=== PATIENT | male | born 1955 | race Caucasian/White ===

== ENCOUNTER 2018-09-10 10:25 | Observation (INO) | payer OTHER ==
[2018-09-10] MEDS ORDERED: Furosemide 40 MG/4 ML VIAL ONE (11:18)
[2018-09-10 11:24] LABS: #Basophils 0.1 thou/uL (0.0-0.2); #Eosinphils 0.1 thou/uL (0.0-0.7); #Lymphocytes 2.1 thou/uL (1.20-3.40); #Monocytes 0.9 thou/uL (0.11-0.59); #Neutrophils 6.8 thou/uL (1.40-6.50); %Basophils 0.8 % (0.0-1.0); %Eosinophils 1.2 % (0.0-10.0); %Lymphocytes 20.9 % (21.0-51.0); %Monocytes 8.7 % (0.0-10.0); %Neutrophils 68.3 % (42.0-75.0); Hemoglobin 14.5 g/dL (14.0-18.0); Mean Corpuscular HGB CONC 32.1 g/dL (32.0-36.0); Mean Corpuscular Hemoglobin 26.8 pg (27.0-31.0); Mean Corpuscular Volume 83.5 fL (78.0-98.0); Mean Platelet Volume 8.9 fL (7.4-10.4); Platelet Count 233 thou/uL (130-400); RBC Distribution Width 14.1 % (11.5-14.5); Red Blood Cell (RBC) Count 5.42 mill/uL (4.70-6.10); White Blood Cell (WBC) Count 9.9 thou/uL (4.8-10.8)
[2018-09-10 11:39] LABS: INR-International Normal Ratio 1.3; Prothrombin Time 16.7 SEC (12.0-14.7)
[2018-09-10 12:31] LABS: Albumin 4.2 g/dL (3.5-5.0)
[2018-09-10 12:32] LABS: Chloride 99 mmol/L (98-107); Potassium 5.7 mmol/L (3.5-5.1); Sodium 134 mmol/L (136-145)
[2018-09-10 12:33] LABS: Calcium 9.9 mg/dL (7.8-10.44); Glucose 337 mg/dL (70-105)
[2018-09-10 12:34] LABS: Globulin 2.7 g/dL (2.4-3.5); Protein, Total 6.9 g/dL (6.0-8.3)
--- NOTE | 2018-09-10 12:34 | RAD ---
PA AND LATERAL CHEST: History: Shortness of breath. FINDINGS: Heart size is slightly enlarged. Post op sternotomy change. There is blunting to the left costophreni c angle and posterior sulcus. This could be chronic in nature or related to small effusion. IMPRESSION: 1. Cardiomegaly. 2. Pleural thickening versus small left pleural effusion. POS: TPC
[2018-09-10 12:35] LABS: Anion Gap 17 mmol/L (10-20); Bilirubin, Total 0.7 mg/dL (0.2-1.2); Carbon Dioxide 24 mmol/L (22-29)
[2018-09-10 12:36] LABS: Alkaline Phosphatase 162 U/L (40-150)
[2018-09-10 12:37] LABS: Calc. Creatinine Clearance 0 mL/min (70-130); Estimated GFR-MDRD 49
[2018-09-10 12:38] LABS: BUN (Urea Nitrogen) 28 mg/dL (8.4-25.7)
[2018-09-10 12:39] LABS: ALT (SGPT) 86 U/L (8-55); AST (SGOT) 80 U/L (5-34)
[2018-09-10 13:54] LABS: CKMB 4.4 ng/mL (0-6.6)
[2018-09-10] MEDS ORDERED: Aspirin Chewable 81 MG TAB ONE (14:31)
--- NOTE | 2018-09-10 15:35 | HP ---
PRIMARY CARE PHYSICIAN: Nas Diez MD REASON FOR ADMISSION: Mild CHF exacerbation. HISTORY OF PRESENT ILLNESS: A 62-year-old male, who has a known history of cardiomyopathy as well as coronary artery disease with a history of CABG, who presented to emergency room for evaluation of dyspnea. The patient was trying to make appointment with primary care physician, but he was not able to see him and that is why he directed his care to Urgent Care. He basically went there because he was feeling sinus congestion, and he also reported them that he was having increasing shortness of breath. At Urgent Care, they did routine testing and the patient was found with pleural effusion, and that is why he was advised to go to emergency room for evaluation. In the emergency room, routine blood test showed elevated BNP, hyperkalemia, and creatinine 1.46 with indeterminate troponin. The patient also reported that for last 3 days he was not taking Lasix because he was feeling nauseated and he was having a very poor appetite, so he did not want to get dehydrated and that is why he stopped taking Lasix for last three days. He noticed shortness of breath last night, as well as this morning, he noticed mild lower extremity edema. He does have chronic mild orthopnea. He denies any chest pain. Though he reported in the emergency room chest pain, but he denies any chest pain to me. He feels nasal congestion, but he denies any recent upper respiratory infection with runny nose, sore throat, flu-like illness. 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 He reports that several years ago when he was diagnosed with congestive heart failure, at that time, EF was 35% and cardiac catheterization was done, which showed 3-vessel coronary artery disease, required CABG, and after CABG, he had continuous improvement and last EF based on echocardiography in October 2017 per the patient was 55%. The patient is religiously taking all his medication other than Lasix for last 3 days. He is not tolerating cholesterol medication because that gives him muscle pain. REVIEW OF SYSTEMS: CONSTITUTIONAL: Negative for weight loss or gain, ability to conduct usual activities. SKIN: Negative for rash, itching. EYES: Negative for double vision, pain. ENT/MOUTH: Negative for nose bleeding, neck stiffness, pain, tenderness. CARDIOVASCULAR: Negative for palpitations, dyspnea on exertion, orthopnea. RESPIRATORY: Negative for shortness of breath, wheezing, cough, hemoptysis, fever or night sweats. GASTROINTESTINAL: Negative for poor appetite, abdominal pain, heartburn, nausea , vomiting, constipation, or diarrhea. GENITOURINARY: Negative for urgency, frequency, dysuria, nocturia. MUSCULOSKELETAL: Negative for pain, swelling. NEUROLOGIC/PSYCHIATRIC: Negative for anxiety, depression. ALLERGY/IMMUNOLOGIC: Negative for skin rash, bleeding tendency. All review of systems reviewed with the patient and negative, except as mentioned in the HPI. PAST MEDICAL HISTORY: Diabetes type 2, hypertension, dyslipidemia, coronary artery disease, chronic kidney disease stage 3, chronic systolic congestive heart failure. PAST SURGICAL HISTORY: CABG, cataract surgery, hernia repair, tonsillectomy. PAST PSYCHIATRIC HISTORY: Reviewed and negative. SOCIAL HISTORY: The patient is denying any tobacco, alcohol, or illicit drug abuse. He is working in [employer]. CURRENT HOME MEDICATIONS: 1. NovoLog insulin 20 units subcu 3 times daily. 2. Metformin 1000 mg twice daily. 3. Coreg 3.125 mg b.i.d. 4. Lisinopril 10 mg daily. 5. Lasix 20 mg p.o. daily. 6. Aspirin 325 mg p.o. daily. 7. He is supposed to take Zocor 40 mg p.o. at bedtime, but he is not taking that medication. ALLERGIES: NO KNOWN DRUG ALLERGY. EMERGENCY ROOM COURSE: The patient has received Lasix 40 mg IV one time dose. FAMILY HISTORY: No Family history of CAD, CVA or cancer. PHYSICAL EXAMINATION: VITAL SIGNS: On arrival, blood pressure 147/97, pulse 99, respiratory rate 14, temperature 98.2, saturation 98% on room air, weight 95.2 kg. GENERAL: The patient is currently alert, oriented x3, no obvious acute distress. HEENT: Head; normocephalic, atraumatic. Eyes; pupils round, reactive to light. Extraocular muscles intact. ENT; oropharynx within normal limit. Moist mucous membrane. No oral lesion. No pharyngeal erythema. No exudate. NECK: Supple. LUNGS: Bibasilar coarse rales noted. No wheezing. No accessory muscles of respiration in use. CARDIAC: S1 and S2 regular without any gallop. No murmur elicited. ABDOMEN: Soft. Bowel sounds present. Nontender. Nondistended. No organomegaly. No mass. No peritoneal sign. EXTREMITIES: Trace pedal edema noted. NEUROLOGIC: Nonfocal examination. SIGNIFICANT LABORATORY DATA: EKG showing sinus tachycardia, mild incomplete RBBB pattern. CBC; WBC 9.9, hemoglobin 14.5, platelet 233. INR 1.3. Sodium 134, potassium 5.7, chloride 99, carbon dioxide 24, BUN 28, creatinine 1.46, glucose 337, calcium 9.9. LFT; AST 88, ALT 86, alkaline phosphatase 162, albumin 4.2, CK-MB 4.4, troponin 0.050. BNP 1505. Chest x-ray, left-sided trace pleural effusion, cardiomegaly. ASSESSMENT AND PLAN: 1. Acute on chronic systolic congestive heart failure ACC stage C based on clinical presentation with dyspnea, edema, elevated BNP, cardiomegaly, pleural effusion. He has congestive heart failure with known history of previous systolic heart failure. We will obtain echocardiography to assess ejection fraction and other structural abnormality. Meanwhile, we will treat him with Lasix 40 mg IV b.i.d. We will also give him Zaroxolyn today and tomorrow. Upon discharge, we will resume his own Lasix. We will continue with Coreg 3.125 mg p.o. b.i.d. We will hold on lisinopril therapy because of his hyperkalemia. We will repeat BMP tomorrow. We will check magnesium, thyroid, TSH, and uric acid. Replace electrolytes as needed basis. We will do serial cardiac enzyme and rule out any acute coronary syndrome. 2. Electrolyte abnormality. Sodium is low, likely related with congestive heart failure. Hyperkalemia probably related with lisinopril. 3. Chronic kidney disease stage 3, which is baseline. We will monitor renal function. 4. Abnormal liver function test, suspecting from congestion versus fatty liver. We will repeat LFT tomorrow. 5. Diabetes type 2, uncontrolled. We will hold metformin while in hospital. Continue with insulin as per sliding scale, and his home insulin will be continued. We will check hemoglobin A1c tomorrow to see overall control. 6. Elevated troponin. We will do serial cardiac enzyme x3. Most likely related with demand ischemia. 7. Coronary artery disease with history of coronary artery bypass graft. Continue aspirin. Check lipid profile tomorrow. The patient is not tolerating statin therapy because of myalgia. If troponin is significantly increasing, then in that case, we will consider Cardiology evaluation. Nitroglycerin p.r.n. basis only. 8. Deep vein thrombosis prophylaxis, Lovenox 40 mg subcu daily. Gastrointestinal prophylaxis, Pepcid 20 mg p.o. b.i.d. CODE STATUS: The patient is full code. The patient does make decision by himself. He does not have any obvious surrogate decision maker. DISPOSITION: Disposition plan within 24 hours. Plan of care discussed with the patient in detail. Job ID: [id number] [facility] CENTERNadira
[2018-09-10] MEDS ORDERED: Acetaminophen 325 MG TAB PO PRN (16:31)
[2018-09-10] MEDS ORDERED: Senokot S 8.6-50 MG TAB PO PRN (16:31)
[2018-09-10] MEDS ORDERED: Metolazone 5 MG TAB PO SCH (16:31)
[2018-09-10] MEDS ORDERED: Dextrose 50% Abboject 50 ML SYRINGE SLOW IVP PRN (16:31)
[2018-09-10] MEDS ORDERED: Zolpidem Tartrate 5 MG TAB PO PRN (16:31)
[2018-09-10] MEDS ORDERED: Dextrose 5% in Water 1,000 ML IV PRN (16:31)
[2018-09-10] MEDS ORDERED: Eucerin (Mineral Oil/Petrolatum,White) 30 gm Jar TOP PRN (16:31)
[2018-09-10] MEDS ORDERED: Sodium Chloride 0.65% Nasal 44 ML BOT EA NARE PRN (16:31)
[2018-09-10] MEDS ORDERED: hydrALAZINE 20 MG/ML VIAL SLOW IVP PRN (16:31)
[2018-09-10] MEDS ORDERED: Bisacodyl 10 MG SUPP PR PRN (16:31)
[2018-09-10] MEDS ORDERED: Ondansetron ODT 4 MG TAB PO PRN (16:31)
[2018-09-10] MEDS ORDERED: Loratadine 10 MG TAB PO PRN (16:31)
[2018-09-10] MEDS ORDERED: Bisacodyl 5 MG TAB PO PRN (16:31)
[2018-09-10] MEDS ORDERED: Artificial Tears 18 DROP/0.9 ML EA EYE PRN (16:31)
[2018-09-10] MEDS ORDERED: Diabetic Tussin 200 MG/10 ML UDCUP PO PRN (16:31)
[2018-09-10] MEDS ORDERED: HumaLOG 300 UNITS/3 ML VIAL SC PRN ×2 (16:31)
[2018-09-10] MEDS ORDERED: Ondansetron PF 4 MG/2 ML Vial IVP PRN (16:31)
[2018-09-10] MEDS ORDERED: Loperamide HCl 2 MG CAP PO PRN (16:31)
[2018-09-10] MEDS ORDERED: Calcium Carbonate 500 MG ChewTAB PO PRN (16:31)
[2018-09-10] MEDS ORDERED: Cepastat Lozenges 1 LOZ PO PRN (16:31)
[2018-09-10] MEDS ORDERED: HYDROcodone/Acetaminophen 5/325 mg Tablet PO PRN (16:31)
[2018-09-10] MEDS ORDERED: Nitroglycerin 0.4 MG TAB (25 Tab Bottle) SL PRN (16:31)
[2018-09-10 20:33] LABS: Troponin I 0.063 ng/mL (< 0.028)
[2018-09-10 21:07] LABS: Bilirubin Negative (Negative); Blood, Urine Negative (Negative); Clarity CLEAR (Clear); Glucose, Urine (Dipstick) >=1000 mg/dL (Negative); Leukocyte Negative (Negative); Nitrite Negative (Negative); Protein, Urine (Dipstick) Negative (Neg-Trace); Specific Gravity, Urine 1.022 (1.002-1.036); pH, Urine 5.5 (5.0-9.0)
[2018-09-10] MEDS: Famotidine 20 MG TAB PO SCH (21:18)
[2018-09-10] MEDS: Carvedilol 3.125 MG TAB PO SCH (21:18)
[2018-09-11 01:20] VITALS: BMI 31.3
[2018-09-11 05:22] LABS: #Basophils 0.1 thou/uL (0.0-0.2); #Eosinphils 0.2 thou/uL (0.0-0.7); #Lymphocytes 1.6 thou/uL (1.20-3.40); #Monocytes 0.8 thou/uL (0.11-0.59); #Neutrophils 4.4 thou/uL (1.40-6.50); %Basophils 1.2 % (0.0-1.0); %Eosinophils 2.9 % (0.0-10.0); %Lymphocytes 23.2 % (21.0-51.0); %Monocytes 10.9 % (0.0-10.0); %Neutrophils 61.7 % (42.0-75.0); Hemoglobin 13.7 g/dL (14.0-18.0); Mean Corpuscular HGB CONC 32.8 g/dL (32.0-36.0); Mean Corpuscular Hemoglobin 27.2 pg (27.0-31.0); Mean Corpuscular Volume 82.9 fL (78.0-98.0); Mean Platelet Volume 8.7 fL (7.4-10.4); Platelet Count 203 thou/uL (130-400); RBC Distribution Width 14.4 % (11.5-14.5); Red Blood Cell (RBC) Count 5.05 mill/uL (4.70-6.10)
[2018-09-11] MEDS: Furosemide 40 MG/4 ML VIAL SLOW IVP SCH ×2 (05:29→13:05)
[2018-09-11 05:31] LABS: Hemoglobin A1c 11.8 % (4.0-6.0)
[2018-09-11 05:43] LABS: ALT (SGPT) 81 U/L (8-55); AST (SGOT) 60 U/L (5-34); Albumin 3.7 g/dL (3.5-5.0); Alkaline Phosphatase 140 U/L (40-150); Anion Gap 16 mmol/L (10-20); BUN (Urea Nitrogen) 29 mg/dL (8.4-25.7); Bilirubin, Total 0.4 mg/dL (0.2-1.2); Calc. Creatinine Clearance 76 mL/min (70-130); Calcium 9.3 mg/dL (7.8-10.44); Carbon Dioxide 27 mmol/L (22-29); Chloride 95 mmol/L (98-107); Cholesterol 153 mg/dl (< 200 Desired); Estimated GFR-MDRD 54; Globulin 2.4 g/dL (2.4-3.5); Glucose 290 mg/dL (70-105); HDL Cholesterol 22 mg/dL (>60 Neg Risk); LDL Cholesterol, Calculated 110 mg/dL; Magnesium 1.5 mg/dL (1.6-2.6); Potassium 4.6 mmol/L (3.5-5.1); Protein, Total 6.1 g/dL (6.0-8.3); Sodium 133 mmol/L (136-145); Triglycerides 107 mg/dL (Less than 150); Uric Acid 8.4 mg/dL (3.5-7.2)
[2018-09-11] MEDS ORDERED: Metolazone 5 MG TAB PO SCH (08:30)
[2018-09-11] MEDS: Famotidine 20 MG TAB PO SCH (08:31)
[2018-09-11] MEDS: Carvedilol 3.125 MG TAB PO SCH (08:32)
[2018-09-11] MEDS ORDERED: Aspirin 325 MG TAB PO SCH (09:00)
[2018-09-11] MEDS ORDERED: Enoxaparin Sodium 40 MG/0.4 ML SYRINGE SC SCH (09:00)
[2018-09-11] MEDS ORDERED: Fluticasone Propionate Nasal Spray 16 gm Bottle NASAL SCH (09:00)
[2018-09-11] MEDS ORDERED: NPH, Human Insulin Isophane 300 UNIT/3 ML VIAL SC SCH ×3 (09:00→17:00)
[2018-09-11] MEDS ORDERED: Magnesium Sulfate 3 GM in Sodium Chloride 0.9% 100 ML IVPB SCH (09:00)
[2018-09-11 11:34] VITALS: TEMP 97.5
--- NOTE | 2018-09-11 11:35 | DIS ---
DATE OF ADMISSION: 09/10/2018 DATE OF DISCHARGE: 09/11/2018 PRIMARY CARE PHYSICIAN: Nas Diez MD DISCHARGE DISPOSITION: Home. PRIMARY DISCHARGE DIAGNOSES: 1. Acute on chronic systolic congestive heart failure exacerbation. 2. Demand ischemia of myocardium. 3. Hypomagnesemia, replaced. SECONDARY DISCHARGE DIAGNOSES: Obesity, hypertension, dyslipidemia, diabetes type 2, chronic kidney disease stage 3, coronary artery disease, chronic systolic heart failure. PRIMARY PROCEDURE/OPERATION: None. RADIOLOGICAL INVESTIGATION: Chest x-ray showed left pleural effusion. SIGNIFICANT LABORATORY DATA: WBC 7.0, hemoglobin 13.7, platelet 203. INR 1.3. Sodium 133, potassium 4.6, BUN 29, creatinine 1.35, calcium 8.4, magnesium 1.5. Hemoglobin A1c 11.8. AST 60, ALT 81, alkaline phosphatase 140, albumin 3.7. LDL 110. TSH 0.79. Urinalysis unremarkable. DISCHARGE MEDICATIONS: 1. Aspirin 325 mg p.o. daily. 2. Coreg 3.125 mg p.o. b.i.d. 3. Lasix 40 mg p.o. daily. 4. Novolin N 20 units subcu t.i.d. 5. Lisinopril 10 mg daily. 6. Metformin 1000 mg p.o. b.i.d. 7. Tramadol 50 mg q.6 hourly p.r.n. CONTRAINDICATION: None. CODE STATUS: Full code. 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 Rojo was consulted while in hospital. TEST RESULT PENDING ON DISCHARGE: Echocardiography. DISCHARGE PLAN: Posthospital, the patient will follow up with primary care physician as well as Cardiology, Dr. Rojo, after discharge. HOSPITAL COURSE: A 62-year-old male with above-mentioned medical problem, who was admitted by me. Please see my HPI for further details. This patient has underlying history of congestive heart failure. He was having increasing shortness of breath, and that is why we kept him in the hospital. We treated him with Lasix and Zaroxolyn with significant improvement. This patient's diabetes is not well controlled, but he wanted to see his primary care physician for further adjustment of therapy. To establish the care, we consulted Cardiology. Echocardiography is ordered, but result is pending. Later on today, after Cardiology consultation and echocardiography done, we will consider discharging him home as the patient wants to go home today. He will continue above-mentioned medication. The patient is medically stable. I saw him bedside and examined him. His examination is normal. He is given heart failure education and dietary education. Fluid restriction discussed with him. The patient is also advised to make appointment with Cardiology and Heart Failure [facility] after discharge. Job ID: [id number]
[2018-09-11 11:47] VITALS: BP 136/88
--- NOTE | 2018-09-11 15:38 | CON ---
DATE OF CONSULTATION: REASON FOR CONSULTATION: Congestive heart failure. HISTORY OF PRESENT ILLNESS: Mr. Ba is a 62-year-old gentleman, who previously was seen at [facility]. He no longer has insurance covered at [facility] ([place]) and is no longer being seen. He recently presented to an outpatient urgent care with sinus infection. He mentioned he had shortness of breath and lower extremity edema. He was recommended to proceed to the emergency room. He denies PND or orthopnea. He currently feels well and back to baseline. PAST MEDICAL HISTORY: CAD status post bypass surgery 2 years ago, diabetes mellitus, hyperlipidemia, and chronic kidney disease. PAST SURGICAL HISTORY: As above. Cataract surgery, hernia repair, and tonsillectomy. HOME MEDICATIONS: Include; 1. NovoLog. 2. Metformin. 3. Coreg. 4. Lisinopril. 5. Lasix. 6. Aspirin. ALLERGIES: NONE. REVIEW OF SYSTEMS: A 10-point review of systems is reviewed and as above, otherwise negative. PHYSICAL EXAMINATION: VITAL SIGNS: Blood pressure 139/89, pulse 79, and temperature 97.5. GENERAL: Patient is a pleasant male who is in no acute distress. The patient appears their stated age. NEUROLOGIC: The patient is alert and oriented x3 with no focal neurologic deficits. HEENT: Sclerae without icterus. Mouth has moist mucous membranes with normal pallor. NECK: No JVD. Carotid upstroke brisk. No bruits bilaterally. LUNGS: Clear to auscultation with unlabored respirations. BACK: No scoliosis or kyphosis. CARDIAC: Regular rate and rhythm with normal S1 and S2. No S3 or S4 noted. No significant rubs, murmurs, thrills, or gallops noted throughout the precordium. PMI is not displaced. There is no parasternal heave. ABDOMEN: Soft, nontender, nondistended. No peritoneal signs present. No hepatosplenomegaly. No abnormal striae. EXTREMITIES: 2+ femoral and 2+ dorsalis pedis pulses. No cyanosis, clubbing, or edema. SKIN: No gross abnormalities. PERTINENT LABORATORY DATA: Hemoglobin 13.7, hematocrit 41.9, and platelet count of 203. IMPRESSION: 1. Acute on chronic systolic heart failure. 2. Coronary artery disease. 3. Status post bypass surgery. RECOMMENDATIONS: Mr. Ba is back to baseline. His LVEF did suggest LVEF 25% to 30%. I discussed the importance of LifeVest given his low LVEF. He states he is ready to go home and would prefer to do this as an outpatient. He understands risks of sudden cardiac , although risks are low over the next several weeks. Continue beta-maegan therapy, angiotensin-converting enzyme inhibitor therapy, and aspirin. We would also add statin therapy. Plan is follow up Mr. Ba in the office in 1 week. Job ID: [id number]
[2018-09-12] MEDS ORDERED: metFORMIN 500 MG TAB PO SCH (09:00)
== END 2018-09-11 15:26 | disposition home or self-care (01) ==
LOC: ERS 10:25 → ERHOLD 14:22 → 2NO 19:26
PROVIDERS: ADMIT Internal Medicine; ATTEND Internal Medicine
DX: I13.0 Hypertensive heart and chronic kidney disease with heart failure and stage 1 through stage 4 chronic kidney disease, or unspecified chronic kidney disease (principal); E11.22 Type 2 diabetes mellitus with diabetic chronic kidney disease; N18.3 Chronic kidney disease, stage 3 (moderate); I50.23 Acute on chronic systolic (congestive) heart failure; I24.8 Other forms of acute ischemic heart disease; E83.42 Hypomagnesemia; I25.10 Atherosclerotic heart disease of native coronary artery without angina pectoris; E87.5 Hyperkalemia; E78.5 Hyperlipidemia, unspecified; R94.5 Abnormal results of liver function studies; E66.9 Obesity, unspecified; Z68.31 Body mass index [BMI] 31.0-31.9, adult; Z79.4 Long term (current) use of insulin; Z79.82 Long term (current) use of aspirin; Z79.899 Other long term (current) drug therapy; Z95.1 Presence of aortocoronary bypass graft
CPT/HCPCS: 36415; 36416; 71046; 80053; 80061; 81003; 82553; 83036; 83735; 83880; 84443; 84484; 84550; 85025; 85610; 85730; 93005; 93306; 93798; 94760; 96372; 96374; 96375; 96376; G0378; J1650; J1815; J1940; J3475; J7050

== ENCOUNTER 2019-01-01 04:52 | Observation (INO) | payer OTHER ==
[2019-01-01] MEDS ORDERED: Promethazine HCl 25 MG/ML VIAL ONE (05:16)
[2019-01-01 05:21] LABS: #Basophils 0.1 thou/uL (0.0-0.2); #Eosinphils 0.2 thou/uL (0.0-0.7); #Monocytes 1.2 thou/uL (0.11-0.59); #Neutrophils 7.2 thou/uL (1.40-6.50); %Basophils 0.7 % (0.0-1.0); %Eosinophils 1.8 % (0.0-10.0); %Lymphocytes 18.5 % (21.0-51.0); %Monocytes 11.5 % (0.0-10.0); %Neutrophils 67.5 % (42.0-75.0); Hemoglobin 14.7 g/dL (14.0-18.0); Mean Corpuscular HGB CONC 32.1 g/dL (32.0-36.0); Mean Corpuscular Hemoglobin 26.2 pg (27.0-31.0); Mean Corpuscular Volume 81.7 fL (78.0-98.0); Mean Platelet Volume 8.7 fL (7.4-10.4); Platelet Count 224 thou/uL (130-400); RBC Distribution Width 13.9 % (11.5-14.5); Red Blood Cell (RBC) Count 5.62 mill/uL (4.70-6.10); White Blood Cell (WBC) Count 10.6 thou/uL (4.8-10.8)
[2019-01-01 05:42] LABS: ALT (SGPT) 154 U/L (8-55); AST (SGOT) 131 U/L (5-34); Albumin 4.4 g/dL (3.4-4.8); Alkaline Phosphatase 142 U/L (40-150); Anion Gap 15 mmol/L (10-20); BUN (Urea Nitrogen) 32 mg/dL (8.4-25.7); Bilirubin, Total 0.8 mg/dL (0.2-1.2); CK (CPK) 168 U/L (30-200); Calc. Creatinine Clearance 0 mL/min (70-130); Carbon Dioxide 26 mmol/L (23-31); Chloride 97 mmol/L (98-107); Estimated GFR-MDRD 49; Globulin 2.8 g/dL (2.4-3.5); Glucose 255 mg/dL (80-115); Potassium 4.9 mmol/L (3.5-5.1); Protein, Total 7.2 g/dL (5.8-8.1); Sodium 133 mmol/L (136-145)
[2019-01-01 06:05] LABS: CKMB 4.2 ng/mL (0-6.6)
[2019-01-01] MEDS ORDERED: Furosemide 40 MG/4 ML VIAL ONE (06:58)
--- NOTE | 2019-01-01 08:11 | RAD ---
PORTABLE CHEST: Date: 01/01/19 HISTORY: Chest pain. COMPARISON: 09/10/18. FINDINGS: Left CP angle is obscured and left hemidiaphragm is not well delineated. Findings suggest left effusi on and left basilar infiltrate or atelectasis, similar in appearance to the prior exam. Lung cerda otherwise clear and unchanged. There is mild cardiomegaly with postop sternotomy changes. IMPRESSION: Question left basilar infiltrate or atelectasis as described above. POS: OFF
[2019-01-01 08:43] VITALS: BMI 31.0
[2019-01-01] MEDS ORDERED: Dextrose 5% in Water 1,000 ML IV PRN (08:48)
[2019-01-01] MEDS ORDERED: Dextrose 50% Abboject 50 ML SYRINGE SLOW IVP PRN (08:48)
[2019-01-01] MEDS ORDERED: HumaLOG 300 UNITS/3 ML VIAL SC PRN ×2 (08:48)
[2019-01-01] MEDS ORDERED: Non-Formulary Item 1 EACH (Metformin Hcl [Metformin Hcl] 1,000 MG) PO SCH (09:00)
[2019-01-01] MEDS ORDERED: Aspirin 325 MG TAB PO SCH (09:00)
[2019-01-01] MEDS ORDERED: Insulin Glargine 40 UNITS in Pre-Filled Syringe 1 EACH SC SCH ×2 (09:00→21:00)
[2019-01-01] MEDS ORDERED: Carvedilol 3.125 MG TAB PO SCH (09:00)
[2019-01-01] MEDS: Lisinopril 10 MG TAB PO SCH (09:45)
[2019-01-01] MEDS: metFORMIN 500 MG TAB PO SCH ×2 (09:46→21:07)
[2019-01-01 12:05] LABS: Troponin I 0.058 ng/mL (< 0.028)
[2019-01-01] MEDS ORDERED: Acetaminophen 325 MG TAB PO PRN (13:36)
[2019-01-01] MEDS ORDERED: Guaifenesin DM 100-10/5 ML UDCUP PO PRN (13:36)
[2019-01-01] MEDS ORDERED: Acetaminophen 650 MG Suppository PR PRN (13:36)
[2019-01-01] MEDS ORDERED: Ondansetron ODT 4 MG TAB PO PRN (13:36)
[2019-01-01] MEDS ORDERED: Ondansetron PF 4 MG/2 ML Vial IVP PRN (13:36)
[2019-01-01] MEDS ORDERED: traMADol HCl 50 MG TAB PO PRN (13:43)
[2019-01-01] MEDS: Furosemide 40 MG/4 ML VIAL SLOW IVP SCH (13:58)
--- NOTE | 2019-01-01 17:28 | HP ---
PRIMARY CARE PHYSICIAN: Nas Diez MD CHIEF COMPLAINT: Dyspnea on exertion. HISTORY OF PRESENT ILLNESS: This is a 63-year-old white male with a known history of coronary artery disease, CABG done 2 years ago, who developed acute onset of congestive heart failure earlier this year in August. He was in the hospital for a day. He had diuresis done and resolution of his symptoms. He had been having dyspnea on exertion and also twinging chest pains. The patient followed with Dr. Rojo and had seen him regularly. He had a stress test done and it was normal in the outpatient. He then started feeling a little nauseated after eating a meal with his on Monday. His got nauseated and vomited and had gastroenteritis. He started feeling nauseated and vomited once as well. The next day, he felt nauseated also and started having dyspnea on exertion. He did not notice any significant swelling of his legs, but did start having some twinging chest pains occasionally, sharp pinch in his chest or in his mid back, but it would immediately resolve. He had vomiting again yesterday and so eventually came into the hospital. The patient was seen in the emergency room. He was noted to have an indeterminate troponin that was consistent with his previous troponins from August. He also had a brain natriuretic peptide that was slightly worse from his last hospitalization, and so he was given furosemide in the emergency room and put in observation in the hospital. PAST MEDICAL HISTORY: 1. Diabetes mellitus type 2, insulin dependent. 2. Hypertension. 3. Dyslipidemia. 4. Coronary artery disease. 5. Chronic kidney disease, stage 3. 6. Chronic systolic congestive heart failure with an ejection fraction of 25% to 30% in August of 2018. PAST SURGICAL HISTORY: 1. Coronary artery bypass grafting. 2. Cataract surgery. 3. Hernia repair. 4. Tonsillectomy. SOCIAL HISTORY: The patient quit smoking 30 years ago. No alcohol or illicit drug use. He is and lives with his . FAMILY HISTORY: Mother and maternal grandfather both had coronary artery disease. Mother of lung cancer. Father and paternal grandmother both had congestive heart failure, and he had an aunt and uncle who of acute myocardial infarctions. ALLERGIES: NO KNOWN DRUG ALLERGIES. CURRENT MEDICATIONS: 1. Aspirin 81 mg daily. 2. Carvedilol 6.25 mg 1-1/2 tablets twice a day. 3. Furosemide 40 mg daily. 4. Tresiba 40 units at night. 5. Lisinopril 10 mg daily. 6. Metformin 1000 mg twice a day. REVIEW OF SYSTEMS: CONSTITUTIONAL: No fevers. No chills. EYES: No double vision or blurred vision. ENT: He has a little runny nose. No congestion or sore throat. CARDIOVASCULAR: See HPI. No palpitations. No current chest pain. PULMONARY: See HPI. No coughing or sputum production. No shortness of breath at rest. GASTROINTESTINAL: See HPI. The patient does have some crampy mid epigastric pain that is much better now after nausea medicine given in the emergency room. No diarrhea or constipation. GENITOURINARY: No dysuria or hematuria. MUSCULOSKELETAL: He has some generalized muscle aches for the last couple of days. SKIN: No rashes or lesions noted. NEUROLOGIC: No numbness, tingling, or focal weakness. PHYSICAL EXAMINATION: VITAL SIGNS: Blood pressure 123/78, pulse 80, respirations 20, O2 saturation 96% on room air, temperature 98.6. GENERAL: This is a well-developed, well-nourished white male, in no acute distress. HEENT: Pupils are equal, round, and reactive to light. Oropharynx is clear without lesions, erythema, or exudate. NECK: Supple. No lymphadenopathy. No thyroid nodules or enlargement. HEART: Regular rate and rhythm. No murmurs, rubs, or gallops. LUNGS: Clear to auscultation bilaterally. No wheezes, crackles, or rhonchi. ABDOMEN: Soft. Mild tenderness to palpation in the mid epigastric region. Normoactive bowel sounds. No hepatosplenomegaly or other masses. EXTREMITIES: No clubbing, cyanosis, or edema. SKIN: No rashes or lesions noted. NEUROLOGIC: Intact strength and sensation in all extremities. No facial droop. LABORATORY DATA: CBC within normal limits. Complete metabolic panel notable for a sodium of 133, chloride of 97, BUN of 32, creatinine of 1.45, glucose of 255, AST of 131, ALT of 154. Negative lipase. Troponin indeterminate at 0.072, recheck 0.060. These are consistent with previous admission. Beta natriuretic peptide 1696, which is higher than the 1500 he came in with his CHF exacerbation last time. DIAGNOSTIC DATA: I reviewed the chest x-ray done in the emergency room along with the radiologist's report. There is some questionable atelectasis in the left base, otherwise clear of any evidence of pulmonary edema or infection. ASSESSMENT AND PLAN: 1. Acute exacerbation of systolic congestive heart failure. We will give Lasix 40 mg IV twice a day and recheck symptoms in the morning. The patient is having some mild pinching chest pains. These are very mild. He has no corresponding elevation of his troponins. He did have a coronary artery bypass grafting within the last couple of years and a recent negative stress test, so I am doubtful that he is having any symptomatic angina. We will reassess his symptoms after diuresis in the morning. If the patient is continuing to be very symptomatic, then we may need to get Dr. Rojo to come by and see him. 2. Nausea and vomiting, likely acute gastroenteritis similar to his 's symptoms. This may have been what set off his recent exacerbation of congestive heart failure. We will give p.r.n. Zofran as needed. Currently, he is feeling better. 3. Diabetes mellitus type 2, insulin dependent. We will resume the patient's insulin, and we will check his fingerstick blood sugars before meals and at bedtime with moderate insulin sliding scale. 4. Hypertension. We will resume the patient's home medications. 5. Chronic kidney disease. We will monitor creatinine closely as we diurese him. 6. Gastrointestinal prophylaxis. We will put the patient on Pepcid twice a day. 7. Deep venous thrombosis prophylaxis. We will put the patient on SCDs while in bed. CODE STATUS: I did discuss with the patient he is a full code. Should he be incapacitated, he states that his would be his medical decision maker, her name is Ban Ba. Job ID: [id number]
[2019-01-01] MEDS ORDERED: Non-Formulary Item 1 EACH (Insulin Degludec [Tresiba Flextouch U-100] 40 UNIT) SC SCH (21:00)
[2019-01-01] MEDS ORDERED: Carvedilol 6.25 MG TAB PO SCH (21:00)
[2019-01-01] MEDS: Carvedilol 6.25 MG TAB PO SCH (21:06)
[2019-01-01] MEDS: Famotidine 20 MG TAB PO SCH (21:07)
[2019-01-02 05:31] LABS: #Basophils 0.1 thou/uL (0.0-0.2); #Eosinphils 0.3 thou/uL (0.0-0.7); #Lymphocytes 1.7 thou/uL (1.20-3.40); #Monocytes 0.8 thou/uL (0.11-0.59); %Eosinophils 4.5 % (0.0-10.0); %Monocytes 11.9 % (0.0-10.0); %Neutrophils 58.7 % (42.0-75.0); Hemoglobin 13.1 g/dL (14.0-18.0); Mean Corpuscular HGB CONC 32.4 g/dL (32.0-36.0); Mean Corpuscular Hemoglobin 26.6 pg (27.0-31.0); Mean Corpuscular Volume 81.9 fL (78.0-98.0); Mean Platelet Volume 8.6 fL (7.4-10.4); Platelet Count 184 thou/uL (130-400); RBC Distribution Width 13.9 % (11.5-14.5); Red Blood Cell (RBC) Count 4.94 mill/uL (4.70-6.10); White Blood Cell (WBC) Count 6.9 thou/uL (4.8-10.8)
[2019-01-02 05:58] LABS: Anion Gap 16 mmol/L (10-20); BUN (Urea Nitrogen) 35 mg/dL (8.4-25.7); Calc. Creatinine Clearance 82 mL/min (70-130); Calcium 9.1 mg/dL (7.8-10.44); Carbon Dioxide 25 mmol/L (23-31); Chloride 96 mmol/L (98-107); Estimated GFR-MDRD 59; Glucose 198 mg/dL (80-115); Potassium 3.6 mmol/L (3.5-5.1); Sodium 133 mmol/L (136-145)
[2019-01-02] MEDS: Furosemide 40 MG/4 ML VIAL SLOW IVP SCH (06:05)
--- NOTE | 2019-01-02 07:18 | PDOC.PN ---
- Subjective Encounter Start Date: 01/02/19 Encounter Start Time: 09:10 Subjective: Patient feeling much better. Eating well now. No SOB. Ambulating -: well. Ready to go home. - Objective Resuscitation Status - Order Detail: 01/01/19 13:33 Resuscitation Status Routine Resuscitation Status: FULL: Full Resuscitation Discussed with: patient MAR Reviewed: Yes Vital Signs & Weight: Vital Signs (12 hours) Temp Pulse Resp BP BP Pulse Ox 01/02/19 03:43 97.5 F L 76 20 114/65 97 01/01/19 23:37 98.2 F 78 16 122/67 96 01/01/19 21:06 109/73 Weight Weight 204 lb I&O: 01/01/19 01/02/19 01/03/19 06:59 06:59 06:59 Intake Total 1445 Output Total 2225 Balance -780 Result Diagrams: 01/02/19 04:48 01/02/19 04:48 Additional Labs: Accuchecks 01/01/19 01/01/19 01/01/19 23:38 20:38 16:38 POC Glucose 283 H Greater than 550 H* 291 H 01/01/19 10:48 POC Glucose 271 H Phys Exam - Physical Examination Constitutional: NAD HEENT: moist MMs Respiratory: no wheezing, no rales, no rhonchi, clear to auscultation bilateral Cardiovascular: RRR, no significant murmur Gastrointestinal: soft, positive bowel sounds Musculoskeletal: no edema Neurological: non-focal Psychiatric: normal affect, A&O x 3 Dx/Plan (1) Acute on chronic systolic ACC/AHA stage C congestive heart failure Code(s): I50.23 - ACUTE ON CHRONIC SYSTOLIC (CONGESTIVE) HEART FAILURE Status : Acute Comment: diuresed well overnight (2) Acute gastroenteritis Code(s): K52.9 - NONINFECTIVE GASTROENTERITIS AND COLITIS, UNSPECIFIED Status : Resolved Comment: nausea and vomiting resolved, with same symptoms, likely viral (3) Diabetes mellitus type 2, insulin dependent Code(s): E11.9 - TYPE 2 DIABETES MELLITUS WITHOUT COMPLICATIONS; Z79.4 - ALF (CURRENT) USE OF INSULIN Status: Acute Comment: uncontrolled, may need increased insulin dose (4) Acute worsening of stage 3 chronic kidney disease Code(s): N18.3 - CHRONIC KIDNEY DISEASE, STAGE 3 (MODERATE) Status: Acute Comment: resolved this AM after diuresis (5) CAD (coronary artery disease) Code(s): I25.10 - ATHSCL HEART DISEASE OF [place] CORONARY ARTERY W/O ANG PCTRS Status: Chronic Comment: S/P CABG 2 years ago, recent negative stress test (6) Dyslipidemia Code(s): E78.5 - HYPERLIPIDEMIA, UNSPECIFIED Status: Chronic (7) Hypertension Code(s): I10 - ESSENTIAL (PRIMARY) HYPERTENSION Status: Chronic (8) Obesity (BMI 30.0-34.9) Code(s): E66.9 - OBESITY, UNSPECIFIED Status: Chronic - Plan cont current plan of care D/C home, f/u about DM with PCP and with Dr. Rojo next 1-2 weeks * . - Discharge Day Encounter end time: 09:35
[2019-01-02 07:55] VITALS: TEMP 97.6
[2019-01-02] MEDS: Famotidine 20 MG TAB PO SCH (08:31)
[2019-01-02] MEDS: metFORMIN 500 MG TAB PO SCH (08:31)
[2019-01-02] MEDS: Carvedilol 6.25 MG TAB PO SCH (08:31)
[2019-01-02] MEDS: Lisinopril 10 MG TAB PO SCH (08:31)
[2019-01-02 08:33] VITALS: BP 109/73
[2019-01-02] MEDS ORDERED: Aspirin Chewable 81 MG TAB PO SCH (09:00)
--- NOTE | 2019-01-03 01:57 | DIS ---
DATE OF ADMISSION: 01/01/2019 DATE OF DISCHARGE: 01/02/2019 PRIMARY CARE PHYSICIAN: Dr. Nas Diez. PAVING CONTRACTOR: Dr. Rojo. REASON FOR ADMISSION: Acute exacerbation of systolic congestive heart failure. DIAGNOSES AT DISCHARGE: 1. Acute on chronic systolic congestive heart failure, stage C, improved. 2. Acute gastroenteritis, resolved. 3. Diabetes mellitus type 2, insulin dependent with hyperglycemia. 4. Acute worsening of stage 3 chronic kidney disease, resolved. 5. Coronary artery disease. 6. Dyslipidemia. 7. Hypertension. 8. Obesity. PROCEDURES: None. CONSULTATIONS: None. SUMMARY OF HOSPITAL COURSE: This is a 63-year-old white male with known history of coronary artery disease, CABG and, systolic congestive heart failure. He follows with Dr. Rojo, has had a recent stress test that was normal. The patient had a meal with his on Monday and they both got nauseated. She developed nausea, vomiting, diarrhea. He did start to feel nauseated, eventually vomited. The nausea and vomiting went on and off for the next few days and he started having dyspnea on exertion and some sharp pinches in his chest, which he often gets when his CHF is acting up. The patient was seen in the emergency room, given furosemide with good diuresis, observed overnight. He had indeterminate troponins that were consistent with his last hospitalization, no elevations beyond baseline. He did have an elevated creatinine that improved with diuresis in the hospital back down to baseline. The next day, the patient was back to his normal status. He was able to ambulate without shortness of breath. He had no more chest pinching pains. He had no changes on EKG and he was eating well without any further nausea or vomiting. He is being discharged home. DISCHARGE MANAGEMENT: Discharged home. FOLLOWUP: Follow up with Dr. Rojo in 1 to [address] Diez in 1 to 2 weeks about his diabetes with elevated blood sugars. ACTIVITY: As tolerated. DIET: Fluid restricted, healthy heart, low-sodium diet. MEDICATIONS: The patient is to resume all home medications. 1. Aspirin 81 mg daily. 2. Carvedilol 6.25 mg 1-1/2 tablets twice a day. 3. Lisinopril 10 mg daily. 4. Metformin 1000 mg twice a day. 5. Tramadol as needed. 6. Furosemide 40 mg daily. 7. Tresiba 40 units each night. Job ID: [id number]
== END 2019-01-02 10:13 | disposition home or self-care (01) ==
LOC: ERS 04:52 → 2SW 08:36
PROVIDERS: ADMIT Family Medicine; ATTEND Family Medicine
DX: I13.0 Hypertensive heart and chronic kidney disease with heart failure and stage 1 through stage 4 chronic kidney disease, or unspecified chronic kidney disease (principal); E11.22 Type 2 diabetes mellitus with diabetic chronic kidney disease; N18.3 Chronic kidney disease, stage 3 (moderate); I50.23 Acute on chronic systolic (congestive) heart failure; I25.10 Atherosclerotic heart disease of native coronary artery without angina pectoris; E78.5 Hyperlipidemia, unspecified; K52.9 Noninfective gastroenteritis and colitis, unspecified; E66.9 Obesity, unspecified; Z68.31 Body mass index [BMI] 31.0-31.9, adult; Z87.891 Personal history of nicotine dependence; Z79.4 Long term (current) use of insulin; Z79.82 Long term (current) use of aspirin; Z79.899 Other long term (current) drug therapy; Z95.1 Presence of aortocoronary bypass graft
CPT/HCPCS: 36415; 36416; 71045; 80048; 80053; 82550; 82553; 83690; 83880; 84484; 85025; 93005; 96365; 96375; 96376; G0378; J1825; J1940; J2550

== ENCOUNTER 2019-06-14 06:31 | Inpatient (IN) | payer OTHER ==
[2019-06-14 07:45] LABS: #Eosinphils 0.2 thou/uL (0.0-0.7); #Monocytes 0.9 thou/uL (0.11-0.59); #Neutrophils 12.6 thou/uL (1.40-6.50); %Basophils 0.3 % (0.0-1.0); %Eosinophils 1.5 % (0.0-10.0); %Lymphocytes 6.6 % (21.0-51.0); %Monocytes 6.2 % (0.0-10.0); %Neutrophils 85.3 % (42.0-75.0); Hemoglobin 12.8 g/dL (14.0-18.0); Mean Corpuscular HGB CONC 31.9 g/dL (32.0-36.0); Mean Corpuscular Volume 84.8 fL (78.0-98.0); Mean Platelet Volume 8.1 fL (7.4-10.4); Platelet Count 146 thou/uL (130-400); RBC Distribution Width 15.9 % (11.5-14.5); Red Blood Cell (RBC) Count 4.73 mill/uL (4.70-6.10); White Blood Cell (WBC) Count 14.8 thou/uL (4.8-10.8)
[2019-06-14] MEDS ORDERED: Furosemide 40 MG/4 ML VIAL ONE (07:49)
[2019-06-14 08:05] LABS: ALT (SGPT) 22 U/L (8-55); AST (SGOT) 28 U/L (5-34); Albumin 3.9 g/dL (3.4-4.8); Alkaline Phosphatase 168 U/L (40-110); Anion Gap 15 mmol/L (10-20); BUN (Urea Nitrogen) 50 mg/dL (8.4-25.7); Bilirubin, Total 2.2 mg/dL (0.2-1.2); CK (CPK) 198 U/L (30-200); Calc. Creatinine Clearance 0 mL/min (70-130); Calcium 9.7 mg/dL (7.8-10.44); Carbon Dioxide 29 mmol/L (23-31); Chloride 92 mmol/L (98-107); Estimated GFR-MDRD 41; Globulin 3.2 g/dL (2.4-3.5); Glucose 87 mg/dL (80-115); Lipase 18 U/L (8-78); Protein, Total 7.1 g/dL (5.8-8.1); Sodium 131 mmol/L (136-145)
--- NOTE | 2019-06-14 08:08 | RAD ---
Exam: Chest one view HISTORY:Dyspnea Comparison: 01/01/2019 FINDINGS: Cardiac silhouette:Cardiomegaly. Right-sided transvenous single lead defibrillator terminates in the right ventricle. Aorta: Atherosclerosis Pulmonary vessels: Normal Costophrenic angles: Small left-sided pleural effusion LUNGS: Linear opacity left lung base may represent scar or atelectasis. Pneumothorax: None Osseous abnormalities: None IMPRESSION: 1. Cardiomegaly 2. Atherosclerosis 3. Pleural and parenchymal changes left lung base. Continued surveillance is recommended. 4. Congestive heart failure
[2019-06-14 08:30] LABS: Bilirubin Negative (Negative); Blood, Urine Negative (Negative); Clarity Clear (Clear); Glucose, Urine (Dipstick) Normal (Negative); Leukocyte Negative Leu/uL (Negative); Nitrite Negative (Negative); Protein, Urine (Dipstick) Negative (Neg-Trace); Urobilinogen Normal mg/dL (Less than 2)
[2019-06-14 08:31] LABS: CKMB 5.8 ng/mL (0-6.6)
[2019-06-14] MEDS ORDERED: Aspirin Chewable 81 MG TAB ONE (09:09)
[2019-06-14] MEDS ORDERED: Fentanyl 100 MCG/2 ML VIAL ONE ×2 (09:36→12:44)
[2019-06-14 10:52] LABS: Troponin I 0.034 ng/mL (< 0.028)
[2019-06-14] MEDS ORDERED: ISOVUE-370 76%-LOCM 1 ML ONE (12:00)
[2019-06-14] MEDS ORDERED: Ondansetron ODT 4 MG TAB PO PRN (14:08)
[2019-06-14] MEDS ORDERED: Senokot S 8.6-50 MG TAB PO PRN (14:08)
[2019-06-14] MEDS ORDERED: Bisacodyl 5 MG TAB PO PRN (14:08)
[2019-06-14 14:21] LABS: Troponin I 0.082 ng/mL (< 0.028)
[2019-06-14] MEDS ORDERED: Heparin 1,000 UNITS/ML VIAL ONE (16:28)
[2019-06-14] MEDS: Heparin 5,000 UNITS/ML VIAL SC SCH ×2 (17:01→22:01)
[2019-06-14] MEDS ORDERED: Fentanyl 100 MCG/2 ML VIAL SLOW IVP SCH (17:45)
--- NOTE | 2019-06-14 17:48 | PDOC.HHP ---
Hospitalist HPI - History of Present Illness LLE pain/swellin g History of Present Illness: This is a 63 year old male who presented with increasing LLE edema. The patient states one month ago he had a sore that was infected with purulent discharge and was started on bactrim. He took it for ten days. One week later he developed massive rash like poison mario that was weeping with raised lesions on both legs. He was given a shot of a steroid in PCP office and took a prednisone taper for 9 days which finished on Monday. Puustular lesions started to resolve and dry up, however on Monday, he noticed his legs were starting to swell and it got progressively worst during the week. He went to see his PCP on Monday who noticed a bruise on his abdomen and new rash pop up on right thigh. Per patient, PCP wasn't sure what it was and was told that he was going to try to get him an appointment with a intermission coordinator but he never heard back. He was prescribed narcotics with no relief and came to the ER. The patient's pain is better with standing. He denies fevers, chills, sore throat or runny nose. Of note, patient also states he has been unable to urinate for the past 1-2 days. He saw his heart doctor recently who stated everything looked good. ED Course: Umair had BNP that was 1600, given lasix in the ER and had 900 output. He had chest X ray which showed cardiomegaly, atherosclerosis and CHF. Troponin was 0.082. Hospitalist ROS - Review of Systems Constitutional: denies: fever, chills Eyes: denies: pain, vision change ENT: denies: ear discharge, nose pain Respiratory: denies: shortness of breath, hemoptysis Cardiovascular: denies: chest pain, palpitations, orthopnea, paroxysmal noc. dyspnea Gastrointestinal: denies: nausea, vomiting, abdominal pain, diarrhea, constipation Genitourinary: denies: dysuria Musculoskeletal: denies: neck pain, shoulder pain Skin: reports: rash Neurological: denies: weakness, numbness - Medication Medications: Active Medications Generic Name Dose Route Start Last Admin Trade Name Freq PRN Reason Stop Dose Admin Heparin Sodium (Porcine) 5,000 units 06/14/19 15:00 06/14/19 17:01 Heparin SC Not Given [facility] Hospitalist History - Past Medical History Cardiac: reports: HTN Endocrine: reports: Diabetes - Past Surgical History Past Surgical History: reports: CABG, Hernia Repair, Tonsillectomy Other Surgical History: Tonsillectomy - Family History Other Family History: heart problems in family - Social History Smoking Status: Former smoker Living Situation: With Family Other Social History: Smoked for ten years. Quit 30 years ago. Quit alcohol 10 years ago. No illicit drug use. - Exam General Appearance: NAD, awake alert Eye: PERRL, anicteric sclera ENT: normocephalic atraumatic, no oropharyngeal lesions Neck: supple, symmetric, no JVD, no thyromegaly Heart: RRR, no murmur, no gallops, no rubs Respiratory: CTAB, no wheezes, no rales, no ronchi Gastrointestinal: soft, non-tender, non-distended, normal bowel sounds Extremities: no cyanosis, no clubbing Extremities - other findings: 3+ edema right leg, 2+ left leg. Leg very hard to palpation and firm Skin: normal turgor, no lesions, no rashes Musculoskeletal - other findings: Multiple pustular ulcers both legs, tender rash right thigh. Bruise abdomen Psychiatric: normal affect, normal behavior, A&O x 3 Hospitalist Results - Labs Result Diagrams: 06/14/19 07:31 06/14/19 07:31 Lab results: WBC 14.8 thou/uL (4.8-10.8) H 06/14/19 07:31 Hgb 12.8 g/dL (14.0-18.0) L 06/14/19 07:31 Hct 40.1 % (42.0-52.0) L 06/14/19 07:31 MCV 84.8 fL (78.0-98.0) 06/14/19 07:31 Plt Count 146 thou/uL (130-400) 06/14/19 07:31 Neutrophils % 85.3 % (42.0-75.0) H 06/14/19 07:31 Sodium 131 mmol/L (136-145) L 06/14/19 07:31 Potassium 5.0 mmol/L (3.5-5.1) 06/14/19 07:31 Chloride 92 mmol/L (98-107) L 06/14/19 07:31 Carbon Dioxide 29 mmol/L (23-31) 06/14/19 07:31 BUN 50 mg/dL (8.4-25.7) H 06/14/19 07:31 Creatinine 1.69 mg/dL (0.7-1.3) H 06/14/19 07:31 Glucose 87 mg/dL (80-115) 06/14/19 07:31 Calcium 9.7 mg/dL (7.8-10.44) 06/14/19 07:31 Total Bilirubin 2.2 mg/dL (0.2-1.2) H 06/14/19 07:31 AST 28 U/L (5-34) 06/14/19 07:31 ALT 22 U/L (8-55) 06/14/19 07:31 Alkaline Phosphatase 168 U/L (40-110) H 06/14/19 07:31 Creatine Kinase 198 U/L (30-200) 06/14/19 07:31 CK-MB (CK-2) 5.8 ng/mL (0-6.6) 06/14/19 07:31 Troponin I 0.082 ng/mL (< 0.028) H 06/14/19 13:45 B-Natriuretic Peptide 1677.7 pg/mL (0-100) H 06/14/19 07:31 Serum Total Protein 7.1 g/dL (5.8-8.1) 06/14/19 07:31 Albumin 3.9 g/dL (3.4-4.8) 06/14/19 07:31 Lipase 18 U/L (8-78) 06/14/19 07:31 Urine Ketones Negative mg/dL (Negative) 06/14/19 08:08 Urine Blood Negative (Negative) 06/14/19 08:08 Urine Nitrite Negative (Negative) 06/14/19 08:08 Ur Leukocyte Esterase Negative Aidan/uL (Negative) 06/14/19 08:08 - EKG Interpretation EKG: NSR, old anterior infarct Hospitalist H&P A/P - Plan Plan: Chest X ray 01/01: cardiomegaly, CHF, atherosclerosis This is a 63 year old male with history of diabetes, hypertension, CHF who presented to the hospital with bilateral leg swelling, left> right and worsening pustular rashes after receiving prednisone Bilateral Cellulitis - appears to be MRSA infection possibly? Start vancomycin and ceftriaxone - will obtain stat CT of LLE given extensive edema and hardening, rule out nec fasc or abscess - did not respond to fentanyl 50, will try IV tylenol given kidney function. Also ordered for morphine but explained to patient this could worsen kidney function and he wanted to take risk Acute Urine retention/Hematuria - will check CT abdomen - no proteinuria on UA to suggest nephrotic syndrome - diaz placed, per urology leave it for three days Leukocytosis - WBC 14.8, blood cultures negative, chest Xray no pneumonia, UA negative - antibiotics as above Elevated troponin - 0.082, no chest pain currently. Check ECHO - EKG shows normal sinus rhythm Type II diabetes - hold metformin, continue sliding scale CKD - creatinine 1.69, slightly up from baseline. Hold lisinopril and metformin and lasix - will monitor DVT prophylaxis: hold for now Code status: full code, but if brain then DNR
[2019-06-14] MEDS: cefTRIAXone\\ROCEPHIN 1 GM in Sodium Chloride 0.9% 100 ML IVPB SCH (17:58)
[2019-06-14] MEDS: Vancomycin HCl 1 GM in Premix Bag 1 BAG IVPB SCH (17:59)
[2019-06-14] MEDS: Carvedilol 6.25 MG TAB PO SCH (18:05)
[2019-06-14] MEDS ORDERED: Acetaminophen 1,000 MG in Premix Bag 1 BAG IVPB PRN (20:26)
[2019-06-14] MEDS ORDERED: Morphine 4 MG/ML VIAL SLOW IVP SCH (22:00)
[2019-06-14] MEDS: Morphine 2 MG/ML SYRINGE SLOW IVP PRN (22:03)
--- NOTE | 2019-06-14 22:30 | CON ---
DATE OF CONSULTATION: HISTORY OF PRESENT ILLNESS: The patient is 63-year-old gentleman with a history of ischemic cardiomyopathy who presents with painful, erythematous lower extremities. The patient has a history of ischemic cardiomyopathy. In 2006, he underwent coronary artery bypass surgery x2. At that time, he was found to have a low ejection fraction. He states this had improved after surgery. About a year ago , the patient started to be followed by Dr. Rojo. He found the patient to have a low ejection fraction. He had subsequently had placement of an automatic implantable cardiac defibrillator. The patient was in his usual state of health when he developed erythematous lower extremities. He was thought to have a cellulitis and was treated with Bactrim. He developed severe pruritic rash. He was then treated with hydrocodone. The patient was to be referred to a manager editorial. He presents to the emergency room with extreme painful lower extremities and increasing edema. The patient denies having any chest discomfort. PAST MEDICAL HISTORY: 1. Coronary artery disease. 2. Ischemic cardiomyopathy. 3. Hypertension. 4. Diabetes mellitus. 5. Dyslipidemia. PAST SURGICAL HISTORY: Tonsillectomy, cataract surgery, and hernia surgery. SOCIAL HISTORY: Nonsmoker. MEDICATIONS: 1. Metformin 1000 b.i.d. 2. Coreg 6.25 b.i.d. 3. Lisinopril 10 daily. 4. Lasix 40 daily. 5. Aspirin 81 daily. SOCIAL HISTORY: Nonsmoker. FAMILY HISTORY: Positive family history of heart disease. REVIEW OF SYSTEMS: Otherwise unremarkable. PHYSICAL EXAMINATION: GENERAL: This is an ill-appearing gentleman who is in pain. VITAL SIGNS: Blood pressure of 109/57. NECK: Showed no jugular venous distention. LUNGS: Have a few crackles in both bases. HEART: Regular rate and rhythm. Normal S1, S2. No murmurs. ABDOMEN: Nondistended. EXTREMITIES: Showed severe erythematous lower extremities with weeping lesions throughout both legs. LABORATORY RESULTS: His sodium is 131, potassium 5.0, chloride 92, bicarbonate 29, BUN 15, creatinine 1.69, glucose was 87. His white blood cell count is 14.8, hemoglobin 12.8, hematocrit 40.1, platelets are 146. His EKG reveals him to have normal sinus rhythm with Q-waves suggestive of previous inferior infarct. IMPRESSION: 1. Erythematous rash. 2. Congestive heart failure, acute on chronic. 3. History of cardiomyopathy. 4. History of coronary artery bypass surgery. 5. History of AICD placement. 6. Diabetes mellitus. 7. Renal insufficiency. This gentleman presents with a lower extremity rash and weeping lesions. This is suggestive of a possible allergic reaction possibly to a medication. We would recommend infectious disease evaluation. We will follow this patient with you throughout hospitalization. Job ID: [id number] MTDD
--- NOTE | 2019-06-14 23:18 | CON ---
DATE OF CONSULTATION: 06/14/2019 REASON FOR CONSULTATION: Skin lesions. HISTORY OF PRESENT ILLNESS: A 63-year-old with a history of coronary artery disease and ischemic cardiomyopathy with ejection fraction estimated around 30%, prior bypass graft surgery, and type 2 diabetes mellitus, who is managed by Dr. Suresh and also by Dr. Diez. He has a defibrillator in place as expected and for the past 2-1/2 weeks has had skin lesions in the lower extremities associated with ulceration. He also has noticed worsening edema in lower extremities. He was given Bactrim by his primary care physician, which he took for about a week and a half. He noticed some improvement in the lesions. He did have some pruritus, but not much itching. He did not have much skin abnormalities in the trunk, abdomen, or upper extremities. The reason he came to the hospital this time is because of development of what he describes as bruising in the lower extremities. Actually, those are two areas of interest that are quite painful and more likely to be secondary to cellulitis rather than bruising. He also developed difficulty with voiding. The patient had been given corticosteroids recently because of itching following the use of Bactrim. Denies any headaches. No visual symptoms, sore throat, odynophagia , or dysphagia. No dental pain. No back pain. Usual dyspnea on effort. No chest pain. He does have urinary retention, but now the Stock catheter has been inserted. Worsening edema in lower extremities and those areas of pain as described below in the skin of lower extremities. No diarrhea. No bleeding. PAST MEDICAL HISTORY: Ischemic cardiomyopathy, AICD in place, prior coronary bypass graft surgery, type 2 diabetes, hypertension. PAST SURGICAL HISTORY: As above plus hernia repair, tonsillectomy. SOCIAL HISTORY: Former smoker. Quit about more than 10 years ago. Lived in a one-story house and in the area with . No alcoholic beverage use. ALLERGIES: THE PATIENT HAS NO KNOWN DRUG ALLERGY HISTORY. FAMILY HISTORY: Noncontributory. CURRENT MEDICATIONS: 1. Tylenol. 2. Ecotrin. 3. Dulcolax. 4. Coreg. 5. Heparin. 6. Zofran. 7. Senokot. At home, he had been on: 1. Aspirin. 2. Furosemide. 3. Tresiba. 4. Lisinopril. 5. Metformin. PHYSICAL EXAMINATION: VITAL SIGNS: Initial temperature 98.7, pulse 86, respirations 20, O2 saturation 93% to 96%, blood pressure 113/71. SKIN: Shows multiple punched-out ulcerations in the legs and he has small little shallow ulcerations, mostly papular lesions that are with small little vesicles which have scabbed over, a little bit of excoriation but not much. Those areas are symmetrically distributed in right and left lower extremities. In the legs, there is quite a bit of edema with exudation of serous fluid from the punched-out ulcerations. He also has 2 areas of cellulitis, one in the right anterior femoral area and the other one in the left popliteal fossa, lateral aspect, quite tender to palpation. The pulses are diminished in dorsalis pedis, but difficulty in palpating. The pulses are probably due to edema. He is able to stand up and moves about normally. Strength in upper and lower extremities appears to be preserved. His cognitive function is intact. There is no lymphadenopathy. HEENT: Ocular movements conjugate. Oral cavity normal. Teeth with normal appearance. NECK: Supple. No jugular venous distention. LUNGS: Symmetric breath sounds with faint basilar crackles. S1 and S2, regular rate. AICD pocket site appears normal. ABDOMEN: Vrml-hn-krjefcwqac distended. No evidence of ascites. No bladder distention. Stock catheter has been inserted. The patient has a peripheral IV access in place. LABORATORY DATA: Showed a white cell count 14.8, hemoglobin 12.8, platelets 146 with 85% neutrophils. Sodium 131, creatinine 1.69. His baseline creatinine is 1.46, the lowest has been 1.24 recently. Urinalysis with normal findings. ASSESSMENT: 1. Ischemic cardiomyopathy with AICD. 2. Areas of folliculitis, which have developed into ulcerations in the legs because of venous insufficiency and edema in lower extremities, impeding healing process. He also has associated cellulitis in both focal areas of the right anterior thigh and the left popliteal fossa skin region with possible early abscess formation. DISCUSSION: The lesions described are unlikely to be due to hypersensitivity reaction. They are more likely to represent areas of folliculitis, which are not healing due to the marked edema and 2 areas of concern for cellulitis may be early abscess formation in the lower extremities. The possibility of perifolliculitis due to cofactor deficiency is in the diff. diagnosis.Superimposed cutaneous infection by Staphylococcus aureus, including MRSA, beta hemolytic streptococcal pathogens as well as gram-negative rods is a concern. We will start Vancomycin and Rocephin. The Vanco dose is adjusted for renal function. Needs management of the edema, which will be essential in the improvement of the punched-out ulcerations in the lower extremities. He may have some element of prurigo nodularis but less likely. Job ID: [id number] MTDD
--- NOTE | 2019-06-14 23:20 | CT ---
CT Abdomen Pelvis WO Con HISTORY: Urinary retention. Lower abdominal pain. COMPARISON: None. FINDINGS: The lung bases are clear of infiltrates or is a small left pleural effusion present. The liver, spleen and pancreas regions appear unremarkable. Small gallstones are present. Right and left adrenal glands are normal. Punctate bilateral nonobstructing renal calculi are seen. N o ureteral calculi. No significant periaortic or mesenteric adenopathy. CT of pelvis performed without contrast: Minimal diverticulosis of the sigmoid colon. A Stock cathete r is present within the bladder. The appendix region appears unremarkable. No significant pelvic lymphadenopathy or mass. IMPRESSION: 1. Small left pleural effusion. 2. Gallstones. 3. Punctate nonobstructing renal calculi.
--- NOTE | 2019-06-14 23:29 | CT ---
CT angiography of abdomen and pelvis and lower extremities performed with intravenous contrast enhanc ement with 3-D reconstructions: HISTORY: Right leg swelling. Ulcers of legs. Claudication. COMPARISON: None. FINDINGS: A small left pleural effusion is again identified. The liver, spleen and pancreas regions a ppear unremarkable. Small gallstones are present. Right and left adrenal glands are normal in appearance. Punctate nonobstructing renal calculi are see n. There is some cortical scarring involving the right kidney. No significant periaortic or mesenteric adenopathy. Minimal sigmoid diverticulosis. A Stock catheter is present. The abdominal aorta is normal in caliber. No significant stenosis of either the celiac or superior me senteric arteries. The JODY is patent. No significant stenosis identified of the renal arteries. The right lower extremity runoff shows atherosclerotic change within the origin of the right internal iliac artery. No significant stenosis of the common or external iliac arteries. Mild plaque formation and mild narrowing of the right common femoral artery is present. Superficial femoral arter y and profunda femoral arteries are patent. There is atherosclerotic plaque along the course of the right superficial femoral artery with moderate stenosis at the level of the adductor canal. There is moderate calcified plaque formation at this level. There is also moderate narrowing of the right popliteal artery. There is a patent trifurcation and three-vessel runoff present. On the left side the left common internal and external iliac arteries show no significant stenosis. A therosclerotic plaque of the common femoral artery without significant narrowing. The superficial and profunda femoral arteries are also patent. There is atherosclerotic plaque along the course of th e distal superficial femoral artery with mild narrowing. The popliteal artery is patent with mild stenosis. There is a patent trifurcation and three-vessel runoff. IMPRESSION: 1. There is a moderate narrowing of the distal superficial femoral artery at the adductor canal and o f the popliteal artery on the right. 2. Mild narrowing of the distal superficial femoral artery and left popliteal artery. 3. Subcutaneous edema involving both lower extremities.
--- NOTE | 2019-06-15 02:05 | CON ---
DATE OF CONSULTATION: 06/14/2019 REASON FOR CONSULTATION: Urinary retention. REQUESTING PHYSICIAN: Priti Smith MD HISTORY OF PRESENT ILLNESS: Mr. Ba is a 63-year-old male, who presented with increasing lower extremity edema. The patient has had worsening edema over the past several days associated with pain. The patient was recently treated with Bactrim for lower extremity wound. He then developed a rash and was given steroid by his primary care physician and then took prednisone taper for 9 days. The patient's lower extremity edema worsened overnight last night. The patient was not able to void at all. He had severe pressure and urge to urinate but could not urinate, therefore presented to the emergency department. A Stock catheter was placed and he had a significant amount approximately 1 L of residual urine. Urology has been consulted for further evaluation. The patient also reports constipation over the past week. This has happened intermittently but has acutely worsened. REVIEW OF SYSTEMS: Full 12-point review of systems was performed and is negative other than that mentioned in HPI. PAST MEDICAL HISTORY: Hypertension, diabetes. PAST SURGICAL HISTORY: CABG, hernia repair, tonsillectomy. FAMILY HISTORY: Noncontributory. SOCIAL HISTORY: Former smoker. No alcohol over the past 10 years. No drugs. MEDICATIONS: See MAR. These were reviewed. There are no changes. ALLERGIES: NO KNOWN DRUG ALLERGIES. PHYSICAL EXAMINATION: VITAL SIGNS: Temperature 98.7, pulse 86, respirations 18, oxygen saturation 93% on room air, and blood pressure 113/71. GENERAL: He is alert and oriented x3. No apparent distress. HEENT: Normocephalic, atraumatic. NECK: Supple. No masses or lymphadenopathy. CARDIOVASCULAR: Regular rate and rhythm. PULMONARY: Breathing unlabored. ABDOMEN: Soft, nontender/nondistended. No masses or organomegaly. No suprapubic tenderness to palpation. No CVA tenderness. GENITOURINARY: Stock catheter is in place, draining clear yellow urine. EXTREMITIES: 2+ bilateral lower extremity edema. NEUROLOGIC: No focal deficits. LABORATORY DATA: White blood cell count 14.8, hemoglobin 12.8, hematocrit 40.1, platelets 146. Sodium 131, potassium 5.0, chloride 92, bicarb 29, BUN 50, creatinine 1.69. Urinalysis negative. ASSESSMENT: A 63-year-old male with acute urinary retention and constipation. PLAN: I reviewed acute urinary retention with the patient in detail. The patient has required narcotic for his lower extremity pain and has been taking hydrocodone at home. This is likely contributed to this. Constipation has likely contributed to the urinary retention as well. Stock catheter is currently in place and draining well. Start tamsulosin 0.4 mg daily. The patient's Stock catheter should remain in place for 3-5 days at which point, he can have a voiding trial. He is still in the hospital. This can be done as an inpatient. If not, he can be discharged home with his Stock catheter. Follow up with Urology as an outpatient for voiding trial within the next 3-5 days. Thank you for allowing me to participate in the care of this patient. Job ID: [id number]
[2019-06-15] MEDS: Fentanyl 100 MCG/2 ML VIAL SLOW IVP PRN ×2 (03:21→15:19)
[2019-06-15 05:43] LABS: #Basophils 0.1 thou/uL (0.0-0.2); #Eosinphils 0.2 thou/uL (0.0-0.7); #Monocytes 1.1 thou/uL (0.11-0.59); #Neutrophils 10.7 thou/uL (1.40-6.50); %Basophils 0.4 % (0.0-1.0); %Eosinophils 1.3 % (0.0-10.0); %Lymphocytes 7.8 % (21.0-51.0); %Monocytes 8.2 % (0.0-10.0); %Neutrophils 82.3 % (42.0-75.0); Hemoglobin 11.9 g/dL (14.0-18.0); Mean Corpuscular HGB CONC 32.2 g/dL (32.0-36.0); Mean Corpuscular Hemoglobin 26.6 pg (27.0-31.0); Mean Corpuscular Volume 82.7 fL (78.0-98.0); Mean Platelet Volume 8.7 fL (7.4-10.4); Platelet Count 159 thou/uL (130-400); RBC Distribution Width 16.1 % (11.5-14.5); Red Blood Cell (RBC) Count 4.48 mill/uL (4.70-6.10)
[2019-06-15 06:04] LABS: Anion Gap 16 mmol/L (10-20); BUN (Urea Nitrogen) 46 mg/dL (8.4-25.7); Calc. Creatinine Clearance 75 mL/min (70-130); Calcium 9.3 mg/dL (7.8-10.44); Carbon Dioxide 28 mmol/L (23-31); Chloride 91 mmol/L (98-107); Estimated GFR-MDRD 48; Glucose 135 mg/dL (80-115); Potassium 3.8 mmol/L (3.5-5.1); Sodium 131 mmol/L (136-145)
[2019-06-15] MEDS: Morphine 2 MG/ML SYRINGE SLOW IVP PRN ×4 (06:47→22:16)
[2019-06-15] MEDS ORDERED: Furosemide 40 MG/4 ML VIAL SLOW IVP SCH ×2 (08:31→08:45)
[2019-06-15] MEDS: Aspirin 81 mg Enteric Coated Tablet PO SCH (09:29)
[2019-06-15] MEDS: Carvedilol 6.25 MG TAB PO SCH ×2 (09:29→18:15)
[2019-06-15] MEDS: Heparin 5,000 UNITS/ML VIAL SC SCH ×3 (09:35→20:18)
--- NOTE | 2019-06-15 09:47 | RAD ---
XR Knee Lt 3 View History: Knee pain Comparison: None. Findings: Moderate pleural effusion. Moderate vascular calcifications. Mild medial compartment joint space narrowing. No acute fracture or malalignment. Impression: 1. Moderate degenerative changes and likely reactive pleural effusion. 2. Mild circumferential soft tissue swelling. 3. No acute fracture or malalignment.
--- NOTE | 2019-06-15 09:48 | RAD ---
XR Knee Rt 3 View: 06/15/2019 8:50 AM CLINICAL INDICATION: Pain, effusion COMPARISON: None. FINDINGS: Fracture:No fracture. Arthropathy:Slight medial joint compartment narrowing. Minute patellofemoral osteophytosis. Incidental findings:Surgical clips are present, medially. No significant joint capsular distention. IMPRESSION: 1. No acute osseous abnormality. 2. No joint capsular distention.
--- NOTE | 2019-06-15 11:35 | CON ---
DATE OF CONSULTATION: This is Ronni Herrera PA-C dictating a report for Elieser Lennon MD. HISTORY OF PRESENT ILLNESS: We were asked by hospitalist to see the patient. The patient came in yesterday with increased bilateral lower extremity issues, left greater than right. He states that he had some issues with some sores on his legs. He went to his PCP. This was about 10 to 14 days ago, took some antibiotics, and then he developed a significant rash to the lower extremities. He returned to his PCP, where he got some steroids and a prednisone taper, and he got a little bit better, but he ended up continuing to have a rash on his lower extremities, swelling, erythema, and spreading rash that is now in his trunk also, more like bruising. Currently, he states since getting antibiotics he is fairly better. His knee is able to move, where it was not yesterday, and the swelling is down quite a bit per the patient. He does not have any numbness or tingling in the feet, and he is moving these well. As I walked into the room, he was standing up to get his phone to order breakfast. He was able to return to his bed without any difficulty. PAST MEDICAL HISTORY: Positive for hypertension and diabetes. PAST SURGICAL HISTORY: CABG, hernia repair, and tonsils. FAMILY HISTORY: Family history for this particular problem is noncontributory. SOCIAL HISTORY: Past smoker. No alcohol or illicit drug use. Resides with family. ALLERGIES: NO KNOWN DRUG ALLERGIES. HOME MEDICATIONS: 1. Insulin. 2. Aspirin. 3. Carvedilol. 4. Furosemide. 5. Lisinopril. 6. Metformin. 7. Tramadol. REVIEW OF SYSTEMS: No chest pain or shortness of breath currently. He does have some bladder issues, currently has a Stock in place. No current complaints of bowel issues. Main complaint is bruising to the lower abdomen/rash and lower extremity complaints as stated above. Rest of review of systems is negative. PHYSICAL EXAMINATION: GENERAL: Well-nourished, well-developed appearing male. Awake, alert. No current acute distress. Speech, clear. Answers questions appropriately. He is alert and oriented x3. HEENT: Normal exam. Face, symmetric. Tongue, midline. UPPER EXTREMITIES: Equal size, shape, symmetry. Normal bulk and tone. NECK: Supple. Trachea, midline. RESPIRATORY: Respiratory rate 16. No distress. LOWER EXTREMITIES: Both lower extremities have a significant amount of sores in various degrees of healing. He also has a rash to both lower extremities with increased redness. It was noticed on the torso too. He does have some rash bruising above his underwear line, mostly in the left lower quadrant. He is able to bend both legs moderately well, right greater than left. He is able to flex his knee about 20 to 25 degrees on the left, which he was not able to do yesterday. He has good sensations. Pulses down the lower extremities also noted to both knees. He has moderate effusions to bilateral knees, left greater than right with minutely increased warmth. Left knee is definitely much more tender to palpation than his right knee. Again, he was up at bedside, so his gait in room was stable. ASSESSMENT: 1. Cellulitis, bilateral lower extremities. 2. Knee effusion with betterment after antibiotics. IMAGING STUDIES: X-rays of knees show good joint space height, some arthritic changes, but otherwise, plain x-rays look good. LABORATORY DATA: WBC 13.0, hemoglobin 11.9, hematocrit 37.1, and platelets 159. It should be noted that white blood cell down 1.8 points since yesterday. PLAN: Since the patient is doing better and moving knees better with antibiotics, I think we will check on the patient tomorrow. He may need a knee washout. Hopefully, antibiotics will continue to improve this. As for the rest of the sores on his leg, I could not appreciate any particular area of fluctuance around these sores that might need to be drained. I informed the patient of the plan. We will order a C-reactive protein and a sedimentation rate as these are not ordered as of yet to see what their levels are, but again, I will defer. The patient states that he is quite a bit better with just a day of antibiotics, so we will check on him tomorrow and see how he is progressing. Job ID: [id number]
[2019-06-15] MEDS: Furosemide 40 MG/4 ML VIAL SLOW IVP SCH (15:11)
--- NOTE | 2019-06-15 16:59 | PDOC.HOSPP ---
- Subjective Subjective: Doing better. Feels like the inflammation is improved. Has had this kind of edema in the past, but not the inflammation. - Objective Vital Signs & Weight: Vital Signs (12 hours) Temp Pulse Resp BP BP Pulse Ox 06/15/19 16:45 98.1 F 84 16 94/58 L 98 06/15/19 12:05 98.2 F 84 16 93/55 L 97 06/15/19 09:29 95/57 L 06/15/19 09:00 97.1 F L 88 16 95/57 L 97 06/15/19 08:00 97 06/15/19 05:05 97.9 F 88 18 103/61 97 Weight Weight 223 lb 14.4 oz I&O: 06/14/19 06/15/19 06/16/19 06:59 06:59 05:59 Intake Total 480 Output Total 2150 Balance -1670 Result Diagrams: 06/15/19 04:31 06/15/19 04:31 Additional Labs: Accuchecks 06/14/19 20:17 POC Glucose 220 H Hospitalist ROS - Medication Medications: Active Medications Generic Name Dose Route Start Last Admin Trade Name Freq PRN Reason Stop Dose Admin Aspirin 81 mg 06/15/19 09:00 06/15/19 09:29 Ecotrin PO 81 mg DAILY ESPERANZA Administration Carvedilol 6.25 mg 06/14/19 17:00 06/15/19 09:29 Coreg PO 6.25 mg BID-WM ESPERANZA Administration Fentanyl 50 mcg 06/14/19 19:52 06/15/19 15:19 Sublimaze SLOW IVP 50 mcg Q4H PRN Administration Severe Pain (7-10) Furosemide 40 mg 06/15/19 14:00 06/15/19 15:11 Lasix SLOW IVP 40 mg 0600,1400 ESPERANZA Administration Heparin Sodium (Porcine) 5,000 units 06/14/19 15:00 06/15/19 15:11 Heparin SC 5,000 units TID ESPERANZA Administration Ceftriaxone Sodium 1 gm/ 100 mls @ 200 mls/hr 06/14/19 17:30 06/14/19 17:58 Sodium Chloride IVPB 100 mls Q24HR ESPERANZA Administration Vancomycin HCl 1 gm/ Device 200 mls @ 200 mls/hr 06/14/19 18:00 06/14/19 17: 59 IVPB 200 mls Q24HR ESPERANZA Administration Morphine Sulfate 2 mg 06/14/19 19:43 06/15/19 12:42 Morphine SLOW IVP 2 mg Q4H PRN Administration Moderate Pain (4-6) Sodium Chloride 10 ml 06/15/19 09:00 06/15/19 10:19 Flush - Normal Saline IVF 10 ml Q12HR ESPERANZA Administration - Exam General Appearance: NAD, awake alert Heart: RRR, no gallops, no rubs, normal peripheral pulses, II/IV Respiratory: CTAB, no wheezes, no rales, no ronchi, normal chest expansion, no tachypnea, normal percussion Gastrointestinal: soft, non-tender, non-distended, normal bowel sounds, no palpable masses, no hepatomegaly, no splenomegaly, no bruit Extremities: 2+ LE edema Skin - other findings: Numerous areas of erythema, small, ulcer type skin lesions and ecchymoses. Musculoskeletal: normal tone, normal strength, no muscle wasting Psychiatric: normal affect, normal behavior, A&O x 3 Hosp A/P (1) Cellulitis of leg, left Code(s): L03.116 - CELLULITIS OF LEFT LOWER LIMB Status: Acute (2) Cellulitis of leg, right Code(s): L03.115 - CELLULITIS OF RIGHT LOWER LIMB Status: Acute (3) Chronic systolic CHF (congestive heart failure), NYHA class 3 Code(s): I50.22 - CHRONIC SYSTOLIC (CONGESTIVE) HEART FAILURE Status: Acute (4) CAD (coronary artery disease) Code(s): I25.10 - ATHSCL HEART DISEASE OF [place] CORONARY ARTERY W/O ANG PCTRS Status: Chronic (5) CKD (chronic kidney disease) stage 3, GFR 30-59 ml/min Code(s): N18.3 - CHRONIC KIDNEY DISEASE, STAGE 3 (MODERATE) Status: Chronic (6) Diabetes type 2, controlled Code(s): E11.9 - TYPE 2 DIABETES MELLITUS WITHOUT COMPLICATIONS Status: Chronic (7) Dyslipidemia Code(s): E78.5 - HYPERLIPIDEMIA, UNSPECIFIED Status: Chronic (8) Hypertension Code(s): I10 - ESSENTIAL (PRIMARY) HYPERTENSION Status: Chronic - Plan Sounds like he had a delayed hypersensitivity reaction to the Bactrim he was on for cellulitis of the LE's. Then got steroids and had worsening edema as the urticaria resolved. Then he had the current lesions and inflammation. Appreciate ID input. Continue with IV abx.
[2019-06-15] MEDS: cefTRIAXone\\ROCEPHIN 1 GM in Sodium Chloride 0.9% 100 ML IVPB SCH (18:16)
[2019-06-15] MEDS: Vancomycin HCl 1 GM in Premix Bag 1 BAG IVPB SCH (20:17)
[2019-06-15] MEDS: Tamsulosin HCl 0.4 MG CAP PO SCH (20:18)
[2019-06-16] MEDS: Fentanyl 100 MCG/2 ML VIAL SLOW IVP PRN ×4 (01:31→22:36)
[2019-06-16] MEDS: Morphine 2 MG/ML SYRINGE SLOW IVP PRN ×3 (05:15→20:05)
[2019-06-16] MEDS: Furosemide 40 MG/4 ML VIAL SLOW IVP SCH (05:17)
[2019-06-16] MEDS ORDERED: Furosemide 40 MG/4 ML VIAL SLOW IVP SCH ×2 (08:32→08:45)
[2019-06-16] MEDS: Aspirin 81 mg Enteric Coated Tablet PO SCH (08:40)
[2019-06-16] MEDS: Carvedilol 6.25 MG TAB PO SCH ×2 (08:40→17:11)
[2019-06-16] MEDS: Heparin 5,000 UNITS/ML VIAL SC SCH ×3 (08:40→20:05)
--- NOTE | 2019-06-16 10:56 | PDOC.HOSPP ---
- Subjective Encounter Date: 06/16/19 Encounter Time: 10:54 Subjective: Doing OK. Had three bm's last night. Has persistent pain in the lateral left knee. Otherwise feeling ok. - Objective Vital Signs & Weight: Vital Signs (12 hours) Temp Pulse Resp BP BP BP Pulse Ox 06/16/19 08:15 98.1 F 89 18 105/64 99 06/16/19 06:10 93/60 06/16/19 04:00 97.3 F L 81 20 95/54 L 96 06/16/19 01:35 CDT 88 105/66 Weight Weight 221 lb 12.8 oz I&O: 06/15/19 06/16/19 06/17/19 07:59 06:59 06:59 Intake Total 1600 Output Total 1475 Balance 125 Result Diagrams: 06/15/19 04:31 06/15/19 04:31 Additional Labs: Accuchecks 06/16/19 06/15/19 10:38 20:21 POC Glucose 119 H 162 H Hospitalist ROS - Medication Medications: Active Medications Generic Name Dose Route Start Last Admin Trade Name Freq PRN Reason Stop Dose Admin Aspirin 81 mg 06/15/19 09:00 06/16/19 08:40 Ecotrin PO 81 mg DAILY ESPERANZA Administration Carvedilol 6.25 mg 06/14/19 17:00 06/16/19 08:40 Coreg PO 6.25 mg BID-WM ESPERANZA Administration Fentanyl 50 mcg 06/14/19 19:52 06/16/19 08:38 Sublimaze SLOW IVP 50 mcg Q4H PRN Administration Severe Pain (7-10) Heparin Sodium (Porcine) 5,000 units 06/14/19 15:00 06/16/19 08:40 Heparin SC 5,000 units TID ESPERANZA Administration Ceftriaxone Sodium 1 gm/ 100 mls @ 200 mls/hr 06/14/19 17:30 06/15/19 18:16 Sodium Chloride IVPB 100 mls Q24HR ESPERANZA Administration Vancomycin HCl 1 gm/ Device 200 mls @ 200 mls/hr 06/14/19 18:00 06/15/19 20: 17 IVPB Not Given Q24HR ESPERANZA Morphine Sulfate 2 mg 06/14/19 19:43 06/16/19 05:15 Morphine SLOW IVP 2 mg Q4H PRN Administration Moderate Pain (4-6) Sodium Chloride 10 ml 06/15/19 09:00 06/16/19 10:33 Flush - Normal Saline IVF 10 ml Q12HR ESPERANZA Administration Sodium Chloride 10 ml 06/15/19 08:33 06/16/19 05:14 Flush - Normal Saline IVF 10 ml PRN PRN Administration Saline Flush Tamsulosin HCl 0.4 mg 06/15/19 21:00 06/15/19 20:18 Flomax PO 0.4 mg HS ESPERANZA Administration - Exam General Appearance: NAD, awake alert Neck: supple, symmetric, no JVD, no thyromegaly, no lymphadenopathy, no carotid bruit Heart: RRR, no murmur, no gallops, no rubs, normal peripheral pulses Heart - other findings: left chest AICD. Respiratory: CTAB, no wheezes, no rales, no ronchi, normal chest expansion, no tachypnea, normal percussion Gastrointestinal: soft, non-tender, non-distended, normal bowel sounds, no palpable masses, no hepatomegaly, no splenomegaly, no bruit Extremities: 2+ LE edema Skin - other findings: Gen less erythema. Mixed erythema, superfic ecchymoses BLE's. LLE warm lat Neurological: cranial nerve grossly intact, no focal deficits Musculoskeletal: normal tone, normal strength, no muscle wasting Psychiatric: normal affect, normal behavior, A&O x 3 Hosp A/P (1) Cellulitis of leg, left Code(s): L03.116 - CELLULITIS OF LEFT LOWER LIMB Status: Acute (2) Cellulitis of leg, right Code(s): L03.115 - CELLULITIS OF RIGHT LOWER LIMB Status: Acute (3) Chronic systolic CHF (congestive heart failure), NYHA class 3 Code(s): I50.22 - CHRONIC SYSTOLIC (CONGESTIVE) HEART FAILURE Status: Acute (4) CAD (coronary artery disease) Code(s): I25.10 - ATHSCL HEART DISEASE OF [place] CORONARY ARTERY W/O ANG PCTRS Status: Chronic (5) CKD (chronic kidney disease) stage 3, GFR 30-59 ml/min Code(s): N18.3 - CHRONIC KIDNEY DISEASE, STAGE 3 (MODERATE) Status: Chronic (6) Diabetes type 2, controlled Code(s): E11.9 - TYPE 2 DIABETES MELLITUS WITHOUT COMPLICATIONS Status: Chronic (7) Dyslipidemia Code(s): E78.5 - HYPERLIPIDEMIA, UNSPECIFIED Status: Chronic (8) Hypertension Code(s): I10 - ESSENTIAL (PRIMARY) HYPERTENSION Status: Chronic (9) Urinary retention Code(s): R33.9 - RETENTION OF URINE, UNSPECIFIED Status: Acute (10) Obesity (BMI 30.0-34.9) Code(s): E66.9 - OBESITY, UNSPECIFIED Status: Chronic - Plan Sounds like he had a delayed hypersensitivity reaction to the Bactrim he was on for cellulitis of the LE's. Then got steroids and had worsening edema as the urticaria resolved. Then he had the current lesions and inflammation. Appreciate ID input. Continue with IV abx. Continue Stock at least 5 days for urinary retention and bladder distention. Accuchecks. Resume Metformin which was held for the contrast study. Lasix increased by Cardiology. EF 25%. Edema is multifactoria, but CHF likely contributory. LE dopplers. Continue the Stool Softeners PRN. H2 for GI prophylaxis. Continue Heparin for DVT prophylaxis.
[2019-06-16] MEDS ORDERED: metFORMIN 500 MG TAB PO SCH (11:00)
--- NOTE | 2019-06-16 11:57 | ULT ---
US Venous Doppler Bilat History: Edema. Erythema Comparison: None. Findings: Real-time grayscale, color, and spectral analysis of the bilateral lower extremity venous s ystem was performed. The common femoral, femoral, proximal portions greater saphenous and deep femoral veins as well as the popliteal and posterior tibial veins were interrogated. Normal flow, augmentation, and compression. Impression: No deep venous thrombosis.
[2019-06-16] MEDS: Furosemide 100 MG/10 ML VIAL SLOW IVP SCH (14:53)
--- NOTE | 2019-06-16 16:49 | PRG ---
DATE OF SERVICE: 06/16/2019 SUBJECTIVE: Everything is better except for his left knee, which is markedly painful with limitation of range of motion, has not improved, in fact has worsened probably. He denies any headaches. Mild respiratory symptoms. No diarrhea. He has a Stock catheter in place still. He has been afebrile since admission. Other vital signs are on remarkable. His I's and O's have been negative for the most part. OBJECTIVE: GENERAL: He is awake, alert, and oriented. LUNGS: With faint basilar crackles. HEART: S1 and S2. Regular rate. ABDOMEN: Mildly distended. SKIN: All the skin lesions are improving, actually even the lateral aspect of the left knee has improved, with not as bright reddish color anymore, but then left knee is markedly tender. There seems to be a prepatellar collection, they are maybe in the bursa, but there seems to be also intra-articular fluid as well. There is marked range of motion with limitation. NEUROLOGIC: Nonfocal. LABORATORY DATA: White cell count 13,000, hemoglobin 11, and platelets 159. Creatinine 1.48. ASSESSMENT AND DISCUSSION: 1. Ischemic cardiomyopathy with automatic implantable cardioverter-defibrillator in place. 2. Areas of folliculitis, which have developed into ulcerations in the lower extremities below the knee area because of venous insufficiency, volume overload with edema in the lower extremities, impeding healing process. 3. Areas of focal cellulitis, which are improving, particularly the 1 in the right anterior thigh. 4. Possible either prepatellar bursitis or intra-articular infection/inflammatory process in the left knee. The overall status has improved, but the left knee remains a concern and we will have Orthopedic Surgery to evaluate. He may need arthrocentesis or a bursa I and D with cultures. Job ID: [id number]
[2019-06-16] MEDS: cefTRIAXone\\ROCEPHIN 1 GM in Sodium Chloride 0.9% 100 ML IVPB SCH (17:09)
[2019-06-16] MEDS: metFORMIN 500 MG TAB PO SCH (17:11)
[2019-06-16] MEDS: Vancomycin HCl 1 GM in Premix Bag 1 BAG IVPB SCH (18:01)
[2019-06-16] MEDS: Tamsulosin HCl 0.4 MG CAP PO SCH (20:04)
[2019-06-16] MEDS: Famotidine 20 MG TAB PO SCH (20:04)
[2019-06-17] MEDS: Morphine 2 MG/ML SYRINGE SLOW IVP PRN ×5 (01:37→21:55)
[2019-06-17] MEDS: Fentanyl 100 MCG/2 ML VIAL SLOW IVP PRN ×5 (04:23→23:41)
[2019-06-17 05:09] LABS: Anion Gap 16 mmol/L (10-20); BUN (Urea Nitrogen) 42 mg/dL (8.4-25.7); Calc. Creatinine Clearance 71 mL/min (70-130); Calcium 9.3 mg/dL (7.8-10.44); Carbon Dioxide 30 mmol/L (23-31); Chloride 81 mmol/L (98-107); Estimated GFR-MDRD 46; Glucose 142 mg/dL (80-115); Potassium 3.4 mmol/L (3.5-5.1); Sodium 124 mmol/L (136-145)
[2019-06-17] MEDS: Furosemide 100 MG/10 ML VIAL SLOW IVP SCH ×2 (05:59→13:12)
--- NOTE | 2019-06-17 09:20 | PRG ---
DATE OF SERVICE: 06/17/2019 SUBJECTIVE: Mr. Ba is doing well. No current complaints. He initially came in with shortness of breath and cellulitis. Cellulitis persists and is on antibiotic therapy. He states his shortness of breath has markedly improved. He has no current symptoms. His only limitation from walking is his knee and knee discomfort. OBJECTIVE: GENERAL: Patient is a pleasant male who is in no acute distress. The patient appears his stated age. VITAL SIGNS: Blood pressure 103/65, pulse 86, and respirations 20. NEUROLOGIC: The patient is alert and oriented x3 with no focal neurologic deficits. HEENT: Sclerae without icterus. Mouth has moist mucous membranes with normal pallor. NECK: No JVD. Carotid upstroke brisk. No bruits bilaterally. LUNGS: Clear to auscultation with unlabored respirations. BACK: No scoliosis or kyphosis. CARDIAC: Regular rate and rhythm with normal S1 and S2. No S3 or S4 noted. No significant rubs, murmurs, thrills, or gallops noted throughout the precordium. PMI is not displaced. There is no parasternal heave. ABDOMEN: Soft, nontender, nondistended. No peritoneal signs present. No hepatosplenomegaly. No abnormal striae. EXTREMITIES: Significant erythema noted to the right and left lower extremities, left greater than right. Significant enlargement of the left knee versus right. SKIN: No gross abnormalities. PERTINENT LABORATORY DATA: Hemoglobin 11.9, white blood cell count 13,000. Creatinine 1.55, which is slightly elevated from 1.48. BNP of 1677. IMPRESSION: 1. Ischemic cardiomyopathy. 2. Status post implantable cardioverter-defibrillator placement. 3. Cellulitis. RECOMMENDATIONS: From a CV standpoint, Mr. Ba appears to be stable. He has no current complaints of shortness of breath. He is currently on aspirin and carvedilol. There was mention over the weekend on changing to Entresto, which certainly would be a good option. At this point, I did discuss there may be a financial consequence. He would like to hold off on proceeding with Entresto until he has followed up with his pharmacist on cost. The patient was on lisinopril 10 mg q.a.m. in the past. We will restart 5 mg q.a.m. From my standpoint, Mr. Ba continues to appear euvolemic, would be okay to transfer to a medical floor for further IV antibiotics. Job ID: [id number]
[2019-06-17] MEDS: Heparin 5,000 UNITS/ML VIAL SC SCH ×3 (09:42→20:08)
[2019-06-17] MEDS: Aspirin 81 mg Enteric Coated Tablet PO SCH (09:43)
[2019-06-17] MEDS: Carvedilol 6.25 MG TAB PO SCH ×2 (09:43→16:56)
[2019-06-17] MEDS: Famotidine 20 MG TAB PO SCH ×2 (09:43→20:49)
[2019-06-17] MEDS: metFORMIN 500 MG TAB PO SCH ×2 (09:43→16:56)
[2019-06-17] MEDS: Lisinopril 5 MG TAB PO SCH (09:57)
[2019-06-17] MEDS: traMADol HCl 50 MG TAB PO PRN ×3 (11:17→22:39)
--- NOTE | 2019-06-17 11:57 | PQF ---
JESSE SHARPE VERONICAUSHA LOAIZABELLA [id number] CLINICAL DOCUMENTATION IMPROVEMENT CLARIFICATION FORM: ICD-10 Updated PLEASE DO AN ADDENDUM TO THE PROGRESS NOTE WITH ANY DOCUMENTATION UPDATES OR ADDITIONS AND CARRY THROUGH TO DC SUMMARY. THANK YOU. DATE: 06/19/19 ATTN: Dr. Loaiza Please exercise your independent, professional judgment in responding to the clarification form. Clinical indicators are provided on the bottom of this form for your review Please check appropriate box(es): [ ] Sepsis due to: Bilateral extremity [ ] Localized infection without sepsis [ ] Other diagnosis [ x ] Unable to determine In addition, please specify: Present on Admission (POA): [ ] Yes [ ] No [ ] Unable to determine For continuity of documentation, please document condition throughout progress notes and discharge summary. Thank You. CLINICAL INDICATORS - SIGNS / SYMPTOMS / LABS / RESULTS AND LOCATION IN MR Increase BUN/Skein Winding Operator, decrease GFR--> 06/14 bun 50, creat 1.69, GFR 41 to 06/14 bun 46 , creat 1.48, GFR 48 per lab WBC count 14.8 with 85% neutrophils per 06/14 labs HR 92 06/14 VS RISK FACTORS / RESULTS AND LOCATION IN MR Infection/Bacteremia--> 06/14 H&P(Sarah): "Bilateral cellulitis" TREATMENTS / RESULTS AND LOCATION IN MR Telemetry orders 06/14 Daily CBC 06/14 to date per orders Blood/wound cultures 06/14 orders ID Consult 06/14 orders IV antibiotics - broad spectrum--> 06/14 Vanc 1gm daily and Rocephin 1g IV daily per orders Held lisinopril 06/14-06/16 per orders (This form is maintained as a part of the permanent medical record) 2014 [email or web address] All Rights Reserved Mary Jiang, RN, BSN, CCDS [email or web address] [facility]ITAL[facility]adira
--- NOTE | 2019-06-17 14:09 | PDOC.HOSPP ---
- Subjective Subjective: Seen and examined. Still with knee pain, redness, and swelling. Patient tells me it is not significantly improved. Discussed possibility of arthrocentesis. All questions answered in detail. - Objective Vital Signs & Weight: Vital Signs (12 hours) Temp Pulse Resp BP BP Pulse Ox 06/17/19 12:00 96.9 F L 79 18 104/69 96 06/17/19 09:57 103/65 06/17/19 09:43 103/65 06/17/19 07:43 86 18 103/65 97 06/17/19 04:00 98.1 F 89 14 122/71 98 Weight Weight 210 lb I&O: 06/16/19 06/17/19 06/18/19 06:59 06:59 06:59 Intake Total 3680 Output Total 6198 1480 Balance -2495 -1480 Result Diagrams: 06/15/19 04:31 06/17/19 04:26 Additional Labs: Accuchecks 06/17/19 06/17/19 06/16/19 10:11 06:01 20:29 POC Glucose 138 H 163 H 201 H Radiology Reviewed by me: Yes Hospitalist ROS - Review of Systems All other systems reviewed; all pertinent +/- noted in HPI/Subj - Medication Medications: Active Medications Generic Name Dose Route Start Last Admin Trade Name Wilianq PRN Reason Stop Dose Admin Aspirin 81 mg 06/15/19 09:00 06/17/19 09:43 Ecotrin PO 81 mg DAILY ESPERANZA Administration Carvedilol 6.25 mg 06/14/19 17:00 06/17/19 09:43 Coreg PO 6.25 mg BID-WM ESPERANZA Administration Famotidine 20 mg 06/16/19 21:00 06/17/19 09:43 Pepcid PO 20 mg BID ESPERANZA Administration Fentanyl 50 mcg 06/14/19 19:52 06/17/19 09:44 Sublimaze SLOW IVP 50 mcg Q4H PRN Administration Severe Pain (7-10) Furosemide 80 mg 06/16/19 14:00 06/17/19 13:12 Lasix SLOW IVP 80 mg 0600,1400 ESPERANZA Administration Heparin Sodium (Porcine) 5,000 units 06/14/19 15:00 06/17/19 09:42 Heparin SC 5,000 units TID ESPERANZA Administration Ceftriaxone Sodium 1 gm/ 100 mls @ 200 mls/hr 06/14/19 17:30 06/16/19 17:09 Sodium Chloride IVPB 100 mls Q24HR ESPERANZA Administration Vancomycin HCl 1 gm/ Device 200 mls @ 200 mls/hr 06/14/19 18:00 06/16/19 18: 01 IVPB 200 mls Q24HR ESPERANZA Administration Lisinopril 5 mg 06/17/19 09:00 06/17/19 09:57 Zestril PO 5 mg DAILY ESPERANZA Administration Metformin HCl 1,000 mg 06/16/19 17:00 06/17/19 09:43 Glucophage PO 1,000 mg BID-WM ESPERANZA Administration Morphine Sulfate 2 mg 06/14/19 19:43 06/17/19 13:11 Morphine SLOW IVP 2 mg Q4H PRN Administration Moderate Pain (4-6) Sodium Chloride 10 ml 06/15/19 09:00 06/17/19 09:44 Flush - Normal Saline IVF 10 ml Q12HR ESPERANZA Administration Sodium Chloride 10 ml 06/15/19 08:33 06/16/19 05:14 Flush - Normal Saline IVF 10 ml PRN PRN Administration Saline Flush Tamsulosin HCl 0.4 mg 06/15/19 21:00 06/16/19 20:04 Flomax PO 0.4 mg HS ESPERANZA Administration Tramadol HCl 50 mg 06/17/19 11:05 06/17/19 11:17 Ultram PO 50 mg Q4H PRN Administration Moderate to Severe Pain (6-10) - Exam General Appearance: NAD, awake alert Eye: anicteric sclera ENT: normocephalic atraumatic, moist mucosa Neck: supple, symmetric, no lymphadenopathy Heart: no murmur, no gallops, no rubs Respiratory: CTAB, no wheezes, no rales, no ronchi Gastrointestinal: soft, non-tender, non-distended, normal bowel sounds, no guarding, no rigidity Extremities: 2+ LE edema Extremities - other findings: Left knee with errythema and effusion. Skin - other findings: Bilateral LE scabbed over lesions Neurological: cranial nerve grossly intact, normal sensation to touch, no focal deficits Musculoskeletal: generalized weakness Psychiatric: normal affect, A&O x 3 Hosp A/P (1) DM (diabetes mellitus) Code(s): E11.9 - TYPE 2 DIABETES MELLITUS WITHOUT COMPLICATIONS Status: Acute (2) Cellulitis of leg, left Code(s): L03.116 - CELLULITIS OF LEFT LOWER LIMB Status: Acute (3) Cellulitis of leg, right Code(s): L03.115 - CELLULITIS OF RIGHT LOWER LIMB Status: Acute (4) Chronic systolic CHF (congestive heart failure), NYHA class 3 Code(s): I50.22 - CHRONIC SYSTOLIC (CONGESTIVE) HEART FAILURE Status: Acute (5) Urinary retention Code(s): R33.9 - RETENTION OF URINE, UNSPECIFIED Status: Acute (6) Acute on chronic systolic ACC/AHA stage C congestive heart failure Code(s): I50.23 - ACUTE ON CHRONIC SYSTOLIC (CONGESTIVE) HEART FAILURE Status : Acute (7) Acute worsening of stage 3 chronic kidney disease Code(s): N18.3 - CHRONIC KIDNEY DISEASE, STAGE 3 (MODERATE) Status: Acute (8) Demand ischemia Code(s): I24.8 - OTHER FORMS OF ACUTE ISCHEMIC HEART DISEASE Status: Acute (9) Diabetes mellitus type 2, insulin dependent Code(s): E11.9 - TYPE 2 DIABETES MELLITUS WITHOUT COMPLICATIONS; Z79.4 - HALFWAY (CURRENT) USE OF INSULIN Status: Acute (10) CAD (coronary artery disease) Code(s): I25.10 - ATHSCL HEART DISEASE OF [place] CORONARY ARTERY W/O ANG PCTRS Status: Chronic (11) Dyslipidemia Code(s): E78.5 - HYPERLIPIDEMIA, UNSPECIFIED Status: Chronic (12) Hypertension Code(s): I10 - ESSENTIAL (PRIMARY) HYPERTENSION Status: Chronic (13) Obesity (BMI 30.0-34.9) Code(s): E66.9 - OBESITY, UNSPECIFIED Status: Chronic - Plan Plan: medical unit with telemetry infectious disease consultation, recommendations appreciated cardiology consultation, recommendations appreciated orthopedic surgery consultation, recommendations appreciated nephrology consultation, recommendations appreciated antibiotics per infectious disease specialist, responding to current medications May require arthrocentesis for definitive diagnosis, this will make antibiotic selection more accurate also acute kidney injury on chronic kidney disease, in addition to hyponatremia further management per nephrology cardiomyopathy regimen as able Stock catheter for urinary retention long and short acting insulin for glucose control continue other home medications as able blood pressure control
[2019-06-17] MEDS: cefTRIAXone\\ROCEPHIN 1 GM in Sodium Chloride 0.9% 100 ML IVPB SCH (16:56)
[2019-06-17] MEDS: Vancomycin HCl 1 GM in Premix Bag 1 BAG IVPB SCH (18:16)
[2019-06-17] MEDS: TRESIBA FLEX TOUCH SC SCH (18:16)
[2019-06-17] MEDS: Insulin Glargine 40 UNITS in Pre-Filled Syringe 1 EACH SC SCH (18:17)
[2019-06-17] MEDS: Tamsulosin HCl 0.4 MG CAP PO SCH (20:07)
[2019-06-17] MEDS: Acetaminophen 325 MG TAB PO PRN (23:56)
--- NOTE | 2019-06-18 01:24 | CON ---
DATE OF CONSULTATION: CONSULTING PHYSICIAN: Daphney Will MD. REQUESTING PHYSICIAN: Dr. Morrison. REASON FOR CONSULTATION: Hyponatremia and acute kidney injury. IMPRESSION: 1. Hyponatremia, query cause. 2. Acute kidney injury, possibly related to diuresis plus cytokine mediated injury. 3. Mild hypokalemia. PLAN: 1. Urine chemistry to be able to categorize what type of hyponatremia. 2. Renal supportive measures. 3. Increase the protein intake in this patient's diet. 4. Avoid potentially nephrotoxic agents. HISTORY OF PRESENT ILLNESS: History is that of a 63-year-old gentleman who presented here with left lower extremity edema with cellulitis, some degree of shortness of breath. The patient does have significant cardiac history including diabetes, followed actively by Cardiology and especially during this hospitalization. The patient presented with mild hyponatremia with sodium 131, however, over the course of hospitalization has dropped to 124, felt cause the need for renal consultation. PAST MEDICAL HISTORY: Significant for ischemic cardiomyopathy, coronary artery bypass surgery, type 2 diabetes, hypertension. MEDICATIONS: Reviewed and as documented on [employer]. ALLERGIES: NO KNOWN DRUG ALLERGIES. FAMILY HISTORY: Not significantly related to present illness. SOCIAL HISTORY: No alcohol, no tobacco, no illicit drug use. REVIEW OF SYSTEMS: As documented in the body of history. All the other systems were reviewed and found not to be significantly related to presenting illness. PHYSICAL EXAMINATION: VITAL SIGNS: The patient noted with the following vital signs; afebrile, temperature 96.9, pulse 79, respiratory rate of 18, O2 saturations 96% with blood pressure 104/69. HEENT: Unremarkable. Moist oral mucosa. NECK: Supple. No conjunctival injection or icterus. CARDIOVASCULAR: First and second heart sounds were heard. RESPIRATORY: Clear to auscultation. DIGESTIVE: Revealed a benign abdomen. EXTREMITIES: No peripheral edema. SKIN: Shows some rashes over the lower extremity. LYMPHATICS: No peripheral lymphadenopathy. SUMMARY: A 63-year-old gentleman who presented here with a sodium 131, which has dropped to 124 for unknown reason. Thank you for this consultation. We will follow with you. Job ID: [id number]
[2019-06-18] MEDS: Morphine 2 MG/ML SYRINGE SLOW IVP PRN ×5 (02:10→21:00)
[2019-06-18] MEDS: traMADol HCl 50 MG TAB PO PRN ×3 (03:18→13:45)
[2019-06-18 05:29] LABS: Anion Gap 19 mmol/L (10-20); BUN (Urea Nitrogen) 40 mg/dL (8.4-25.7); Calc. Creatinine Clearance 74 mL/min (70-130); Calcium 9.4 mg/dL (7.8-10.44); Carbon Dioxide 32 mmol/L (23-31); Chloride 79 mmol/L (98-107); Estimated GFR-MDRD 51; Glucose 118 mg/dL (80-115); Potassium 3.5 mmol/L (3.5-5.1); Sodium 126 mmol/L (136-145)
[2019-06-18] MEDS: Furosemide 100 MG/10 ML VIAL SLOW IVP SCH (05:55)
[2019-06-18] MEDS: metFORMIN 500 MG TAB PO SCH ×2 (08:14→17:43)
[2019-06-18] MEDS: Aspirin 81 mg Enteric Coated Tablet PO SCH (08:14)
[2019-06-18] MEDS: Lisinopril 5 MG TAB PO SCH (08:15)
[2019-06-18] MEDS: Carvedilol 6.25 MG TAB PO SCH (08:15)
[2019-06-18] MEDS: Famotidine 20 MG TAB PO SCH ×2 (08:15→20:55)
[2019-06-18] MEDS: Heparin 5,000 UNITS/ML VIAL SC SCH ×2 (08:16→21:00)
--- NOTE | 2019-06-18 11:20 | PDOC.CPN ---
- Subjective Date: 06/18/19 Time: 11:17 Interval history: Patient with c/o pain to bilateral legs. Otherwise dizzy when he stands. - Review of Systems Respiratory: denies: cough, congestion, shortness of breath, exercise intolerance Cardiovascular: denies: chest pain, palpitation, edema, paroxysmal nocturnal dyspnea, orthopnea Gastrointestinal: denies: nausea, vomiting, diarrhea, constipation, abd pain, GI bleeding Musculoskeletal: reports: pain, tenderness, swelling Neurological: denies: numbness, syncope, seizure, weakness - Objective Allergies/Adverse Reactions: Allergies Allergy/AdvReac Type Severity Reaction Status Date / Time No Known Drug Allergies Allergy Verified 01/01/19 09:14 Visit Medications: Current Medications Acetaminophen (Tylenol) 650 mg PO Q4H PRN PRN Reason: Headache/Fever/Mild Pain (1-3) Last Admin: 06/17/19 23:56 Dose: 650 mg Aspirin (Ecotrin) 81 mg PO DAILY [facility] Last Admin: 06/18/19 08:14 Dose: 81 mg Bisacodyl (Dulcolax) 10 mg PO DAILYPRN PRN PRN Reason: Constipation Carvedilol (Coreg) 3.125 mg PO BID-[facility] Famotidine (Pepcid) 20 mg PO BID [facility] Last Admin: 06/18/19 08:15 Dose: 20 mg Fentanyl (Sublimaze) 50 mcg SLOW IVP Q4H PRN PRN Reason: Severe Pain (7-10) Last Admin: 06/17/19 23:41 Dose: 50 mcg Furosemide (Lasix) 40 mg SLOW IVP 0600,1400 [facility] Heparin Sodium (Porcine) (Heparin) 5,000 units SC BID [facility] Last Admin: 06/18/19 08:16 Dose: 5,000 units Ceftriaxone Sodium 1 gm/ (Sodium Chloride) 100 mls @ 200 mls/hr IVPB Q24HR [facility] Last Admin: 06/17/19 16:56 Dose: 100 mls Vancomycin HCl 1 gm/ Device 200 mls @ 200 mls/hr IVPB Q24HR [facility] Last Admin: 06/17/19 18:16 Dose: 200 mls Insulin Glargine 40 units/ (Miscellaneous Medication) 0.4 mls @ 0 mls/hr SC 1800 [facility] Last Admin: 06/17/19 18:17 Dose: Not Given Lisinopril (Zestril) 2.5 mg PO DAILY [facility] Metformin HCl (Glucophage) 1,000 mg PO BID-WM [facility] Last Admin: 06/18/19 08:14 Dose: 1,000 mg Morphine Sulfate (Morphine) 2 mg SLOW IVP Q4H PRN PRN Reason: Moderate Pain (4-6) Last Admin: 06/18/19 06:02 Dose: 2 mg Ondansetron HCl (Zofran Odt) 4 mg PO Q6H PRN PRN Reason: Nausea/Vomiting Tresiba Flex Touch 0 each SC 1800 [facility] Last Admin: 06/17/19 18:16 Dose: 1 each Senna/Docusate Sodium (Senokot S) 2 tab PO BID PRN PRN Reason: Constipation Sodium Chloride (Flush - Normal Saline) 10 ml IVF Q12HR [facility] Last Admin: 06/18/19 08:17 Dose: 10 ml Sodium Chloride (Flush - Normal Saline) 10 ml IVF PRN PRN PRN Reason: Saline Flush Last Admin: 06/18/19 06:02 Dose: 10 ml Tamsulosin HCl (Flomax) 0.4 mg PO HS [facility] Last Admin: 06/17/19 20:07 Dose: 0.4 mg Tramadol HCl (Ultram) 50 mg PO Q4H PRN PRN Reason: Moderate to Severe Pain (6-10) Last Admin: 06/18/19 08:16 Dose: 50 mg Vital Signs & Weight: Vital Signs Temp Pulse Resp BP BP BP Pulse Ox 06/18/19 08:06 97.7 F 78 16 101/57 L 98 06/18/19 08:00 98 06/18/19 04:00 97.9 F 81 16 102/58 L 93 L 06/17/19 23:58 99.3 F 87 18 108/61 95 06/17/19 23:42 99.2 F 92 18 103/62 103/61 88/49 L 96 Weight 199 lb 11.2 oz - Physical Exam General: alert & oriented x3, appears well HEENT: mucus membranes moist Neck: supple neck Cardiac: regular rate and rhythm Lungs: clear to auscultation Abdomen: soft Extremities: 1+ LE edema, other: (healing ulcerations) Musculoskeletal: normal range of motion - Labs Result Diagrams: 06/15/19 04:31 06/18/19 04:14 Troponin/CKMB CK-MB (CK-2) 5.8 ng/mL (0-6.6) 06/14/19 07:31 Troponin I 0.082 ng/mL (< 0.028) H 06/14/19 13:45 - Telemetry Sinus rhythms and dysrhythmias: sinus rhythm - Assessment/Plan Assessment/Plan: 1. Cellulitis vs [place] Har[place]et syndrome due to Bactrim 2. Hyponatremia 3. Chronic systolic CHF 4. Dizziness Might be a little dry currently. Stable cardiac status. Ok to increase fluids a little today. Nephrology working on sodium count. remains on antibiotics.
[2019-06-18] MEDS ORDERED: Furosemide 40 MG/4 ML VIAL SLOW IVP SCH (14:00)
[2019-06-18] MEDS: Carvedilol 3.125 MG TAB PO SCH (17:43)
[2019-06-18] MEDS: cefTRIAXone\\ROCEPHIN 1 GM in Sodium Chloride 0.9% 100 ML IVPB SCH (17:43)
[2019-06-18] MEDS ORDERED: Vancomycin HCl 750 MG in Sodium Chloride 0.9% 250 ML 250 ML IVPB SCH (18:00)
--- NOTE | 2019-06-18 18:13 | PRG ---
DATE OF SERVICE: 06/18/2019 SUBJECTIVE: Osvaldo Ba is getting better slowly, but still quite a bit of tenderness and range of motion limitation of left knee. No respiratory symptoms. No diarrhea. OBJECTIVE: VITAL SIGNS: He has been afebrile. MUSCULOSKELETAL: The lesions in the leg are healing. The left knee erythema is still there, but less prominent. Still quite a bit of tenderness on palpation of the lateral aspect of the left knee. The prepatellar area is not so tender. He is able to fold all the way to about 90 degrees, but the pain becomes unbearable. LUNGS: Clear. HEART: S1 and S2, regular rate. ABDOMEN: Soft, not distended, maybe moderate distention. LABORATORY DATA: White cell count 13,000 about 3 days ago, hemoglobin 11.9. Chemistry with a creatinine 1.42, which is stable. Final cultures from the leg drainage were negative, actually with rare mixed skin alison. ASSESSMENT AND DISCUSSION: Ischemic cardiomyopathy with automatic implantable cardioverter-defibrillator, areas of folliculitis, which developed into ulcerations in the lower extremities below the knee because of venous insufficiency and volume overload and edema in lower extremities and areas of focal cellulitis, which are improving, but then there is the concern with now what appears to be more of intra-articular process. The concern with prepatellar bursitis is less, infrapatellar bursitis is not ruled out. We cannot do an MRI because of his automatic implantable cardioverter-defibrillator, we cannot do a CT because of inability to administer contrast due to his renal function. We will discuss with Radiology, maybe an ultrasound will be an option. Job ID: [id number]
[2019-06-18] MEDS: TRESIBA FLEX TOUCH SC SCH (18:42)
[2019-06-18] MEDS: Insulin Glargine 40 UNITS in Pre-Filled Syringe 1 EACH SC SCH (18:43)
--- NOTE | 2019-06-18 19:19 | PRG ---
DATE OF SERVICE: 06/18/2019 SUBJECTIVE: The patient was seen and examined, noted with the following vital signs. OBJECTIVE: VITAL SIGNS: Blood pressure that showed the patient is of orthostatic. Afebrile. Temperature 97.9, pulse 81. HEENT: Show dry oral mucosa. NECK: Supple. No conjunctival injection or icterus. CARDIOVASCULAR SYSTEM: First and second heart sounds were heard. RESPIRATORY SYSTEM: Clear to auscultation. DIGESTIVE SYSTEM: Revealed a benign abdomen. EXTREMITIES: Showed improved peripheral edema. SKIN: Showed dry skin with different rashes. LABORATORY INVESTIGATION: Showed a sodium 126. IMPRESSION: 1. Hyponatremia, this is likely in the context of intravascular depletion. 2. Acute on chronic kidney disease. 3. Cellulitis reaction. PLAN: 1. Deescalate antihypertensive to liberalize this patient's hemodynamics. 2. Hold diuretics. 3. Increase the protein intake in this patient's diet. 4. Further management to be dependent on the clinical course. Job ID: [id number]
[2019-06-18 20:24] LABS: Vancomycin, Trough 7.3 ug/mL
[2019-06-18] MEDS: Tamsulosin HCl 0.4 MG CAP PO SCH (20:55)
[2019-06-18] MEDS: Vancomycin HCl 750 MG in Sodium Chloride 0.9% 250 ML 250 ML IVPB SCH (20:59)
--- NOTE | 2019-06-18 22:36 | PDOC.HOSPP ---
- Subjective Subjective: Doing ok. Still has some pain, but overall better. Still has pain in the left knee area. - Objective Vital Signs & Weight: Vital Signs (12 hours) Temp Pulse Resp BP BP Pulse Ox 06/18/19 20:54 84 18 96/51 L 06/18/19 19:30 98 F 104 H 18 111/95 H 95 06/18/19 15:40 97.9 F 82 16 96/56 L 95 06/18/19 11:37 97.8 F 76 20 113/64 94 L Weight Weight 199 lb 11.2 oz I&O: 06/17/19 06/18/19 06/19/19 06:59 06:59 06:59 Intake Total 3686 153 720 Output Total 0015 5409 9964 [facility] [place] [phone] Result Diagrams: 06/19/19 06:29 06/18/19 04:14 Additional Labs: Accuchecks 06/18/19 06/18/19 06/18/19 20:06 16:53 10:51 POC Glucose 180 H 145 H 138 H 06/18/19 05:58 POC Glucose 97 Hospitalist ROS - Medication Medications: Active Medications Generic Name Dose Route Start Last Admin Trade Name Freq PRN Reason Stop Dose Admin Acetaminophen 650 mg 06/14/19 14:08 06/17/19 23:56 Tylenol PO 650 mg Q4H PRN Administration Headache/Fever/Mild Pain (1-3) Aspirin 81 mg 06/15/19 09:00 06/18/19 08:14 Ecotrin PO 81 mg DAILY [facility]ERANZA Administration Carvedilol 3.125 mg 06/18/19 17:00 06/18/19 17:43 Coreg PO 3.125 mg BID-WM ESPERANZA Administration Famotidine 20 mg 06/16/19 21:00 06/18/19 20:55 Pepcid PO 20 mg BID [facility] Administration Heparin Sodium (Porcine) 5,000 units 06/17/19 21:00 06/18/19 21:00 Heparin SC 5,000 units BID [facility]ERAN[facility] Administration Ceftriaxone Sodium 1 gm/ 100 mls @ 200 mls/hr 06/14/19 17:30 06/18/19 17:43 Sodium Chloride IVPB 100 mls Q24HR [facility]ERANZA Administration Insulin Glargine 40 units/ 0.4 mls @ 0 mls/hr 06/17/19 18:00 06/18/19 18:43 Miscellaneous Medication SC Not Given 1800 [facility]ERANZA Vancomycin HCl 750 mg/ Sodium 250 mls @ 250 mls/hr 06/18/19 21:00 06/18/19 20 :59 Chloride IVPB 250 mls Q12HR [facility]ERANZA Administration Metformin HCl 1,000 mg 06/16/19 17:00 06/18/19 17:43 Glucophage PO 1,000 mg BID-WM ESPERANZA Administration Morphine Sulfate 2 mg 06/14/19 19:43 06/18/19 21:00 Morphine SLOW IVP 2 mg Q4H PRN Administration Moderate Pain (4-6) Tresiba Flex Touch 0 each 06/17/19 18:00 06/18/19 18:42 SC 1 each 1800 [facility]AN[facility] Administration Sodium Chloride 10 ml 06/15/19 09:00 06/18/19 20:56 Flush - Normal Saline IVF 10 ml Q12HR [facility]ERAN[facility] Administration Sodium Chloride 10 ml 06/15/19 08:33 06/18/19 06:02 Flush - Normal Saline IVF 10 ml PRN PRN Administration Saline Flush Tamsulosin HCl 0.4 mg 06/15/19 21:00 06/18/19 20:55 Flomax PO 0.4 mg HS ESPERANZA Administration Tramadol HCl 50 mg 06/17/19 11:05 06/18/19 13:45 Ultram PO 50 mg Q4H PRN Administration Moderate to Severe Pain (6-10) - Exam General Appearance: NAD, awake alert Heart: RRR, no murmur, no gallops, no rubs, normal peripheral pulses Respiratory: CTAB, no wheezes, no rales, no ronchi, normal chest expansion, no tachypnea, normal percussion Gastrointestinal: soft, non-tender, non-distended, normal bowel sounds, no palpable masses, no hepatomegaly, no splenomegaly, no bruit Extremities: 2+ LE edema Extremities - other findings: Overall edema improved, eryth lateral to left knee. OTW less erythem. Skin - other findings: Small ulcerated lesions scattered BLE's. Stable, improving. Musculoskeletal: normal tone Psychiatric: normal affect, normal behavior, A&O x 3 Hosp A/P (1) Cellulitis of leg, left Code(s): L03.116 - CELLULITIS OF LEFT LOWER LIMB Status: Acute (2) Cellulitis of leg, right Code(s): L03.115 - CELLULITIS OF RIGHT LOWER LIMB Status: Acute (3) Chronic systolic CHF (congestive heart failure), NYHA class 3 Code(s): I50.22 - CHRONIC SYSTOLIC (CONGESTIVE) HEART FAILURE Status: Acute (4) CAD (coronary artery disease) Code(s): I25.10 - ATHSCL HEART DISEASE OF [place] CORONARY ARTERY W/O ANG PCTRS Status: Chronic (5) CKD (chronic kidney disease) stage 3, GFR 30-59 ml/min Code(s): N18.3 - CHRONIC KIDNEY DISEASE, STAGE 3 (MODERATE) Status: Chronic (6) Diabetes type 2, controlled Code(s): E11.9 - TYPE 2 DIABETES MELLITUS WITHOUT COMPLICATIONS Status: Chronic (7) Dyslipidemia Code(s): E78.5 - HYPERLIPIDEMIA, UNSPECIFIED Status: Chronic (8) Hypertension Code(s): I10 - ESSENTIAL (PRIMARY) HYPERTENSION Status: Chronic (9) Urinary retention Code(s): R33.9 - RETENTION OF URINE, UNSPECIFIED Status: Acute (10) Obesity (BMI 30.0-34.9) Code(s): E66.9 - OBESITY, UNSPECIFIED Status: Chronic - Plan Sounds like he had a delayed hypersensitivity reaction to the Bactrim he was on for cellulitis of the LE's. Then got steroids and had worsening edema as the urticaria resolved. Then he had the current lesions and inflammation. Appreciate ID input. Continue with IV abx. Continue Stock at least 5 days for urinary retention and bladder distention. Accuchecks. Resume Metformin which was held for the contrast study. Lasix increased by Cardiology. EF 25%. Edema is multifactorial, but CHF likely contributory. LE dopplers. Continue the Stool Softeners PRN. H2 for GI prophylaxis. Continue Heparin for DVT prophylaxis. Transition to oral pain meds.
[2019-06-19] MEDS: HYDROcodone/Acetaminophen 10/325 mg Tablet PO PRN ×5 (00:38→21:19)
[2019-06-19 06:54] LABS: Hemoglobin 11.5 g/dL (14.0-18.0); Mean Corpuscular HGB CONC 33.1 g/dL (32.0-36.0); Mean Corpuscular Hemoglobin 26.6 pg (27.0-31.0); Mean Corpuscular Volume 80.5 fL (78.0-98.0); Mean Platelet Volume 7.1 fL (7.4-10.4); Platelet Count 240 thou/uL (130-400); RBC Distribution Width 15.5 % (11.5-14.5); Red Blood Cell (RBC) Count 4.31 mill/uL (4.70-6.10); White Blood Cell (WBC) Count 8.7 thou/uL (4.8-10.8)
[2019-06-19] MEDS: Morphine 2 MG/ML SYRINGE SLOW IVP PRN ×2 (07:10→13:38)
[2019-06-19 07:15] LABS: Band 19 % (5-11); Eosinophils 3 % (0-10); Hypochromia SLIGHT = 6-15 cells (100X) (0-5/hpf); Lymphocytes 9 % (21-51); MDiff Complete? YES; Monocytes 18 % (0-10); Neutrophil 48 % (42-75); Platelet Morphology Comment Appears Adequate; Polychromasia SLIGHT = 2-3 cells (100X) (0-2/hpf); Reactive Lymphocytes 3 % (0-10); Target Cells SLIGHT = 2-5 cells (100X) (0-1/hpf)
[2019-06-19] MEDS: Famotidine 20 MG TAB PO SCH ×2 (08:20→21:22)
[2019-06-19] MEDS: Aspirin 81 mg Enteric Coated Tablet PO SCH (08:20)
[2019-06-19] MEDS: Carvedilol 3.125 MG TAB PO SCH ×2 (08:20→17:27)
[2019-06-19] MEDS: Lisinopril 2.5 MG TAB PO SCH (08:20)
[2019-06-19] MEDS: metFORMIN 500 MG TAB PO SCH ×2 (08:20→17:27)
[2019-06-19] MEDS: Heparin 5,000 UNITS/ML VIAL SC SCH ×2 (08:21→21:23)
[2019-06-19 09:11] LABS: Anion Gap 13 mmol/L (10-20); BUN (Urea Nitrogen) 34 mg/dL (8.4-25.7); Calc. Creatinine Clearance 83 mL/min (70-130); Calcium 9.1 mg/dL (7.8-10.44); Carbon Dioxide 35 mmol/L (23-31); Chloride 81 mmol/L (98-107); Estimated GFR-MDRD 61; Glucose 199 mg/dL (80-115); Sodium 126 mmol/L (136-145)
[2019-06-19] MEDS: Vancomycin HCl 750 MG in Sodium Chloride 0.9% 250 ML 250 ML IVPB SCH ×2 (09:37→21:21)
[2019-06-19] MEDS ORDERED: Potassium Chloride 20 MEQ TAB PO SCH ×2 (09:45→15:00)
[2019-06-19] MEDS: traMADol HCl 50 MG TAB PO PRN ×3 (12:16→23:33)
--- NOTE | 2019-06-19 14:52 | PDOC.HOSPP ---
- Subjective Subjective: Doing a little better. Starting the po pain meds today and so far ok. Not hurting as bad as he had been a couple of days ago. - Objective Vital Signs & Weight: Vital Signs (12 hours) Temp Pulse Resp BP BP BP Pulse Ox 06/19/19 11:18 98.3 F 87 18 113/66 94 L 06/19/19 08:20 87 114/64 06/19/19 07:01 98.1 F 88 18 109/62 97 06/19/19 04:00 98.1 F 73 16 93/61 93 L Weight Weight 201 lb 11.2 oz I&O: 06/18/19 06/19/19 06/20/19 06:59 06:59 06:59 Intake Total 672 1200 Output Total 5013 4270 Balance -2091 -9649 Result Diagrams: 06/19/19 06:29 06/19/19 08:35 Additional Labs: Accuchecks 06/19/19 06/19/19 06/19/19 10:41 05:46 05:11 POC Glucose 154 H 110 64 L 06/18/19 06/18/19 20:06 16:53 POC Glucose 180 H 145 H Hospitalist ROS - Medication Medications: Active Medications Generic Name Dose Route Start Last Admin Trade Name Freq PRN Reason Stop Dose Admin Acetaminophen 650 mg 06/14/19 14:08 06/17/19 23:56 Tylenol PO 650 mg Q4H PRN Administration Headache/Fever/Mild Pain (1-3) Hydrocodone Bitart/Acetaminophen 2 tab 06/18/19 17:43 06/19/19 09:37 [place] 10/325 PO 2 tab Q4H PRN Administration Moderate Pain (4-6) Aspirin 81 mg 06/15/19 09:00 06/19/19 08:20 Ecotrin PO 81 mg DAILY ESPERANZA Administration Carvedilol 3.125 mg 06/18/19 17:00 06/19/19 08:20 Coreg PO 3.125 mg BID-WM ESPERANZA Administration Famotidine 20 mg 06/16/19 21:00 06/19/19 08:20 Pepcid PO 20 mg BID ESPERANZA Administration Heparin Sodium (Porcine) 5,000 units 06/17/19 21:00 06/19/19 08:21 Heparin SC 5,000 units BID ESPERANZA Administration Ceftriaxone Sodium 1 gm/ 100 mls @ 200 mls/hr 06/14/19 17:30 06/18/19 17:43 Sodium Chloride IVPB 100 mls Q24HR ESPERANZA Administration Insulin Glargine 40 units/ 0.4 mls @ 0 mls/hr 06/17/19 18:00 06/18/19 18:43 Miscellaneous Medication SC Not Given 1800 ESPERANZA Vancomycin HCl 750 mg/ Sodium 250 mls @ 250 mls/hr 06/18/19 21:00 06/19/19 09 :37 Chloride IVPB 250 mls Q12HR ESPERANZA Administration Lisinopril 2.5 mg 06/19/19 09:00 06/19/19 08:20 Zestril PO 2.5 mg DAILY ESPERANZA Administration Metformin HCl 1,000 mg 06/16/19 17:00 06/19/19 08:20 Glucophage PO 1,000 mg BID-WM ESPERANZA Administration Morphine Sulfate 2 mg 06/14/19 19:43 06/19/19 13:38 Morphine SLOW IVP 2 mg Q4H PRN Administration Moderate Pain (4-6) Tresiba Flex Touch 0 each 06/17/19 18:00 06/18/19 18:42 SC 1 each 1800 ESPERANZA Administration Sodium Chloride 10 ml 06/15/19 09:00 06/19/19 08:21 Flush - Normal Saline IVF 10 ml Q12HR ESPERANZA Administration Sodium Chloride 10 ml 06/15/19 08:33 06/18/19 06:02 Flush - Normal Saline IVF 10 ml PRN PRN Administration Saline Flush Tamsulosin HCl 0.4 mg 06/15/19 21:00 06/18/19 20:55 Flomax PO 0.4 mg HS ESPERANZA Administration Tramadol HCl 50 mg 06/17/19 11:05 06/19/19 12:16 Ultram PO 50 mg Q4H PRN Administration Moderate to Severe Pain (6-10) - Exam General Appearance: NAD, awake alert Heart: RRR, no murmur, no gallops, no rubs, normal peripheral pulses Respiratory: CTAB, no wheezes, no rales, no ronchi, normal chest expansion, no tachypnea, normal percussion Gastrointestinal: soft, non-tender, non-distended, normal bowel sounds, no palpable masses, no hepatomegaly, no splenomegaly, no bruit Extremities - other findings: RLE looking much improved. LLE has edema, erythema to left lat knee. Musculoskeletal: normal tone, normal strength, no muscle wasting Psychiatric: normal affect, normal behavior, A&O x 3 Hosp A/P (1) Cellulitis of leg, left Code(s): L03.116 - CELLULITIS OF LEFT LOWER LIMB Status: Acute (2) Cellulitis of leg, right Code(s): L03.115 - CELLULITIS OF RIGHT LOWER LIMB Status: Acute (3) Chronic systolic CHF (congestive heart failure), NYHA class 3 Code(s): I50.22 - CHRONIC SYSTOLIC (CONGESTIVE) HEART FAILURE Status: Acute (4) CAD (coronary artery disease) Code(s): I25.10 - ATHSCL HEART DISEASE OF [place] CORONARY ARTERY W/O ANG PCTRS Status: Chronic (5) CKD (chronic kidney disease) stage 3, GFR 30-59 ml/min Code(s): N18.3 - CHRONIC KIDNEY DISEASE, STAGE 3 (MODERATE) Status: Chronic (6) Diabetes type 2, controlled Code(s): E11.9 - TYPE 2 DIABETES MELLITUS WITHOUT COMPLICATIONS Status: Chronic (7) Dyslipidemia Code(s): E78.5 - HYPERLIPIDEMIA, UNSPECIFIED Status: Chronic (8) Hypertension Code(s): I10 - ESSENTIAL (PRIMARY) HYPERTENSION Status: Chronic (9) Urinary retention Code(s): R33.9 - RETENTION OF URINE, UNSPECIFIED Status: Acute (10) Obesity (BMI 30.0-34.9) Code(s): E66.9 - OBESITY, UNSPECIFIED Status: Chronic - Plan Sounds like he had a delayed hypersensitivity reaction to the Bactrim he was on for cellulitis of the LE's. Then got steroids and had worsening edema as the urticaria resolved. Then he had the current lesions and inflammation. Appreciate ID input. Continue with IV abx. Continue Stock at least 5 days for urinary retention and bladder distention. Can likely DC tomorrow. Accuchecks. Resume Metformin which was held for the contrast study. Lasix decreased by Nephrology. EF 25%. Edema is multifactorial, but CHF likely contributory. Much improved overall. LE dopplers negative. Nephrology following for hyponatremia. Continue the Stool Softeners PRN. H2 for GI prophylaxis. Continue Heparin for DVT prophylaxis. Transition to oral pain meds.
[2019-06-19] MEDS ORDERED: Gabapentin 300 MG CAP PO SCH (15:15)
[2019-06-19] MEDS ORDERED: Morphine 4 MG/ML VIAL SLOW IVP SCH (15:15)
[2019-06-19] MEDS: cefTRIAXone\\ROCEPHIN 1 GM in Sodium Chloride 0.9% 100 ML IVPB SCH (17:27)
--- NOTE | 2019-06-19 17:29 | PRG ---
DATE OF SERVICE: 06/19/2019 SUBJECTIVE: The patient is seen and examined, seems to be very miserable with pain. Noted with the following vital signs. OBJECTIVE: VITAL SIGNS: Afebrile, temperature 98.3, pulse 91, respirations 16, O2 saturation are 96%, and blood pressure 103/63. HEENT: Unremarkable. CARDIOVASCULAR SYSTEM: First and second heart sounds were heard. RESPIRATORY SYSTEM: Clear to auscultation. DIGESTIVE SYSTEM: Revealed a benign abdomen. EXTREMITIES: Show what seems to look like worsening redness of the left lower extremity as well as prominent viscosities of the left lower extremity veins. IMPRESSION: 1. Hyponatremia, which seems to be plateaued around 126. 2. Improving labile hemodynamics. 3. Left lower extremity cellulitis with prominent varicose veins, raising the possibility of venous obstruction in the way of possible pelvic deep venous thrombosis. PLAN: 1. We will continue to monitor the hemodynamics and stabilize. 2. Recent ultrasound DVT showed no evidence of DVT. However, this cannot completely rule out to possible pelvic DVT as the very prominent varicose veins involving the left lower extremity, though this patient has issues with varicose veins and venostasis. Because of the pain and discomfort, the patient may not be able to tolerate pressure stockings. Otherwise, this might be indicated at this point. 3. Further management to be dependent on the clinical course. Job ID: [id number]
[2019-06-19] MEDS: TRESIBA FLEX TOUCH SC SCH (18:27)
[2019-06-19] MEDS: Tamsulosin HCl 0.4 MG CAP PO SCH (21:19)
[2019-06-19] MEDS: Gabapentin 300 MG CAP PO SCH (21:19)
[2019-06-20] MEDS: HYDROcodone/Acetaminophen 10/325 mg Tablet PO PRN ×5 (01:26→19:53)
[2019-06-20] MEDS: traMADol HCl 50 MG TAB PO PRN ×2 (03:38→21:40)
[2019-06-20] MEDS ORDERED: Dextrose 50% Abboject 50 ML SYRINGE ONE (04:02)
[2019-06-20] MEDS ORDERED: Dextrose 5% in Water 1,000 ML IV PRN (04:53)
[2019-06-20 05:23] LABS: Anion Gap 14 mmol/L (10-20); BUN (Urea Nitrogen) 31 mg/dL (8.4-25.7); Calc. Creatinine Clearance 89 mL/min (70-130); Calcium 8.8 mg/dL (7.8-10.44); Carbon Dioxide 31 mmol/L (23-31); Chloride 84 mmol/L (98-107); Estimated GFR-MDRD 66; Glucose 155 mg/dL (80-115); Potassium 3.1 mmol/L (3.5-5.1); Sodium 126 mmol/L (136-145)
[2019-06-20 08:30] LABS: Vancomycin, Trough 10.3 ug/mL
[2019-06-20] MEDS: metFORMIN 500 MG TAB PO SCH ×2 (08:44→16:33)
[2019-06-20] MEDS: Lisinopril 2.5 MG TAB PO SCH (08:45)
[2019-06-20] MEDS: Carvedilol 3.125 MG TAB PO SCH ×2 (08:45→16:33)
[2019-06-20] MEDS: Gabapentin 300 MG CAP PO SCH ×2 (08:51→21:47)
[2019-06-20] MEDS: Heparin 5,000 UNITS/ML VIAL SC SCH ×2 (08:51→21:46)
[2019-06-20] MEDS: Aspirin 81 mg Enteric Coated Tablet PO SCH (08:51)
[2019-06-20] MEDS: Famotidine 20 MG TAB PO SCH ×2 (08:51→19:54)
[2019-06-20] MEDS: Vancomycin HCl 750 MG in Sodium Chloride 0.9% 250 ML 250 ML IVPB SCH (08:52)
[2019-06-20] MEDS ORDERED: Tolvaptan 15 MG TAB PO SCH (12:30)
[2019-06-20] MEDS ORDERED: Iopamidol-370 76% 500 ML 1 ML ONE (16:01)
[2019-06-20] MEDS: cefTRIAXone\\ROCEPHIN 1 GM in Sodium Chloride 0.9% 100 ML IVPB SCH (16:33)
--- NOTE | 2019-06-20 16:33 | PRG ---
DATE OF SERVICE: 06/20/2019 SUBJECTIVE: The patient is seen and examined, seems to be feeling better today. Noted with the following vital signs. OBJECTIVE: VITAL SIGNS: Afebrile, temperature 98.2, pulse 95, respiratory rate of 16, O2 saturation of 99%, and blood pressure 108/67. HEENT: Unremarkable. CARDIOVASCULAR: First and second heart sounds were heard. RESPIRATORY: Clear to auscultation. DIGESTIVE: Revealed a benign abdomen with positive bowel sounds. EXTREMITIES: No peripheral edema. SKIN: No new gross rash. LYMPHATICS: No peripheral lymphadenopathy. LABORATORY INVESTIGATION: Showed a urine osmolality of 429. IMPRESSION: Hyponatremia, likely multifactorial including intravascular depletion and syndrome of inappropriate antidiuretic hormone secretion. Sodium seems to have plateaued around 126 having taken care of the intravascular depletion, but now dealing with syndrome of inappropriate antidiuretic hormone secretion. PLAN: The patient to be started on tolvaptan today, and monitor the sodium accordingly. Job ID: [id number]
--- NOTE | 2019-06-20 17:13 | PRG ---
DATE OF SERVICE: 06/20/2019 SUBJECTIVE: Standing up when I got into the room. He appears to be able to ambulate better than before. The pain can be intense at times in the left knee skin region. No dyspnea or abdominal pain. Still with indwelling Stock catheter. Oriented. Temperature has been normal throughout. PHYSICAL EXAMINATION: VITAL SIGNS: BP 100/62, pulse 91, respirations 16, O2 saturation 95. GENERAL: Appears in no distress. EXTREMITIES: The legs are improving markedly. Still with area of focal tenderness in the lateral aspect of the left knee skin site, but no obvious abscess or drainage. The anterior prepatellar area is bulging, but it is probably from the edema. The knee does have the pain that he used to have before and he is able to flex it better than before. LABORATORY DATA: The white cell count is finally down to 8.7, hemoglobin is 11.5, platelets 240. Sodium 126, creatinine 1.13 and leg drainage culture with rare mixed skin alison. ASSESSMENT AND DISCUSSION: 1. Ischemic cardiomyopathy, automatic implantable cardioverter-defibrillator. 2. Folliculitis in lower extremities, which developed into ulcerations in the legs because of the edema with marked improvement. 3. Area of focal inflammatory change with tenderness in the lateral aspect of left knee, there is some bulging and some edema of the prepatellar bursa, but I think this does not represent infective bursitis since there is no tenderness. He may have also some knee effusion, but I am not sure about that. He certainly has better range of motion at this time. I would then switch him to oral antimicrobial therapy and continue monitoring progress. I will be glad to follow him up in the clinic. Ideally, one would like to re-image the knee, but due to the automatic implantable cardioverter-defibrillator and renal function that is prohibitive. Job ID: [id number]
[2019-06-20] MEDS: TRESIBA FLEX TOUCH SC SCH (17:20)
--- NOTE | 2019-06-20 18:01 | CT ---
EXAM: LEFT LOWER EXTREMITY CT SCAN WITH IV CONTRAST: 06/20/19 HISTORY: Soft tissue swelling with concern for abscess. FINDINGS: There is very extensive subcutaneous fat stranding evidence for edema or cellulitis. There is some fl uid superficial and deep to the generalized superficial fascia diffusely, anteriorly, laterally, medi ally, and posteriorly. Evidence for superficial fasciitis. There is moderate suprapatellar joint flui d as well as joint fluid within popliteal fossa of the knee. No evidence for deep intramuscular absc ess or myonecrosis. No evidence for abnormal air or gas within the soft tissues to suggest necrotizin g fasciitis. IMPRESSION: Extensive cellulitis as well as diffuse superficial fasciitis. No evidence for deep intramuscular myonecrosis or abscess. Evidence for joint effusion. No evidence for necrotizing fasciitis. POS: RRE
[2019-06-20 18:58] LABS: Anion Gap 14 mmol/L (10-20); BUN (Urea Nitrogen) 31 mg/dL (8.4-25.7); Calc. Creatinine Clearance 74 mL/min (70-130); Carbon Dioxide 33 mmol/L (23-31); Chloride 81 mmol/L (98-107); Estimated GFR-MDRD 53; Glucose 61 mg/dL (80-115); Potassium 4.2 mmol/L (3.5-5.1); Sodium 124 mmol/L (136-145)
[2019-06-20] MEDS: Tamsulosin HCl 0.4 MG CAP PO SCH (19:54)
[2019-06-20] MEDS: Doxycycline 100 MG CAP PO SCH (19:54)
[2019-06-20] MEDS ORDERED: Vancomycin HCl 1 GM in Premix Bag 1 BAG IVPB SCH (21:00)
[2019-06-20] MEDS: Dextrose 50% Abboject 50 ML SYRINGE IVP PRN ×2 (21:33→23:50)
[2019-06-20] MEDS: Rifampin 300 MG CAP PO SCH (21:42)
[2019-06-20] MEDS ORDERED: Dextrose 5 % And 0.9 % NaCl 1,000 ML IV SCH (22:00)
[2019-06-21 00:31] LABS: Anion Gap 15 mmol/L (10-20); BUN (Urea Nitrogen) 30 mg/dL (8.4-25.7); Calc. Creatinine Clearance 80 mL/min (70-130); Calcium 8.6 mg/dL (7.8-10.44); Carbon Dioxide 28 mmol/L (23-31); Chloride 79 mmol/L (98-107); Estimated GFR-MDRD 58; Glucose 95 mg/dL (80-115); Potassium 3.5 mmol/L (3.5-5.1)
[2019-06-21 00:39] LABS: Sodium 118 mmol/L (136-145)
[2019-06-21 06:02] LABS: Anion Gap 15 mmol/L (10-20); BUN (Urea Nitrogen) 28 mg/dL (8.4-25.7); Calc. Creatinine Clearance 86 mL/min (70-130); Calcium 8.7 mg/dL (7.8-10.44); Carbon Dioxide 31 mmol/L (23-31); Chloride 79 mmol/L (98-107); Estimated GFR-MDRD 62; Glucose 121 mg/dL (80-115); Sodium 121 mmol/L (136-145)
[2019-06-21] MEDS: HYDROcodone/Acetaminophen 10/325 mg Tablet PO PRN ×4 (08:22→21:26)
[2019-06-21] MEDS: Famotidine 20 MG TAB PO SCH ×2 (08:23→20:34)
[2019-06-21] MEDS: Carvedilol 3.125 MG TAB PO SCH ×2 (08:23→17:34)
[2019-06-21] MEDS: Aspirin 81 mg Enteric Coated Tablet PO SCH (08:23)
[2019-06-21] MEDS: Gabapentin 300 MG CAP PO SCH ×2 (08:23→20:35)
[2019-06-21] MEDS: Doxycycline 100 MG CAP PO SCH ×2 (08:23→20:34)
[2019-06-21] MEDS: metFORMIN 500 MG TAB PO SCH ×2 (08:23→17:33)
[2019-06-21] MEDS: Heparin 5,000 UNITS/ML VIAL SC SCH ×2 (08:24→20:35)
[2019-06-21] MEDS: Lisinopril 2.5 MG TAB PO SCH (08:24)
[2019-06-21] MEDS ORDERED: Tolvaptan 15 MG TAB PO SCH (09:00)
[2019-06-21] MEDS: Rifampin 300 MG CAP PO SCH ×2 (11:09→21:26)
--- NOTE | 2019-06-21 14:39 | PRG ---
DATE OF SERVICE: 06/21/2019 SUBJECTIVE: Osvaldo is a 63-year-old male, who is still an inpatient for bilateral lower extremity ulcerations, cellulitis, and folliculitis. Subjectively, he tells me he has been feeling better over the last 24 to 48 hours and he has been able to stand and walk. His stiffness gets better after he has been up for a little while and moving the knee, which tends to fit with his picture of lifelong rheumatoid arthritis. His knee pain has not gotten worse, but he still has discomfort in the lateral knee compartment on the left. OBJECTIVE: On exam, he does have a trace effusion to +1 effusion as confirmed on CT examination, but no definitive abscess is noted in the lateral aspect of the knee in the leg. His cellulitis appears to be improving, slightly blanches with pressure on the lateral knee compartment. Tenderness is elicited just lateral to the prepatellar bursa, and he does have an effusion palpable. The range of motion is from -10 to about 35 degrees of flexion. The patellar tracks in the midline. Thigh exam, he can straight leg raise. He is neurovascularly intact in the involved extremity. IMPRESSION AND PLAN: Left knee effusion. This does fit with the patient's history of rheumatoid arthritis and clinically, he is continuing to improve, so it does not give a suggestion of an infectious etiology. There is an effusion on CT exam, but at this point, the patient has not become grossly septic and atypical could be a possibility. Given this and his history of autoimmune issues, this acts and sounds more like a sympathetic effusion and not the etiology of the cellulitis. We will continue to follow, but at this point, defer for arthrocentesis. Job ID: [id number]
[2019-06-21 15:40] LABS: Sodium 122 mmol/L (136-145)
[2019-06-21] MEDS: TRESIBA FLEX TOUCH SC SCH (17:34)
--- NOTE | 2019-06-21 17:36 | PDOC.HOSPP ---
- Subjective Subjective: Doing a little better today. Able to bend the knee a little better. No other complaints. - Objective Vital Signs & Weight: Vital Signs (12 hours) Temp Pulse Resp BP Pulse Ox 06/21/19 15:55 98.1 F 91 18 98/63 97 06/21/19 11:00 99.5 F 91 14 115/67 98 06/21/19 08:24 95 06/21/19 08:00 99.1 F 97 17 108/63 96 Weight Weight 204 lb 11.2 oz I&O: 06/20/19 06/21/19 06/22/19 06:59 06:59 06:59 Intake Total 1690 3380 Output Total 1750 1900 Balance -60 1480 Result Diagrams: 06/19/19 06:29 06/21/19 15:17 Additional Labs: Accuchecks 06/21/19 06/21/19 06/21/19 16:51 10:38 05:24 POC Glucose 150 H 146 H 123 H 06/21/19 06/21/19 06/21/19 04:34 02:52 02:34 POC Glucose 156 H 75 69 L 06/21/19 06/21/19 06/21/19 00:41 00:19 00:11 POC Glucose 103 136 H 120 H 06/20/19 06/20/19 06/20/19 23:51 22:37 22:12 POC Glucose 53 L* 83 88 06/20/19 06/20/19 06/20/19 21:38 21:32 20:24 POC Glucose 51 L* 48 L* 59 L* Hospitalist ROS - Medication Medications: Active Medications Generic Name Dose Route Start Last Admin Trade Name Freq PRN Reason Stop Dose Admin Acetaminophen 650 mg 06/14/19 14:08 06/17/19 23:56 Tylenol PO 650 mg Q4H PRN Administration Headache/Fever/Mild Pain (1-3) Hydrocodone Bitart/Acetaminophen 2 tab 06/18/19 17:43 06/21/19 12:42 [place] 10/325 PO 2 tab Q4H PRN Administration Moderate Pain (4-6) Aspirin 81 mg 06/15/19 09:00 06/21/19 08:23 Ecotrin PO 81 mg DAILY ESPERANZA Administration Carvedilol 3.125 mg 06/18/19 17:00 06/21/19 08:23 Coreg PO 3.125 mg BID-WM ESPERANZA Administration Dextrose/Water 25 gm 06/20/19 04:53 06/20/19 23:50 Dextrose 50% IVP 25 gm PRN PRN Administration HYPOGLYCEMIA PROTOCOL Doxycycline Hyclate 100 mg 06/20/19 21:00 06/21/19 08:23 Vibramycin PO 100 mg BID ESPERANZA Administration Famotidine 20 mg 06/16/19 21:00 06/21/19 08:23 Pepcid PO 20 mg BID ESPERANZA Administration Gabapentin 300 mg 06/19/19 21:00 06/21/19 08:23 Neurontin PO 300 mg BID ESPERANZA Administration Heparin Sodium (Porcine) 5,000 units 06/17/19 21:00 06/21/19 08:24 Heparin SC 5,000 units BID ESPERANZA Administration Lisinopril 2.5 mg 06/19/19 09:00 06/21/19 08:24 Zestril PO Not Given DAILY [facility] Metformin HCl 1,000 mg 06/16/19 17:00 06/21/19 08:23 Glucophage PO Not Given BID-WM [facility] Morphine Sulfate 2 mg 06/14/19 19:43 06/19/19 13:38 Morphine SLOW IVP 2 mg Q4H PRN Administration Moderate Pain (4-6) Tresiba Flex Touch 0 each 06/17/19 18:00 06/20/19 17:20 SC 1 each 1800 ESPERANZA Administration Rifampin 300 mg 06/20/19 22:00 06/21/19 11:09 Rifadin PO 300 mg 1000,2200 ESPERANZA Administration Sodium Chloride 10 ml 06/15/19 09:00 06/21/19 08:24 Flush - Normal Saline IVF Not Given Q12HR [facility] Sodium Chloride 10 ml 06/15/19 08:33 06/18/19 06:02 Flush - Normal Saline IVF 10 ml PRN PRN Administration Saline Flush Tamsulosin HCl 0.4 mg 06/15/19 21:00 06/20/19 19:54 Flomax PO 0.4 mg HS ESPERANZA Administration Tramadol HCl 50 mg 06/17/19 11:05 06/20/19 21:40 Ultram PO 50 mg Q4H PRN Administration Moderate to Severe Pain (6-10) - Exam General Appearance: NAD, awake alert Neck: supple, symmetric, no JVD, no thyromegaly, no lymphadenopathy, no carotid bruit Heart: RRR, no murmur, no gallops, no rubs, normal peripheral pulses Respiratory: CTAB, no wheezes, no rales, no ronchi, normal chest expansion, no tachypnea, normal percussion Gastrointestinal: soft, non-tender, non-distended, normal bowel sounds, no palpable masses, no hepatomegaly, no splenomegaly, no bruit Extremities - other findings: Less edema and erythema, but L knee still the epicenter Skin - other findings: Open lesions appear to be improving. Musculoskeletal: generalized weakness Psychiatric: normal affect, normal behavior, A&O x 3 Hosp A/P (1) Cellulitis of leg, left Code(s): L03.116 - CELLULITIS OF LEFT LOWER LIMB Status: Acute (2) Cellulitis of leg, right Code(s): L03.115 - CELLULITIS OF RIGHT LOWER LIMB Status: Acute (3) Chronic systolic CHF (congestive heart failure), NYHA class 3 Code(s): I50.22 - CHRONIC SYSTOLIC (CONGESTIVE) HEART FAILURE Status: Acute (4) CAD (coronary artery disease) Code(s): I25.10 - ATHSCL HEART DISEASE OF [place] CORONARY ARTERY W/O ANG PCTRS Status: Chronic (5) CKD (chronic kidney disease) stage 3, GFR 30-59 ml/min Code(s): N18.3 - CHRONIC KIDNEY DISEASE, STAGE 3 (MODERATE) Status: Chronic (6) Diabetes type 2, controlled Code(s): E11.9 - TYPE 2 DIABETES MELLITUS WITHOUT COMPLICATIONS Status: Chronic (7) Dyslipidemia Code(s): E78.5 - HYPERLIPIDEMIA, UNSPECIFIED Status: Chronic (8) Hypertension Code(s): I10 - ESSENTIAL (PRIMARY) HYPERTENSION Status: Chronic (9) Urinary retention Code(s): R33.9 - RETENTION OF URINE, UNSPECIFIED Status: Acute (10) Obesity (BMI 30.0-34.9) Code(s): E66.9 - OBESITY, UNSPECIFIED Status: Chronic - Plan Sounds like he had a delayed hypersensitivity reaction to the Bactrim he was on for cellulitis of the LE's. Then got steroids and had worsening edema as the urticaria resolved. Then he had the current lesions and inflammation. Discussed with Dr. Morton. He will see him again today and make a determination if he can change to po abx. Continue Diaz at least 5 days for urinary retention and bladder distention. DC today and see if he can void. He is very hesitant to do that because insertion was uncomfortable. Accuchecks. Good control. Lasix decreased by Nephrology. EF 15%. Edema is multifactorial, but CHF likely contributory. Much improved overall. LE dopplers negative. Nephrology following for hyponatremia. Consider tolvaptan today. Continue the Stool Softeners PRN. H2 for GI prophylaxis. Continue Heparin for DVT prophylaxis. Transition to oral pain meds, oral abx and attempt to dc the diaz.
--- NOTE | 2019-06-21 17:40 | PDOC.HOSPP ---
- Subjective Subjective: Did not manage to void without the Diaz. Was not painful replacing it. - Objective Vital Signs & Weight: Vital Signs (12 hours) Temp Pulse Resp BP Pulse Ox 06/21/19 15:55 98.1 F 91 18 98/63 97 06/21/19 11:00 99.5 F 91 14 115/67 98 06/21/19 08:24 95 06/21/19 08:00 99.1 F 97 17 108/63 96 Weight Weight 204 lb 11.2 oz I&O: 06/20/19 06/21/19 06/22/19 06:59 06:59 06:59 Intake Total 1690 3380 750 Output Total 1750 1900 1150 Balance -60 1480 -400 Result Diagrams: 06/19/19 06:29 06/21/19 15:17 Additional Labs: Accuchecks 06/21/19 06/21/19 06/21/19 16:51 10:38 05:24 POC Glucose 150 H 146 H 123 H 06/21/19 06/21/19 06/21/19 04:34 02:52 02:34 POC Glucose 156 H 75 69 L 06/21/19 06/21/19 06/21/19 00:41 00:19 00:11 POC Glucose 103 136 H 120 H 06/20/19 06/20/19 06/20/19 23:51 22:37 22:12 POC Glucose 53 L* 83 88 06/20/19 06/20/19 06/20/19 21:38 21:32 20:24 POC Glucose 51 L* 48 L* 59 L* Hospitalist ROS - Medication Medications: Active Medications Generic Name Dose Route Start Last Admin Trade Name Freq PRN Reason Stop Dose Admin Acetaminophen 650 mg 06/14/19 14:08 06/17/19 23:56 Tylenol PO 650 mg Q4H PRN Administration Headache/Fever/Mild Pain (1-3) Hydrocodone Bitart/Acetaminophen 2 tab 06/18/19 17:43 06/21/19 17:33 [place] 10/325 PO 2 tab Q4H PRN Administration Moderate Pain (4-6) Aspirin 81 mg 06/15/19 09:00 06/21/19 08:23 Ecotrin PO 81 mg DAILY ESPERANZA Administration Carvedilol 3.125 mg 06/18/19 17:00 06/21/19 17:34 Coreg PO 3.125 mg BID-WM ESPERANZA Administration Dextrose/Water 25 gm 06/20/19 04:53 06/20/19 23:50 Dextrose 50% IVP 25 gm PRN PRN Administration HYPOGLYCEMIA PROTOCOL Doxycycline Hyclate 100 mg 06/20/19 21:00 06/21/19 08:23 Vibramycin PO 100 mg BID ESPERANZA Administration Famotidine 20 mg 06/16/19 21:00 06/21/19 08:23 Pepcid PO 20 mg BID ESPERANZA Administration Gabapentin 300 mg 06/19/19 21:00 06/21/19 08:23 Neurontin PO 300 mg BID ESPERANZA Administration Heparin Sodium (Porcine) 5,000 units 06/17/19 21:00 06/21/19 08:24 Heparin SC 5,000 units BID ESPERANZA Administration Lisinopril 2.5 mg 06/19/19 09:00 06/21/19 08:24 Zestril PO Not Given DAILY [facility] Metformin HCl 1,000 mg 06/16/19 17:00 06/21/19 17:33 Glucophage PO 1,000 mg BID- ESPERANZA Administration Morphine Sulfate 2 mg 06/14/19 19:43 06/19/19 13:38 Morphine SLOW IVP 2 mg Q4H PRN Administration Moderate Pain (4-6) Tresiba Flex Touch 0 each 06/17/19 18:00 06/21/19 17:34 SC Not Given 1800 ESPERANZA Rifampin 300 mg 06/20/19 22:00 06/21/19 11:09 Rifadin PO 300 mg 1000,2200 ESPERANZA Administration Sodium Chloride 10 ml 06/15/19 09:00 06/21/19 08:24 Flush - Normal Saline IVF Not Given Q12HR [facility] Sodium Chloride 10 ml 06/15/19 08:33 06/18/19 06:02 Flush - Normal Saline IVF 10 ml PRN PRN Administration Saline Flush Tamsulosin HCl 0.4 mg 06/15/19 21:00 06/20/19 19:54 Flomax PO 0.4 mg HS ESPERANZA Administration Tramadol HCl 50 mg 06/17/19 11:05 06/20/19 21:40 Ultram PO 50 mg Q4H PRN Administration Moderate to Severe Pain (6-10) - Exam General Appearance: NAD, awake alert General - other findings: A little groggy with the pain meds. Neck: supple, symmetric, no JVD, no thyromegaly, no lymphadenopathy, no carotid bruit Heart: RRR, no murmur, no gallops, no rubs, normal peripheral pulses Respiratory: CTAB, no wheezes, no rales, no ronchi, normal chest expansion, no tachypnea, normal percussion Gastrointestinal: soft, non-tender, non-distended, normal bowel sounds, no palpable masses, no hepatomegaly, no splenomegaly, no bruit Extremities: no cyanosis, no clubbing, no edema Skin: normal turgor, no lesions, no rashes Musculoskeletal: normal tone, normal strength, no muscle wasting Psychiatric: normal affect Hosp A/P (1) Cellulitis of leg, left Code(s): L03.116 - CELLULITIS OF LEFT LOWER LIMB Status: Acute (2) Cellulitis of leg, right Code(s): L03.115 - CELLULITIS OF RIGHT LOWER LIMB Status: Acute (3) Chronic systolic CHF (congestive heart failure), NYHA class 3 Code(s): I50.22 - CHRONIC SYSTOLIC (CONGESTIVE) HEART FAILURE Status: Acute (4) CAD (coronary artery disease) Code(s): I25.10 - ATHSCL HEART DISEASE OF [place] CORONARY ARTERY W/O ANG PCTRS Status: Chronic (5) CKD (chronic kidney disease) stage 3, GFR 30-59 ml/min Code(s): N18.3 - CHRONIC KIDNEY DISEASE, STAGE 3 (MODERATE) Status: Chronic (6) Diabetes type 2, controlled Code(s): E11.9 - TYPE 2 DIABETES MELLITUS WITHOUT COMPLICATIONS Status: Chronic (7) Dyslipidemia Code(s): E78.5 - HYPERLIPIDEMIA, UNSPECIFIED Status: Chronic (8) Hypertension Code(s): I10 - ESSENTIAL (PRIMARY) HYPERTENSION Status: Chronic (9) Urinary retention Code(s): R33.9 - RETENTION OF URINE, UNSPECIFIED Status: Acute (10) Obesity (BMI 30.0-34.9) Code(s): E66.9 - OBESITY, UNSPECIFIED Status: Chronic - Plan Sounds like he had a delayed hypersensitivity reaction to the Bactrim he was on for cellulitis of the LE's. Then got steroids and had worsening edema as the urticaria resolved. Then he had the current lesions and inflammation. Dr. Praveen changed to po abx yesterday. CT LLE without and significant joint pathology found. Did not void well after diaz removed. Will need to keep it and follow up with Urology as OP. Accuchecks. Good control. Lasix decreased by Nephrology. EF 15%. Edema is multifactorial, but CHF likely contributory. Much improved overall. LE dopplers negative. Nephrology following for hyponatremia. Consider tolvaptan today. Continue the Stool Softeners PRN. H2 for GI prophylaxis. Continue Heparin for DVT prophylaxis. Transition to oral pain meds, oral abx and attempt to dc the diaz. Can DC home when he has adequate improvement with sodium. Will need OP FU with Urology .
[2019-06-21] MEDS ORDERED: SODIUM CHLORIDE IV SCH (19:15)
[2019-06-21] MEDS ORDERED: STERILE WATER IV SCH (19:15)
--- NOTE | 2019-06-21 19:30 | PRG ---
DATE OF SERVICE: 06/21/2019 SUBJECTIVE: The patient was seen and examined with no new complaint noted with the following vitals. OBJECTIVE: VITAL SIGNS: Afebrile, temperature 98.1, pulse 91, respiratory rate of 18, O2 saturation of 97%, blood pressure 98/63. HEENT: Unremarkable. CARDIOVASCULAR SYSTEM: First and second heart sounds were heard. RESPIRATORY SYSTEM: Clear to auscultation. DIGESTIVE SYSTEM: Revealed a benign abdomen. EXTREMITIES: No significant new peripheral edema. SKIN: No new gross rash except the one that the patient already has in the lower extremity. LABORATORY INVESTIGATION: Showed labile sodium that seems to be drifting down to 121. IMPRESSION: 1. Hyponatremia, possibly related to poor cardiac output with decreased renal perfusion. 2. I cannot completely rule out syndrome of inappropriate antidiuretic hormone with urine chemistry that was done 3 days ago. PLAN: 1. Given the fact that this patient's sodium is drifting down, this may be in the context of use of iso-osmolar IV fluid with the patient with the urine osmolality greater than 400. We will therefore discontinue this IV fluid and also hold tolvaptan for now. A repeat of the urine chemistry to be used to evaluate for potential intravascular depletion. If this comes out to show any evidence of intravascular depletion, we will use a 1.5% saline and monitor the sodium closely. The cardiac failure in this patient with EF of about 15% to 20% needs to be monitored closely as the patient is to be rehydrated with moderately hypertonic solution. 2. Further management will be dependent on the clinical course. Meanwhile, the patient to be on high-protein diet meat. 3. Further management to be dependent on the clinical course. Job ID: [id number]
[2019-06-21] MEDS: Sodium Chloride 256.5 MEQ in Sterile Water Injection 936 ML IV SCH (20:34)
[2019-06-21] MEDS: Tamsulosin HCl 0.4 MG CAP PO SCH (20:35)
[2019-06-21 22:54] LABS: Sodium 121 mmol/L (136-145)
[2019-06-22] MEDS: HYDROcodone/Acetaminophen 10/325 mg Tablet PO PRN ×5 (02:46→21:56)
[2019-06-22 04:41] LABS: Anion Gap 17 mmol/L (10-20); BUN (Urea Nitrogen) 26 mg/dL (8.4-25.7); Calc. Creatinine Clearance 111 mL/min (70-130); Calcium 8.6 mg/dL (7.8-10.44); Carbon Dioxide 27 mmol/L (23-31); Chloride 83 mmol/L (98-107); Estimated GFR-MDRD 84; Glucose 94 mg/dL (80-115); Potassium 3.8 mmol/L (3.5-5.1); Sodium 123 mmol/L (136-145)
[2019-06-22] MEDS: Carvedilol 3.125 MG TAB PO SCH ×2 (07:54→17:47)
[2019-06-22] MEDS: Aspirin 81 mg Enteric Coated Tablet PO SCH (07:54)
[2019-06-22] MEDS: metFORMIN 500 MG TAB PO SCH ×3 (07:54→17:47)
[2019-06-22] MEDS: Doxycycline 100 MG CAP PO SCH ×2 (07:54→20:23)
[2019-06-22] MEDS: Famotidine 20 MG TAB PO SCH ×2 (07:54→19:55)
[2019-06-22] MEDS: Heparin 5,000 UNITS/ML VIAL SC SCH ×2 (07:55→20:24)
[2019-06-22] MEDS: Lisinopril 2.5 MG TAB PO SCH (07:55)
[2019-06-22] MEDS: Gabapentin 300 MG CAP PO SCH ×2 (07:55→19:57)
[2019-06-22] MEDS ORDERED: Preparation H HC 1% Cream 26 GM TUBE TOP PRN (09:22)
[2019-06-22] MEDS: Rifampin 300 MG CAP PO SCH ×2 (09:40→20:25)
[2019-06-22 10:55] LABS: Sodium 124 mmol/L (136-145)
[2019-06-22] MEDS ORDERED: Hydrocortisone 1% Cream 30 GM TUBE TOP PRN (11:56)
--- NOTE | 2019-06-22 13:57 | PDOC.HOSPP ---
- Subjective Subjective: Seen and examined. Left knee/leg swelling persistent, though it is put improved since I saw him on 06/17/2019. There is less cellulitis. Right leg scabbed over lesions are improving and healing. Orthopedic surgery not recommending joint aspiration. Patient and states that there is a scabbed over lesion on his decubitus area which causes pain and discomfort with laying on this bottom. Wound care consulted. - Objective Vital Signs & Weight: Vital Signs (12 hours) Temp Pulse Resp BP BP Pulse Ox 06/22/19 11: 97.4 F L 90 16 110/70 95 06/22/19 08:00 97.2 F L 95 18 124/82 97 06/22/19 07:55 87 06/22/19 03:52 97.5 F L 87 16 129/74 98 Weight Weight 206 lb 1.6 oz I&O: 06/21/19 06/22/19 06/23/19 06:59 06:59 06:59 Intake Total 3380 950 Output Total 1900 1150 Balance 1480 -200 Result Diagrams: 06/19/19 06:29 06/22/19 10:32 Additional Labs: Accuchecks 06/22/19 06/22/19 06/21/19 10:37 05:26 20:21 POC Glucose 132 H 89 140 H 06/21/19 16:51 POC Glucose 150 H Radiology Reviewed by me: Yes Hospitalist ROS - Review of Systems All other systems reviewed; all pertinent +/- noted in HPI/Subj - Medication Medications: Active Medications Generic Name Dose Route Start Last Admin Trade Name Freq PRN Reason Stop Dose Admin Acetaminophen 650 mg 06/14/19 14:08 06/17/19 23:56 Tylenol PO 650 mg Q4H PRN Administration Headache/Fever/Mild Pain (1-3) Hydrocodone Bitart/Acetaminophen 2 tab 06/18/19 17:43 06/22/19 12:01 [place] 10/325 PO 2 tab Q4H PRN Administration Moderate Pain (4-6) Aspirin 81 mg 06/15/19 09:00 06/22/19 07:54 Ecotrin PO 81 mg DAILY ESPERANZA Administration Carvedilol 3.125 mg 06/18/19 17:00 06/22/19 07:54 Coreg PO 3.125 mg BID-WM ESPERANZA Administration Dextrose/Water 25 gm 06/20/19 04:53 06/20/19 23:50 Dextrose 50% IVP 25 gm PRN PRN Administration HYPOGLYCEMIA PROTOCOL Doxycycline Hyclate 100 mg 06/20/19 21:00 06/22/19 07:54 Vibramycin PO 100 mg BID ESPERANZA Administration Famotidine 20 mg 06/16/19 21:00 06/22/19 07:54 Pepcid PO 20 mg BID ESPERANZA Administration Gabapentin 300 mg 06/19/19 21:00 06/22/19 07:55 Neurontin PO 300 mg BID ESPERANZA Administration Heparin Sodium (Porcine) 5,000 units 06/17/19 21:00 06/22/19 07:55 Heparin SC 5,000 units BID ESPERANZA Administration Sodium Chloride 256.5 meq/ 1,000.125 mls @ 50 mls/hr 06/21/19 19:30 06/21/19 20:34 Sterile Water IV 1,000.125 mls .Q20H1M ESPERANZA Administration Lisinopril 2.5 mg 06/19/19 09:00 06/22/19 07:55 Zestril PO Not Given DAILY ESPERANZA Metformin HCl 1,000 mg 06/16/19 17:00 06/22/19 10:25 Glucophage PO Not Given BID-WM ESPERANZA Morphine Sulfate 2 mg 06/14/19 19:43 06/19/19 13:38 Morphine SLOW IVP 2 mg Q4H PRN Administration Moderate Pain (4-6) Tresiba Flex Touch 0 each 06/17/19 18:00 06/21/19 17:34 SC Not Given 1800 ESPERANZA Rifampin 300 mg 06/20/19 22:00 06/22/19 09:40 Rifadin PO 300 mg 1000,2200 ESPERANZA Administration Sodium Chloride 10 ml 06/15/19 09:00 06/22/19 07:56 Flush - Normal Saline IVF Not Given Q12HR ESPERANZA Sodium Chloride 10 ml 06/15/19 08:33 06/18/19 06:02 Flush - Normal Saline IVF 10 ml PRN PRN Administration Saline Flush Tamsulosin HCl 0.4 mg 06/15/19 21:00 06/21/19 20:35 Flomax PO 0.4 mg HS ESPERANZA Administration Tramadol HCl 50 mg 06/17/19 11:05 06/20/19 21:40 Ultram PO 50 mg Q4H PRN Administration Moderate to Severe Pain (6-10) - Exam General Appearance: NAD, awake alert Eye: anicteric sclera ENT: normocephalic atraumatic, moist mucosa Neck: supple, symmetric, no lymphadenopathy Heart: no murmur, no gallops, no rubs Respiratory: CTAB, no wheezes, no rales, no ronchi Gastrointestinal: soft, non-tender, non-distended, no guarding, no rigidity Extremities - other findings: Left leg 3+ edema, improving cellulitis Neurological: cranial nerve grossly intact, no focal deficits Musculoskeletal: generalized weakness Psychiatric: normal affect, normal behavior, A&O x 3 Hosp A/P (1) DM (diabetes mellitus) Code(s): E11.9 - TYPE 2 DIABETES MELLITUS WITHOUT COMPLICATIONS Status: Acute (2) Cellulitis of leg, left Code(s): L03.116 - CELLULITIS OF LEFT LOWER LIMB Status: Acute (3) Cellulitis of leg, right Code(s): L03.115 - CELLULITIS OF RIGHT LOWER LIMB Status: Acute (4) Chronic systolic CHF (congestive heart failure), NYHA class 3 Code(s): I50.22 - CHRONIC SYSTOLIC (CONGESTIVE) HEART FAILURE Status: Acute (5) Urinary retention Code(s): R33.9 - RETENTION OF URINE, UNSPECIFIED Status: Acute (6) Acute on chronic systolic ACC/AHA stage C congestive heart failure Code(s): I50.23 - ACUTE ON CHRONIC SYSTOLIC (CONGESTIVE) HEART FAILURE Status : Acute (7) Acute worsening of stage 3 chronic kidney disease Code(s): N18.3 - CHRONIC KIDNEY DISEASE, STAGE 3 (MODERATE) Status: Acute (8) Demand ischemia Code(s): I24.8 - OTHER FORMS OF ACUTE ISCHEMIC HEART DISEASE Status: Acute (9) Diabetes mellitus type 2, insulin dependent Code(s): E11.9 - TYPE 2 DIABETES MELLITUS WITHOUT COMPLICATIONS; Z79.4 - SOD CUTTER (CURRENT) USE OF INSULIN Status: Acute (10) CAD (coronary artery disease) Code(s): I25.10 - ATHSCL HEART DISEASE OF [place] CORONARY ARTERY W/O ANG PCTRS Status: Chronic (11) Dyslipidemia Code(s): E78.5 - HYPERLIPIDEMIA, UNSPECIFIED Status: Chronic (12) Hypertension Code(s): I10 - ESSENTIAL (PRIMARY) HYPERTENSION Status: Chronic (13) Obesity (BMI 30.0-34.9) Code(s): E66.9 - OBESITY, UNSPECIFIED Status: Chronic - Plan Plan: medical unit with telemetry infectious disease consultation, recommendations appreciated cardiology consultation, recommendations appreciated orthopedic surgery consultation, recommendations appreciated nephrology consultation, recommendations appreciated antibiotics per infectious disease specialist, responding to current medications - now on oral ABX Ortho recommending against arthrocentesis acute kidney injury on chronic kidney disease, in addition to hyponatremia further management per nephrology cardiomyopathy regimen as able Stock catheter for urinary retention long and short acting insulin for glucose control continue other home medications as able blood pressure control
[2019-06-22 17:14] LABS: Sodium 126 mmol/L (136-145)
[2019-06-22] MEDS: Sodium Chloride 256.5 MEQ in Sterile Water Injection 936 ML IV SCH (17:47)
[2019-06-22] MEDS: TRESIBA FLEX TOUCH SC SCH (17:48)
[2019-06-22] MEDS: Morphine 2 MG/ML SYRINGE SLOW IVP PRN ×2 (20:09→21:57)
[2019-06-22] MEDS: Tamsulosin HCl 0.4 MG CAP PO SCH (20:25)
[2019-06-22 22:20] LABS: Sodium 129 mmol/L (136-145)
[2019-06-23] MEDS: Morphine 2 MG/ML SYRINGE SLOW IVP PRN ×2 (02:19→06:02)
[2019-06-23] MEDS: HYDROcodone/Acetaminophen 10/325 mg Tablet PO PRN ×6 (02:20→22:42)
[2019-06-23 08:32] LABS: Anion Gap 14 mmol/L (10-20); BUN (Urea Nitrogen) 23 mg/dL (8.4-25.7); Calc. Creatinine Clearance 106 mL/min (70-130); Calcium 8.8 mg/dL (7.8-10.44); Carbon Dioxide 31 mmol/L (23-31); Chloride 89 mmol/L (98-107); Estimated GFR-MDRD 77; Glucose 146 mg/dL (80-115); Potassium 3.7 mmol/L (3.5-5.1); Sodium 130 mmol/L (136-145)
[2019-06-23] MEDS: Famotidine 20 MG TAB PO SCH ×2 (08:34→20:47)
[2019-06-23] MEDS: Gabapentin 300 MG CAP PO SCH ×2 (08:34→21:00)
[2019-06-23] MEDS: Aspirin 81 mg Enteric Coated Tablet PO SCH (08:34)
[2019-06-23] MEDS: Doxycycline 100 MG CAP PO SCH (08:34)
[2019-06-23] MEDS: metFORMIN 500 MG TAB PO SCH ×2 (08:34→18:32)
[2019-06-23] MEDS: Carvedilol 3.125 MG TAB PO SCH ×2 (08:34→18:32)
[2019-06-23] MEDS: Heparin 5,000 UNITS/ML VIAL SC SCH ×2 (08:35→22:39)
[2019-06-23] MEDS: Lisinopril 2.5 MG TAB PO SCH (08:36)
[2019-06-23] MEDS: Rifampin 300 MG CAP PO SCH (10:28)
[2019-06-23] MEDS: Morphine 4 MG/ML VIAL SLOW IVP PRN ×4 (10:29→22:41)
--- NOTE | 2019-06-23 12:23 | PDOC.HOSPP ---
- Subjective Subjective: Seen and examined. Still with knee pain and swelling. Patient requesting higher doses of opiate medications, I recommended that he wean these medications and we start moving towards non-narcotic medications and plan for discharge. Patient states that he is unable to tolerate going home and his clinical condition currently, we should evaluate for placement in rehabilitation versus [facility]. - Objective Vital Signs & Weight: Vital Signs (12 hours) Temp Pulse Resp BP Pulse Ox 06/23/19 11:55 97.9 F 90 18 105/63 95 06/23/19 08:36 88 06/23/19 07:29 97 06/23/19 07:25 97.6 F 88 18 119/74 97 06/23/19 04:00 97.9 F 80 16 173/79 H 06/23/19 03:01 98.4 F 95 16 110/73 98 Weight Admit Weight 223 lb Weight 210 lb 4.8 oz I&O: 06/22/19 06/23/19 06/24/19 06:59 06:59 06:59 Intake Total 950 2270 Output Total 1150 2225 Balance -200 45 Result Diagrams: 06/19/19 06:29 06/23/19 07:48 Additional Labs: Accuchecks 06/23/19 06/22/19 05:25 16:45 POC Glucose 257 H 199 H Radiology Reviewed by me: Yes Hospitalist ROS - Review of Systems All other systems reviewed; all pertinent +/- noted in HPI/Subj - Medication Medications: Active Medications Generic Name Dose Route Start Last Admin Trade Name Freq PRN Reason Stop Dose Admin Acetaminophen 650 mg 06/14/19 14:08 06/17/19 23:56 Tylenol PO 650 mg Q4H PRN Administration Headache/Fever/Mild Pain (1-3) Hydrocodone Bitart/Acetaminophen 2 tab 06/18/19 17:43 06/23/19 10:28 [place] 10/325 PO 2 tab Q4H PRN Administration Moderate Pain (4-6) Aspirin 81 mg 06/15/19 09:00 06/23/19 08:34 Ecotrin PO 81 mg DAILY ESPERANZA Administration Carvedilol 3.125 mg 06/18/19 17:00 06/23/19 08:34 Coreg PO 3.125 mg BID-WM ESPERANZA Administration Dextrose/Water 25 gm 06/20/19 04:53 06/20/19 23:50 Dextrose 50% IVP 25 gm PRN PRN Administration HYPOGLYCEMIA PROTOCOL Doxycycline Hyclate 100 mg 06/20/19 21:00 06/23/19 08:34 Vibramycin PO 100 mg BID ESPERANZA Administration Famotidine 20 mg 06/16/19 21:00 06/23/19 08:34 Pepcid PO 20 mg BID ESPERANZA Administration Gabapentin 300 mg 06/19/19 21:00 06/23/19 08:34 Neurontin PO 300 mg BID ESPERANZA Administration Heparin Sodium (Porcine) 5,000 units 06/17/19 21:00 06/23/19 08:35 Heparin SC 5,000 units BID ESPERANZA Administration Lisinopril 2.5 mg 06/19/19 09:00 06/23/19 08:36 Zestril PO 2.5 mg DAILY ESPERANZA Administration Metformin HCl 1,000 mg 06/16/19 17:00 06/23/19 08:34 Glucophage PO 1,000 mg BID-WM ESPERANZA Administration Morphine Sulfate 3 mg 06/23/19 08:41 06/23/19 10:29 Morphine SLOW IVP 3 mg Q4H PRN Administration Moderate to Severe Pain (6-10) Tresiba Flex Touch 0 each 06/17/19 18:00 06/22/19 17:48 SC Not Given 1800 ESPERANZA Rifampin 300 mg 06/20/19 22:00 06/23/19 10:28 Rifadin PO 300 mg 1000,2200 ESPERANZA Administration Sodium Chloride 10 ml 06/15/19 09:00 06/23/19 08:36 Flush - Normal Saline IVF Not Given Q12HR ESPERANZA Sodium Chloride 10 ml 06/15/19 08:33 06/18/19 06:02 Flush - Normal Saline IVF 10 ml PRN PRN Administration Saline Flush Tamsulosin HCl 0.4 mg 06/15/19 21:00 06/22/19 20:25 Flomax PO 0.4 mg HS ESPERANZA Administration Tramadol HCl 50 mg 06/17/19 11:05 06/20/19 21:40 Ultram PO 50 mg Q4H PRN Administration Moderate to Severe Pain (6-10) - Exam General Appearance: NAD Eye: anicteric sclera ENT: normocephalic atraumatic, moist mucosa Neck: supple, symmetric, no lymphadenopathy Heart: no murmur, no gallops, no rubs Respiratory: CTAB, no wheezes, no rales, no ronchi Gastrointestinal: soft, non-tender, no guarding, no rigidity Extremities - other findings: +4 left LE edema, improving cellulitis Skin - other findings: Numerous healing scabbed over lesions of the LE Neurological: cranial nerve grossly intact, no focal deficits Musculoskeletal: generalized weakness Psychiatric: A&O x 3 Hosp A/P (1) DM (diabetes mellitus) Code(s): E11.9 - TYPE 2 DIABETES MELLITUS WITHOUT COMPLICATIONS Status: Acute (2) Cellulitis of leg, left Code(s): L03.116 - CELLULITIS OF LEFT LOWER LIMB Status: Acute (3) Cellulitis of leg, right Code(s): L03.115 - CELLULITIS OF RIGHT LOWER LIMB Status: Acute (4) Chronic systolic CHF (congestive heart failure), NYHA class 3 Code(s): I50.22 - CHRONIC SYSTOLIC (CONGESTIVE) HEART FAILURE Status: Acute (5) Urinary retention Code(s): R33.9 - RETENTION OF URINE, UNSPECIFIED Status: Acute (6) Acute on chronic systolic ACC/AHA stage C congestive heart failure Code(s): I50.23 - ACUTE ON CHRONIC SYSTOLIC (CONGESTIVE) HEART FAILURE Status : Acute (7) Acute worsening of stage 3 chronic kidney disease Code(s): N18.3 - CHRONIC KIDNEY DISEASE, STAGE 3 (MODERATE) Status: Acute (8) Demand ischemia Code(s): I24.8 - OTHER FORMS OF ACUTE ISCHEMIC HEART DISEASE Status: Acute (9) Diabetes mellitus type 2, insulin dependent Code(s): E11.9 - TYPE 2 DIABETES MELLITUS WITHOUT COMPLICATIONS; Z79.4 - DRY CHAIN PULLER (CURRENT) USE OF INSULIN Status: Acute (10) CAD (coronary artery disease) Code(s): I25.10 - ATHSCL HEART DISEASE OF [place] CORONARY ARTERY W/O ANG PCTRS Status: Chronic (11) Dyslipidemia Code(s): E78.5 - HYPERLIPIDEMIA, UNSPECIFIED Status: Chronic (12) Hypertension Code(s): I10 - ESSENTIAL (PRIMARY) HYPERTENSION Status: Chronic (13) Obesity (BMI 30.0-34.9) Code(s): E66.9 - OBESITY, UNSPECIFIED Status: Chronic - Plan Plan: medical unit with telemetry, eval for placement in rehab vs SNF until swelling improved and more independent with ambulation infectious disease consultation, recommendations appreciated cardiology consultation, recommendations appreciated orthopedic surgery consultation, recommendations appreciated nephrology consultation, recommendations appreciated antibiotics per infectious disease specialist, responding to current medications - now on oral ABX Ortho recommending against arthrocentesis acute kidney injury on chronic kidney disease, in addition to hyponatremia further management per nephrology cardiomyopathy regimen as able Stock catheter for urinary retention long and short acting insulin for glucose control continue other home medications as able blood pressure control
[2019-06-23 13:28] LABS: #Basophils 0.1 thou/uL (0.0-0.2); #Eosinphils 0.3 thou/uL (0.0-0.7); #Lymphocytes 1.1 thou/uL (1.20-3.40); #Monocytes 0.9 thou/uL (0.11-0.59); #Neutrophils 10.1 thou/uL (1.40-6.50); %Basophils 0.6 % (0.0-1.0); %Eosinophils 2.2 % (0.0-10.0); %Lymphocytes 8.6 % (21.0-51.0); %Monocytes 7.2 % (0.0-10.0); %Neutrophils 81.5 % (42.0-75.0); Mean Corpuscular HGB CONC 31.8 g/dL (32.0-36.0); Mean Corpuscular Hemoglobin 26.4 pg (27.0-31.0); Mean Corpuscular Volume 83.1 fL (78.0-98.0); Mean Platelet Volume 6.9 fL (7.4-10.4); Platelet Count 420 thou/uL (130-400); RBC Distribution Width 16.2 % (11.5-14.5); Red Blood Cell (RBC) Count 4.55 mill/uL (4.70-6.10); White Blood Cell (WBC) Count 12.4 thou/uL (4.8-10.8)
--- NOTE | 2019-06-23 14:28 | PRG ---
DATE OF SERVICE: 06/23/2019 SUBJECTIVE: Pain in the left knee has exacerbated, and he gauges at 10/10 right now. The remainder aspect of his right and left lower extremity is actually better, but the knee is functional, status is probably the worst it has been since he came in. He denies any headaches. No shortness of breath. No abdominal pain. No vomiting. OBJECTIVE: VITAL SIGNS: He has been afebrile. EXTREMITIES: The exam shows marked limitation of range of motion of left knee with more swelling, more erythema, particularly in the lateral aspect. There is more fluid within the joint and is marked tenderness. LUNGS: Clear. HEART: S1 and S2, regular rate. ABDOMEN: Soft. Not distended. NEUROLOGIC: Nonfocal. LABORATORY DATA: White cell count is 8.7 a few days ago, it has not been repeated since. Hemoglobin 11.5, creatinine 0.99, which is markedly improved. ASSESSMENT AND DISCUSSION: Ischemic cardiomyopathy, automatic implantable cardioverter-defibrillator, folliculitis in lower extremities with now obvious evidence of worsening septic arthritis, left knee. Switch him back to IV therapy with previous broad-spectrum coverage and reconsult Orthopedic Surgery. Job ID: [id number]
[2019-06-23] MEDS: Vancomycin HCl 1 GM in Premix Bag 1 BAG IVPB SCH (14:31)
[2019-06-23] MEDS: cefTRIAXone\\ROCEPHIN 2 GM in Sodium Chloride 0.9% 100 ML IVPB SCH (14:31)
[2019-06-23] MEDS: TRESIBA FLEX TOUCH SC SCH (18:34)
[2019-06-23] MEDS ORDERED: Lidocaine 1% w/Epinephrine 1:100K 20 ML VIAL FS SCH (20:15)
[2019-06-23] MEDS: Tamsulosin HCl 0.4 MG CAP PO SCH (20:47)
[2019-06-23] MEDS ORDERED: Vancomycin HCl 1 GM in Sodium Chloride 0.9% 250 ML 300 ML IVPB SCH (21:00)
--- NOTE | 2019-06-23 21:46 | CON ---
DATE OF CONSULTATION: 06/23/2019 HISTORY OF PRESENT ILLNESS: Mr. Ba is a 63-year-old male who developed a sore on his lower extremities and was given 10 days worth of Bactrim. 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 The patient was admitted because of failure of improvement of the pain, swelling, and erythema in both lower extremities, which failed with other antibiotics. The patient was admitted on 06/14/2019. The swelling that he had in the right knee has resolved and is feeling much better, but the patient continues to have pain in the left knee with erythema along the lateral aspect of the thigh, knee, and into the leg. He also has pain on the anterior aspect of the knee just below the patella. He has pain with any type of range of motion of the left knee. The patient has been afebrile. His latest white count was 12.8, hemoglobin was 12. Sodium this morning is 130, chloride 89. C-reactive protein is 12.04. PHYSICAL EXAMINATION: Examination of the right knee shows no effusion in the right knee. The patient is able to move the right knee with no pain. He does have some erythema and some open ulcers on the right leg. He has some erythema in the right thigh. The left lower extremity shows erythema and tenderness along the lateral aspect of the thigh and also the knee joint and into the leg. He is nontender and there is no erythema on the medial or anterior medial aspect of the knee. There is a discrete swelling over the patellar tendon consistent with a bursitis. The patient has a considerable amount of pain with any attempts of movement of the knee. This current range of motion on my exam was 20-60 degrees. IMPRESSION: Cellulitis of the lateral aspect of the left thigh, knee, and leg, possible septic bursitis in the infrapatellar region. It is certainly possible he has septic arthritis of the left knee. PLAN: After prepping the medial aspect of the knee using a small amount of lidocaine, 18-gauge needle was inserted in knee joint and yellow mildly cloudy fluid was removed from the knee joint. Approximately 20 mL were removed. This will be sent to the lab for Gram stain, culture and sensitivity, and cell count. The area over the infrapatellar bursa was slightly open with an 18-gauge needle, but no drainage was expressed from it. We will see how the fluid comes out that I will take out of the knee joint to determine whether he will need a washout of the knee. Job ID: [id number]
--- NOTE | 2019-06-23 21:55 | PRG ---
DATE OF SERVICE: 06/23/2019 SUBJECTIVE: The patient is seen and examined, seems to be doing much better, noted with the following vital signs. OBJECTIVE: VITAL SIGNS: Afebrile, temperature 97.9, pulse 90, respiratory rate of 18, O2 saturation of 95%, and blood pressure 105/63. HEENT: Unremarkable. CARDIOVASCULAR SYSTEM: First and second heart sounds were heard. RESPIRATORY SYSTEM: Clear to auscultation. DIGESTIVE SYSTEM: Revealed a benign abdomen. Positive bowel sounds. EXTREMITIES: No peripheral edema. SKIN: No new gross rash. LYMPHATICS: No peripheral lymphadenopathy. LABORATORY INVESTIGATION: Showed a sodium of 130. IMPRESSION: Hyponatremia of multifactorial etiology, responded to 1.5% saline. PLAN: 1. We will continue current renal supportive measures. 2. Likely to discontinue this hypertonic saline very soon and allow the body to finish up the adjustment. 3. Further management to be dependent on the clinical course. Job ID: [id number]
[2019-06-23 22:06] LABS: RBC Count-Automated (BF) 7999 /cumm; WBC/Nucleated-Auto (BF) 3406 uL
[2019-06-23 22:07] LABS: BF Color Yellow; Clarity Cloudy/Turbid (Clear); Tube # EDTA
[2019-06-23 22:08] LABS: Body Fluid Source Synovial Fluid
[2019-06-23 23:57] LABS: BF Segmented Neutrophils 90 %; Cell Count Non Hematic 9 %; Lymphocytes 1 %
[2019-06-24] MEDS: Morphine 4 MG/ML VIAL SLOW IVP PRN ×5 (02:27→19:25)
[2019-06-24] MEDS: HYDROcodone/Acetaminophen 10/325 mg Tablet PO PRN ×5 (02:28→19:26)
[2019-06-24] MEDS: Vancomycin HCl 1 GM in Premix Bag 1 BAG IVPB SCH ×2 (02:38→15:09)
[2019-06-24 05:25] LABS: Anion Gap 16 mmol/L (10-20); BUN (Urea Nitrogen) 18 mg/dL (8.4-25.7); Calc. Creatinine Clearance 132 mL/min (70-130); Calcium 8.2 mg/dL (7.8-10.44); Carbon Dioxide 27 mmol/L (23-31); Chloride 92 mmol/L (98-107); Estimated GFR-MDRD Greater than 90; Glucose 102 mg/dL (80-115); Potassium 3.6 mmol/L (3.5-5.1); Sodium 131 mmol/L (136-145)
[2019-06-24] MEDS: Lisinopril 2.5 MG TAB PO SCH (08:30)
[2019-06-24] MEDS: Carvedilol 3.125 MG TAB PO SCH ×2 (08:30→17:23)
[2019-06-24] MEDS: Famotidine 20 MG TAB PO SCH ×2 (08:30→20:31)
[2019-06-24] MEDS: Heparin 5,000 UNITS/ML VIAL SC SCH ×2 (08:30→20:32)
[2019-06-24] MEDS: Gabapentin 300 MG CAP PO SCH ×2 (08:30→20:31)
[2019-06-24] MEDS: Aspirin 81 mg Enteric Coated Tablet PO SCH (08:30)
[2019-06-24] MEDS: metFORMIN 500 MG TAB PO SCH ×2 (08:30→17:23)
--- NOTE | 2019-06-24 09:07 | PRG ---
DATE OF SERVICE: 06/22/2019 SUBJECTIVE: The patient was seen and examined with no new complaint, except that of left lower extremity pain noted with the following vital signs. OBJECTIVE: VITAL SIGNS: Afebrile, temperature 97.6, pulse 92, respiratory rate of 16, O2 saturation 94% to 98% on room air, blood pressure 105/67. HEENT: Unremarkable. CARDIOVASCULAR SYSTEM: First and second heart sounds were heard. RESPIRATORY SYSTEM: Clear to auscultation. DIGESTIVE SYSTEM: Revealed a benign abdomen with positive bowel sounds. EXTREMITIES: Shows some redness involving the left lower extremity. LYMPHATICS: No peripheral lymphadenopathy. LABORATORY INVESTIGATIONS: Showed sodium of 124. IMPRESSION: 1. Hyponatremia in the context of continue to monitor the sodium level . 2. Further management will be dependent on the clinical course. Job ID: [id number]
--- NOTE | 2019-06-24 13:37 | PDOC.HOSPP ---
- Subjective Subjective: Seen and examined. Tolerated are thoracentesis. Patient's leg is less swollen after he used bandage for compression, he states that pain was too severe and he could not tolerated however and does not want it done again. Discuss case with infectious disease specialist. Patient may require subacute placement for him to regain his strength, wean pain medications in a controlled environment, addition to allow swelling to resolve. - Objective Vital Signs & Weight: Vital Signs (12 hours) Temp Pulse Resp BP BP Pulse Ox 06/24/19 08:30 97 06/24/19 08:00 97 06/24/19 07:40 97.0 F L 97 17 124/75 97 06/24/19 04:00 98.3 F 82 16 101/56 L 06/24/19 03:07 98.3 F 82 16 101/56 L 94 L Weight Admit Weight 223 lb Weight 215 lb I&O: 06/23/19 06/24/19 06/25/19 06:59 06:59 06:59 Intake Total 2270 1580 Output Total 2225 2400 Balance 45 -820 Result Diagrams: 06/23/19 13:19 06/24/19 04:13 Additional Labs: Accuchecks 06/24/19 06/24/19 06/23/19 10:31 05:07 20:13 POC Glucose 201 H 110 165 H 06/23/19 16:25 POC Glucose 174 H Radiology Reviewed by me: Yes Hospitalist ROS - Review of Systems All other systems reviewed; all pertinent +/- noted in HPI/Subj - Medication Medications: Active Medications Generic Name Dose Route Start Last Admin Trade Name Freq PRN Reason Stop Dose Admin Acetaminophen 650 mg 06/14/19 14:08 06/17/19 23:56 Tylenol PO 650 mg Q4H PRN Administration Headache/Fever/Mild Pain (1-3) Hydrocodone Bitart/Acetaminophen 2 tab 06/18/19 17:43 06/24/19 10:31 [place] 10/325 PO 2 tab Q4H PRN Administration Moderate Pain (4-6) Aspirin 81 mg 06/15/19 09:00 06/24/19 08:30 Ecotrin PO 81 mg DAILY ESPERANZA Administration Carvedilol 3.125 mg 06/18/19 17:00 06/24/19 08:30 Coreg PO 3.125 mg BID-WM ESPERANZA Administration Dextrose/Water 25 gm 06/20/19 04:53 06/20/19 23:50 Dextrose 50% IVP 25 gm PRN PRN Administration HYPOGLYCEMIA PROTOCOL Famotidine 20 mg 06/16/19 21:00 06/24/19 08:30 Pepcid PO 20 mg BID ESPERANZA Administration Gabapentin 300 mg 06/19/19 21:00 06/24/19 08:30 Neurontin PO 300 mg BID ESPERANZA Administration Heparin Sodium (Porcine) 5,000 units 06/17/19 21:00 06/24/19 08:30 Heparin SC 5,000 units BID ESPERANZA Administration Ceftriaxone Sodium 2 gm/ 100 mls @ 200 mls/hr 06/23/19 14:00 06/23/19 14:31 Sodium Chloride IVPB 100 mls Q24HR ESPERANZA Administration Vancomycin HCl 1 gm/ Device 200 mls @ 200 mls/hr 06/23/19 15:00 06/24/19 02: 38 IVPB 200 mls 0300,1500 ESPERANZA Administration Lisinopril 2.5 mg 06/19/19 09:00 06/24/19 08:30 Zestril PO 2.5 mg DAILY ESPERANZA Administration Metformin HCl 1,000 mg 06/16/19 17:00 06/24/19 08:30 Glucophage PO 1,000 mg BID-WM ESPERANZA Administration Morphine Sulfate 3 mg 06/23/19 08:41 06/24/19 10:32 Morphine SLOW IVP 3 mg Q4H PRN Administration Moderate to Severe Pain (6-10) Tresiba Flex Touch 0 each 06/17/19 18:00 06/23/19 18:34 SC Not Given 1800 ESPERANZA Sodium Chloride 10 ml 06/15/19 09:00 06/24/19 08:32 Flush - Normal Saline IVF 10 ml Q12HR ESPERANZA Administration Sodium Chloride 10 ml 06/15/19 08:33 06/18/19 06:02 Flush - Normal Saline IVF 10 ml PRN PRN Administration Saline Flush Tamsulosin HCl 0.4 mg 06/15/19 21:00 06/23/19 20:47 Flomax PO 0.4 mg HS ESPERANZA Administration Tramadol HCl 50 mg 06/17/19 11:05 06/20/19 21:40 Ultram PO 50 mg Q4H PRN Administration Moderate to Severe Pain (6-10) - Exam General Appearance: NAD Eye: PERRL, anicteric sclera ENT: normocephalic atraumatic, moist mucosa Neck: supple, symmetric, no lymphadenopathy Heart: no murmur, no gallops, no rubs Respiratory: CTAB, no wheezes, no rales, no ronchi Gastrointestinal: soft, non-tender, non-distended, no guarding, no rigidity Extremities - other findings: 3+ left leg swelling improving Skin - other findings: numerous scabbed over lesions right leg. Left leg cellulitis improving Neurological: cranial nerve grossly intact, normal sensation to touch Musculoskeletal: generalized weakness Psychiatric: normal affect, A&O x 3 Hosp A/P (1) DM (diabetes mellitus) Code(s): E11.9 - TYPE 2 DIABETES MELLITUS WITHOUT COMPLICATIONS Status: Acute (2) Cellulitis of leg, left Code(s): L03.116 - CELLULITIS OF LEFT LOWER LIMB Status: Acute (3) Cellulitis of leg, right Code(s): L03.115 - CELLULITIS OF RIGHT LOWER LIMB Status: Acute (4) Chronic systolic CHF (congestive heart failure), NYHA class 3 Code(s): I50.22 - CHRONIC SYSTOLIC (CONGESTIVE) HEART FAILURE Status: Acute (5) Urinary retention Code(s): R33.9 - RETENTION OF URINE, UNSPECIFIED Status: Acute (6) Acute on chronic systolic ACC/AHA stage C congestive heart failure Code(s): I50.23 - ACUTE ON CHRONIC SYSTOLIC (CONGESTIVE) HEART FAILURE Status : Acute (7) Acute worsening of stage 3 chronic kidney disease Code(s): N18.3 - CHRONIC KIDNEY DISEASE, STAGE 3 (MODERATE) Status: Acute (8) Demand ischemia Code(s): I24.8 - OTHER FORMS OF ACUTE ISCHEMIC HEART DISEASE Status: Acute (9) Diabetes mellitus type 2, insulin dependent Code(s): E11.9 - TYPE 2 DIABETES MELLITUS WITHOUT COMPLICATIONS; Z79.4 - GRAPE CUTTER (CURRENT) USE OF INSULIN Status: Acute (10) CAD (coronary artery disease) Code(s): I25.10 - ATHSCL HEART DISEASE OF [place] CORONARY ARTERY W/O ANG PCTRS Status: Chronic (11) Dyslipidemia Code(s): E78.5 - HYPERLIPIDEMIA, UNSPECIFIED Status: Chronic (12) Hypertension Code(s): I10 - ESSENTIAL (PRIMARY) HYPERTENSION Status: Chronic (13) Obesity (BMI 30.0-34.9) Code(s): E66.9 - OBESITY, UNSPECIFIED Status: Chronic - Plan Plan: medical unit with telemetry, stable for Med/ surg floor eval for placement in rehab vs SNF until swelling improved and more independent with ambulation infectious disease consultation, recommendations appreciated cardiology consultation, recommendations appreciated orthopedic surgery consultation, recommendations appreciated nephrology consultation, recommendations appreciated antibiotics per infectious disease specialist, responding to current medications - now on oral ABX S/p arthrocentesis - gram stain did not demonstrate any organisms. Culture with no growth to date acute kidney injury on chronic kidney disease, in addition to hyponatremia further management per nephrology cardiomyopathy regimen as able Stock catheter for urinary retention long and short acting insulin for glucose control continue other home medications as able blood pressure control
--- NOTE | 2019-06-24 14:15 | PRG ---
DATE OF SERVICE: 06/24/2019 SUBJECTIVE: The patient is seen and examined. Noted with the following vital signs. OBJECTIVE: VITAL SIGNS: Afebrile, temperature 97, pulse 97, respiratory rate of 17, and blood pressure 132/77. HEENT: Unremarkable. CARDIOVASCULAR SYSTEM: First and second heart sounds were heard. RESPIRATORY SYSTEM: Clear to auscultation. DIGESTIVE SYSTEM: Revealed a benign abdomen. EXTREMITIES: Showed very mild edema. LABORATORY INVESTIGATION: Significant for sodium of 131. IMPRESSION: Hyponatremia, which seems to have responded to current hypertonic saline. PLAN: 1. We will discontinue the hypertonic saline at this point and monitor the sodium accordingly. 2. Further management to be dependent on the clinical course. Job ID: [id number]
[2019-06-24] MEDS: cefTRIAXone\\ROCEPHIN 2 GM in Sodium Chloride 0.9% 100 ML IVPB SCH (15:03)
[2019-06-24] MEDS: TRESIBA FLEX TOUCH SC SCH (17:24)
[2019-06-24] MEDS: Tamsulosin HCl 0.4 MG CAP PO SCH (20:31)
--- NOTE | 2019-06-24 22:18 | PRG ---
DATE OF SERVICE: 06/24/2019 Mr. Ba states he still has significant pain in the left thigh, knee and leg. He was able to get out of bed and ambulate with a walker. The patient is afebrile and has been afebrile in the last 24 hours. Pulse was 97, blood pressure 132/77. Results of the knee aspirate showed Gram stain, WBC seen, no organisms seen. No growth at 12 hours. The microscopic examination showed that the fluid was cloudy yellow in appearance. There was 3400 WBCs and 8000 RBCs with 90% neutrophil. Examination of the left lower extremity shows that the patient has a little bit better range of motion than yesterday. There is still erythema on the lateral aspect of the left thigh, knee, and leg. Discussed the above findings with Dr. Morton. It appears at this point, he has very low chance of having septic arthritis in the left knee. My recommendation was to continue with IV antibiotics and I do not feel that irrigation debridement of the left knee is needed at this time. Job ID: [id number]
[2019-06-25] MEDS: HYDROcodone/Acetaminophen 10/325 mg Tablet PO PRN ×6 (02:03→23:12)
[2019-06-25] MEDS: Morphine 4 MG/ML VIAL SLOW IVP PRN ×6 (02:04→23:11)
[2019-06-25 02:20] LABS: Vancomycin, Trough 11.2 ug/mL
[2019-06-25] MEDS: Vancomycin 1.5 GRAM/300 ML BAG 1.5 GM in Premix Bag 1 BAG IVPB SCH ×2 (03:22→14:14)
[2019-06-25 07:10] LABS: Anion Gap 13 mmol/L (10-20); BUN (Urea Nitrogen) 18 mg/dL (8.4-25.7); Calc. Creatinine Clearance 117 mL/min (70-130); Carbon Dioxide 30 mmol/L (23-31); Chloride 91 mmol/L (98-107); Estimated GFR-MDRD 85; Sodium 130 mmol/L (136-145)
[2019-06-25 07:11] LABS: Calcium 8.5 mg/dL (7.8-10.44); Glucose 112 mg/dL (80-115)
[2019-06-25] MEDS: Lisinopril 2.5 MG TAB PO SCH (08:23)
[2019-06-25] MEDS: Aspirin 81 mg Enteric Coated Tablet PO SCH (08:24)
[2019-06-25] MEDS: Carvedilol 3.125 MG TAB PO SCH ×2 (08:24→17:42)
[2019-06-25] MEDS: Heparin 5,000 UNITS/ML VIAL SC SCH ×2 (08:24→21:14)
[2019-06-25] MEDS: metFORMIN 500 MG TAB PO SCH ×2 (08:24→17:42)
[2019-06-25] MEDS: Famotidine 20 MG TAB PO SCH ×2 (08:24→21:13)
[2019-06-25] MEDS: Gabapentin 300 MG CAP PO SCH ×2 (08:24→21:13)
[2019-06-25] MEDS: cefTRIAXone\\ROCEPHIN 2 GM in Sodium Chloride 0.9% 100 ML IVPB SCH ×2 (14:14→14:16)
--- NOTE | 2019-06-25 16:57 | PRG ---
DATE OF SERVICE: 06/25/2019 SUBJECTIVE: Standing up when I got in the room, he seems to be feeling better. Dr. Morrell did an aspirate 3 mL of somewhat cloudy fluid, but obtained from the knee, the cell count was not to the extent that would be compatible with an infective arthropathy. OBJECTIVE: VITAL SIGNS: Stable. He seems to be afebrile. LUNGS: Clear. HEART: S1 and S2, regular rate. ABDOMEN: Soft. EXTREMITIES: Left leg is less erythematous, less tender, better range of motion. LABORATORY DATA: White cell count repeat from 2 days ago was 12.4, hemoglobin 12, platelets 420. Cultures from the fluid are still negative thus far. ASSESSMENT AND DISCUSSION: Ischemic cardiomyopathy, automatic implantable cardioverter-defibrillator, folliculitis with cellulitis, focal areas of cellulitis quite refractory to treatment, but now improving finally. He failed the attempted conversion to oral antimicrobial therapy, now is back on Rocephin and vancomycin , and I am not going to try again to switch him to oral, so we will go ahead and continue this combination probably for another 2 weeks. I will have to arrange for outpatient therapy and we will go ahead and order for PICC line placement. Job ID: [id number] MTDD
[2019-06-25] MEDS: traMADol HCl 50 MG TAB PO PRN (17:42)
[2019-06-25] MEDS: TRESIBA FLEX TOUCH SC SCH (18:46)
--- NOTE | 2019-06-25 19:05 | PRG ---
DATE OF SERVICE: 06/25/2019 SUBJECTIVE: The patient was seen and noted with the following vital signs. OBJECTIVE: VITAL SIGNS: Afebrile, temperature 98, pulse 93, respiratory rate of 16, O2 saturations are 96%, temperature maximum of 100.2, blood pressure of 116/75. HEENT: Unremarkable. CARDIOVASCULAR: First and second heart sounds were heard. RESPIRATORY: Clear to auscultation. DIGESTIVE: Revealed a benign abdomen with positive bowel sounds. EXTREMITIES: No peripheral edema. SKIN: No new gross rash. LYMPHATICS: No peripheral lymphadenopathy. LABORATORY INVESTIGATION: Showed a sodium of 130. IMPRESSION: Hyponatremia, which has responded well and remaining sustained/stable at 130 status post hypertonic saline. PLAN: 1. We will continue with current supportive measures. 2. Continue with increased protein/meat intake. Job ID: [id number]
[2019-06-25] MEDS: Tamsulosin HCl 0.4 MG CAP PO SCH (21:13)
[2019-06-26] MEDS: HYDROcodone/Acetaminophen 10/325 mg Tablet PO PRN ×5 (03:13→21:11)
[2019-06-26] MEDS: Morphine 4 MG/ML VIAL SLOW IVP PRN ×3 (03:14→12:58)
[2019-06-26] MEDS: Vancomycin 1.5 GRAM/300 ML BAG 1.5 GM in Premix Bag 1 BAG IVPB SCH ×2 (03:24→14:29)
[2019-06-26 07:45] LABS: Anion Gap 11 mmol/L (10-20); BUN (Urea Nitrogen) 13 mg/dL (8.4-25.7); Calc. Creatinine Clearance 129 mL/min (70-130); Calcium 8.8 mg/dL (7.8-10.44); Carbon Dioxide 31 mmol/L (23-31); Chloride 94 mmol/L (98-107); Estimated GFR-MDRD Greater than 90; Glucose 121 mg/dL (80-115); Potassium 4.3 mmol/L (3.5-5.1); Sodium 132 mmol/L (136-145)
[2019-06-26] MEDS: Aspirin 81 mg Enteric Coated Tablet PO SCH (08:07)
[2019-06-26] MEDS: Heparin 5,000 UNITS/ML VIAL SC SCH ×2 (08:08→21:13)
[2019-06-26] MEDS: metFORMIN 500 MG TAB PO SCH ×2 (08:54→16:57)
[2019-06-26] MEDS: Lisinopril 2.5 MG TAB PO SCH (08:54)
[2019-06-26] MEDS: Gabapentin 300 MG CAP PO SCH ×2 (08:54→21:12)
[2019-06-26] MEDS: Famotidine 20 MG TAB PO SCH ×2 (08:54→21:13)
[2019-06-26] MEDS: Carvedilol 3.125 MG TAB PO SCH ×2 (08:54→16:57)
--- NOTE | 2019-06-26 10:19 | PDOC.HOSPP ---
- Subjective Encounter Date: 06/25/19 Encounter Time: 10:30 Subjective: pt up in bed no complains - Objective Vital Signs & Weight: Vital Signs (12 hours) Temp Pulse Resp BP BP Pulse Ox 06/26/19 08:54 97 06/26/19 08:00 97 06/26/19 07:46 98.2 F 97 16 123/78 97 06/26/19 04:28 99.0 F 93 16 120/72 91 L 06/26/19 00:20 98.5 F 86 18 104/64 92 L Weight Admit Weight 223 lb Weight 218 lb I&O: 06/25/19 06/26/19 06/27/19 06:59 06:59 06:59 Intake Total 1220 2990 300 Output Total 500 2750 Balance 720 240 300 Result Diagrams: 06/23/19 13:19 06/26/19 07:10 Additional Labs: Accuchecks 06/26/19 06/25/19 06/25/19 04:35 19:41 16:46 POC Glucose 125 H 194 H 145 H 06/25/19 12:12 POC Glucose 114 H Hospitalist ROS - Review of Systems Respiratory: denies: cough, dry, shortness of breath, hemoptysis, SOB with excertion, pleuritic pain, sputum, wheezing, other Cardiovascular: denies: chest pain, palpitations, orthopnea, paroxysmal noc. dyspnea, edema, light headedness, other Gastrointestinal: denies: nausea, vomiting, abdominal pain, diarrhea, constipation, melena, hematochezia, other - Medication Medications: Active Medications Generic Name Dose Route Start Last Admin Trade Name [place] PRN Reason Stop Dose Admin Acetaminophen 650 mg 06/14/19 14:08 06/17/19 23:56 Tylenol PO 650 mg Q4H PRN Administration Headache/Fever/Mild Pain (1-3) Hydrocodone Bitart/Acetaminophen 2 tab 06/18/19 17:43 06/26/19 08:56 [place] 10/325 PO 2 tab Q4H PRN Administration Moderate Pain (4-6) Aspirin 81 mg 06/15/19 09:00 06/26/19 08:07 Ecotrin PO Not Given DAILY ESPERANZA Carvedilol 3.125 mg 06/18/19 17:00 06/26/19 08:54 Coreg PO 3.125 mg BID-WM ESPERANZA Administration Dextrose/Water 25 gm 06/20/19 04:53 06/20/19 23:50 Dextrose 50% IVP 25 gm PRN PRN Administration HYPOGLYCEMIA PROTOCOL Famotidine 20 mg 06/16/19 21:00 06/26/19 08:54 Pepcid PO 20 mg BID ESPERANZA Administration Gabapentin 300 mg 06/19/19 21:00 06/26/19 08:54 Neurontin PO 300 mg BID ESPERANZA Administration Heparin Sodium (Porcine) 5,000 units 06/17/19 21:00 06/26/19 08:08 Heparin SC Not Given BID ESPERANZA Ceftriaxone Sodium 2 gm/ 100 mls @ 200 mls/hr 06/23/19 14:00 06/25/19 14:16 Sodium Chloride IVPB 100 mls Q24HR ESPERANZA Administration Lisinopril 2.5 mg 06/19/19 09:00 06/26/19 08:54 Zestril PO 2.5 mg DAILY ESPERANZA Administration Metformin HCl 1,000 mg 06/16/19 17:00 06/26/19 08:54 Glucophage PO 1,000 mg BID-WM ESPERANZA Administration Morphine Sulfate 3 mg 06/23/19 08:41 06/26/19 08:57 Morphine SLOW IVP 3 mg Q4H PRN Administration Moderate to Severe Pain (6-10) Tresiba Flex Touch 0 each 06/17/19 18:00 06/25/19 18:46 SC Not Given 1800 ESPERANZA Sodium Chloride 10 ml 06/15/19 09:00 06/26/19 08:56 Flush - Normal Saline IVF 10 ml Q12HR ESPERANZA Administration Sodium Chloride 10 ml 06/15/19 08:33 06/25/19 06:37 Flush - Normal Saline IVF 10 ml PRN PRN Administration Saline Flush Tamsulosin HCl 0.4 mg 06/15/19 21:00 06/25/19 21:13 Flomax PO 0.4 mg HS ESPERANZA Administration Tramadol HCl 50 mg 06/17/19 11:05 06/25/19 17:42 Ultram PO 50 mg Q4H PRN Administration Moderate to Severe Pain (6-10) - Exam Neck: negative: supple, symmetric, no JVD, no thyromegaly, no lymphadenopathy, no carotid bruit, JVD Heart: negative: RRR, no murmur, no gallops, no rubs, normal peripheral pulses, irregular, diminshed peripheral pulses, murmur present, II/IV, III/IV Respiratory: negative: CTAB, no wheezes, no rales, no ronchi, normal chest expansion, no tachypnea, normal percussion, rales, rhonchi, tachypneic, wheezes Hosp A/P (1) Cellulitis of leg, left Code(s): L03.116 - CELLULITIS OF LEFT LOWER LIMB Status: Acute (2) Cellulitis of leg, right Code(s): L03.115 - CELLULITIS OF RIGHT LOWER LIMB Status: Acute (3) DM (diabetes mellitus) Code(s): E11.9 - TYPE 2 DIABETES MELLITUS WITHOUT COMPLICATIONS Status: Acute (4) Urinary retention Code(s): R33.9 - RETENTION OF URINE, UNSPECIFIED Status: Acute (5) Diabetes type 2, controlled Code(s): E11.9 - TYPE 2 DIABETES MELLITUS WITHOUT COMPLICATIONS Status: Chronic - Plan will continue current abx, he has agreed to go to snf if not will need outpatient abx set up.
[2019-06-26] MEDS: Ketorolac Tromethamine 30 MG/ML VIAL IVP SCH (14:28)
[2019-06-26 14:53] LABS: Vancomycin, Trough 14.1 ug/mL
--- NOTE | 2019-06-26 14:59 | PDOC.HOSPP ---
- Subjective Encounter Date: 06/26/19 Encounter Time: 13:00 Subjective: pt up in bed still has pain to his right knee - Objective Vital Signs & Weight: Vital Signs (12 hours) Temp Pulse Resp BP BP Pulse Ox 06/26/19 08:54 97 06/26/19 08:00 97 06/26/19 07:46 98.2 F 97 16 123/78 97 06/26/19 04:28 99.0 F 93 16 120/72 91 L Weight Admit Weight 223 lb Weight 218 lb I&O: 06/25/19 06/26/19 06/27/19 06:59 06:59 06:59 Intake Total 1220 2990 300 Output Total 500 2750 Balance 720 240 300 Result Diagrams: 06/23/19 13:19 06/26/19 07:10 Additional Labs: Accuchecks 06/26/19 06/25/19 06/25/19 04:35 19:41 16:46 POC Glucose 125 H 194 H 145 H Hospitalist ROS - Review of Systems Cardiovascular: denies: chest pain, palpitations, orthopnea, paroxysmal noc. dyspnea, edema, light headedness, other Gastrointestinal: denies: nausea, vomiting, abdominal pain, diarrhea, constipation, melena, hematochezia, other Musculoskeletal: reports: other (right knee pain) - Medication Medications: Active Medications Generic Name Dose Route Start Last Admin Trade Name Freq PRN Reason Stop Dose Admin Acetaminophen 650 mg 06/14/19 14:08 06/17/19 23:56 Tylenol PO 650 mg Q4H PRN Administration Headache/Fever/Mild Pain (1-3) Hydrocodone Bitart/Acetaminophen 2 tab 06/18/19 17:43 06/26/19 12:59 [place] 10/325 PO 2 tab Q4H PRN Administration Moderate Pain (4-6) Aspirin 81 mg 06/15/19 09:00 06/26/19 08:07 Ecotrin PO Not Given DAILY ESPERANZA Carvedilol 3.125 mg 06/18/19 17:00 06/26/19 08:54 Coreg PO 3.125 mg BID-WM ESPERANZA Administration Dextrose/Water 25 gm 06/20/19 04:53 06/20/19 23:50 Dextrose 50% IVP 25 gm PRN PRN Administration HYPOGLYCEMIA PROTOCOL Famotidine 20 mg 06/16/19 21:00 06/26/19 08:54 Pepcid PO 20 mg BID ESPERANZA Administration Gabapentin 300 mg 06/19/19 21:00 06/26/19 08:54 Neurontin PO 300 mg BID ESPERANZA Administration Heparin Sodium (Porcine) 5,000 units 06/17/19 21:00 06/26/19 08:08 Heparin SC Not Given BID ESPERANZA Ceftriaxone Sodium 2 gm/ 100 mls @ 200 mls/hr 06/23/19 14:00 06/25/19 14:16 Sodium Chloride IVPB 100 mls Q24HR ESPERANZA Administration Vancomycin 1.5 GRAM/300 ML BAG 300 mls @ 200 mls/hr 06/26/19 15:00 06/26/19 14:29 1.5 gm/ Device IVPB 300 mls 0300,1500 ESPERANZA Administration Ketorolac Tromethamine 15 mg 06/26/19 14:15 06/26/19 14:28 Toradol IVP 07/01/19 14:16 15 mg NOW ESPERANZA Administration Lisinopril 2.5 mg 06/19/19 09:00 06/26/19 08:54 Zestril PO 2.5 mg DAILY ESPERANZA Administration Metformin HCl 1,000 mg 06/16/19 17:00 06/26/19 08:54 Glucophage PO 1,000 mg BID-WM ESPERANZA Administration Morphine Sulfate 3 mg 06/23/19 08:41 06/26/19 12:58 Morphine SLOW IVP 3 mg Q4H PRN Administration Moderate to Severe Pain (6-10) Tresiba Flex Touch 0 each 06/17/19 18:00 06/25/19 18:46 SC Not Given 1800 ESPERANZA Sodium Chloride 10 ml 06/15/19 09:00 06/26/19 08:56 Flush - Normal Saline IVF 10 ml Q12HR ESPERANZA Administration Sodium Chloride 10 ml 06/15/19 08:33 06/25/19 06:37 Flush - Normal Saline IVF 10 ml PRN PRN Administration Saline Flush Tamsulosin HCl 0.4 mg 06/15/19 21:00 06/25/19 21:13 Flomax PO 0.4 mg HS ESPERANZA Administration Tramadol HCl 50 mg 06/17/19 11:05 06/25/19 17:42 Ultram PO 50 mg Q4H PRN Administration Moderate to Severe Pain (6-10) - Exam Neck: negative: supple, symmetric, no JVD, no thyromegaly, no lymphadenopathy, no carotid bruit, JVD Heart: negative: RRR, no murmur, no gallops, no rubs, normal peripheral pulses, irregular, diminshed peripheral pulses, murmur present, II/IV, III/IV Respiratory: negative: CTAB, no wheezes, no rales, no ronchi, normal chest expansion, no tachypnea, normal percussion, rales, rhonchi, tachypneic, wheezes Extremities - other findings: mild swelling to right knee Hosp A/P (1) Cellulitis of leg, left Code(s): L03.116 - CELLULITIS OF LEFT LOWER LIMB Status: Acute (2) Cellulitis of leg, right Code(s): L03.115 - CELLULITIS OF RIGHT LOWER LIMB Status: Acute (3) DM (diabetes mellitus) Code(s): E11.9 - TYPE 2 DIABETES MELLITUS WITHOUT COMPLICATIONS Status: Acute (4) Urinary retention Code(s): R33.9 - RETENTION OF URINE, UNSPECIFIED Status: Acute (5) Diabetes type 2, controlled Code(s): E11.9 - TYPE 2 DIABETES MELLITUS WITHOUT COMPLICATIONS Status: Chronic - Plan will continue current abx, he has agreed to go to snf if not will need outpatient abx set up. 06/26 Discussed with ID about pt's pain to his right knee. pt has never had any trauma. will start him on some toradol iv x1 and then NSAIDS to see if this helps with his pain. will remove diaz. Awaiting placement.
[2019-06-26] MEDS: Naproxen 500 MG TAB PO SCH ×2 (15:49→21:10)
--- NOTE | 2019-06-26 16:01 | SPC ---
Ultrasound and fluoroscopic-guided right upper extremity PICC line placement: 06/26/2019 12:00 AM INDICATION: Need for long-term central venous access for antibiotic therapy. History of cellulitis PROCEDURE: Peripherally placed 43 cm single lumen power PICC line. PICC Line Placement: The right arm was prepped and draped in sterile fashion. One percent lidocaine was used for local anesthetic. Under fluoroscopic and ultrasound guidance, the right basilic vein was patent and accessed with a cristal ropuncture needle. A guide wire was then advanced into the basilic vein. A vascular sheath was then advanced over a guide wire, and a single lumen PICC line was trimmed. The PICC line was then a dvanced into the central venous system. A final placement film demonstrates the tip of the catheter terminated in the caval-atrial junction. After confirmation of the catheter position, the catheter was sutured in place at the skin entry site . There was no immediate complication. Total fluoroscopic time 0.4 minutes. Total exposure 6229 mgray/sq cm IMPRESSION: Peripheral placement of a single lumen power PICC line into the right basilic vein using fluoroscopic and ultrasound guidance.
[2019-06-26] MEDS: TRESIBA FLEX TOUCH SC SCH (17:50)
--- NOTE | 2019-06-26 19:41 | PRG ---
DATE OF SERVICE: 06/26/2019 SUBJECTIVE: The patient was seen and noted with the following vital signs. OBJECTIVE: VITAL SIGNS: Afebrile, temperature 97.9, pulse 96, respiratory rate of 18, O2 saturation of 97%, blood pressure 102/69. HEENT: Unremarkable. CARDIOVASCULAR: First and second heart sounds were heard. RESPIRATORY: Clear to auscultation. DIGESTIVE: Revealed a benign abdomen. EXTREMITIES: No peripheral edema. SKIN: No new gross rash. LYMPHATICS: No peripheral lymphadenopathy. LABORATORY INVESTIGATION: Showed a sodium of 132. IMPRESSION: Hyponatremia, much improved status post rehydration with hypertonic saline. PLAN: 1. Continue current increased meat and protein intake. 2. Other renal supportive measures. Job ID: [id number]
[2019-06-26] MEDS: Tamsulosin HCl 0.4 MG CAP PO SCH (21:12)
[2019-06-27] MEDS: HYDROcodone/Acetaminophen 10/325 mg Tablet PO PRN ×4 (01:13→13:49)
[2019-06-27] MEDS: Vancomycin 1.5 GRAM/300 ML BAG 1.5 GM in Premix Bag 1 BAG IVPB SCH ×2 (02:42→15:05)
[2019-06-27 06:56] LABS: Anion Gap 10 mmol/L (10-20); BUN (Urea Nitrogen) 16 mg/dL (8.4-25.7); Calc. Creatinine Clearance 116 mL/min (70-130); Calcium 8.2 mg/dL (7.8-10.44); Carbon Dioxide 27 mmol/L (23-31); Chloride 93 mmol/L (98-107); Estimated GFR-MDRD 81; Glucose 125 mg/dL (80-115); Potassium 3.9 mmol/L (3.5-5.1); Sodium 126 mmol/L (136-145)
[2019-06-27] MEDS: Gabapentin 300 MG CAP PO SCH ×2 (08:19→21:43)
[2019-06-27] MEDS: Lisinopril 2.5 MG TAB PO SCH (08:19)
[2019-06-27] MEDS: metFORMIN 500 MG TAB PO SCH ×2 (08:19→17:55)
[2019-06-27] MEDS: Carvedilol 3.125 MG TAB PO SCH (08:19)
[2019-06-27] MEDS: Famotidine 20 MG TAB PO SCH ×2 (08:19→21:43)
[2019-06-27] MEDS: Heparin 5,000 UNITS/ML VIAL SC SCH ×2 (08:19→21:43)
[2019-06-27] MEDS: Aspirin 81 mg Enteric Coated Tablet PO SCH (08:19)
[2019-06-27] MEDS: Naproxen 500 MG TAB PO SCH ×3 (08:20→21:48)
[2019-06-27] MEDS: cefTRIAXone\\ROCEPHIN 2 GM in Sodium Chloride 0.9% 100 ML IVPB SCH (13:51)
[2019-06-27 14:32] VITALS: BMI 34.8
[2019-06-27] MEDS: Furosemide 40 MG TAB PO SCH (15:05)
[2019-06-27] MEDS: Ketorolac Tromethamine 30 MG/ML VIAL IVP SCH (15:47)
--- NOTE | 2019-06-27 16:39 | PRG ---
DATE OF SERVICE: 06/27/2019 SUBJECTIVE: The patient was seen and examined with no new complaint, noted with the following vital signs. OBJECTIVE: VITAL SIGNS: Afebrile, temperature 97.9, pulse 87, respiratory rate of 18, and O2 saturations of 99%, . HEENT: Unremarkable. CARDIOVASCULAR: First and second heart sounds were heard. RESPIRATORY SYSTEM: Clear to auscultation. DIGESTIVE: Revealed a benign abdomen. Positive bowel sounds. EXTREMITIES: Showed peripheral edema. SKIN: No new gross rash. LYMPHATICS: No peripheral lymphadenopathy. LABORATORY INVESTIGATION: Showed a sodium of 126. IMPRESSION: Hyponatremia, likely in the context of dilutional hyponatremia in terms of hypervolemia/congestive heart failure. PLAN: 1. I do agree with the use of loop diuretic for diuresis, but we will pay very close attention to the sodium level. 2. Continue with increased protein intake. 3. Further management to be dependent on the clinical course. Job ID: [id number]
--- NOTE | 2019-06-27 16:56 | PRG ---
DATE OF SERVICE: 06/27/2019 SUBJECTIVE: Able to walk more. Did four laps around the unit yesterday. Still with pain, but much less than before. No respiratory symptoms. No diarrhea. OBJECTIVE: VITAL SIGNS: T-max 100.2 day before yesterday, but he has been afebrile since other vital signs are normal. GENERAL: Awake, alert, and oriented, sitting up on the bedside. LUNGS: Clear. HEART: S1 and S2. ABDOMEN: Soft, mildly distended. EXTREMITIES: 3+ swelling in lower extremities, symmetric. Most of the lesions are drying up, if not all of them. The lateral aspect of the left knee area has improved about I would say 60%. He is able to bend the knee a little bit more than before. LABORATORY DATA: The creatinine is 0.95, which is improved from admission. The white cell count is a little bit up to 12.4, hemoglobin 12, platelets 420, that is from four days ago. ASSESSMENT AND DISCUSSION: Ischemic cardiomyopathy, automatic implantable cardioverter defibrillator, folliculitis with cellulitis. No evidence of septic arthritis. Steadily improving. We will go ahead and repeat CBC tomorrow, maybe two or three more days and will be able to be transitioned to oral antimicrobial therapy again. Job ID: [id number]
[2019-06-27] MEDS: Acetaminophen/Codeine 30-300mg Tablet PO PRN (17:56)
[2019-06-27] MEDS: traMADol HCl 50 MG TAB PO PRN (17:56)
[2019-06-27] MEDS: TRESIBA FLEX TOUCH SC SCH (18:10)
[2019-06-27] MEDS: Tamsulosin HCl 0.4 MG CAP PO SCH ×2 (21:10→21:49)
[2019-06-27] MEDS ORDERED: Morphine 2 MG/ML SYRINGE SLOW IVP SCH (22:30)
[2019-06-28] MEDS: Acetaminophen/Codeine 30-300mg Tablet PO PRN ×3 (00:01→11:44)
[2019-06-28] MEDS: Vancomycin 1.5 GRAM/300 ML BAG 1.5 GM in Premix Bag 1 BAG IVPB SCH (04:10)
[2019-06-28] MEDS: traMADol HCl 50 MG TAB PO PRN ×2 (04:12→10:00)
[2019-06-28 04:35] LABS: #Basophils 0.1 thou/uL (0.0-0.2); #Eosinphils 0.6 thou/uL (0.0-0.7); #Lymphocytes 1.3 thou/uL (1.20-3.40); #Monocytes 1.1 thou/uL (0.11-0.59); #Neutrophils 6.1 thou/uL (1.40-6.50); %Basophils 1.3 % (0.0-1.0); %Eosinophils 6.2 % (0.0-10.0); %Monocytes 12.2 % (0.0-10.0); %Neutrophils 66.3 % (42.0-75.0); Hemoglobin 10.8 g/dL (14.0-18.0); Mean Corpuscular HGB CONC 31.9 g/dL (32.0-36.0); Mean Corpuscular Hemoglobin 26.4 pg (27.0-31.0); Mean Corpuscular Volume 82.7 fL (78.0-98.0); Mean Platelet Volume 5.9 fL (7.4-10.4); Platelet Count 562 thou/uL (130-400); RBC Distribution Width 16.2 % (11.5-14.5); Red Blood Cell (RBC) Count 4.09 mill/uL (4.70-6.10); White Blood Cell (WBC) Count 9.1 thou/uL (4.8-10.8)
[2019-06-28 04:55] LABS: Anion Gap 11 mmol/L (10-20); BUN (Urea Nitrogen) 17 mg/dL (8.4-25.7); Calc. Creatinine Clearance 118 mL/min (70-130); Calcium 8.3 mg/dL (7.8-10.44); Carbon Dioxide 29 mmol/L (23-31); Chloride 96 mmol/L (98-107); Estimated GFR-MDRD 82; Glucose 84 mg/dL (80-115); Potassium 3.9 mmol/L (3.5-5.1); Sodium 132 mmol/L (136-145)
[2019-06-28] MEDS: Furosemide 40 MG TAB PO SCH ×2 (08:13→15:13)
[2019-06-28] MEDS: metFORMIN 500 MG TAB PO SCH ×2 (08:13→17:35)
--- NOTE | 2019-06-28 08:57 | PDOC.HOSPP ---
- Subjective Encounter Date: 06/27/19 Encounter Time: 10:15 Subjective: pt unable to urinate after removal of diaz. will reinsert diaz - Objective Vital Signs & Weight: Vital Signs (12 hours) Temp Pulse Resp BP BP Pulse Ox 06/28/19 07:31 97.9 F 89 20 99/62 95 06/28/19 04:00 98.3 F 86 18 104/66 96 06/28/19 00:00 97.7 F 89 17 119/73 99 06/27/19 21:43 97 Weight Admit Weight 223 lb 9.6 oz Weight 223 lb I&O: 06/27/19 06/28/19 06/29/19 06:59 06:59 06:59 Intake Total 4100 2650 Output Total 2950 6400 Balance 1150 -3750 Result Diagrams: 06/28/19 04:15 06/28/19 04:15 Additional Labs: Accuchecks 06/28/19 06/27/19 06/27/19 04:31 19:36 16:02 POC Glucose 92 128 H 156 H 06/27/19 11:41 POC Glucose 182 H Hospitalist ROS - Review of Systems Cardiovascular: denies: chest pain, palpitations, orthopnea, paroxysmal noc. dyspnea, edema, light headedness, other Gastrointestinal: denies: nausea, vomiting, abdominal pain, diarrhea, constipation, melena, hematochezia, other Genitourinary: denies: dysuria, frequency, incontinence, hematuria, retention, other - Medication Medications: Active Medications Generic Name Dose Route Start Last Admin Trade Name Freq PRN Reason Stop Dose Admin Acetaminophen 650 mg 06/14/19 14:08 06/17/19 23:56 Tylenol PO 650 mg Q4H PRN Administration Headache/Fever/Mild Pain (1-3) Acetaminophen/Codeine Phosphate 1 tab 06/27/19 13:53 06/28/19 05:58 Tylenol #3 PO 1 tab Q6H PRN Administration Moderate to Severe Pain (4-10) Aspirin 81 mg 06/15/19 09:00 06/27/19 08:19 Ecotrin PO 81 mg DAILY ESPERANZA Administration Dextrose/Water 25 gm 06/20/19 04:53 06/20/19 23:50 Dextrose 50% IVP 25 gm PRN PRN Administration HYPOGLYCEMIA PROTOCOL Famotidine 20 mg 06/16/19 21:00 06/27/19 21:43 Pepcid PO 20 mg BID ESPERANZA Administration Furosemide 40 mg 06/28/19 07:30 06/28/19 08:13 Lasix PO 40 mg DAILY-AC ESPERANZA Administration Furosemide 40 mg 06/27/19 14:00 06/27/19 15:05 Lasix PO 40 mg 1400 ESPERANZA Administration Gabapentin 300 mg 06/19/19 21:00 06/27/19 21:43 Neurontin PO 300 mg BID ESPERANZA Administration Heparin Sodium (Porcine) 5,000 units 06/17/19 21:00 06/27/19 21:43 Heparin SC 5,000 units BID ESPERANZA Administration Ceftriaxone Sodium 2 gm/ 100 mls @ 200 mls/hr 06/23/19 14:00 06/27/19 13:51 Sodium Chloride IVPB 100 mls Q24HR ESPERANZA Administration Vancomycin 1.5 GRAM/300 ML BAG 300 mls @ 200 mls/hr 06/26/19 15:00 06/28/19 04:10 1.5 gm/ Device IVPB 300 mls 0300,1500 ESPERANZA Administration Lisinopril 2.5 mg 06/19/19 09:00 06/27/19 08:19 Zestril PO Not Given DAILY ESPERANZA Metformin HCl 1,000 mg 06/16/19 17:00 06/28/19 08:13 Glucophage PO 1,000 mg BID-WM ESPERANZA Administration Naproxen 500 mg 06/26/19 15:00 06/27/19 21:48 Naprosyn PO 06/28/19 09:01 500 mg TID ESPERANZA Administration Tresiba Flex Touch 0 each 06/17/19 18:00 06/27/19 18:10 SC Not Given 1800 ESPERANZA Sodium Chloride 10 ml 06/15/19 09:00 06/27/19 21:50 Flush - Normal Saline IVF 10 ml Q12HR ESPERANZA Administration Sodium Chloride 10 ml 06/15/19 08:33 06/25/19 06:37 Flush - Normal Saline IVF 10 ml PRN PRN Administration Saline Flush Tamsulosin HCl 0.4 mg 06/15/19 21:00 06/27/19 21:10 Flomax PO 0.4 mg HS ESPERANZA Administration Tramadol HCl 50 mg 06/27/19 13:55 06/28/19 04:12 Ultram PO 50 mg Q6H PRN Administration Moderate to Severe Pain (4-10) - Exam Neck: negative: supple, symmetric, no JVD, no thyromegaly, no lymphadenopathy, no carotid bruit, JVD Heart: negative: RRR, no murmur, no gallops, no rubs, normal peripheral pulses, irregular, diminshed peripheral pulses, murmur present, II/IV, III/IV Respiratory: negative: CTAB, no wheezes, no rales, no ronchi, normal chest expansion, no tachypnea, normal percussion, rales, rhonchi, tachypneic, wheezes Extremities - other findings: edema to both legs Hosp A/P (1) Cellulitis of leg, left Code(s): L03.116 - CELLULITIS OF LEFT LOWER LIMB Status: Acute (2) Cellulitis of leg, right Code(s): L03.115 - CELLULITIS OF RIGHT LOWER LIMB Status: Acute (3) DM (diabetes mellitus) Code(s): E11.9 - TYPE 2 DIABETES MELLITUS WITHOUT COMPLICATIONS Status: Acute (4) Urinary retention Code(s): R33.9 - RETENTION OF URINE, UNSPECIFIED Status: Acute (5) Diabetes type 2, controlled Code(s): E11.9 - TYPE 2 DIABETES MELLITUS WITHOUT COMPLICATIONS Status: Chronic - Plan will continue current abx, he has agreed to go to snf if not will need outpatient abx set up. 06/26 Discussed with ID about pt's pain to his right knee. pt has never had any trauma. will start him on some toradol iv x1 and then NSAIDS to see if this helps with his pain. will remove diaz. Awaiting placement. 06/27 will reinsert diaz, pt now does not want to go to snf wants to go home. therapeutic case manager already working on outpatient meds. will start him on oral lasix and stop iv morphine.
[2019-06-28] MEDS: Aspirin 81 mg Enteric Coated Tablet PO SCH (10:00)
[2019-06-28] MEDS: Acetaminophen 325 MG TAB PO PRN (10:00)
[2019-06-28] MEDS: Famotidine 20 MG TAB PO SCH ×2 (10:00→19:55)
[2019-06-28] MEDS: Gabapentin 300 MG CAP PO SCH ×2 (10:00→19:55)
[2019-06-28] MEDS: Naproxen 500 MG TAB PO SCH (10:02)
[2019-06-28] MEDS: Heparin 5,000 UNITS/ML VIAL SC SCH ×2 (10:05→19:56)
[2019-06-28] MEDS: Lisinopril 2.5 MG TAB PO SCH (10:05)
--- NOTE | 2019-06-28 11:47 | PRG ---
DATE OF SERVICE: 06/28/2019 SUBJECTIVE: Continues to improve slowly the left lower extremity. Had to have a Stock catheter inserted and Flomax had been started. No respiratory symptoms. No diarrhea. He has been afebrile in the past 2 to 3 days. OBJECTIVE: VITAL SIGNS: Normal, O2 saturations are 95% on room air. EXTREMITIES: Left leg with still some erythema, quite a bit of swelling. The right leg also was swollen. The lesions in the leg are drying up. LUNGS: Clear. HEART: S1 and S2, regular rate. ABDOMEN: Slightly distended. Stock catheter in place. LABORATORY DATA: White cell count down to 9.1, hemoglobin 10.8, platelets 562, 66% neutrophils. Creatinine 0.94. Final cultures are negative from the synovial fluid. Previous cultures from the skin drainage with skin alison. ASSESSMENT AND DISCUSSION: Ischemic cardiomyopathy, automatic implantable cardioverter defibrillator, folliculitis, cellulitis, but no septic arthritis. Sluggish improvement. I emphasized the importance to elevate his legs when he is not walking to try to decrease the amount of swelling. May benefit from JOSE ARMANDO hose, but I do not know, if they would fit in his legs, they are so swollen. We will keep him on IVs until Monday and then try again transition to oral, but at this time, with Keflex since beta-hemolytic strep is the most likely scenario here rather than Staphylococcus aureus. An alternate would be cefpodoxime since it would give more better coverage for some gram-negative rods, so either Keflex or cefpodoxime tend to favor the later, and then, maybe Monday goes home on oral antimicrobial therapy. Voiding trial either now or in the outpatient setting. Lack of insurance or limited insurance is a problem and management as commonly seen in other patients. Job ID: [id number]
[2019-06-28] MEDS ORDERED: HYDROcodone/Acetaminophen 5/325 mg Tablet PO PRN (14:02)
[2019-06-28 14:34] LABS: Vancomycin, Trough 28.8 ug/mL
[2019-06-28] MEDS: HYDROcodone/Acetaminophen 10/325 mg Tablet PO PRN ×2 (15:13→19:52)
[2019-06-28] MEDS: cefTRIAXone\\ROCEPHIN 2 GM in Sodium Chloride 0.9% 100 ML IVPB SCH (15:28)
[2019-06-28] MEDS: TRESIBA FLEX TOUCH SC SCH (17:43)
[2019-06-28] MEDS: Tamsulosin HCl 0.4 MG CAP PO SCH (19:55)
--- NOTE | 2019-06-28 20:54 | PRG ---
DATE OF SERVICE: 06/28/2019 SUBJECTIVE: The patient was seen and examined, noted with the following vital signs. OBJECTIVE: VITAL SIGNS: Afebrile, temperature 97.5, pulse 99, respiratory rate of 19, O2 saturation 96%, and blood pressure 108/67. HEENT: Unremarkable. CARDIOVASCULAR: First and second sounds were heard. RESPIRATORY: Clear to auscultation. DIGESTIVE: Revealed a benign abdomen. Positive bowel sounds. EXTREMITIES: No peripheral edema. SKIN: No new gross rash. LYMPHATICS: No peripheral lymphadenopathy. LABORATORY INVESTIGATION: Showed hemoglobin of 10.8. Chemistry showed a sodium of 132, input and output showed this patient had an output of 3.75 L. IMPRESSION: Hyponatremia, dilutional hyponatremia, which seems to be responding well to loop diuretics. PLAN: 1. We will continue with loop diuretics and follow the sodium level accordingly. 2. Further management to be dependent on the clinical course. Job ID: [id number]
[2019-06-29] MEDS: HYDROcodone/Acetaminophen 10/325 mg Tablet PO PRN ×6 (00:32→22:12)
[2019-06-29] MEDS: Vancomycin HCl 1 GM in Premix Bag 1 BAG IVPB SCH ×2 (03:14→14:11)
[2019-06-29 05:51] LABS: #Basophils 0.1 thou/uL (0.0-0.2); #Eosinphils 0.5 thou/uL (0.0-0.7); #Lymphocytes 1.3 thou/uL (1.20-3.40); #Neutrophils 4.8 thou/uL (1.40-6.50); %Basophils 1.3 % (0.0-1.0); %Eosinophils 6.1 % (0.0-10.0); %Lymphocytes 17.3 % (21.0-51.0); %Monocytes 13.4 % (0.0-10.0); %Neutrophils 61.9 % (42.0-75.0); Hemoglobin 10.6 g/dL (14.0-18.0); Mean Corpuscular HGB CONC 32.4 g/dL (32.0-36.0); Mean Corpuscular Hemoglobin 27.1 pg (27.0-31.0); Mean Corpuscular Volume 83.4 fL (78.0-98.0); Mean Platelet Volume 6.2 fL (7.4-10.4); Platelet Count 514 thou/uL (130-400); RBC Distribution Width 16.4 % (11.5-14.5); White Blood Cell (WBC) Count 7.7 thou/uL (4.8-10.8)
[2019-06-29 06:10] LABS: Anion Gap 12 mmol/L (10-20); BUN (Urea Nitrogen) 19 mg/dL (8.4-25.7); Calc. Creatinine Clearance 100 mL/min (70-130); Calcium 8.4 mg/dL (7.8-10.44); Carbon Dioxide 29 mmol/L (23-31); Chloride 95 mmol/L (98-107); Estimated GFR-MDRD 69; Glucose 117 mg/dL (80-115); Potassium 4.2 mmol/L (3.5-5.1); Sodium 132 mmol/L (136-145)
[2019-06-29] MEDS: Lisinopril 2.5 MG TAB PO SCH (08:30)
[2019-06-29] MEDS: Heparin 5,000 UNITS/ML VIAL SC SCH ×2 (08:33→20:52)
[2019-06-29] MEDS: metFORMIN 500 MG TAB PO SCH ×2 (08:33→18:02)
[2019-06-29] MEDS: Famotidine 20 MG TAB PO SCH ×2 (08:33→20:52)
[2019-06-29] MEDS: Gabapentin 300 MG CAP PO SCH ×2 (08:33→20:52)
[2019-06-29] MEDS: Aspirin 81 mg Enteric Coated Tablet PO SCH (08:33)
[2019-06-29] MEDS: Furosemide 40 MG TAB PO SCH (08:33)
--- NOTE | 2019-06-29 09:26 | PDOC.HOSPP ---
- Subjective Encounter Date: 06/28/19 Encounter Time: 10:30 Subjective: pt up in bed still complains of pain and wants his [place]. I have advised him that i will not be able to rx this on discharge and he can call his primary care doctor to see if he or she can. - Objective Vital Signs & Weight: Vital Signs (12 hours) Temp Pulse Resp BP Pulse Ox 06/29/19 08:30 89 06/29/19 08:00 98.3 F 89 18 117/72 97 06/29/19 05:05 98.1 F 87 19 112/71 95 06/29/19 00:00 97.9 F 91 19 102/67 96 Weight Admit Weight 223 lb 9.6 oz Weight 219 lb 14.4 oz I&O: 06/28/19 06/29/19 06/30/19 06:59 06:59 06:59 Intake Total 2650 3600 300 Output Total 6400 4900 Balance -3750 -1300 300 Result Diagrams: 06/29/19 05:40 06/29/19 05:40 Additional Labs: Accuchecks 06/29/19 06/28/19 06/28/19 04:09 19:19 15:55 POC Glucose 140 H 100 99 06/28/19 11:39 POC Glucose 122 H Hospitalist ROS - Review of Systems Cardiovascular: denies: chest pain, palpitations, orthopnea, paroxysmal noc. dyspnea, edema, light headedness, other Gastrointestinal: denies: nausea, vomiting, abdominal pain, diarrhea, constipation, melena, hematochezia, other Genitourinary: denies: dysuria, frequency, incontinence, hematuria, retention, other - Medication Medications: Active Medications Generic Name Dose Route Start Last Admin Trade Name Freq PRN Reason Stop Dose Admin Acetaminophen 650 mg 06/14/19 14:08 06/28/19 10:00 Tylenol PO 650 mg Q4H PRN Administration Headache/Fever/Mild Pain (1-3) Acetaminophen/Codeine Phosphate 1 tab 06/27/19 13:53 06/28/19 11:44 Tylenol #3 PO 1 tab Q6H PRN Administration Moderate to Severe Pain (4-10) Hydrocodone Bitart/Acetaminophen 2 tab 06/28/19 14:12 06/29/19 05:27 [place] 10/325 PO 2 tab Q4H PRN Administration .BREAKTHROUGH Pain Aspirin 81 mg 06/15/19 09:00 06/29/19 08:33 Ecotrin PO 81 mg DAILY ESPERANZA Administration Dextrose/Water 25 gm 06/20/19 04:53 06/20/19 23:50 Dextrose 50% IVP 25 gm PRN PRN Administration HYPOGLYCEMIA PROTOCOL Famotidine 20 mg 06/16/19 21:00 06/29/19 08:33 Pepcid PO 20 mg BID ESPERANZA Administration Furosemide 40 mg 06/28/19 07:30 06/29/19 08:33 Lasix PO 40 mg DAILY-AC ESPERANZA Administration Gabapentin 300 mg 06/19/19 21:00 06/29/19 08:33 Neurontin PO 300 mg BID ESPERANZA Administration Heparin Sodium (Porcine) 5,000 units 06/17/19 21:00 06/29/19 08:33 Heparin SC 5,000 units BID ESPERANZA Administration Ceftriaxone Sodium 2 gm/ 100 mls @ 200 mls/hr 06/23/19 14:00 06/28/19 15:28 Sodium Chloride IVPB 100 mls Q24HR ESPERANZA Administration Vancomycin HCl 1 gm/ Device 200 mls @ 200 mls/hr 06/29/19 03:00 06/29/19 03: 14 IVPB 200 mls 0300,1500 ESPERANZA Administration Lisinopril 2.5 mg 06/19/19 09:00 06/29/19 08:30 Zestril PO 2.5 mg DAILY ESPERANZA Administration Metformin HCl 1,000 mg 06/16/19 17:00 06/29/19 08:33 Glucophage PO 1,000 mg BID-WM ESPERANZA Administration Tresiba Flex Touch 0 each 06/17/19 18:00 06/28/19 17:43 SC Not Given 1800 ESPERANZA Sodium Chloride 10 ml 06/15/19 09:00 06/29/19 08:34 Flush - Normal Saline IVF 10 ml Q12HR ESPERANZA Administration Sodium Chloride 10 ml 06/15/19 08:33 06/25/19 06:37 Flush - Normal Saline IVF 10 ml PRN PRN Administration Saline Flush Tamsulosin HCl 0.4 mg 06/15/19 21:00 06/28/19 19:55 Flomax PO 0.4 mg HS ESPERANZA Administration Tramadol HCl 50 mg 06/27/19 13:55 06/28/19 10:00 Ultram PO 50 mg Q6H PRN Administration Moderate to Severe Pain (4-10) - Exam Heart: negative: RRR, no murmur, no gallops, no rubs, normal peripheral pulses, irregular, diminshed peripheral pulses, murmur present, II/IV, III/IV Respiratory: negative: CTAB, no wheezes, no rales, no ronchi, normal chest expansion, no tachypnea, normal percussion, rales, rhonchi, tachypneic, wheezes Gastrointestinal: negative: soft, non-tender, non-distended, normal bowel sounds , no palpable masses, no hepatomegaly, no splenomegaly, no bruit, no guarding, no rigidity, tender to palpation, distended, diminished bowl sounds, voluntary guarding Extremities - other findings: edema to lower ext Hosp A/P (1) Cellulitis of leg, left Code(s): L03.116 - CELLULITIS OF LEFT LOWER LIMB Status: Acute (2) Cellulitis of leg, right Code(s): L03.115 - CELLULITIS OF RIGHT LOWER LIMB Status: Acute (3) DM (diabetes mellitus) Code(s): E11.9 - TYPE 2 DIABETES MELLITUS WITHOUT COMPLICATIONS Status: Acute (4) Urinary retention Code(s): R33.9 - RETENTION OF URINE, UNSPECIFIED Status: Acute (5) Diabetes type 2, controlled Code(s): E11.9 - TYPE 2 DIABETES MELLITUS WITHOUT COMPLICATIONS Status: Chronic - Plan will continue current abx, he has agreed to go to snf if not will need outpatient abx set up. 06/26 Discussed with ID about pt's pain to his right knee. pt has never had any trauma. will start him on some toradol iv x1 and then NSAIDS to see if this helps with his pain. will remove diaz. Awaiting placement. 06/27 will reinsert daiz, pt now does not want to go to snf wants to go home. case management manager already working on outpatient meds. will start him on oral lasix and stop iv morphine. 06/28 i have advised him to raise his lower ext or SHAHBAZ wrap but he cannot tolerate it. i will give him iv lasix for the next few days. due to his financial issues he states that he cannot afford iv abx at home nor snf. he will be changed to oral abx on monday and discharged.
[2019-06-29] MEDS: cefTRIAXone\\ROCEPHIN 2 GM in Sodium Chloride 0.9% 100 ML IVPB SCH (13:31)
[2019-06-29] MEDS ORDERED: Furosemide 40 MG/4 ML VIAL SLOW IVP SCH (14:00)
--- NOTE | 2019-06-29 14:58 | PDOC.HOSPP ---
- Subjective Encounter Date: 06/29/19 Encounter Time: 11:15 Subjective: pt up in bed no complains - Objective Vital Signs & Weight: Vital Signs (12 hours) Temp Pulse Resp BP Pulse Ox 06/29/19 12:00 98.2 F 96 16 115/70 94 L 06/29/19 08:30 89 06/29/19 08:00 98.3 F 89 18 117/72 97 06/29/19 05:05 98.1 F 87 19 112/71 95 Weight Admit Weight 223 lb 9.6 oz Weight 219 lb 14.4 oz I&O: 06/28/19 06/29/19 06/30/19 06:59 06:59 06:59 Intake Total 2650 3600 540 Output Total 6400 4900 Balance -3750 -1300 540 Result Diagrams: 06/29/19 05:40 06/29/19 05:40 Additional Labs: Accuchecks 06/29/19 06/29/19 06/28/19 12:45 04:09 19:19 POC Glucose 148 H 140 H 100 06/28/19 15:55 POC Glucose 99 Hospitalist ROS - Review of Systems Cardiovascular: denies: chest pain, palpitations, orthopnea, paroxysmal noc. dyspnea, edema, light headedness, other Gastrointestinal: denies: nausea, vomiting, abdominal pain, diarrhea, constipation, melena, hematochezia, other Genitourinary: denies: dysuria, frequency, incontinence, hematuria, retention, other - Medication Medications: Active Medications Generic Name Dose Route Start Last Admin Trade Name Freq PRN Reason Stop Dose Admin Acetaminophen 650 mg 06/14/19 14:08 06/28/19 10:00 Tylenol PO 650 mg Q4H PRN Administration Headache/Fever/Mild Pain (1-3) Acetaminophen/Codeine Phosphate 1 tab 06/27/19 13:53 06/28/19 11:44 Tylenol #3 PO 1 tab Q6H PRN Administration Moderate to Severe Pain (4-10) Hydrocodone Bitart/Acetaminophen 2 tab 06/28/19 14:12 06/29/19 13:33 [place] 10/325 PO 2 tab Q4H PRN Administration .BREAKTHROUGH Pain Aspirin 81 mg 06/15/19 09:00 06/29/19 08:33 Ecotrin PO 81 mg DAILY ESPERANZA Administration Dextrose/Water 25 gm 06/20/19 04:53 06/20/19 23:50 Dextrose 50% IVP 25 gm PRN PRN Administration HYPOGLYCEMIA PROTOCOL Famotidine 20 mg 06/16/19 21:00 06/29/19 08:33 Pepcid PO 20 mg BID ESPERANZA Administration Furosemide 40 mg 06/28/19 07:30 06/29/19 08:33 Lasix PO 40 mg DAILY-AC ESPERANZA Administration Furosemide 40 mg 06/29/19 14:00 06/29/19 13:33 Lasix SLOW IVP 06/29/19 16:00 40 mg NOW ESPERANZA Administration Gabapentin 300 mg 06/19/19 21:00 06/29/19 08:33 Neurontin PO 300 mg BID ESPERANZA Administration Heparin Sodium (Porcine) 5,000 units 06/17/19 21:00 06/29/19 08:33 Heparin SC 5,000 units BID ESPERANZA Administration Ceftriaxone Sodium 2 gm/ 100 mls @ 200 mls/hr 06/23/19 14:00 06/29/19 13:31 Sodium Chloride IVPB 100 mls Q24HR ESPERANZA Administration Vancomycin HCl 1 gm/ Device 200 mls @ 200 mls/hr 06/29/19 03:00 06/29/19 14: 11 IVPB 200 mls 0300,1500 ESPERANZA Administration Lisinopril 2.5 mg 06/19/19 09:00 06/29/19 08:30 Zestril PO 2.5 mg DAILY ESPERANZA Administration Metformin HCl 1,000 mg 06/16/19 17:00 06/29/19 08:33 Glucophage PO 1,000 mg BID-WM ESPERANZA Administration Tresiba Flex Touch 0 each 06/17/19 18:00 06/28/19 17:43 SC Not Given 1800 ESPERANZA Sodium Chloride 10 ml 06/15/19 09:00 06/29/19 08:34 Flush - Normal Saline IVF 10 ml Q12HR ESPERANZA Administration Sodium Chloride 10 ml 06/15/19 08:33 06/25/19 06:37 Flush - Normal Saline IVF 10 ml PRN PRN Administration Saline Flush Tamsulosin HCl 0.4 mg 06/15/19 21:00 06/28/19 19:55 Flomax PO 0.4 mg HS ESPERANZA Administration Tramadol HCl 50 mg 06/27/19 13:55 06/28/19 10:00 Ultram PO 50 mg Q6H PRN Administration Moderate to Severe Pain (4-10) - Exam Heart: negative: RRR, no murmur, no gallops, no rubs, normal peripheral pulses, irregular, diminshed peripheral pulses, murmur present, II/IV, III/IV Respiratory: negative: CTAB, no wheezes, no rales, no ronchi, normal chest expansion, no tachypnea, normal percussion, rales, rhonchi, tachypneic, wheezes Gastrointestinal: negative: soft, non-tender, non-distended, normal bowel sounds , no palpable masses, no hepatomegaly, no splenomegaly, no bruit, no guarding, no rigidity, tender to palpation, distended, diminished bowl sounds, voluntary guarding Hosp A/P (1) Cellulitis of leg, left Code(s): L03.116 - CELLULITIS OF LEFT LOWER LIMB Status: Acute (2) Cellulitis of leg, right Code(s): L03.115 - CELLULITIS OF RIGHT LOWER LIMB Status: Acute (3) DM (diabetes mellitus) Code(s): E11.9 - TYPE 2 DIABETES MELLITUS WITHOUT COMPLICATIONS Status: Acute (4) Urinary retention Code(s): R33.9 - RETENTION OF URINE, UNSPECIFIED Status: Acute (5) Diabetes type 2, controlled Code(s): E11.9 - TYPE 2 DIABETES MELLITUS WITHOUT COMPLICATIONS Status: Chronic - Plan will continue current abx, he has agreed to go to snf if not will need outpatient abx set up. 06/26 Discussed with ID about pt's pain to his right knee. pt has never had any trauma. will start him on some toradol iv x1 and then NSAIDS to see if this helps with his pain. will remove diaz. Awaiting placement. 06/27 will reinsert diaz, pt now does not want to go to snf wants to go home. case investigator already working on outpatient meds. will start him on oral lasix and stop iv morphine. 06/28 i have advised him to raise his lower ext or SHAHBAZ wrap but he cannot tolerate it. i will give him iv lasix for the next few days. due to his financial issues he states that he cannot afford iv abx at home nor snf. he will be changed to oral abx on monday and discharged. 06/29 will continue abx, will give him iv dose of lasix.
--- NOTE | 2019-06-29 15:48 | PRG ---
DATE OF SERVICE: 06/29/2019 OBJECTIVE: VITAL SIGNS: The patient noted with the following vital signs; afebrile, temperature 98.2, pulse 96, respiratory rate of 16, O2 saturation 94%, blood pressure 115/70. Input and output showed urine output of 4.9 L. HEENT: Unremarkable. CARDIOVASCULAR: First and second heart sounds were heard. RESPIRATORY: Clear to auscultation. DIGESTIVE: Revealed a benign abdomen. Positive bowel sounds. EXTREMITIES: No peripheral edema. SKIN: No new gross rash. LYMPHATICS: No peripheral lymphadenopathy. LABORATORY INVESTIGATION: Showed a sodium of 132. IMPRESSION: Hyponatremia in the context of dilutional hyponatremia, much improved. PLAN: Continue with current management. Job ID: [id number]
[2019-06-29] MEDS: TRESIBA FLEX TOUCH SC SCH (18:06)
[2019-06-29] MEDS: Tamsulosin HCl 0.4 MG CAP PO SCH (20:52)
[2019-06-30] MEDS: HYDROcodone/Acetaminophen 10/325 mg Tablet PO PRN ×6 (02:07→22:27)
[2019-06-30] MEDS: Vancomycin HCl 1 GM in Premix Bag 1 BAG IVPB SCH ×2 (03:40→15:09)
[2019-06-30] MEDS: metFORMIN 500 MG TAB PO SCH ×3 (09:23→16:57)
[2019-06-30] MEDS: Lisinopril 2.5 MG TAB PO SCH (09:23)
[2019-06-30] MEDS: Aspirin 81 mg Enteric Coated Tablet PO SCH (09:24)
[2019-06-30] MEDS: Famotidine 20 MG TAB PO SCH ×2 (09:25→21:25)
[2019-06-30] MEDS: Furosemide 40 MG TAB PO SCH (09:26)
[2019-06-30] MEDS: Gabapentin 300 MG CAP PO SCH ×2 (09:26→21:25)
[2019-06-30] MEDS: Heparin 5,000 UNITS/ML VIAL SC SCH ×2 (09:27→21:27)
--- NOTE | 2019-06-30 10:52 | PDOC.HOSPP ---
- Subjective Encounter Date: 06/30/19 Encounter Time: 10:30 Subjective: pt up in bed still has pain to his left knee - Objective Vital Signs & Weight: Vital Signs (12 hours) Temp Pulse Resp BP Pulse Ox 06/30/19 09:23 97 06/30/19 08:00 97.6 F 94 20 117/74 96 Weight Admit Weight 223 lb 9.6 oz Weight 217 lb I&O: 06/29/19 06/30/19 07/01/19 06:59 06:59 06:59 Intake Total 3600 3190 400 Output Total 4900 4200 Balance -1300 -1010 400 Result Diagrams: 06/29/19 05:40 06/29/19 05:40 Additional Labs: Accuchecks 06/29/19 06/29/19 06/29/19 19:23 15:47 12:45 POC Glucose 119 H 216 H 148 H Hospitalist ROS - Review of Systems Respiratory: denies: cough, dry, shortness of breath, hemoptysis, SOB with excertion, pleuritic pain, sputum, wheezing, other Cardiovascular: denies: chest pain, palpitations, orthopnea, paroxysmal noc. dyspnea, edema, light headedness, other Gastrointestinal: denies: nausea, vomiting, abdominal pain, diarrhea, constipation, melena, hematochezia, other - Medication Medications: Active Medications Generic Name Dose Route Start Last Admin Trade Name Freq PRN Reason Stop Dose Admin Acetaminophen 650 mg 06/14/19 14:08 06/28/19 10:00 Tylenol PO 650 mg Q4H PRN Administration Headache/Fever/Mild Pain (1-3) Acetaminophen/Codeine Phosphate 1 tab 06/27/19 13:53 06/28/19 11:44 Tylenol #3 PO 1 tab Q6H PRN Administration Moderate to Severe Pain (4-10) Hydrocodone Bitart/Acetaminophen 2 tab 06/28/19 14:12 06/30/19 10:23 [place] 10/325 PO 2 tab Q4H PRN Administration .BREAKTHROUGH Pain Aspirin 81 mg 06/15/19 09:00 06/30/19 09:24 Ecotrin PO 81 mg DAILY ESPERANZA Administration Dextrose/Water 25 gm 06/20/19 04:53 06/20/19 23:50 Dextrose 50% IVP 25 gm PRN PRN Administration HYPOGLYCEMIA PROTOCOL Famotidine 20 mg 06/16/19 21:00 06/30/19 09:25 Pepcid PO 20 mg BID ESPERANZA Administration Furosemide 40 mg 06/28/19 07:30 06/30/19 09:26 Lasix PO 40 mg DAILY-AC ESPERANZA Administration Gabapentin 300 mg 06/19/19 21:00 06/30/19 09:26 Neurontin PO 300 mg BID ESPERANZA Administration Heparin Sodium (Porcine) 5,000 units 06/17/19 21:00 06/30/19 09:27 Heparin SC 5,000 units BID ESPERANZA Administration Ceftriaxone Sodium 2 gm/ 100 mls @ 200 mls/hr 06/23/19 14:00 06/29/19 13:31 Sodium Chloride IVPB 100 mls Q24HR ESPERANZA Administration Vancomycin HCl 1 gm/ Device 200 mls @ 200 mls/hr 06/29/19 03:00 06/30/19 03: 40 IVPB 200 mls 0300,1500 ESPERANZA Administration Lisinopril 2.5 mg 06/19/19 09:00 06/30/19 09:23 Zestril PO 2.5 mg DAILY ESPERANZA Administration Metformin HCl 1,000 mg 06/16/19 17:00 06/30/19 09:34 Glucophage PO 1,000 mg BID-WM ESPERANZA Administration Tresiba Flex Touch 0 each 06/17/19 18:00 06/29/19 18:06 SC Not Given 1800 ESPERANZA Sodium Chloride 10 ml 06/15/19 09:00 06/30/19 09:27 Flush - Normal Saline IVF 10 ml Q12HR ESPERANZA Administration Sodium Chloride 10 ml 06/15/19 08:33 06/25/19 06:37 Flush - Normal Saline IVF 10 ml PRN PRN Administration Saline Flush Tamsulosin HCl 0.4 mg 06/15/19 21:00 06/29/19 20:52 Flomax PO 0.4 mg HS ESPERANZA Administration Tramadol HCl 50 mg 06/27/19 13:55 06/28/19 10:00 Ultram PO 50 mg Q6H PRN Administration Moderate to Severe Pain (4-10) - Exam Neck: negative: supple, symmetric, no JVD, no thyromegaly, no lymphadenopathy, no carotid bruit, JVD Heart: negative: RRR, no murmur, no gallops, no rubs, normal peripheral pulses, irregular, diminshed peripheral pulses, murmur present, II/IV, III/IV Respiratory: negative: CTAB, no wheezes, no rales, no ronchi, normal chest expansion, no tachypnea, normal percussion, rales, rhonchi, tachypneic, wheezes Hosp A/P (1) Cellulitis of leg, left Code(s): L03.116 - CELLULITIS OF LEFT LOWER LIMB Status: Acute (2) Cellulitis of leg, right Code(s): L03.115 - CELLULITIS OF RIGHT LOWER LIMB Status: Acute (3) DM (diabetes mellitus) Code(s): E11.9 - TYPE 2 DIABETES MELLITUS WITHOUT COMPLICATIONS Status: Acute (4) Urinary retention Code(s): R33.9 - RETENTION OF URINE, UNSPECIFIED Status: Acute (5) Diabetes type 2, controlled Code(s): E11.9 - TYPE 2 DIABETES MELLITUS WITHOUT COMPLICATIONS Status: Chronic - Plan will continue current abx, he has agreed to go to snf if not will need outpatient abx set up. 06/26 Discussed with ID about pt's pain to his right knee. pt has never had any trauma. will start him on some toradol iv x1 and then NSAIDS to see if this helps with his pain. will remove diaz. Awaiting placement. 06/27 will reinsert diaz, pt now does not want to go to snf wants to go home. case sealer already working on outpatient meds. will start him on oral lasix and stop iv morphine. 06/28 i have advised him to raise his lower ext or SHAHBAZ wrap but he cannot tolerate it. i will give him iv lasix for the next few days. due to his financial issues he states that he cannot afford iv abx at home nor snf. he will be changed to oral abx on monday and discharged. 06/29 will continue abx, will give him iv dose of lasix. 06/30 will continue iv abx, will switch to po per ID's recommendation.
[2019-06-30] MEDS ORDERED: Furosemide 40 MG/4 ML VIAL SLOW IVP SCH (14:00)
[2019-06-30 15:01] LABS: Vancomycin, Trough 17.5 ug/mL
[2019-06-30] MEDS: cefTRIAXone\\ROCEPHIN 2 GM in Sodium Chloride 0.9% 100 ML IVPB SCH (15:09)
[2019-06-30] MEDS: TRESIBA FLEX TOUCH SC SCH (16:57)
[2019-06-30] MEDS: Tamsulosin HCl 0.4 MG CAP PO SCH (21:24)
[2019-07-01] MEDS: Vancomycin HCl 1 GM in Premix Bag 1 BAG IVPB SCH (02:38)
[2019-07-01] MEDS: HYDROcodone/Acetaminophen 10/325 mg Tablet PO PRN ×3 (02:39→10:37)
[2019-07-01] MEDS: Famotidine 20 MG TAB PO SCH (08:02)
[2019-07-01] MEDS: Gabapentin 300 MG CAP PO SCH (08:02)
[2019-07-01] MEDS: metFORMIN 500 MG TAB PO SCH (08:02)
[2019-07-01] MEDS: Furosemide 40 MG TAB PO SCH (08:02)
[2019-07-01] MEDS: Heparin 5,000 UNITS/ML VIAL SC SCH (08:03)
[2019-07-01] MEDS: Aspirin 81 mg Enteric Coated Tablet PO SCH (08:03)
[2019-07-01] MEDS: Lisinopril 2.5 MG TAB PO SCH (10:38)
[2019-07-01 12:47] VITALS: BP 118/74; TEMP 98.9
--- NOTE | 2019-07-01 13:38 | DIS ---
DATE OF ADMISSION: 06/14/2019 DATE OF DISCHARGE: 07/01/2019 PRIMARY CARE PROVIDER: Nas Diez MD FINAL DIAGNOSES: Cellulitis of left lower leg, urinary retention, diabetes mellitus type 2, chronic systolic heart failure, dyslipidemia, hypertension, and acute kidney injury. DISCHARGE MEDICATIONS: 1. New, cephalexin 500 mg p.o. q.i.d. x28 days. 2. Flomax 0.4 mg p.o. at bedtime. 3. Metformin 1000 mg p.o. b.i.d. 4. Lisinopril 10 mg a day. 5. Insulin degludec 40 units subcu at bedtime. 6. Lasix 40 mg a day. 7. Coreg 6.25 mg b.i.d. 8. Aspirin 81 mg a day. ALLERGIES: NO KNOWN DRUG ALLERGIES. DIET: Diabetic. PENDING AT THE TIME OF DISCHARGE: Nothing. CODE STATUS: Full. HOSPITAL COURSE: The patient was admitted to the [facility] through [facility] with left lower extremity swelling, cellulitis. Admitting laboratory at that time; sodium 131, potassium 5.0, chloride 92, CO2 of 29, BUN 50, creatinine 1.69. Troponins were elevated at 0.077, 0.034, and 0.082. Initial white count was 14.8 with an absolute neutrophilia, platelet count 146,000, hemoglobin 12.4. During his hospital stay, body fluid cultures and blood cultures were negative. He was started on IV antibiotics. During his hospital stay, he was seen by Dr. Clifford Suresh, Cardiology; Dr. Breezy Morton, Infectious Disease; Dr. Hebert Casillas, Genitourinary; Ronni Herrera, Orthopedic Surgery; Dr. Daphney Will, Nephrology. PROCEDURES: None. PERTINENT STUDIES: Lower extremity CT on 07/10/2019, extensive cellulitis of the left lower extremity. Venous Doppler, no DVT. Echocardiogram, EF 15% to 20%. Abdominopelvic CT, small left pleural effusion, gallstones. Aorta CTA with runoff. Moderate narrowing of distal superficial femoral artery, mild narrowing of distal superficial femoral artery, and left popliteal artery on the left. The patient received IV antibiotics during his stay. He has been on ceftriaxone and vancomycin. His blood sugars were monitored. He receives several voiding trials for his urinary retention, failed to be able to void. Catheter was replaced. Currently, Infectious Diseases recommended transitioning to cephalexin 500 mg p.o. q.i.d. He is being placed on same. He needs to be seen in followup in 1 week by his primary care provider. Followup per Dr. Morton as Dr. Morton is indicated. Followup needs to be arranged with for outpatient voiding trial. He was seen by Dr. Hebert Casillas while in the hospital. His current laboratory, most recent CBC; white count 9.1, hemoglobin 10.8, platelet count 562,000. Chemistries on 06/29/2019; his sodium 132, potassium 4.2, creatinine 1.09, BUN 19, and blood sugars 99 to 216. The patient is doing well at the time of discharge. He is anxious to go home. TIME SPENT: 35 minutes was spent preparing this discharge. Job ID: [id number]
--- NOTE | 2019-07-02 22:48 | PQF ---
JESSE SHARPE, SENECA C [id number] CLINICAL DOCUMENTATION CLARIFICATION FORM: POST DISCHARGE Addendum to original discharge summary date: ____ Late entry note date: __ DATE:07/02/19 ATTN: Dr. Armas , [place] Please exercise your independent, professional judgment in responding to the clarification form. Clinical indicators are provided on the bottom of this form for your review Can you please further specify if Centeno Harjeet Syndrome is ruled in or ruled out? Centeno Harjeet Syndrome [ ] Ruled in diagnosis [ ] Continue to treat [ ] Resolved [ x ] Ruled out diagnosis [ ] Cannot rule out diagnosis [ ] Other diagnosis please specify [ ] Unable to determine In addition, please specify: Present on Admission (POA): [ ] Yes [ x ] No [ ] Unable to determine For continuity of documentation, please document condition throughout progress notes and discharge summary. Thank You. CLINICAL INDICATORS - SIGNS / SYMPTOMS / LABS H and P pg.1- the patient states one moth ago he had sore that was infected with purulent discharges and was started on Bactrim Consult Dr. Suresh pg.2- presents with lower extremity rash and weeping lesion. This is suggestive of a possible allergic reaction possibly to a medication Consult 06/23 Dr. Morrell pg.1- 63 year old male who developed a sore on his lower extremities and was given 10 days worth of bactrim Consult 06/23 Dr. 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 Bunch pg.3- cellulitis vs Centeno Harjeet syndrome due to bactrim DS pg.1- final diagnosis cellulitis of left lower leg RISK FACTORS Bilateral cellulitis- Hand P pg.4 Leukocytosis H and P pg.4 CAD- Consult Dr. Suresh pg.1 Hypertension-Consult Dr. Suresh pg.1 Diabetes mellitus-Consult Dr. Suresh pg.1 Dyslipidemia-Consult Dr. Suresh pg.1 TREATMENTS Infectious consult 06/14- Dr. Morton Knee X ray 06/15 PICC placement 06/26 Venogram 06/[address] 06/20 IV Fluids- MAR IV Antibiotics- MAR (This form is maintained as a part of the permanent medical record) 2014 [employer]. All Rights Reserved Alvin [email or web address] [not provided] MTDD
== END 2019-07-01 12:58 | disposition home or self-care (01) | DRG 602 ==
LOC: ERS 06:31 → ERHOLD 09:36 → 2NO 15:38 → T4-B 06-24 16:45
PROVIDERS: ADMIT Internal Medicine; ATTEND Internal Medicine
PROC: 0T9B70Z Drainage of Bladder with Drainage Device, Via Natural or Artificial Opening (ICD-10-PCS; 2019-06-14)
PROC: 02HV33Z Insertion of Infusion Device into Superior Vena Cava, Percutaneous Approach (ICD-10-PCS; principal; 2019-06-26)
PROC: B518ZZA Fluoroscopy of Superior Vena Cava, Guidance (ICD-10-PCS; 2019-06-26)
DX: L03.116 Cellulitis of left lower limb (principal); I50.23 Acute on chronic systolic (congestive) heart failure; I13.0 Hypertensive heart and chronic kidney disease with heart failure and stage 1 through stage 4 chronic kidney disease, or unspecified chronic kidney disease; I24.8 Other forms of acute ischemic heart disease; N17.9 Acute kidney failure, unspecified; E22.2 Syndrome of inappropriate secretion of antidiuretic hormone; L03.115 Cellulitis of right lower limb; E78.5 Hyperlipidemia, unspecified; E78.00 Pure hypercholesterolemia, unspecified; L53.9 Erythematous condition, unspecified; L73.9 Follicular disorder, unspecified; E11.22 Type 2 diabetes mellitus with diabetic chronic kidney disease; I25.5 Ischemic cardiomyopathy; E66.9 Obesity, unspecified; R33.8 Other retention of urine; T36.8X5A Adverse effect of other systemic antibiotics, initial encounter; N18.3 Chronic kidney disease, stage 3 (moderate); M06.9 Rheumatoid arthritis, unspecified; E87.6 Hypokalemia; Z95.1 Presence of aortocoronary bypass graft; Z87.891 Personal history of nicotine dependence; Z95.810 Presence of automatic (implantable) cardiac defibrillator; Z79.84 Long term (current) use of oral hypoglycemic drugs; Z79.82 Long term (current) use of aspirin; Z79.899 Other long term (current) drug therapy; Z68.34 Body mass index [BMI] 34.0-34.9, adult
CPT/HCPCS: 36415; 36416; 36569; 51702; 71045; 74176; 75635; 80048; 80053; 80202; 81003; 82550; 82553; 83690; 83880; 83930; 83935; 84300; 84443; 84484; 84550; 85025; 85060; 85652; 86140; 87040; 87070; 87205; 89051; 93005; 93306; 93798; 93970; 96374; 96375; 96376; A4217; C1751; J0696; J1610; J1644; J1815; J1885; J1940; J2270; J3010; J3370; J3490; J7050; Q9966; Q9967

== ENCOUNTER 2019-08-17 03:28 | Inpatient (IN) | payer OTHER ==
[2019-08-17 04:14] LABS: #Basophils 0.1 thou/uL (0.0-0.2); #Eosinphils 0.1 thou/uL (0.0-0.7); #Lymphocytes 1.5 thou/uL (1.20-3.40); #Monocytes 0.8 thou/uL (0.11-0.59); %Basophils 1.2 % (0.0-1.0); %Eosinophils 1.6 % (0.0-10.0); %Lymphocytes 19.9 % (21.0-51.0); %Neutrophils 67.3 % (42.0-75.0); Hemoglobin 15.4 g/dL (14.0-18.0); Mean Corpuscular HGB CONC 31.2 g/dL (32.0-36.0); Mean Corpuscular Hemoglobin 25.4 pg (27.0-31.0); Mean Corpuscular Volume 81.6 fL (78.0-98.0); Mean Platelet Volume 8.9 fL (7.4-10.4); Platelet Count 297 thou/uL (130-400); RBC Distribution Width 15.3 % (11.5-14.5); Red Blood Cell (RBC) Count 6.06 mill/uL (4.70-6.10); White Blood Cell (WBC) Count 7.5 thou/uL (4.8-10.8)
[2019-08-17 04:42] LABS: ALT (SGPT) 12 U/L (8-55); AST (SGOT) 50 U/L (5-34); Albumin 3.6 g/dL (3.4-4.8); Alkaline Phosphatase 212 U/L (40-110); Anion Gap 18 mmol/L (10-20); BUN (Urea Nitrogen) 29 mg/dL (8.4-25.7); Bilirubin, Total 1.2 mg/dL (0.2-1.2); CK (CPK) 125 U/L (30-200); Calc. Creatinine Clearance 0 mL/min (70-130); Calcium 9.1 mg/dL (7.8-10.44); Carbon Dioxide 31 mmol/L (23-31); Chloride 88 mmol/L (98-107); Estimated GFR-MDRD 42; Globulin 4.1 g/dL (2.4-3.5); Glucose 155 mg/dL (80-115); Potassium 4.7 mmol/L (3.5-5.1); Protein, Total 7.7 g/dL (5.8-8.1); Sodium 132 mmol/L (136-145)
[2019-08-17] MEDS ORDERED: Furosemide 40 MG/4 ML VIAL ONE (04:58)
[2019-08-17 06:02] LABS: Bilirubin Negative (Negative); Blood, Urine Negative (Negative); Clarity Clear (Clear); Glucose, Urine (Dipstick) Normal (Negative); Leukocyte Negative Leu/uL (Negative); Nitrite Negative (Negative); Protein, Urine (Dipstick) Negative (Neg-Trace); Urobilinogen Normal mg/dL (Less than 2)
[2019-08-17] MEDS ORDERED: Senokot S 8.6-50 MG TAB PO PRN (07:09)
[2019-08-17] MEDS ORDERED: Cepastat Lozenges 1 LOZ PO PRN (07:09)
[2019-08-17] MEDS ORDERED: HumaLOG 300 UNITS/3 ML VIAL SC PRN ×2 (07:09)
[2019-08-17] MEDS ORDERED: Bisacodyl 10 MG SUPP PR PRN (07:09)
[2019-08-17] MEDS ORDERED: Loratadine 10 MG TAB PO PRN (07:09)
[2019-08-17] MEDS ORDERED: Acetaminophen 325 MG TAB PO PRN (07:09)
[2019-08-17] MEDS ORDERED: Loperamide HCl 2 MG CAP PO PRN (07:09)
[2019-08-17] MEDS ORDERED: Zolpidem Tartrate 5 MG TAB PO PRN (07:09)
[2019-08-17] MEDS ORDERED: Artificial Tears 18 DROP/0.9 ML EA EYE PRN (07:09)
[2019-08-17] MEDS ORDERED: Dextrose 5% in Water 1,000 ML IV PRN (07:09)
[2019-08-17] MEDS ORDERED: Calcium Carbonate 500 MG ChewTAB PO PRN (07:09)
[2019-08-17] MEDS ORDERED: Sodium Chloride 0.65% Nasal 44 ML BOT EA NARE PRN (07:09)
[2019-08-17] MEDS ORDERED: Dextrose 50% Abboject 50 ML SYRINGE SLOW IVP PRN (07:09)
[2019-08-17] MEDS ORDERED: hydrALAZINE 20 MG/ML VIAL SLOW IVP PRN (07:09)
[2019-08-17] MEDS ORDERED: Diabetic Tussin 200 MG/10 ML UDCUP PO PRN (07:09)
[2019-08-17] MEDS ORDERED: Lisinopril 5 MG TAB PO SCH (09:00)
[2019-08-17] MEDS ORDERED: Enoxaparin Sodium 40 MG/0.4 ML SYRINGE SC SCH (09:00)
[2019-08-17] MEDS ORDERED: Famotidine 20 MG TAB ONE (09:28)
[2019-08-17] MEDS ORDERED: Aspirin Chewable 81 MG TAB ONE (09:28)
[2019-08-17] MEDS: Famotidine 20 MG TAB PO SCH (09:40)
[2019-08-17] MEDS: Tamsulosin HCl 0.4 MG CAP PO SCH (09:40)
[2019-08-17] MEDS: Aspirin Chewable 81 MG TAB PO SCH (09:40)
[2019-08-17] MEDS: Carvedilol 3.125 MG TAB PO SCH ×2 (09:40→19:29)
--- NOTE | 2019-08-17 10:16 | RAD ---
PORTABLE CHEST ONE VIEW: 08/17/2019 4:03 a.m. HISTORY: Dyspnea. COMPARISON: 06/14/2019 FINDINGS: Left-sided pacemaker device remains in place. There are changes of median sternotomy. The heart size is enlarged. There is obscuration of the left hemidiaphragm. There is consolidation/atelectatic martins e at the left lung base. A small accompanying left pleural effusion cannot be excluded. No pneumothor aces are seen. POS: [facility]
--- NOTE | 2019-08-17 12:04 | HP ---
PRIMARY CARE PHYSICIAN: Nas Diez MD REASON FOR ADMISSION: Acute on chronic systolic congestive heart failure exacerbation. HISTORY OF PRESENT ILLNESS: A 63-year-old male, who has underlying history of cardiomyopathy with EF 15% to 20%. The patient has associated moderate mitral regurgitation. The patient presented to emergency room because he was having increasing shortness of breath. The patient reports that whenever he bends and whenever he does little exertion, he gets out of breath. He also gives classic history of PND. He has orthopnea and he has bilateral lower extremity edema. He gained weight. At rest, his symptoms remains under control, but with the exertion, he gets out of breath very easily. In the emergency room, the patient was found with elevated BNP. His chest x-ray showed pulmonary vascular congestion. He was treated with Lasix and subsequently we decided to admit to the hospital for IV diuresis. PAST MEDICAL HISTORY: Hypertension; dyslipidemia; coronary artery disease; CKD, stage 3; chronic systolic heart failure with EF 15% to 20%; moderate mitral regurgitation; diabetes type 2, on insulin. PAST SURGICAL HISTORY: CABG, cataract surgery, hernia repair, tonsillectomy. PAST PSYCHIATRIC HISTORY: Reviewed and negative. SOCIAL HISTORY: The patient quit smoking 30 years ago. No history of tobacco, alcohol use, or illicit drug abuse at this point. He is and lives with his . FAMILY HISTORY: Mother and maternal grandfather both had coronary artery disease. Mother of lung cancer. Father and paternal grandmother both had congestive heart failure. ALLERGIES: NO KNOWN DRUG ALLERGY. REVIEW OF SYSTEMS: CONSTITUTIONAL: Negative for weight loss or gain, ability to conduct usual activities. SKIN: Negative for rash, itching. EYES: Negative for double vision, pain. ENT/MOUTH: Negative for nose bleeding, neck stiffness, pain, tenderness. CARDIOVASCULAR: Negative for palpitations, dyspnea on exertion, orthopnea. RESPIRATORY: Negative for shortness of breath, wheezing, cough, hemoptysis, fever or night sweats. GASTROINTESTINAL: Negative for poor appetite, abdominal pain, heartburn, nausea, vomiting, constipation, or diarrhea. GENITOURINARY: Negative for urgency, frequency, dysuria, nocturia. MUSCULOSKELETAL: Negative for pain, swelling. NEUROLOGIC/PSYCHIATRIC: Negative for anxiety, depression. ALLERGY/IMMUNOLOGIC: Negative for skin rash, bleeding tendency. Please see my HPI for pertinent positives and negatives. All other review of systems reviewed and negative except as mentioned in HPI. CURRENT HOME MEDICATIONS: 1. Metformin 1000 mg twice daily. 2. Coreg 6.25 mg twice daily. 3. Lisinopril 10 mg daily. 4. Lasix 40 mg daily. 5. Aspirin 81 mg p.o. daily. 6. Keflex 500 mg p.o. four times daily. 7. Flomax 0.4 mg p.o. daily. 8. Tresiba 40 units subcu bedtime. 9. Aspirin 81 mg p.o. daily. EMERGENCY ROOM COURSE: The patient is treated with Lasix. PHYSICAL EXAMINATION: VITAL SIGNS: On arrival, blood pressure 123/80, pulse 86, respiratory rate 20, temperature 97.9, saturation 100% on 2 L, weight 93 kg. GENERAL: The patient is currently alert, awake, no obvious acute distress. HEAD: Normocephalic, atraumatic. EYES: Pupils are round and reactive to light. Extraocular muscle intact. ENT: Oropharynx within normal limits. Moist mucous membranes. No oral lesion. No pharyngeal erythema. No exudate. NECK: Supple. Elevated JVD noted. No thyromegaly. No carotid bruit. No meningeal signs of irritation. LUNGS: Bilateral basal rales noted. No wheeze. No rhonchi. No accessory muscles of respiration in use. CARDIAC: S1 and S2 appears regular without any significant murmur. No gallop. No rub. ABDOMEN: Soft. Bowel sounds present. Obesity present. No peritoneal sign. No guarding. No rigidity. No rebound. BACK: Unremarkable. No CVA tenderness. EXTREMITIES: Upper extremities, passive movement of all joints are normal. Lower extremity; bilateral pitting edema noted. Good distal pulsation. SKIN: The patient does have multiple folliculitis on his back as well as other part of the body. No other rash. PSYCHIATRIC: Normal affect. SIGNIFICANT LABORATORY DATA: EKG showing LVH, left atrial enlargement, right ventricular conduction delay. Chest x-ray showing cardiomegaly and pulmonary vascular congestion. CBC; WBC 7.5, hemoglobin 15.4, platelet 297. BMP; sodium 132, potassium 4.7, chloride 88, carbon dioxide 31, anion gap 18, BUN 29, creatinine 1.68, glucose 155, calcium 9.1. LFT; AST 50, ALT 12, alkaline phosphatase 212, albumin 3.6. BNP 1501.5. Urinalysis normal. ASSESSMENT AND PLAN: 1. Acute on chronic systolic congestive heart failure exacerbation, ACC stage C and NYHA stage II. The patient will require IV Lasix 40 mg b.i.d. and we will also give him one dose of Zaroxolyn daily. At this point, I will reduce Coreg to 3.125 mg p.o. b.i.d. and lisinopril 5 mg p.o. daily and we will titrate up cardiac medication based on tolerance. Cardiology has been consulted from ER. 2. Moderate mitral regurgitation due to cardiomyopathy. 3. Coronary artery disease with history of CABG. Continue aspirin 81 mg p.o. daily, Coreg, lisinopril. 4. Benign enlargement of prostate. Continue Flomax 0.4 mg p.o. daily. 5. Chronic kidney disease, stage 3. We will monitor renal function and replace electrolytes accordingly. 6. Deep venous thrombosis prophylaxis. We will continue Lovenox 40 mg subcu daily. GI prophylaxis, Pepcid 20 mg p.o. b.i.d. 7. Code status, the patient is full code. 8. Diabetes type 2. We will continue with insulin as per sliding scale protocol. Diabetic diet will be given. DISPOSITION PLAN: Based on clinical course, we are expecting the patient's stay in hospital more than 2 midnights. Plan of care discussed with the patient in detail. Job ID: [id number]
[2019-08-17] MEDS: Heparin 5,000 UNITS/ML VIAL SC SCH ×2 (12:57→21:58)
[2019-08-17] MEDS: Furosemide 40 MG/4 ML VIAL SLOW IVP SCH (15:30)
[2019-08-17] MEDS ORDERED: FLU VACC QS2019-20(6MOS UP)/PF 60 MCG/0.5 ML SYRINGE IM ONE (18:00)
--- NOTE | 2019-08-17 19:59 | PDOC.EVN ---
Event Note - Event Note Event Note: Called by RN for HR 150's for the past 20 minutes. Reviewed chart - admitted for acute on chronic HF with EF 15-20%. Pt sitting up in bed, states this occurs at home but generally lasts 10 minutes. He notes this occurs with fluid retention/acute heart failure in the past. Exam - bp 100's systolic, HR 150's Heart rhythm - regular, c/w SVT Lungs - decreased breath sounds at bases Heart - tachy, no significant murmur Abd - soft, +BS ext - edema bilateral Impression: SVT Acute on chronic HF with low EF AICD ANGEL - likely cardiorenal syndrome Plan: Discussed with Dr. Suresh for guidance overnight given the complicated cardiac status - he recommends amiodarone gtt per protocol pt has received carvedilol - his scheduled dose monitor bp's and response to treatment pt at high risk given current situation combined with baseline poor cardiac function reviewed plan of care including benefits and risks of medications with patient, no questions or further needs at end of eval. Addendum - 12 lead ecg obtained - regular rhythm at 152 bpm - may be a flutter vs svt. Per Dr. Suresh, consider IV digoxin if no response to amiodarone.
[2019-08-17] MEDS ORDERED: Amiodarone 450 MG in Dextrose 5% in Water 250 ML IVPB SCH (20:00)
[2019-08-17] MEDS ORDERED: Amiodarone HCl 150 MG in Dextrose 5% in Water 100 ML IVPB SCH ×2 (20:00→23:45)
[2019-08-17 20:39] LABS: Anion Gap 15 mmol/L (10-20); BUN (Urea Nitrogen) 28 mg/dL (8.4-25.7); Calc. Creatinine Clearance 67 mL/min (70-130); Carbon Dioxide 33 mmol/L (23-31); Chloride 88 mmol/L (98-107); Estimated GFR-MDRD 47; Glucose 231 mg/dL (80-115); Magnesium 1.2 mg/dL (1.6-2.6); Potassium 3.2 mmol/L (3.5-5.1); Sodium 133 mmol/L (136-145)
[2019-08-17 20:50] LABS: ALT (SGPT) 11 U/L (8-55); AST (SGOT) 30 U/L (5-34); Albumin 3.6 g/dL (3.4-4.8); Alkaline Phosphatase 190 U/L (40-110); Bilirubin, Direct 0.7 mg/dL (0.1-0.3); Bilirubin, Total 1.1 mg/dL (0.2-1.2); Protein, Total 6.6 g/dL (5.8-8.1)
[2019-08-17] MEDS ORDERED: Potassium Chloride 20 MEQ TAB PO SCH (21:00)
[2019-08-17] MEDS ORDERED: Magnesium 2 GM/50 ML 2 GM in Premix Bag 1 BAG IVPB SCH (21:00)
[2019-08-17 21:06] LABS: CKMB 2.8 ng/mL (0-6.6)
[2019-08-18] MEDS ORDERED: Norepinephrine 8 MG/0.9% NS 250 ML ONE (01:06)
--- NOTE | 2019-08-18 01:09 | PDOC.EVN ---
Event Note - Event Note Event Note: Code rasheed called on this patient. On arrival, updated by the nursing staff. Dr. Suresh had ordered a rebolus of the amiodarone given the persistent tachycardia. The bolus was given and the patient's BP dropped. On my arrival, he was awake. Stated he felt terrible and was dusky. His BP could not be obtained. Fluid bolus going. No pressors immediately available on cart. Rapidly transferred it ICU. Currently BP 80/60. Says he feels slightly better. Feels the need to void, but says he has to stand to do so. Dr. Barrientos here to place central line. Will initiate pressors once confirmed.
[2019-08-18 01:31] LABS: #Basophils 0.1 thou/uL (0.0-0.2); #Eosinphils 0.2 thou/uL (0.0-0.7); #Lymphocytes 2.1 thou/uL (1.20-3.40); #Monocytes 0.8 thou/uL (0.11-0.59); #Neutrophils 4.2 thou/uL (1.40-6.50); %Eosinophils 2.6 % (0.0-10.0); %Lymphocytes 28.2 % (21.0-51.0); %Monocytes 11.2 % (0.0-10.0); Hemoglobin 14.4 g/dL (14.0-18.0); Mean Corpuscular Hemoglobin 25.6 pg (27.0-31.0); Mean Corpuscular Volume 82.4 fL (78.0-98.0); Mean Platelet Volume 8.5 fL (7.4-10.4); Platelet Count 211 thou/uL (130-400); RBC Distribution Width 15.2 % (11.5-14.5); Red Blood Cell (RBC) Count 5.65 mill/uL (4.70-6.10); White Blood Cell (WBC) Count 7.4 thou/uL (4.8-10.8)
[2019-08-18 01:49] LABS: Anion Gap 18 mmol/L (10-20); BUN (Urea Nitrogen) 28 mg/dL (8.4-25.7); Calc. Creatinine Clearance 71 mL/min (70-130); Calcium 8.5 mg/dL (7.8-10.44); Carbon Dioxide 26 mmol/L (23-31); Chloride 91 mmol/L (98-107); Estimated GFR-MDRD 49; Glucose 208 mg/dL (80-115); Magnesium 1.7 mg/dL (1.6-2.6); Potassium 3.6 mmol/L (3.5-5.1); Sodium 131 mmol/L (136-145)
[2019-08-18 02:24] LABS: CKMB 2.6 ng/mL (0-6.6)
[2019-08-18] MEDS ORDERED: Sodium Chloride 0.9% 1,000 ML IV SCH (04:00)
[2019-08-18 05:03] LABS: #Basophils 0.1 thou/uL (0.0-0.2); #Eosinphils 0.1 thou/uL (0.0-0.7); #Lymphocytes 1.6 thou/uL (1.20-3.40); %Basophils 0.6 % (0.0-1.0); %Eosinophils 1.6 % (0.0-10.0); %Lymphocytes 18.4 % (21.0-51.0); %Monocytes 11.1 % (0.0-10.0); %Neutrophils 68.2 % (42.0-75.0); Hemoglobin 14.7 g/dL (14.0-18.0); Mean Corpuscular HGB CONC 30.9 g/dL (32.0-36.0); Mean Corpuscular Hemoglobin 25.4 pg (27.0-31.0); Mean Corpuscular Volume 82.4 fL (78.0-98.0); Mean Platelet Volume 8.4 fL (7.4-10.4); Platelet Count 237 thou/uL (130-400); RBC Distribution Width 15.1 % (11.5-14.5); Red Blood Cell (RBC) Count 5.79 mill/uL (4.70-6.10); White Blood Cell (WBC) Count 8.7 thou/uL (4.8-10.8)
[2019-08-18 05:25] LABS: Lactic Acid 3.5 mmol/L (0.5-2.2)
[2019-08-18 05:29] LABS: Anion Gap 17 mmol/L (10-20); BUN (Urea Nitrogen) 28 mg/dL (8.4-25.7); Calc. Creatinine Clearance 67 mL/min (70-130); Calcium 8.7 mg/dL (7.8-10.44); Carbon Dioxide 30 mmol/L (23-31); Chloride 89 mmol/L (98-107); Estimated GFR-MDRD 47; Glucose 160 mg/dL (80-115); Magnesium 1.6 mg/dL (1.6-2.6); Potassium 3.6 mmol/L (3.5-5.1); Sodium 132 mmol/L (136-145); Uric Acid 12.4 mg/dL (3.5-7.2)
[2019-08-18] MEDS ORDERED: Ondansetron PF 4 MG/2 ML Vial IVP PRN (06:08)
[2019-08-18] MEDS: Furosemide 40 MG/4 ML VIAL SLOW IVP SCH ×2 (06:20→14:49)
[2019-08-18] MEDS: Amiodarone 200 MG TAB PO SCH ×2 (08:28→20:24)
[2019-08-18] MEDS: Aspirin Chewable 81 MG TAB PO SCH (08:28)
[2019-08-18] MEDS: Heparin 5,000 UNITS/ML VIAL SC SCH ×2 (08:29→20:22)
[2019-08-18] MEDS: Carvedilol 3.125 MG TAB PO SCH ×2 (08:29→20:24)
[2019-08-18] MEDS: Tamsulosin HCl 0.4 MG CAP PO SCH (08:29)
[2019-08-18] MEDS: Metolazone 5 MG TAB PO SCH (08:29)
[2019-08-18] MEDS: Famotidine 20 MG TAB PO SCH (08:29)
--- NOTE | 2019-08-18 09:18 | RAD ---
PORTABLE CHEST ONE VIEW: 08/18/2019 1:19 a.m. HISTORY: Central line placement. FINDINGS: There has been interval placement of a right subclavian central venous catheter which traverses super iorly in the projection of the right internal jugular vein with the tip excluded from the film. No pn eumothorax is seen. The remainder of the exam is otherwise stable. POS: [facility]
--- NOTE | 2019-08-18 09:45 | CON ---
DATE OF CONSULTATION: HISTORY OF PRESENT ILLNESS: The patient is a pleasant 63-year-old gentleman with a long history of a cardiomyopathy, who presented with increasing dyspnea. The patient has a known ischemic cardiomyopathy. He underwent coronary artery bypass graft surgery x2 in 2006. He was recently hospitalized with a persistent erythematous rash. The patient presented with increasing dyspnea. He developed a rapid heart rate and became hypotensive. The patient states he became extremely weak. He denied having any palpitations. PAST MEDICAL HISTORY: 1. Cardiomyopathy. 2. Coronary artery bypass surgery. 3. Hypertension. 4. Mitral regurgitation. 5. Diabetes mellitus. PAST SURGICAL HISTORY: Coronary artery bypass surgery, tonsillectomy, cataract , and hernia surgery. SOCIAL HISTORY: Former smoker. ALLERGIES: NO KNOWN DRUG ALLERGIES. PHYSICAL EXAMINATION: GENERAL: Ill-appearing gentleman. VITAL SIGNS: Blood pressure 96/60. NECK: Showed jugular venous distention at jaw. LUNGS: Crackles in both lung bases. HEART: Regular rate and rhythm. Normal S1 and S2. ABDOMEN: Nondistended. EXTREMITIES: Showed moderate edema with continued erythematous rash. LABORATORY RESULTS: Sodium 132, potassium 3.6, chloride 89, bicarb 30, BUN 28, and creatinine 1.5. Troponin was 0.037. White blood cell count 8.7, hemoglobin 14.7 with hematocrit 47.7, and platelets were 234. EKG revealed atrial flutter with 2:1 conduction. IMPRESSION: 1. Congestive heart failure. 2. History of coronary artery bypass surgery. 3. Ischemic cardiomyopathy. 4. Diabetes mellitus. 5. Renal insufficiency. This gentleman presented with congestive heart failure. He went into a rapid rhythm suggestive of atrial flutter. The patient received IV amiodarone and became hypotensive. He converted to normal sinus rhythm. The patient will need to undergo a possible EP evaluation for ablation. The patient will be diuresed with Lasix. We will follow this patient with you through his hospitalization. Critical care note time 30 minutes. Job ID: [id number] MTDD
--- NOTE | 2019-08-18 12:03 | PDOC.HOSPP ---
- Subjective Encounter Date: 08/18/19 Encounter Time: 10:30 Subjective: last night his BP dropped after amiodaron bolus and he is converted to nsr, he required ccu transfer, his BP improved with fluid challenge and did not require any vasopressure, his troponin elevated but this morning he has no chest pain, - Objective Vital Signs & Weight: Vital Signs (12 hours) Temp Pulse Pulse Pulse Pulse Pulse Pulse 08/18/19 08:00 96.5 F L 08/18/19 03:00 98 F 08/18/19 02:00 08/18/19 00:35 76 70 70 80 78 75 Pulse Pulse Resp Resp Resp Resp Resp 08/18/19 08:00 08/18/19 03:00 08/18/19 02:00 08/18/19 00:35 75 76 24 H 20 22 H 24 H 14 Resp Resp Resp BP BP BP BP 08/18/19 08:00 08/18/19 03:00 08/18/19 02:00 08/18/19 00:35 12 24 H 14 64/25 L 58/42 L 70/43 L 60/38 L BP BP BP BP Pulse Ox Pulse Ox Pulse Ox 08/18/19 08:00 100 08/18/19 03:00 08/18/19 02:00 100 08/18/19 00:35 80/60 L 78/59 L 74/59 L 77/59 L 92 L 100 Pulse Ox 08/18/19 08:00 08/18/19 03:00 08/18/19 02:00 08/18/19 00:35 95 Weight Weight 210 lb 8.663 oz Most Recent Monitor Data Heart Rate from ECG 77 NIBP 89/69 NIBP BP-Mean 75 Respiration from ECG 13 SpO2 99 I&O: 08/17/19 08/18/19 08/19/19 06:59 06:59 06:59 Intake Total 2079 200 Output Total 2500 0 Balance -421 200 Result Diagrams: 08/18/19 04:15 08/18/19 04:15 Additional Labs: Accuchecks 08/18/19 08/18/19 08/18/19 11:31 06:21 00:30 POC Glucose 125 H 142 H 322 H 08/17/19 08/17/19 20:25 16:45 POC Glucose 288 H 190 H Radiology Reviewed by me: Yes EKG Reviewed by me: Yes Hospitalist ROS - Review of Systems ENT: denies: ear pain, ear discharge, nose pain, nose discharge, nose congestion , mouth pain, mouth swelling, throat pain, throat swelling, other Respiratory: denies: cough, dry, shortness of breath, hemoptysis, SOB with excertion, pleuritic pain, sputum, wheezing, other Cardiovascular: denies: chest pain, palpitations, orthopnea, paroxysmal noc. dyspnea, edema, light headedness, other Gastrointestinal: denies: nausea, vomiting, abdominal pain, diarrhea, constipation, melena, hematochezia, other Genitourinary: denies: dysuria, frequency, incontinence, hematuria, retention, other Musculoskeletal: denies: neck pain, shoulder pain, arm pain, back pain, hand pain, leg pain, foot pain, other - Medication Medications: Active Medications Generic Name Dose Route Start Last Admin Trade Name Freq PRN Reason Stop Dose Admin Acetaminophen 650 mg 08/17/19 07:09 08/18/19 04:11 Tylenol PO 650 mg Q4H PRN Administration Headache/Fever/Mild Pain (1-3) Amiodarone HCl 400 mg 08/18/19 09:00 08/18/19 08:28 Cordarone PO 400 mg BID ESPERANZA Administration Aspirin 81 mg 08/17/19 09:00 08/18/19 08:28 Aspirin Chewable PO 81 mg DAILY ESPERANZA Administration Carvedilol 3.125 mg 08/17/19 09:00 08/18/19 08:29 Coreg PO 3.125 mg BID ESPERANZA Administration Famotidine 20 mg 08/17/19 09:00 08/18/19 08:29 Pepcid PO 20 mg DAILY ESPERANZA Administration Furosemide 40 mg 08/17/19 14:00 08/18/19 06:20 Lasix SLOW IVP 40 mg 0600,1400 ESPERANZA Administration Heparin Sodium (Porcine) 5,000 units 08/17/19 09:00 08/18/19 08:29 Heparin SC 5,000 units BID ESPERANZA Administration Amiodarone HCl 450 mg/ 259 mls @ 0 mls/hr 08/17/19 20:00 08/17/19 20:04 Dextrose/Water IVPB 259 mls INF ESPERANZA Administration Protocol Per Protocol Metolazone 5 mg 08/18/19 08:30 08/18/19 08:29 Zaroxolyn PO 5 mg 0830 ESPREANZA Administration Ondansetron HCl 4 mg 08/18/19 06:08 08/18/19 06:20 Zofran IVP 4 mg Q6H PRN Administration Nausea/Vomiting Tamsulosin HCl 0.4 mg 08/17/19 09:00 08/18/19 08:29 Flomax PO 0.4 mg DAILY ESPERANZA Administration - Exam General Appearance: NAD, awake alert Eye: PERRL, anicteric sclera ENT: normocephalic atraumatic, no oropharyngeal lesions Neck: supple, symmetric Heart: RRR, no murmur, no gallops Respiratory: CTAB, no wheezes, no rales Gastrointestinal: soft, non-tender, non-distended Extremities: no cyanosis, no clubbing, 2+ LE edema Skin: normal turgor, no lesions Neurological: no focal deficits Musculoskeletal: normal tone, normal strength Psychiatric: normal affect, normal behavior Hosp A/P (1) Acute on chronic systolic ACC/AHA stage C congestive heart failure Code(s): I50.23 - ACUTE ON CHRONIC SYSTOLIC (CONGESTIVE) HEART FAILURE Status : Acute (2) Atrial fibrillation with RVR Code(s): I48.91 - UNSPECIFIED ATRIAL FIBRILLATION Status: Acute (3) Lactic acidosis Code(s): E87.2 - ACIDOSIS Status: Acute (4) NSTEMI (non-ST elevated myocardial infarction) Code(s): I21.4 - NON-ST ELEVATION (NSTEMI) MYOCARDIAL INFARCTION Status: Acute (5) CAD (coronary artery disease) Code(s): I25.10 - ATHSCL HEART DISEASE OF [place] CORONARY ARTERY W/O ANG PCTRS Status: Chronic (6) CKD (chronic kidney disease) stage 3, GFR 30-59 ml/min Code(s): N18.3 - CHRONIC KIDNEY DISEASE, STAGE 3 (MODERATE) Status: Chronic (7) Diabetes type 2, controlled Code(s): E11.9 - TYPE 2 DIABETES MELLITUS WITHOUT COMPLICATIONS Status: Chronic (8) Dyslipidemia Code(s): E78.5 - HYPERLIPIDEMIA, UNSPECIFIED Status: Chronic (9) Hypertension Code(s): I10 - ESSENTIAL (PRIMARY) HYPERTENSION Status: Chronic (10) Obesity (BMI 30.0-34.9) Code(s): E66.9 - OBESITY, UNSPECIFIED Status: Chronic - Plan old records reviewed/req, plan discussed w/ family 08/18/19- cardiology following, will monitor, discussed with , medication reviewed and continue to provide symptomatic treatment and supportive care
[2019-08-18] MEDS ORDERED: Azelastine 137 MCG/Spray 30 ML NS PRN (13:21)
[2019-08-18] MEDS ORDERED: Magnesium Sulfate 2 GM in Sodium Chloride 0.9% 100 ML IVPB SCH (13:30)
[2019-08-18] MEDS ORDERED: Potassium Chloride 20 MEQ TAB PO SCH (13:30)
[2019-08-18] MEDS ORDERED: Magnesium 2 GM/50 ML 2 GM in Premix Bag 1 BAG IVPB SCH (13:30)
--- NOTE | 2019-08-18 14:20 | CON ---
DATE OF CONSULTATION: 08/18/2019 HISTORY OF PRESENT ILLNESS: The patient is a 63-year-old white male with past medical history significant for congestive heart failure. He was in his usual state of health when he started having onset of heart failure symptoms. This was similar compared to prior episodes. Previously, he responded to high dose of Lasix and other diuretics. That being said, on this occasion, he developed a tachyarrhythmia on the floor. He became extremely short of breath, and had low blood pressure. He was given a bolus of amiodarone, but his blood pressure dropped precipitously. As such, he was brought to the ICU. He was given some boluses of fluid. His blood pressures perked up a little bit, and his blood pressure became under better control. His heart rate also settled down with a drip eventually. He is a little bit more short of breath presently than he typically is. Otherwise, he is in his usual state of health and specifically denies having fevers, chills, cough, nausea, or vomiting. He does not have much of an appetite. He is not having any abnormal bowel movements. He does not have abdominal discomfort. PAST MEDICAL HISTORY: 1. Coronary artery disease. 2. Chronic systolic heart failure (EF 15% to 20%). 3. CKD 3. 4. Hypertension. 5. Dyslipidemia. 6. Mitral regurgitation, moderate. 7. Type 2 diabetes mellitus. PAST SURGICAL HISTORY: 1. Coronary artery bypass graft surgery. 2. Cataract surgery. 3. Herniorrhaphy. 4. Tonsillectomy. SOCIAL HISTORY: He has a greater than [id number] history of smoking, but quit over 30 years ago. He denies any alcohol or illicit drugs. He has no exposure to chemicals, dust, asbestos, or tuberculosis. FAMILY HISTORY: Noncontributory. ALLERGIES: NO KNOWN DRUG ALLERGIES. MEDICATIONS: List of the patient's inpatient medications were reviewed. No specific updates were made at this time. REVIEW OF SYSTEMS: General, head, ears, eyes, nose, throat, cardiovascular, respiratory, GI, , musculoskeletal, neurologic, and skin are negative except as mentioned in the HPI. PHYSICAL EXAMINATION: VITAL SIGNS: Afebrile. Pulse 77, blood pressure 85/72, respirations 15, and saturation 92%, currently on 3 L nasal cannula. GENERAL: The patient is awake and alert, in no apparent distress. LUNGS: Good air entry bilaterally. There are actually no dependent crackles present. No rhonchi or wheezing appreciated. There is no prolonged expiratory phase. HEART: Normal rate, regular. ABDOMEN: Soft, nontender, and nondistended. Bowel sounds are positive. MUSCULOSKELETAL: No cyanosis or clubbing. There is no pitting in the bilateral lower extremities. NEUROLOGIC: Grossly nonfocal. LABORATORY DATA: WBC 8.7, hemoglobin 14.7, platelets 237,000. Creatinine 1.53, which is roughly stable. BUN 28. Basic metabolic profile is otherwise unremarkable. Uric acid is 12.4, calcium 8.7, magnesium 1.6. Lactate is downtrending to 3.5. Troponin is 0.373 and gently downtrending. Urinalysis is unremarkable. IMAGING DATA: Chest x-ray demonstrates interval placement of a right subclavian central venous catheter that courses up into the IJ. There is cardiomegaly present. I do not believe there is a retrocardiac density, but I cannot exclude one. No obvious effusion is noted. There is no cephalization of pulmonary vasculature. ASSESSMENT: 1. Acute hypoxic respiratory failure. 2. Acute on chronic systolic heart failure. 3. Atrial fibrillation with RVR. 4. Chronic kidney disease. 5. Obstructive sleep apnea. DISCUSSION AND PLAN: The patient will bring a CPAP machine up, so I can interrogate it. I will make some modifications on machine if indicated. At this point, I will follow intermittently while the patient remains in the ICU. It is my understanding, that the Advanced Heart Failure Team is going to be invited to consider home infusion therapy. Of note, the subclavian catheter has gone up into the IJ. This can be used as long as a Vesicant is not administered. 70 minutes have been devoted to this patient in various activities. I personally reviewed all imaging studies and laboratory data noted within this document. For fifty percent of this time, I was interacting with the patient at the bedside or coordinating care with the care team. For the remainder of the time I was immediately available to the patient in the hospital unit. Job ID: [id number] [facility]
[2019-08-19] MEDS: Furosemide 40 MG/4 ML VIAL SLOW IVP SCH (06:35)
[2019-08-19 08:52] LABS: #Basophils 0.1 thou/uL (0.0-0.2); #Lymphocytes 1.7 thou/uL (1.20-3.40); #Monocytes 0.9 thou/uL (0.11-0.59); #Neutrophils 5.3 thou/uL (1.40-6.50); %Basophils 0.8 % (0.0-1.0); %Eosinophils 0.6 % (0.0-10.0); %Lymphocytes 20.8 % (21.0-51.0); %Monocytes 11.2 % (0.0-10.0); %Neutrophils 66.6 % (42.0-75.0); Hemoglobin 14.7 g/dL (14.0-18.0); Mean Corpuscular HGB CONC 30.4 g/dL (32.0-36.0); Mean Corpuscular Volume 82.3 fL (78.0-98.0); Mean Platelet Volume 9.5 fL (7.4-10.4); Platelet Count 238 thou/uL (130-400); RBC Distribution Width 15.3 % (11.5-14.5); Red Blood Cell (RBC) Count 5.87 mill/uL (4.70-6.10)
--- NOTE | 2019-08-19 08:54 | PRG ---
DATE OF SERVICE: 08/19/2019 SUBJECTIVE: Mr. Ba is doing much better. He had episode of atrial flutter with marked hypotension on Monday evening, early Monday morning. He spontaneously converted back to sinus rhythm. His blood pressure then was stable. Mr. Ba has also had a skin infection versus drug reaction. This started in June. He was placed on Bactrim for lower extremity issue. He had diffuse skin reaction present. He has since stopped Bactrim. He states the lower extremities have markedly improved. He is not having skin issues with his back. He states a biopsy has been performed by Dr. Casey Diez. The results are not available. PHYSICAL EXAMINATION: GENERAL: Patient is a pleasant gentleman, who is in no acute distress. The patient appears their stated age. VITAL SIGNS: Blood pressure 103/79, pulse 78, temperature afebrile. NEUROLOGIC: The patient is alert and oriented x3 with no focal neurologic deficits. HEENT: Sclerae without icterus. Mouth has moist mucous membranes with normal pallor. NECK: No JVD. Carotid upstroke brisk. No bruits bilaterally. LUNGS: Clear to auscultation with unlabored respirations. BACK: No scoliosis or kyphosis. CARDIAC: Regular rate and rhythm with normal S1 and S2. No S3 or S4 noted. No significant rubs, murmurs, thrills, or gallops noted throughout the precordium. PMI is not displaced. There is no parasternal heave. ABDOMEN: Soft, nontender, nondistended. No peritoneal signs present. No hepatosplenomegaly. No abnormal striae. EXTREMITIES: Marked skin discoloration noted bilaterally with 1+ pitting edema. SKIN: No gross abnormalities. MEDICATIONS: Current cardiac medications include; 1. Amiodarone both p.o. and IV. 2. Aspirin 81 q.a.m. 3. Carvedilol 3.125 one p.o. b.i.d. 4. Lasix 40 mg IV b.i.d. 5. Metolazone. IMPRESSION: 1. Ischemic cardiomyopathy. 2. Coronary artery disease. 3. Status post bypass surgery. 4. Atrial flutter. 5. Recent skin infection. RECOMMENDATIONS: 1. Consult EP for recent atrial flutter felt to be symptomatic with hypotension. 2. Continue Coreg, Lasix, and metolazone. 3. Continue IV amiodarone and p.o. amiodarone. Further recommendation per Dr. Kael Boyce. 4. Skin reaction versus infection appears to be improving. This may have been related to Bactrim. We will continue closely observe. Further recommendations per primary team. Job ID: [id number]
[2019-08-19 09:04] LABS: Anion Gap 18 mmol/L (10-20); BUN (Urea Nitrogen) 35 mg/dL (8.4-25.7); Calc. Creatinine Clearance 49 mL/min (70-130); Calcium 8.7 mg/dL (7.8-10.44); Carbon Dioxide 27 mmol/L (23-31); Chloride 88 mmol/L (98-107); Estimated GFR-MDRD 32; Glucose 107 mg/dL (80-115); Potassium 4.5 mmol/L (3.5-5.1); Sodium 128 mmol/L (136-145)
[2019-08-19 09:13] LABS: Troponin I 0.374 ng/mL (< 0.028)
[2019-08-19] MEDS: Carvedilol 3.125 MG TAB PO SCH ×2 (09:31→19:54)
[2019-08-19] MEDS: Metolazone 5 MG TAB PO SCH (09:32)
[2019-08-19] MEDS: Tamsulosin HCl 0.4 MG CAP PO SCH (09:32)
[2019-08-19] MEDS: Heparin 5,000 UNITS/ML VIAL SC SCH ×2 (09:32→19:54)
[2019-08-19] MEDS: Amiodarone 200 MG TAB PO SCH (09:32)
[2019-08-19] MEDS ORDERED: Aspirin Chewable 81 MG TAB PO SCH (09:45)
--- NOTE | 2019-08-19 10:15 | PRG ---
DATE OF SERVICE: 08/19/2019 SERVICE: Pulmonary Medicine. INTERVAL HISTORY: The patient is doing great from a respiratory standpoint. He has been weaned down to room air. He denies any current chest discomfort, nausea, or vomiting. Otherwise, he is in his usual state of health and has no specific complaints. He was only able to use the CPAP last night for 1.7 hours. That being said, we have made some pretty significant modifications to his device to hopefully improve on its comfort. PHYSICAL EXAMINATION: VITAL SIGNS: Afebrile, pulse 789, blood pressure 97/72, respirations 15, saturation 100%, currently on room air. GENERAL: The patient is awake and alert, in no apparent distress. LUNGS: Decent air entry. There is no rhonchi or crackles present. No prolonged expiratory phase appreciated. HEART: Normal rate. Regular. ABDOMEN: Soft, nontender, and nondistended. Bowel sounds are positive. MUSCULOSKELETAL: No cyanosis or clubbing. Chronic stasis changes of bilateral lower extremities with some degree of pitting and nonpitting edema. LABORATORY DATA: WBC 8.0, hemoglobin 14.7, platelets 238,000. Creatinine 2.13 and gently uptrending. BUN 35. Basic metabolic profile is otherwise unremarkable. Troponin 0.374. Lactate 2.0. Urinalysis is unremarkable. ASSESSMENT: 1. Acute hypoxic respiratory failure. 2. Acute on chronic systolic heart failure. 3. Atrial fibrillation/flutter with recent rapid ventricular rate. 4. Chronic kidney disease. 5. Obstructive sleep apnea. DISCUSSION AND PLAN: EP consultation and Advanced Heart Failure consultation are both pending. Pulmonary will follow while he remains in this location. Of note, no vesicant can be delivered through the right subclavian catheter as it has tracked up into the right IJ. I will continue making further modifications to his CPAP if he continues using this device. Job ID: [id number]
[2019-08-19] MEDS: Famotidine 20 MG TAB PO SCH (10:41)
--- NOTE | 2019-08-19 11:35 | PDOC.HOSPP ---
- Subjective Encounter Date: 08/19/19 Encounter Time: 11:20 Subjective: Patient seen and examined. No new complaints. No overnight events - Objective Vital Signs & Weight: Vital Signs (12 hours) Temp Pulse Ox 08/19/19 07:45 99 08/19/19 07:00 97.7 F 08/19/19 04:00 98.5 F 08/19/19 00:00 98.3 F Weight Weight 210 lb 1.608 oz Most Recent Monitor Data Heart Rate from ECG 79 NIBP 94/72 NIBP BP-Mean 79 Respiration from ECG 27 SpO2 99 I&O: 08/18/19 08/19/19 08/20/19 06:59 06:59 06:59 Intake Total 2079 1601 120 Output Total 2500 178 315 Balance -421 1423 -195 Result Diagrams: 08/19/19 08:19 08/19/19 08:19 Additional Labs: Accuchecks 08/19/19 08/18/19 08/18/19 06:38 20:36 17:27 POC Glucose 117 H 99 165 H 08/18/19 11:31 POC Glucose 125 H EKG Reviewed by me: Yes Hospitalist ROS - Review of Systems ENT: denies: ear pain, ear discharge, nose pain, nose discharge, nose congestion , mouth pain, mouth swelling, throat pain, throat swelling, other Respiratory: denies: cough, dry, shortness of breath, hemoptysis, SOB with excertion, pleuritic pain, sputum, wheezing, other Cardiovascular: denies: chest pain, palpitations, orthopnea, paroxysmal noc. dyspnea, edema, light headedness, other Gastrointestinal: denies: nausea, vomiting, abdominal pain, diarrhea, constipation, melena, hematochezia, other Genitourinary: denies: dysuria, frequency, incontinence, hematuria, retention, other Musculoskeletal: denies: neck pain, shoulder pain, arm pain, back pain, hand pain, leg pain, foot pain, other - Medication Medications: Active Medications Generic Name Dose Route Start Last Admin Trade Name Freq PRN Reason Stop Dose Admin Acetaminophen 650 mg 08/17/19 07:09 08/18/19 04:11 Tylenol PO 650 mg Q4H PRN Administration Headache/Fever/Mild Pain (1-3) Amiodarone HCl 400 mg 08/18/19 09:00 08/19/19 09:32 Cordarone PO 400 mg BID ESPERANZA Administration Aspirin 81 mg 08/17/19 09:00 08/18/19 08:28 Aspirin Chewable PO 81 mg DAILY ESPERANZA Administration Aspirin 81 mg 08/19/19 09:45 08/19/19 09:44 Aspirin Chewable PO 08/19/19 12:00 81 mg NOW ESPERANZA Administration Carvedilol 3.125 mg 08/17/19 09:00 08/19/19 09:31 Coreg PO 3.125 mg BID ESPERANZA Administration Famotidine 20 mg 08/17/19 09:00 08/19/19 10:41 Pepcid PO 20 mg DAILY ESPERANZA Administration Heparin Sodium (Porcine) 5,000 units 08/17/19 09:00 08/19/19 09:32 Heparin SC 5,000 units BID ESPERANZA Administration Amiodarone HCl 450 mg/ 259 mls @ 0 mls/hr 08/17/19 20:00 08/17/19 20:04 Dextrose/Water IVPB 259 mls INF ESPERANZA Administration Protocol Per Protocol Ondansetron HCl 4 mg 08/18/19 06:08 08/18/19 06:20 Zofran IVP 4 mg Q6H PRN Administration Nausea/Vomiting Tamsulosin HCl 0.4 mg 08/17/19 09:00 08/19/19 09:32 Flomax PO 0.4 mg DAILY ESPERANZA Administration - Exam General Appearance: NAD, awake alert Eye: PERRL, anicteric sclera ENT: normocephalic atraumatic, no oropharyngeal lesions Neck: supple, symmetric, no JVD, no thyromegaly Heart: RRR, no murmur, no gallops, no rubs Respiratory: CTAB, no wheezes, no rales, no ronchi Gastrointestinal: soft, non-tender, non-distended, normal bowel sounds Extremities: no cyanosis, no clubbing Skin: normal turgor, no lesions Neurological: no focal deficits Musculoskeletal: normal tone, normal strength Psychiatric: normal affect, normal behavior Hosp A/P (1) Acute on chronic systolic ACC/AHA stage C congestive heart failure Code(s): I50.23 - ACUTE ON CHRONIC SYSTOLIC (CONGESTIVE) HEART FAILURE Status : Acute (2) Atrial fibrillation with RVR Code(s): I48.91 - UNSPECIFIED ATRIAL FIBRILLATION Status: Acute (3) Lactic acidosis Code(s): E87.2 - ACIDOSIS Status: Acute (4) NSTEMI (non-ST elevated myocardial infarction) Code(s): I21.4 - NON-ST ELEVATION (NSTEMI) MYOCARDIAL INFARCTION Status: Acute (5) CAD (coronary artery disease) Code(s): I25.10 - ATHSCL HEART DISEASE OF [place] CORONARY ARTERY W/O ANG PCTRS Status: Chronic (6) CKD (chronic kidney disease) stage 3, GFR 30-59 ml/min Code(s): N18.3 - CHRONIC KIDNEY DISEASE, STAGE 3 (MODERATE) Status: Chronic (7) Diabetes type 2, controlled Code(s): E11.9 - TYPE 2 DIABETES MELLITUS WITHOUT COMPLICATIONS Status: Chronic (8) Dyslipidemia Code(s): E78.5 - HYPERLIPIDEMIA, UNSPECIFIED Status: Chronic (9) Hypertension Code(s): I10 - ESSENTIAL (PRIMARY) HYPERTENSION Status: Chronic (10) Obesity (BMI 30.0-34.9) Code(s): E66.9 - OBESITY, UNSPECIFIED Status: Chronic (11) Hyponatremia Code(s): E87.1 - HYPO-OSMOLALITY AND HYPONATREMIA Status: Acute (12) Acute worsening of stage 3 chronic kidney disease Code(s): N18.3 - CHRONIC KIDNEY DISEASE, STAGE 3 (MODERATE) Status: Acute - Plan old records reviewed/req, plan discussed w/ family 08/18/19- cardiology following, will monitor, discussed with , medication reviewed and continue to provide symptomatic treatment and supportive care 08/19/19, will dc zaroxolyn and lasix today, repeat BMP tomorrow, EP consulted, discussed with , if cardiology OK, consider transfer to [facility], medication reviewed, stable otherwise
--- NOTE | 2019-08-19 15:24 | PDOC.PALCO ---
Palliative Care Consult - Consult Details Requesting Physician: Dr Miles Reason for Consult: goals of care Family Members Present: None - Pertinent HPI 63 year old male who has know cardiomyopahty with an ef of 15%-20%. Presented to the emergency room 08/17/2019 secondary to shortness of breath with exertion, increase in edema. Emergency room visit revealed elevated BNP and chest e-ray identified pulmonary edema. Mr Ba was admitted for IV diureses. During the course of his stay he was given an amiodoron bolus and became hypotensive, was transferred to the CCU for higher level of care. Patient is being seen by Dr Hernandez and states he will follow up at discharge to be managed by heart failure. - Pertinent PMH HTN, Dysplidemia, CAD, CKD #, Chronic systolic heart failure with EF 15-20% mitral regurg, diabetes II, - Social History Smoking Status: Former smoker (Quit over 30 years ago) Alcohol Use: none Drug Use History: none Living Situation: - Medications MAR Reviewed: Yes - Allergies Allergies/Adverse Reactions: Allergies Allergy/AdvReac Type Severity Reaction Status Date / Time sulfamethoxazole Allergy Verified 08/17/19 14:32 [From Bactrim] trimethoprim [From Bactrim] Allergy Verified 08/17/19 14:32 - Subjective Awake, alert. Awaiting transfer out of CCU to [facility]. Patient states only complaint is feeling weak. - ROS Constitutional: alert, weakness Eyes: other (Negative for visual changes) ENT: other (Negative for oral discomfort, difficulity swallowing) Respiratory: shortness of breath with extertion, other (Negative for cough, congestion) Cardiology: other (Negative for chest pain or discomfort) Gastrointestinal: other (Negative for nausea, vomiting, abdominal discomfort) Musculoskeletal: other (negative for pain ) Skin: bruising, dry - Objective Vital Signs: Vital Signs - Most Recent Temp Pulse Resp BP Pulse Ox 97.8 F 76 24 H 64/25 L 99 08/19/19 12:00 08/18/19 00:35 08/18/19 00:35 08/18/19 00:35 08/19/19 07:45 Palliative Performance Scale: 60 - Physical Exam Constitutional: ill appearing HEENT: EOMI, moist MMs, sclera anicteric Respiratory: clear to auscultation bilateral, unlabored breathing Cardiovascular: RRR Gastrointestinal: non-tender, positive bowel sounds Genitourinary: continent Musculoskeletal: edema present Neurology: moves all 4 limbs Psychiatric: A&O x 3 - Problem List (1) Palliative care encounter Code(s): Z51.5 - ENCOUNTER FOR PALLIATIVE CARE Current Visit: Yes Status: Acute (2) Atrial fibrillation with RVR Code(s): I48.91 - UNSPECIFIED ATRIAL FIBRILLATION Current Visit: Yes Status : Acute (3) NSTEMI (non-ST elevated myocardial infarction) Code(s): I21.4 - NON-ST ELEVATION (NSTEMI) MYOCARDIAL INFARCTION Current Visit : Yes Status: Acute (4) CAD (coronary artery disease) Code(s): I25.10 - ATHSCL HEART DISEASE OF [place] CORONARY ARTERY W/O ANG PCTRS Current Visit: Yes Status: Chronic (5) Acute worsening of stage 3 chronic kidney disease Code(s): N18.3 - CHRONIC KIDNEY DISEASE, STAGE 3 (MODERATE) Current Visit: No Status: Acute (6) Chronic systolic CHF (congestive heart failure), NYHA class 3 Code(s): I50.22 - CHRONIC SYSTOLIC (CONGESTIVE) HEART FAILURE Current Visit: No Status: Acute (7) Diabetes mellitus type 2, insulin dependent Code(s): E11.9 - TYPE 2 DIABETES MELLITUS WITHOUT COMPLICATIONS; Z79.4 - SENIOR LIVING (CURRENT) USE OF INSULIN Current Visit: No Status: Acute - Plan/Recommendations Plan: Patient recently retired in February 2019. Discussed heart failure and disease trajectory. WIll be followed by the heart failure clinic and Dr Hernandez. Discussed if he and his have ever made their wishes known in the event they would need to make medical decisions for each other, he states yes. *Continue with all resuscitative measures *Continue with aggressive treatment for Heart failure other chronic conditions *Discussed O2 use at home and measures to conserve energy, suggested walking cane and sleeping with head of bed elevated. Palliative Care will sign off as patient has established goals of care. Will be happy to revisit goals of care or assist with symptom management in the future if needed. [60] minutes spent on this encounter with >50% of the time in counseling and coordination of care. Thank you for this very appropriate consult.
--- NOTE | 2019-08-19 15:31 | CON ---
DATE OF CONSULTATION: 08/19/2019 HISTORY OF PRESENT ILLNESS: I am seeing Mr. 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 His problems are. 1. Recurrent highly symptomatic supraventricular tachycardia, now suppressed with amiodarone loading. 2. History of [id number] systolic congestive heart failure with admission and fluid overload, now improving. 3. Severely reduced LVEF at 25% to 30% in 11/2018 and 15% to 20% on 06/15/2019, moderate MR, mild TR. 4. Status post ICD implantation in 02/[address] [employer] ICD. 5. History of type 2 diabetes, hypertension, and sleep apnea, on CPAP. 6. History of coronary artery disease with coronary artery bypass grafting surgery in the past. ALLERGIES: NONE NOTED. MEDICATIONS: At home, included: 1. Metformin. 2. Coreg 6.25 mg twice a day. 3. Lisinopril 10 mg daily. 4. Lasix 40 mg daily. 5. Aspirin 81 mg daily. 6. Keflex 500 mg 4 times a day. 7. Flomax. 8. Tresiba. 9. Aspirin. SUBJECTIVE: The patient was admitted with progressive fluid overload, dyspnea even at rest,, PND is noted, and orthopnea as well as lower extremity edema is felt. He was eventually admitted on the with these symptoms. While on the floor being diuresed, he felt better after losing some excess fluid, but he developed rapid fast heart beating with lower blood pressures. He was given IV amiodarone and normal sinus rhythm ensued. He was transferred to the ICU for further management. Currently, he is maintaining sinus rhythm without further issues. Denies chest pains. No fever, chills, or cough. No stroke-like symptoms. No neurological deficits. REVIEW OF SYSTEMS: Rest of 12-point review of systems otherwise unremarkable. PAST MEDICAL HISTORY: As above, he has a history of coronary artery bypass grafting surgery x4 vessels in 2017, cataract surgery, hernia repair, and tonsillectomy. SOCIAL HISTORY: The patient quit smoking 30 years ago. Denies tobacco, ETOH, or drug abuse. He is , lives with his . FAMILY HISTORY: Significant for mother both had coronary artery disease. Mother of lung cancer. Father and paternal grandmother had congestive heart failure. OBJECTIVE DATA: VITAL SIGNS: Blood pressure is heart rate 75, respirations 12, and the patient is afebrile. GENERAL: Alert and oriented man, in no apparent distress. NECK: Supple. Jugular veins still distended. CHEST: Coarse without crackles. HEART: Regular to rate and rhythm. A 1/6 holosystolic murmur is heard in the precordial area. PMI is laterally displaced. ABDOMEN: Benign. Mildly distended. Bowel sounds are positive. No hepatosplenomegaly is detected. EXTREMITY: Lower extremities with 1+ lower extremity edema with chronic venous stasis signs. No cyanosis. Pulses are diminished. NEUROLOGIC: The patient is nonfocal. MUSCULOSKELETAL: No joint swelling or deformity. SKIN: With papular, but healing rash. LABORATORY DATA: White blood cell count is 8, hemoglobin 14.7, and platelet count is 258. Sodium 128, potassium 4.5, BUN is 35, creatinine 2.13. Troponin levels are 0.450 on the 4th, 0.373 on the 5th, 0.374 on the 6th. The BNP was 1501 on the 4th. The EKG is reviewed. Initial EKG reveals sinus rhythm, rate of 92 beats per minute, narrow QRS, QT is prolonged at 519 milliseconds. Subsequent EKG reveals during an episode of tachycardia also narrow complex SVT, P-wave is difficult to visualize , although possibly cristian in the QRS. No definite flutter waves are identified. ASSESSMENT AND PLAN: 1. Mr. Ba is a 63-year-old man with history of congestive heart failure, ischemic cardiomyopathy, and implantable cardiac defibrillator implanted this summer with progressive heart failure issues despite adequate medical therapy. He also has a symptomatic narrow complex tachycardia, which eventually suppressed with amiodarone. We discussed the potential etiology of his tachycardia. Based on EKG, AV micky reentrant tachycardia would be a most likely possibility, although atypical atrial flutter or atrial tachycardia cannot be ruled out either. For now, amiodarone is suppressing it. On the other hand, he would prefer no long- term amiodarone therapy for this issue if that is possible. I discussed the option of ablation, hence his heart failure symptoms improving. This might be reasonable to consider him undergoing an EP study. Unfortunately. He has been loaded with amiodarone, which sometimes suppresses some of these arrhythmias rendering them non-inducible. Nevertheless, if successfully ablated, he woulod be likely to remain arrhythmia free without the toxicity of amiodarone. The risks and benefits of this approach discussed. He understands chance of infection, bleeding, tamponade, recurrences. He is willing to proceed. 2. ICD recently implanted. No obvious malfunction. We will check device function. He has had history of recurrent SVT episodes on remote monitoring before. 3. Heart failure advanced with improvement with diuresis, but difficult to keep him euvolemic without hypotension. Further management as per Dr. Rojo. 4. Hypertension and diabetes, currently stable. 5. As per primary team. Job ID: [id number] [facility]
[2019-08-20 05:31] LABS: Anion Gap 17 mmol/L (10-20); BUN (Urea Nitrogen) 37 mg/dL (8.4-25.7); Calc. Creatinine Clearance 55 mL/min (70-130); Carbon Dioxide 29 mmol/L (23-31); Chloride 88 mmol/L (98-107); Estimated GFR-MDRD 36; Glucose 122 mg/dL (80-115); Potassium 3.7 mmol/L (3.5-5.1); Sodium 130 mmol/L (136-145)
[2019-08-20] MEDS: Aspirin Chewable 81 MG TAB PO SCH (07:18)
[2019-08-20] MEDS: Heparin 5,000 UNITS/ML VIAL SC SCH ×2 (07:18→19:51)
[2019-08-20] MEDS: Tamsulosin HCl 0.4 MG CAP PO SCH (09:17)
[2019-08-20] MEDS: Carvedilol 3.125 MG TAB PO SCH ×2 (09:18→19:51)
[2019-08-20] MEDS: Famotidine 20 MG TAB PO SCH (09:18)
[2019-08-20] MEDS: Metolazone 5 MG TAB PO SCH (09:22)
[2019-08-20] MEDS: Furosemide 40 MG/4 ML VIAL SLOW IVP SCH (09:22)
[2019-08-20] MEDS ORDERED: Ondansetron PF 4 MG/2 ML Vial ONE (10:17)
[2019-08-20] MEDS ORDERED: Rocuronium Bromide 10 MG/ML (10ML VIAL) ONE (10:17)
[2019-08-20] MEDS ORDERED: PROPOFOL 200 MG/20 ML VIAL ONE (10:17)
[2019-08-20] MEDS ORDERED: Heparin (Artline) 500 ML ONE (10:35)
[2019-08-20] MEDS ORDERED: Midazolam HCl 2 mg/2 ml Vial ONE (10:53)
[2019-08-20] MEDS ORDERED: Fentanyl 100 MCG/2 ML VIAL ONE (10:59)
[2019-08-20] MEDS ORDERED: Heparin 10,000 UNITS/1 ML VIAL ONE (11:44)
[2019-08-20] MEDS ORDERED: Isoproterenol 0.2 MG/1 ML AMP ONE (11:44)
[2019-08-20] MEDS ORDERED: Sodium Chloride 0.9% 1,000 ML IV SCH (14:15)
--- NOTE | 2019-08-20 16:53 | PRG ---
DATE OF SERVICE: 08/20/2019 SERVICE: Pulmonary Medicine. INTERVAL HISTORY: The patient is doing great from respiratory standpoint. Breathing comfortably. No complaints of chest discomfort, fevers, or chills. Otherwise, he is in his usual state of health. He used his CPAP again last night. I have made some further modifications to this device. Otherwise, there has been no interval change to his condition. He went down for ablation today. PHYSICAL EXAMINATION: VITAL SIGNS: Afebrile, pulse 81, blood pressure 123/78, respirations 17, saturation 94% on room air. GENERAL: The patient is awake and alert, in no apparent distress. LUNGS: Decent air entry with no prolonged expiratory phase or wheezing present. HEART: Normal rate, regular. ABDOMEN: Soft, nontender, and nondistended. Bowel sounds are positive. MUSCULOSKELETAL: No cyanosis or clubbing. There is no pitting in the bilateral lower extremities. NEUROLOGIC: Grossly nonfocal. LABORATORY DATA: Creatinine 1.92 and gently downtrending, sodium 130, and uptrending. BUN 37 is roughly stable. ASSESSMENT: 1. Acute hypoxic respiratory failure. 2. Acute on chronic systolic heart failure. 3. Atrial fibrillation/flutter with recent RVR, status post ablation. 4. Chronic kidney disease. 5. Obstructive sleep apnea. DISCUSSION AND PLAN: I will make a small modification to his CPAP device. I will have him return to clinic to see me in the outpatient setting in one month. At that point, we will repeat a download off his CPAP. At this point, he has no further requirements for inpatient Pulmonary/Critical Care opinion, and I will sign off. Please call with additional questions or concerns through time. Job ID: [id number]
--- NOTE | 2019-08-20 17:37 | PDOC.HOSPP ---
- Subjective Encounter Date: 08/20/19 Encounter Time: 17:30 Subjective: f/u for SVT s/p RFA today. Pt feels ok and is groggy post-procedure. - Objective Vital Signs & Weight: Vital Signs (12 hours) Temp Pulse Resp BP Pulse Ox 08/20/19 14:37 97.8 F 81 17 123/78 94 L 08/20/19 09:12 97.5 F L 80 17 111/77 95 Weight Admit Weight 207 lb Weight 214 lb Most Recent Monitor Data Heart Rate from ECG 80 NIBP 99/73 NIBP BP-Mean 81 Respiration from ECG 21 SpO2 98 I&O: 08/19/19 08/20/19 08/21/19 06:59 06:59 06:59 Intake Total 1601 880 Output Total 178 1195 Balance 1423 -315 Result Diagrams: 08/19/19 08:19 08/20/19 04:18 Additional Labs: Accuchecks 08/20/19 08/20/19 08/19/19 16:51 05:27 20:29 POC Glucose 133 H 124 H 138 H Laboratory Tests 08/17/19 08/18/19 08/18/19 19:52 01:22 04:15 Sodium 133 L 131 L 132 L Creatinine 1.46 H 1.53 H 08/19/19 08:19 Sodium 128 L Creatinine 2.13 H EKG Reviewed by me: Yes (Tele - SR) Hospitalist ROS - Medication Medications: Active Medications Generic Name Dose Route Start Last Admin Trade Name Freq PRN Reason Stop Dose Admin Acetaminophen 650 mg 08/17/19 07:09 08/18/19 04:11 Tylenol PO 650 mg Q4H PRN Administration Headache/Fever/Mild Pain (1-3) Aspirin 81 mg 08/17/19 09:00 08/20/19 07:18 Aspirin Chewable PO Not Given DAILY ESPERANZA Carvedilol 3.125 mg 08/17/19 09:00 08/20/19 09:18 Coreg PO 3.125 mg BID ESPERANZA Administration Famotidine 20 mg 08/17/19 09:00 08/20/19 09:18 Pepcid PO 20 mg DAILY ESPERANZA Administration Furosemide 40 mg 08/20/19 09:00 08/20/19 09:22 Lasix SLOW IVP 40 mg QAM ESPERANZA Administration Heparin Sodium (Porcine) 5,000 units 08/17/19 09:00 08/20/19 07:18 Heparin SC Not Given BID ESPERANZA Insulin Human Lispro 0 units 08/17/19 07:09 08/19/19 16:22 Humalog SC 4 unit .MODERATE SLIDING SC PRN Administration Moderate Correctional Scale Metolazone 5 mg 08/20/19 08:30 08/20/19 09:22 Zaroxolyn PO 5 mg 0830 ESPERANZA Administration Ondansetron HCl 4 mg 08/18/19 06:08 08/18/19 06:20 Zofran IVP 4 mg Q6H PRN Administration Nausea/Vomiting Senna/Docusate Sodium 2 tab 08/17/19 07:09 08/20/19 15:55 Senokot S PO 2 tab BIDPRN PRN Administration Constipation Tamsulosin HCl 0.4 mg 08/17/19 09:00 08/20/19 09:17 Flomax PO 0.4 mg DAILY ESPERANZA Administration - Exam General Appearance: NAD General - other findings: lethargic Eye: PERRL, anicteric sclera ENT: normocephalic atraumatic, no oropharyngeal lesions Neck: supple, symmetric, no JVD, no thyromegaly Heart: RRR, no gallops, normal peripheral pulses, murmur present Respiratory: CTAB, no wheezes, no rales, no ronchi Gastrointestinal: soft, non-tender, non-distended, normal bowel sounds Gastrointestinal - other findings: obese Extremities: 1+ LE edema Extremities - other findings: Left groin with wound dressing in place, + Stock with clear urine Skin: normal turgor Neurological: cranial nerve grossly intact, no new deficit Musculoskeletal: generalized weakness Psychiatric: somnolent Hosp A/P (1) Atrial fibrillation with RVR Code(s): I48.91 - UNSPECIFIED ATRIAL FIBRILLATION Status: Acute Plan: s/p RFA with arrhythmias today, Amiodarone gtt d/c'd, continue Coreg (2) Acute on chronic systolic ACC/AHA stage C congestive heart failure Code(s): I50.23 - ACUTE ON CHRONIC SYSTOLIC (CONGESTIVE) HEART FAILURE Status : Acute Plan: Continue Lasix, daily weights, I/O's, improved (3) Acute worsening of stage 3 chronic kidney disease Code(s): N18.3 - CHRONIC KIDNEY DISEASE, STAGE 3 (MODERATE) Status: Acute Plan: Avoid nephrotoxic meds and limit contrast (4) Diabetes type 2, controlled Code(s): E11.9 - TYPE 2 DIABETES MELLITUS WITHOUT COMPLICATIONS Status: Chronic Plan: ISS, serial accuchecks - Plan plan discussed w/ family, social media 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
[2019-08-21 04:55] LABS: Anion Gap 13 mmol/L (10-20); BUN (Urea Nitrogen) 30 mg/dL (8.4-25.7); Calc. Creatinine Clearance 73 mL/min (70-130); Calcium 9.1 mg/dL (7.8-10.44); Carbon Dioxide 32 mmol/L (23-31); Chloride 87 mmol/L (98-107); Estimated GFR-MDRD 49; Glucose 164 mg/dL (80-115); Potassium 4.2 mmol/L (3.5-5.1); Sodium 128 mmol/L (136-145)
--- NOTE | 2019-08-21 09:06 | OP ---
DATE OF PROCEDURE: 08/20/2019 PROCEDURE PERFORMED: Electrophysiologic study with radiofrequency ablation. PREOPERATIVE DIAGNOSIS: Supraventricular tachycardia. PROCEDURE IN DETAIL: The patient came to the EP lab in a postabsorptive state. Informed consent was obtained. A time-out was called. The patient was sedated by member of the anesthesia staff. Once the patient was adequately sedated, the right and left femoral regions were prepped and draped in the usual sterile fashion. Using a modified Seldinger technique and with ultrasound-guided access, access was obtained x2 in the right femoral vein and x2 in the left femoral vein. An 8-Beninese and a 7-Beninese sheaths were placed in the right femoral vein and two 6-Beninese sheaths were placed in the left femoral vein. Quadripolar catheter was advanced in the right femoral vein, placed into the high right atrium for pacing. A decapolar catheter was advanced in the right femoral area and placed into the coronary sinus for left atrial pacing and recording. Then, an octapolar catheter was advanced and placed into the His bundle for His bundle recording. The HV interval was 40 milliseconds and a quadripolar catheter was advanced into the right ventricle for pacing and recording. Baseline intervals were as follows: Cycle length 764 milliseconds, VA 191 milliseconds, QRS 93 milliseconds, QT 446 milliseconds, AV Wenckebach occurred at 390 milliseconds, VA conduction was concentric and decremental, V-ERP occurred at 600 milliseconds with a premature at 320 milliseconds, VA-ERP occurred at less than 600 milliseconds with a 320 millisecond premature, A-ERP occurred at 600 milliseconds with a premature of 300 milliseconds, AV node ERP was less than 600 milliseconds with the premature of 300 milliseconds. No atrial arrhythmias could be induced despite aggressive stimulation both in the atrium and the ventricles. As such and because of his ECG demonstrated narrow-complex tachycardia and no evidence of bypass tract, slow pathway ablation was commenced. The atrial catheter was removed and a Carto FJ 4mm tip ablation catheter was advanced in the right atrium and a 3D electroanatomical map was created to demonstrate the His bundle area. The catheter was transit into the slow pathway region using combination of fluoroscopic and electrophysiologic guidance. Radiofrequency lesions were delivered in that area with occasional junctional beats. While delivering in that area, an audible pop was heard. His blood pressure remained stable. An intracardiac echo catheter was advanced in order to assess for evidence of effusion. No effusion was present. Since he had good lesions in that area with junctional beats, decision was made to remove the catheters and sheaths. Hemostasis was obtained by placement of Vascade closure devices. The patient tolerated the procedure well and was awoken from anesthetic without any difficulty. POSTOPERATIVE DIAGNOSIS: Supraventricular tachycardia. PROCEDURES PERFORMED: 1. Electrophysiology study. 2. 3D electroanatomical mapping. 3. CS, LA pacing and recording. 4. Intracardiac echo examination. CONDITION: The patient tolerated the procedure well and was discharged from the EP lab in stable condition. ESTIMATED BLOOD LOSS: Less than 30 mL. COMPLICATIONS: None acute. RECOMMENDATIONS: The patient will follow up with Dr. Boyce in approximately 6 to 8 weeks. Job ID: [id number]
[2019-08-21] MEDS: Aspirin Chewable 81 MG TAB PO SCH (09:16)
[2019-08-21] MEDS: Heparin 5,000 UNITS/ML VIAL SC SCH (09:16)
[2019-08-21] MEDS: Famotidine 20 MG TAB PO SCH (09:16)
[2019-08-21] MEDS: Tamsulosin HCl 0.4 MG CAP PO SCH (09:16)
[2019-08-21] MEDS: Carvedilol 3.125 MG TAB PO SCH (09:17)
[2019-08-21] MEDS: Metolazone 5 MG TAB PO SCH (09:17)
[2019-08-21] MEDS: Furosemide 40 MG/4 ML VIAL SLOW IVP SCH (09:28)
[2019-08-21 11:25] VITALS: TEMP 98.2
--- NOTE | 2019-08-21 12:12 | PDOC.EP ---
- Subjective Date: 08/21/19 Time: 12:10 Interval History: Follow up after SVT ablation on 08/20. No rhythm or ICD concerns. reports abdominal distension and fluid retention. - Review of Systems Constitutional: denies: chills, fever, malaise, sweats, weakness, other Respiratory: reports: shortness of breath. denies: cough, dry, hemoptysis, sputum, wheezing Cardiology: denies: chest pain, edema, heart racing, palpitations, passing out Gastrointestinal: reports: abdominal pain. denies: constipation, diarrhea, nausea, vomitting Musculoskeletal: denies: unstable gait, falls, neck pain - Objective Allergies/Adverse Reactions: Allergies Allergy/AdvReac Type Severity Reaction Status Date / Time sulfamethoxazole Allergy Verified 08/17/19 14:32 [From Bactrim] trimethoprim [From Bactrim] Allergy Verified 08/17/19 14:32 Current Medications Acetaminophen (Tylenol) 650 mg PO Q4H PRN PRN Reason: Headache/Fever/Mild Pain (1-3) Last Admin: 08/18/19 04:11 Dose: 650 mg Albuterol/Ipratropium (Duoneb) 3 ml NEB [id number] PRN PRN Reason: SOB &/or Wheezing Artificial Tears (Tears Naturale) 2 drop EA EYE PRN PRN PRN Reason: Dry Eyes Aspirin (Aspirin Chewable) 81 mg PO DAILY [facility] Last Admin: 08/21/19 09:16 Dose: 81 mg Azelastine HCl (Azelastine) 0 ml NS DAILY PRN PRN Reason: RHINITIS Bisacodyl (Dulcolax) 10 mg MS DAILYPRN PRN PRN Reason: Constipation Calcium Carbonate (Tums) 1,000 mg PO Q4H PRN PRN Reason: Heartburn or Indigestion Carvedilol (Coreg) 3.125 mg PO BID [facility] Last Admin: 08/21/19 09:17 Dose: 3.125 mg Dextrose/Water (Dextrose 50%) 25 gm SLOW IVP PRN PRN PRN Reason: Hypoglycemia Famotidine (Pepcid) 20 mg PO DAILY [facility] Last Admin: 08/21/19 09:16 Dose: 20 mg Furosemide (Lasix) 40 mg SLOW IVP QAM [facility] Last Admin: 08/21/19 09:28 Dose: Not Given Glucagon (Glucagon) 1 mg IM PRN PRN PRN Reason: Hypoglycemia Guaifenesin (Robitussin Sf) 200 mg PO Q4H PRN PRN Reason: Cough Heparin Sodium (Porcine) (Heparin) 5,000 units SC BID [facility] Last Admin: 08/21/19 09:16 Dose: 5,000 units Hydralazine HCl (Apresoline) 10 mg SLOW IVP Q4H PRN PRN Reason: SBP > 180 and HR < 70 Dextrose/Water (D5w) 1,000 mls @ 0 mls/hr IV .Q0M PRN PRN Reason: Hypoglycemia Insulin Human Lispro (Humalog) 0 units SC .MODERATE SLIDING SC PRN PRN Reason: Moderate Correctional Scale Last Admin: 08/19/19 16:22 Dose: 4 unit Insulin Human Lispro (Humalog) 0 units SC .BEDTIME SLIDING SC PRN PRN Reason: Bedtime Correctional Scale Loperamide HCl (Imodium) 2 mg PO PRN PRN PRN Reason: Diarrhea/Loose Stools Loratadine (Claritin) 10 mg PO DAILYPRN PRN PRN Reason: Sinus Symptoms Metolazone (Zaroxolyn) 5 mg PO 0830 [facility] Last Admin: 08/21/19 09:17 Dose: 5 mg Ondansetron HCl (Zofran) 4 mg IVP Q6H PRN PRN Reason: Nausea/Vomiting Last Admin: 08/18/19 06:20 Dose: 4 mg Senna/Docusate Sodium (Senokot S) 2 tab PO BIDPRN PRN PRN Reason: Constipation Last Admin: 08/20/19 15:55 Dose: 2 tab Sodium Chloride ([place] Nasal [place] 0.65%) 0 ml EA NARE QIDPRN PRN PRN Reason: Nasal Congestion Tamsulosin HCl (Flomax) 0.4 mg PO DAILY [facility] Last Admin: 08/21/19 09:16 Dose: 0.4 mg Throat Lozenges (Cepastat Lozenges) 1 nerissa PO Q2H PRN PRN Reason: Sore Throat Zolpidem Tartrate (Ambien) 5 mg PO HSPRN PRN PRN Reason: Insomnia Vital Signs & Weight: Vital Signs Temp Pulse Pulse Pulse Resp BP BP 08/21/19 11:22 85 83 111/74 106/71 08/21/19 11:08 98.2 F 87 16 08/21/19 08:00 97.4 F L 88 18 08/21/19 04:00 97.6 F 80 18 BP Pulse Ox Pulse Ox Pulse Ox 08/21/19 11:22 98 98 08/21/19 11:08 111/54 L 96 08/21/19 08:00 104/72 99 08/21/19 04:00 119/76 93 L Admit Weight 207 lb Weight 214 lb 11.2 oz I/O: I/O 08/20/19 08/21/19 08/22/19 06:59 06:59 06:59 Intake Total 880 640 Output Total 1195 3100 400 Balance -315 -1648 -400 - Physical Exam General: alert & oriented x3, appears well, no apparent distress, speech clear, affect appropriate HEENT: mucus membranes moist, normocephaly Neck: supple neck, midline trachea, no lymphadenopathy Cardiology: regular rate and rhythm, no murmur, PMI nondisplaced Lungs: clear to auscultation, normal breath sounds, no wheeze, rales, rhonchi Neurology: cranial nerve 2-12 intact, sensory function intact Abdomen: active bowel sounds, tender, distended Extremities: dry, strong pulses, warm Skin: groin sites stable - Labs Result Diagrams: 08/19/19 08:19 08/21/19 04:18 - EKG Interpretation EKG Method: Telemetry EKG shows: Sinus rhythm - Device Device: defibrillator - Assessment/Plan Assessment/Plan: 1. 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 ICD - SJM 3. A/C CHF - per cardiology OK for DC by EP. will see back in 6 weeks. Stable post EP study and ablation. Echo negative for tamponade/pericardial effusion on 08/20. Did show elevated PAP and severe TR. EF ~15%.
[2019-08-21] MEDS ORDERED: Furosemide 40 MG TAB PO SCH (12:30)
--- NOTE | 2019-08-21 13:57 | PRG ---
DATE OF SERVICE: 08/21/2019 SUBJECTIVE: The patient is currently doing well. He is near discharge. He recently underwent ablation and feels much better. No current complaints of chest pain or pressure. He has had significant diuresis over the last several days. PHYSICAL EXAMINATION: VITAL SIGNS: Blood pressure 111/74, pulse 87, and temp 98.2. LUNGS: Clear to auscultation. HEART: Regular rate and rhythm. ABDOMEN: Soft, nontender, and nondistended. EXTREMITIES: 1+ pitting edema. PERTINENT LABORATORY DATA: Hemoglobin 14.7 and hematocrit 48.3. IMPRESSION: 1. Acute on chronic systolic heart failure. 2. Atrial flutter. 3. Coronary artery disease. RECOMMENDATIONS: Mr. Ba is doing well. He likely decompensated from recent atrial flutter. He has now been ablated. CURRENT MEDICATIONS: At this point, I would continue current medications as follows: 1. Aspirin 81 q.a.m. 2. Carvedilol 3.125 b.i.d. 3. Lasix 40 q.a.m. 4. Hold metolazone. PLAN: To follow up with Mr. Ba in the next 1 to 2 weeks. Job ID: [id number]
--- NOTE | 2019-08-21 14:14 | PDOC.EVN ---
Event Note - Event Note Event Note: Ablation was completed for SVT and no inducible arrhythmia or A-fib was noted on EP study. No anticoagulation indicated.
[2019-08-21 14:36] VITALS: BP 108/71
[2019-08-21 14:56] VITALS: BMI 32.6
--- NOTE | 2019-08-22 03:28 | DIS ---
DATE OF ADMISSION: 08/17/2019 DATE OF DISCHARGE: 08/21/2019 DISCHARGE DIAGNOSES: 1. Atrial fibrillation with rapid ventricular response, status post radiofrequency ablation and return to sinus mechanism. 2. Acute on chronic stage C congestive heart failure. 3. Acute on chronic kidney disease, stage 3. 4. Diabetes mellitus type 2, controlled. 5. Ischemic cardiomyopathy with ejection fraction of approximately 15%. CONSULTATIONS: 1. Dr. Motta with Electrophysiology Service. 2. Dr. Miles with Pulmonology Critical Care Service. 3. Dr. Suresh and Dr. Rojo with Cardiology Service. PERTINENT LABORATORY AND X-RAY FINDINGS: Sodium ranged between 128 to 133. Creatinine ranged between 1.46 to 2.13, estimated GFR ranged between 32 to 49. Lactic acid level ranged between 2.0 to 5.0. Magnesium level ranged between 1.2 to 1.7. Troponin I ranged between 0.373 to 0.450. BNP 1502, previously 1588, 07/09/2019. TSH 1.89. CBC showed a hemoglobin of 14.7. Portable chest x-ray dated 08/17/2019 showed left-sided pacemaker device in place. Left hemidiaphragm obscured with effusion. Portable chest x-ray dated 08/18/2019 showed interval placement of right subclavian central venous catheter. 2D transthoracic echocardiogram dated 08/20/2019, showed ejection fraction of 15% to 20%. Inferior akinesis. Severe left atrial enlargement. Moderate mitral regurgitation. Pulmonary artery systolic pressure estimated at 54 mmHg. HOSPITAL COURSE: The patient was initially admitted to the telemetry unit after presenting with increased shortness of breath and congestive heart failure. The patient with a long-standing history of ischemic cardiomyopathy with ejection fraction of 15% to 20%, presenting with volume overload and dyspnea. The patient received IV Lasix in addition to Zaroxolyn, and monitored for clinical response. During the patient's diuresis with Lasix, the patient developed atrial fibrillation with rapid ventricular response. The patient was placed on IV amiodarone with associated hypotension. The patient did receive aggressive supportive management with conversion to sinus mechanism on IV amiodarone. Due to the patient's rapid atrial fibrillation, and dysrhythmia, Electrophysiology was consulted. The patient did not wish to continue long-term management with amiodarone due to lung toxicity and opted for radiofrequency ablation, which was performed on 08/20/2019 with return to sinus mechanism. The patient overall remained clinically stable diuresing with Lasix and Zaroxolyn without difficulty. Telemetry monitoring shows current sinus mechanism and the patient's vital signs have remained stable. I have examined the patient at the time of discharge and discussed followup instructions. The patient verbalized understanding and agreement, ready for discharge, 08/21/2019. DISCHARGE MEDICATIONS: 1. Aspirin 81 mg p.o. daily. 2. Lasix 40 mg p.o. b.i.d. 3. Tresiba FlexTouch 40 units subcutaneously at bedtime. 4. Lisinopril 10 mg p.o. daily. 5. Metformin 1000 mg p.o. b.i.d. 6. Coreg 3.125 mg p.o. b.i.d. 7. Zaroxolyn 5 mg p.o. daily x7 days. 8. Flomax 0.4 mg p.o. at bedtime. FOLLOWUP: The patient may follow up with his primary care provider, Dr. Nas Diez on 08/27/2019 at 8 a.m. The patient will follow up with Dr. Breezy Rojo and to call his office for appointment time and date. CONDITION ON DISCHARGE: Stable. ACTIVITY: Ad-jaren. DIET: Heart healthy and ADA. CODE STATUS: Full. DISPOSITION: To home, 08/21/2019. TIME SPENT: Total time preparing and coordinating discharge, 33 minutes. Job ID: [id number]
--- NOTE | 2019-08-23 15:17 | EKG ---
Test Reason : POST ABLATION Blood Pressure : / mmHG Vent. Rate : 075 BPM Atrial Rate : 075 BPM P-R Int : 174 ms QRS Dur : 110 ms QT Int : 490 ms P-R-T Axes : 046 -39 085 degrees QTc Int : 547 ms Normal sinus rhythm Left axis deviation Low voltage QRS Possible Inferior infarct (cited on or before 10-SEP-2018) Cannot rule out Anteroseptal infarct (cited on or before 10-SEP-2018) Prolonged QT Abnormal ECG When compared with ECG of 17-AUG-2019 19:58, Vent. rate has decreased BY 77 BPM Incomplete right bundle branch block is no longer Present Questionable change in initial forces of Septal leads Confirmed by DR. Yoko VAZ ([id number]) on 08/23/2019 3:17:21 PM Referred By: PETAR Confirmed By:DR. Yoko VAZ
== END 2019-08-21 15:17 | disposition home or self-care (01) | DRG 273 ==
LOC: ERS 03:28 → ERHOLD 05:13 → 2NO 13:39 → CCU 08-18 00:55 → 2NO 08-19 17:26
PROVIDERS: ADMIT Internal Medicine; ATTEND Internal Medicine
PROC: 02583ZZ Destruction of Conduction Mechanism, Percutaneous Approach (ICD-10-PCS; principal; 2019-08-20)
PROC: 4A023FZ Measurement of Cardiac Rhythm, Percutaneous Approach (ICD-10-PCS; 2019-08-20)
PROC: 4A0234Z Measurement of Cardiac Electrical Activity, Percutaneous Approach (ICD-10-PCS; 2019-08-20)
PROC: 02K83ZZ Map Conduction Mechanism, Percutaneous Approach (ICD-10-PCS; 2019-08-20)
DX: I13.0 Hypertensive heart and chronic kidney disease with heart failure and stage 1 through stage 4 chronic kidney disease, or unspecified chronic kidney disease (principal); I50.23 Acute on chronic systolic (congestive) heart failure; I21.4 Non-ST elevation (NSTEMI) myocardial infarction; J96.01 Acute respiratory failure with hypoxia; E87.2 Acidosis; E87.1 Hypo-osmolality and hyponatremia; I48.92 Unspecified atrial flutter; I48.91 Unspecified atrial fibrillation; I25.5 Ischemic cardiomyopathy; N18.3 Chronic kidney disease, stage 3 (moderate); E11.22 Type 2 diabetes mellitus with diabetic chronic kidney disease; I34.0 Nonrheumatic mitral (valve) insufficiency; E78.5 Hyperlipidemia, unspecified; E66.9 Obesity, unspecified; G47.33 Obstructive sleep apnea (adult) (pediatric); I25.10 Atherosclerotic heart disease of native coronary artery without angina pectoris; Z51.5 Encounter for palliative care; Z87.891 Personal history of nicotine dependence; Z68.32 Body mass index [BMI] 32.0-32.9, adult; Z95.1 Presence of aortocoronary bypass graft; Z98.890 Other specified postprocedural states; Z98.49 Cataract extraction status, unspecified eye
CPT/HCPCS: 36415; 36416; 71045; 76942; 80048; 80053; 81003; 82550; 82553; 83605; 83735; 83880; 84443; 84484; 84550; 85025; 93005; 93010; 93306; 93613; 93621; 93653; 93798; 96374; C1730; C1769; J0282; J1644; J1940; J2250; J2405; J2704; J3010; J3475; J7070

== ENCOUNTER 2020-05-25 11:39 | Inpatient (IN) | payer OTHER ==
[2020-05-25 12:22] LABS: Hemoglobin 12.9 g/dL (14.0-18.0); Mean Corpuscular HGB CONC 32.1 g/dL (32.0-36.0); Mean Corpuscular Hemoglobin 26.4 pg (27.0-31.0); Mean Corpuscular Volume 82.3 fL (78.0-98.0); Platelet Count 338 thou/uL (130-400); RBC Distribution Width 16.2 % (11.5-14.5); Red Blood Cell (RBC) Count 4.89 mill/uL (4.70-6.10); White Blood Cell (WBC) Count 11.1 thou/uL (4.8-10.8)
[2020-05-25 12:30] LABS: INR-International Normal Ratio 1.6; PTT 35.5 sec (22.9-36.1); Prothrombin Time 19.2 sec (12.0-14.7)
[2020-05-25 12:40] LABS: Band 26 % (5-11); Lymphocytes 1 % (21-51); MDiff Complete? YES; Monocytes 3 % (0-10); Neutrophil 70 % (42-75); Platelet Morphology Comment Appears Adequate; Target Cells SLIGHT = 2-5 cells (100X) (0-1/hpf)
[2020-05-25 12:42] LABS: ALT (SGPT) Less than 7 U/L (8-55); AST (SGOT) 21 U/L (5-34); Albumin 2.5 g/dL (3.4-4.8); Alkaline Phosphatase 178 U/L (40-110); Anion Gap 19 mmol/L (10-20); BUN (Urea Nitrogen) 69 mg/dL (8.4-25.7); Bilirubin, Total 9.5 mg/dL (0.2-1.2); Calc. Creatinine Clearance 0 mL/min (70-130); Calcium 8.2 mg/dL (7.8-10.44); Carbon Dioxide 26 mmol/L (23-31); Chloride 84 mmol/L (98-107); Estimated GFR-MDRD 50; Globulin 5.3 g/dL (2.4-3.5); Glucose 225 mg/dL (80-115); Lipase 19 U/L (8-78); Potassium 3.6 mmol/L (3.5-5.1); Protein, Total 7.8 g/dL (5.8-8.1); Sodium 125 mmol/L (136-145); Toxic Granulation SLIGHT; Vacuoles SLIGHT
--- NOTE | 2020-05-25 12:43 | RAD ---
XR Chest 1 View Portable History: Dyspnea Comparison: Radiograph August 2019. Radiograph October 2019 Findings: Large left layering pleural effusion. Trace right effusion. Size is enlarged. Multiple midline sternotomy wires. Single-lead defibrillator tip projects over the right ventricle. Impression: Enlarging left layering pleural effusion.
[2020-05-25 13:03] LABS: CKMB 2.7 ng/mL (0-6.6)
--- NOTE | 2020-05-25 13:39 | CT ---
CT Abdomen Pelvis W Con History: Abdominal pain Comparison: CT examination 2019 Findings: Large layering left pleural effusion. No significant pericardial effusion. Large volume asc ites. Moderate cirrhosis. Peripheral hypodensity interpolar right kidney. Spleen is unremarkable. Concern for intraluminal thrombus of the left portal vein. Aortic contour is not aneurysmal. No dilated loops of large or small bowel. No acute osseous abnormal ity. Impression: 1. Hepatic cirrhosis with large volume ascites and large left pleural effusion. Given lack of prior liver protocol examinations, a nonemergent follow-up liver protocol MRI is recomm ended. 2. Cholelithiasis without cholecystitis. 3. Concern for intraluminal thrombus left portal vein. 4. Peripheral hypodensity interpolar right kidney may reflect an old infarct. 5. No evidence for bowel obstruction. 6. Nonobstructing right-sided renal calculi.
[2020-05-25] MEDS ORDERED: Iopamidol-370 76% 500 ML 1 ML ONE (13:48)
[2020-05-25] MEDS ORDERED: Furosemide 40 MG/4 ML VIAL ONE ×2 (13:49→18:32)
[2020-05-25] MEDS ORDERED: Aspirin Chewable 81 MG TAB ONE (13:49)
[2020-05-25] MEDS ORDERED: Sodium Chloride 0.9% 100 ML ONE (13:49)
[2020-05-25] MEDS ORDERED: cefTRIAXone\\ROCEPHIN 2 GM VIAL ONE (13:49)
[2020-05-25] MEDS ORDERED: Enoxaparin Sodium 100 MG/ML SYRINGE ONE ×2 (14:44→15:07)
[2020-05-25] MEDS ORDERED: Azithromycin 500 MG VIAL ONE (15:29)
[2020-05-25] MEDS ORDERED: Furosemide 20 MG/2 ML VIAL SLOW IVP SCH ×2 (15:30→19:30)
[2020-05-25] MEDS ORDERED: Sodium Bicarbonate 2.5 MEQ/5 ML VIAL ONE (15:50)
[2020-05-25 15:55] LABS: Lactic Acid 2.9 mmol/L (0.5-2.2)
[2020-05-25 16:00] LABS: Bilirubin 1+ (Negative); Blood, Urine Negative (Negative); Clarity Turbid (Clear); Glucose, Urine (Dipstick) Normal (Negative); Ketone, Urine Negative (Negative); Leukocyte Negative Leu/uL (Negative); Nitrite Negative (Negative); Protein, Urine (Dipstick) 10 mg/dL (Neg-Trace); Specific Gravity, Urine 1.024 (1.002-1.036)
[2020-05-25 16:03] LABS: Troponin I 0.033 ng/mL (< 0.028)
--- NOTE | 2020-05-25 19:29 | PDOC.HHP ---
Hospitalist HPI - History of Present Illness abdominal distension History of Present Illness: This is a 64 year old male with past medical history of CHF, with an EF of 15%, hypertension, diabetes who presented to the ER with worsening abdominal distension over the past several weeks. THe patient states he takes fluid pills at home, but does not recall the name of it. He is not regulating his fluid int fior, but has not been eating salt. He has gained over 15 pounds over the past few weeks. He has been having abdominal pain secondary to the distension, but no fevers or chills. He had one episode of diarrhea and vomiting last week, but no further episodes. He reported increasing shortness of breath secondary to the abdominal distension and is only able to walk about seven feet because of it, so he came to the emergency room. He also noticed that he had jaundice as well. He denies prior history of cirrhosis and does not drink alcohol. He also reports chest pain that is relieved with laying down and worsened with standing up. He describes it as a dull ache in the sternal area and it is not associated with exertion. ED Course: The patient presented to the ER with normal vitals except for a soft blood pressure of 90 systolic. His WBC was 11.1. His sodium was 125, creatinine was 1.44. Lactate was 3.2. BNP was > 3000. The patient had a CT scan of his abdomen which showed hepatic cirrhosis with large amount of ascites and large left layering pleural effusion. He also had possible left portal vein thrombus. He was given 40 mg IV lasix, ceftriaxone, azithromycin and lovenox in the ER. Paracentesis was unable to be done today. EKG showed incomplete RBBB and PVCs. Hospitalist ROS - Review of Systems Constitutional: reports: chills. denies: fever Respiratory: reports: shortness of breath (on exertion). denies: cough, dry Gastrointestinal: denies: nausea, vomiting, abdominal pain Hospitalist History - Past Medical History Cardiac: reports: CHF Endocrine: reports: Diabetes - Past Surgical History Past Surgical History: reports: CABG, Hernia Repair, Tonsillectomy - Family History Other Family History: No history of cirrhosis in the family - Social History Smoking Status: Never smoker Alcohol: reports: None Drugs: reports: none Living Situation: Other (with spouse) - Exam General Appearance: NAD, awake alert Eye: PERRL, scleral icterus Neck: supple, symmetric, no JVD Heart: RRR, no murmur, no gallops, no rubs Respiratory: CTAB, no wheezes, no rales, no ronchi Gastrointestinal - other findings: abdomen diffusely tender. Dim bowel sounds. Ascites present Extremities: 2+ LE edema Skin: normal turgor, no lesions, no rashes Neurological: cranial nerve grossly intact, normal sensation to touch, no weakness Musculoskeletal: normal tone, normal strength, no muscle wasting Psychiatric: A&O x 3 Hospitalist Results - Labs Result Diagrams: 05/25/20 12:09 05/25/20 12:09 Lab results: WBC 11.1 thou/uL (4.8-10.8) H 05/25/20 12:09 Hgb 12.9 g/dL (14.0-18.0) L 05/25/20 12:09 Hct 40.2 % (42.0-52.0) L 05/25/20 12:09 MCV 82.3 fL (78.0-98.0) 05/25/20 12:09 Plt Count 338 thou/uL (130-400) 05/25/20 12:09 Band Neuts % (Manual) 26 % (5-11) H 05/25/20 12:09 Sodium 125 mmol/L (136-145) L 05/25/20 12:09 Potassium 3.6 mmol/L (3.5-5.1) 05/25/20 12:09 Chloride 84 mmol/L (98-107) L 05/25/20 12:09 Carbon Dioxide 26 mmol/L (23-31) 05/25/20 12:09 BUN 69 mg/dL (8.4-25.7) H 05/25/20 12:09 Creatinine 1.44 mg/dL (0.7-1.3) H 05/25/20 12:09 Glucose 225 mg/dL (80-115) H 05/25/20 12:09 Lactic Acid 2.9 mmol/L (0.5-2.2) H 05/25/20 15:28 Calcium 8.2 mg/dL (7.8-10.44) 05/25/20 12:09 Total Bilirubin 9.5 mg/dL (0.2-1.2) H 05/25/20 12:09 AST 21 U/L (5-34) 05/25/20 12:09 ALT Less than 7 U/L (8-55) L 05/25/20 12:09 Alkaline Phosphatase 178 U/L (40-110) H 05/25/20 12:09 CK-MB (CK-2) 2.7 ng/mL (0-6.6) 05/25/20 12:09 Troponin I 0.040 ng/mL (< 0.028) H 05/25/20 18:40 B-Natriuretic Peptide 3195.0 pg/mL (0-100) H 05/25/20 12:09 Serum Total Protein 7.8 g/dL (5.8-8.1) 05/25/20 12:09 Albumin 2.5 g/dL (3.4-4.8) L 05/25/20 12:09 Lipase 19 U/L (8-78) 05/25/20 12:09 Urine Ketones Negative mg/dL (Negative) 05/25/20 15:29 Urine Blood Negative (Negative) 05/25/20 15:29 Urine Nitrite Negative (Negative) 05/25/20 15:29 Ur Leukocyte Esterase Negative Aiadn/uL (Negative) 05/25/20 15:29 - EKG Interpretation EKG: [facility] Hospitalist H&P A/P - Plan Plan: CT abdomen: Hepatic cirrhosis with large volume ascites and large left pleural effusion. Cholelithiasis without cholecystitis. Left portal vein intraluminal thrombus. Peripheral hypodensity in the right kidney may reflect an old infarct. Nonobstructing right-sided renal calculi Chest Xray: Enlarging left layering pleural effusion This is a 64 year old male with past medical history of CHF, hypertension, diabetes, who presented emergency room with increasing abdominal distention #Decompensated cirrhosis #Acute decompensated systolic heart failure #Severe tricuspid regurgitation and moderate mitral regurgitation -Patient had a CT scan of his abdomen which showed hepatic cirrhosis with large volume ascites and large left pleural effusion. This is a new diagnosis for the patient. Paracentesis has been ordered for tomorrow -For now we will start the patient on IV Lasix 40 mg twice daily. Patient is on Lasix 40 mg p.o. twice daily and metolazone at home -We will place a GI consult for new cirrhosis diagnosis - will repeat ECHO given last one was in August Lactic acidosis -Lactate was 3.3 which improved to 2.9. This is likely from hypoperfusion from CHF/cirrhosis. We will continue to trend -Continue with IV ceftriaxone for empiric SBP prophylaxis Large left pleural effusion -Possibly secondary to CHF versus cirrhosis. Will consult pulmonary for evaluation of possible thoracentesis -Continue diuretics for now Hyponatremia - sodium is 125. Likely from hypervolemia. Will repeat in AM ANGEL - creatinine is 1.44, likely cardiorenal syndrome. UA shows turbid urine, send urine culture Portal vein thrombus -Patient received 1 dose of Lovenox in the emergency room. Will hold further Lovenox until paracentesis is done. Chest pain - troponin mildly elevated. Will check an ECHO. Possibly referred pain from abd distension Type 2 diabetes -Continue Lantus. Hold Metformin -Continue insulin sliding scale Renal stones - patient asymptomatic, will monitor DVT prophylaxis: holding for now anticipating procedure Code status: full code
[2020-05-25] MEDS ORDERED: Acetaminophen 325 MG TAB PO PRN (19:35)
[2020-05-25] MEDS ORDERED: Ondansetron ODT 4 MG TAB PO PRN (19:35)
[2020-05-25] MEDS ORDERED: Dextrose 5% in Water 1,000 ML IV PRN (19:51)
[2020-05-25] MEDS ORDERED: Dextrose 50% Abboject 50 ML SYRINGE SLOW IVP PRN (19:51)
[2020-05-25] MEDS: Tamsulosin HCl 0.4 MG CAP PO SCH (20:26)
[2020-05-25] MEDS: Insulin Glargine 40 UNITS in Pre-Filled Syringe 1 EACH SC SCH (20:28)
[2020-05-25] MEDS ORDERED: Non-Formulary Item 1 EACH (Insulin Degludec [Tresiba Flextouch U-100] 100 UNIT/ML Insuln. SC SCH (21:00)
[2020-05-26] MEDS ORDERED: Furosemide 40 MG/4 ML VIAL SLOW IVP SCH (06:00)
[2020-05-26 07:15] LABS: ALT (SGPT) 7 U/L (8-55); AST (SGOT) 20 U/L (5-34); Albumin 2.4 g/dL (3.4-4.8); Alkaline Phosphatase 158 U/L (40-110); Anion Gap 16 mmol/L (10-20); BUN (Urea Nitrogen) 76 mg/dL (8.4-25.7); Bilirubin, Total 9.2 mg/dL (0.2-1.2); Calc. Creatinine Clearance 45 mL/min (70-130); Calcium 8.4 mg/dL (7.8-10.44); Carbon Dioxide 29 mmol/L (23-31); Chloride 83 mmol/L (98-107); Estimated GFR-MDRD 33; Globulin 5.4 g/dL (2.4-3.5); Glucose 137 mg/dL (80-115); Potassium 3.5 mmol/L (3.5-5.1); Protein, Total 7.8 g/dL (5.8-8.1); Sodium 124 mmol/L (136-145)
[2020-05-26] MEDS ORDERED: Albumin 25% 25 GM/100 ML BOT IVPB ONE (07:44)
[2020-05-26] MEDS ORDERED: Metolazone 5 MG TAB PO SCH (08:30)
[2020-05-26 08:47] LABS: Lactic Acid 2.4 mmol/L (0.5-2.2)
[2020-05-26] MEDS: Aspirin Chewable 81 MG TAB PO SCH (10:35)
[2020-05-26 10:38] LABS: Fluid, Protein 3.8 g/dL (Not Available)
--- NOTE | 2020-05-26 10:45 | ULT ---
Sonographic guided paracentesis HISTORY: Symptomatic ascites. FINDINGS: After explaining the procedure and answering all questions, sonographic survey showed a lar ge amount of free fluid throughout the abdomen. Sterile technique, buffered local anesthesia, sonographic guidance, and a right lateral approach were used to carefully advance a 19-gauge Yueh needle and catheter into the free fluid. Catheter was left to drain a total volume of 4.0 L dark yellow liquid. Patient was limited to 4.0 L given that he has not had a prior drainage. Catheter was removed with large amount of fluid remaining. Patient tolerated the procedure well and w as returned in improved condition. IMPRESSION : Technically successful sonographic guided paracentesis. 4.0 L.
[2020-05-26 10:48] LABS: RBC Count-Automated (BF) 2629 /cu.mm; WBC/Nucleated-Auto (BF) 3512 uL
[2020-05-26 10:59] LABS: BF Color Yellow; Clarity Clear (Clear); Tube # EDTA
[2020-05-26 11:16] LABS: BF Segmented Neutrophils 64 %; Cell Count Non Hematic 25 %; Lymphocytes 11 %
--- NOTE | 2020-05-26 11:32 | CON ---
DATE OF CONSULTATION: HISTORY OF PRESENT ILLNESS: Osvaldo Ba is a 64-year-old gentleman, who is admitted to the hospital with abdominal distention, shortness of breath, coughing, and wheezing. He underwent paracentesis this morning, 4 L of fluid was drained. His diagnosis of cirrhosis was otherwise never confirmed. This morning, he seemed somewhat better, but still weak. PAST MEDICAL HISTORY: Pertinent for; 1. Coronary artery disease. 2. Cirrhosis of unknown etiology. 3. High cholesterol. PAST SURGICAL HISTORY: 1. Tonsillectomy. 2. Cataract surgery. 3. AICD. 4. Hernia. 5. CABG. SOCIAL HISTORY: Quit smoking 10 years ago. No alcohol. REVIEW OF SYSTEMS: Otherwise, unremarkable. HOME MEDICINES: 1. Tramadol 100. 2. Zaroxolyn 5. 3. Coreg 6.25 twice a day. 4. Bumex 1 once a day. 5. Lisinopril 10. 6. Aspirin 81. 7. Metformin 1000. ALLERGIES: SULFA. PHYSICAL EXAMINATION: GENERAL: Cachectic gentleman. VITAL SIGNS: 98% on room air, respiratory rate 18, , blood pressure 130/80. CHEST: Decreased breath sounds in entire left lung. Right lung unremarkable. No wheezing. No crackles. CARDIAC: Normal S1, S2. No gallops. ABDOMEN: Soft. LABORATORY DATA: Creatinine is 2, BUN 76, sodium 126. X-ray shows large left-sided pleural effusion. IMPRESSION: 1. Cirrhosis with ascites and large pleural effusion. 2. Cardiomyopathy, status post AICD. 3. Coronary artery disease. 4. Hypertension. PLAN: Thoracentesis will be done for comfort measures. Otherwise, continue treatment as per GI. This is a consultation note, 70 minutes, 50% direct patient care. It is exclusive of the thoracentesis performed. Job ID: [id number]
[2020-05-26 11:46] LABS: Fluid, Triglycerides 59 mg/dL (Not Available); Pleural Fluid, Amylase Less than 30 U/L (Not Available); Pleural Fluid, Glucose 116 mg/dL; Pleural Fluid, LDH 420 U/L (Not Available); Pleural Fluid, Protein 3.7 g/dL
[2020-05-26 11:59] LABS: RBC Count-Automated (BF) 0 /cu.mm; WBC/Nucleated-Auto (BF) 15413 uL
[2020-05-26 12:35] LABS: BF Color Yellow; Body Fluid Source Pleural Fluid; Clarity Hazy (Clear); Tube # EDTA
[2020-05-26 12:40] LABS: BF Segmented Neutrophils 83 %; Cell Count Non Hematic 11 %; Lymphocytes 6 %
--- NOTE | 2020-05-26 12:44 | RAD ---
PORTABLE CHEST: Date: 05/26/2020 HISTORY: Pleural effusion. COMPARISON: Portable chest of 05/25/2020. FINDINGS: There has been decrease in the left effusion. There continues to be residual moderate left effusion a nd small right effusion. Cardiomegaly with mild vascular engorgement. Postop sternotomy change. Pacem kayla leads unchanged. IMPRESSION: Bilateral effusions, slightly larger on the left. Reduction in the left effusion when compared to 07/2020. POS: AGW
--- NOTE | 2020-05-26 14:15 | PDOC.HOSPP ---
- Subjective Encounter Date: 05/26/20 Encounter Time: 10:00 Subjective: The patient had a paracentesis today with 4L of fluid removed. He feels like he can take a deeper breath. His chest pain has resolved. He has no cough. No fevers or chills. He still feels weak he states - Objective Vital Signs & Weight: Vital Signs (12 hours) Temp Pulse Ox 05/26/20 11:12 97.8 F 05/26/20 08:00 98 05/26/20 07:59 98.6 F 05/26/20 03:57 98.6 F Weight Weight 191 lb Most Recent Monitor Data Heart Rate from ECG 87 NIBP 90/59 NIBP BP-Mean 69 Respiration from ECG 22 SpO2 97 Result Diagrams: 05/25/20 12:09 05/26/20 06:33 Additional Labs: Accuchecks 05/26/20 05/26/20 10:58 06:39 POC Glucose 110 H 129 H Hospitalist ROS - Review of Systems Constitutional: denies: fever, chills - Medication Medications: Active Medications Generic Name Dose Route Start Last Admin Trade Name Ronaldo PRN Reason Stop Dose Admin Aspirin 81 mg 05/26/20 09:00 05/26/20 10:35 Aspirin Chewable 81 Mg Tab PO 81 mg DAILY ESPERANZA Administration Heparin Sodium (Porcine) 1,000 units 05/26/20 10:30 05/26/20 13:31 Heparin 500 Units/5 Ml Flush Syringe IVF 05/26/20 16:00 Not Given 1030 ESPERANZA Insulin Glargine 40 units/ 0.4 mls @ 0 mls/hr 05/25/20 21:00 05/25/20 20:28 Miscellaneous Medication SC 0.4 mls HS ESPERANZA Administration Tamsulosin HCl 0.4 mg 05/25/20 21:00 05/25/20 20:26 Tamsulosin Hcl 0.4 Mg Cap PO 0.4 mg HS ESPERANZA Administration - Exam General Appearance: NAD, awake alert Eye: PERRL, anicteric sclera ENT: normocephalic atraumatic, no oropharyngeal lesions Neck: no JVD Heart: RRR, no murmur, no gallops, no rubs Respiratory: CTAB, no wheezes, no rales, no ronchi Gastrointestinal: soft Gastrointestinal - other findings: mildly distended, nontender to palpation Extremities: 1+ LE edema Skin: normal turgor, no lesions, no rashes Neurological: cranial nerve grossly intact, normal sensation to touch, no focal deficits, no new deficit Musculoskeletal: normal tone, normal strength, no muscle wasting Psychiatric: normal affect, normal behavior, A&O x 3 Hosp A/P - Plan CT abdomen: Hepatic cirrhosis with large volume ascites and large left pleural e ffusion. Cholelithiasis without cholecystitis. Left portal vein intraluminal thrombus. Peripheral hypodensity in the right kidney may reflect an old infarct. Nonobstructing right-sided renal calculi Chest Xray: Enlarging left layering pleural effusion Chest X ray 05/25: there has been a decrease in the left sided effusion This is a 64 year old male with past medical history of CHF, hypertension, diabetes, who presented emergency room with increasing abdominal distention #Decompensated cirrhosis #Acute decompensated systolic heart failure #Severe tricuspid regurgitation and moderate mitral regurgitation -Patient had a CT scan of his abdomen which showed hepatic cirrhosis with large volume ascites and large left pleural effusion. This is a new diagnosis for the patient. Will check hepatitis panel in the am - he is s/p paracentesis with 4L of fluid removed. He has findings concerning for SBP with 2247 WBC. Starting on IV ceftriaxone 2 grams daily - GI consulted, appreciate recs - ECHO ordered given last one was in August Lactic acidosis -improving . Possibly combination of fluid overload and intra-vascular depletion - started on albumin Large left pleural effusion - repeat chest Xray shows some improvement. Pulmonary was consulted and tho racentesis was done today Hyponatremia - sodium is 124. He is sp thoracentesis and paracentesis. Will repeat BMP ANGEL - worsened to 2. Will start on albumin and discontinue diuretics for now Portal vein thrombus -Patient received 1 dose of Lovenox in the emergency room. Resume lovenox tonight Chest pain - troponin mildly elevated. Chest pain resolved, ECHO pending Type 2 diabetes -Continue Lantus. Hold Metformin -Continue insulin sliding scale Renal stones - patient asymptomatic, will monitor Weakness - PT evaluation
[2020-05-26] MEDS ORDERED: cefTRIAXone Sodium 2,000 MG in Syringe 0 ML IVPB SCH (14:30)
[2020-05-26] MEDS ORDERED: cefTRIAXone\\ROCEPHIN 2 GM in Sodium Chloride 0.9% 100 ML IVPB SCH ×2 (15:00→21:00)
[2020-05-26 15:21] LABS: Anion Gap 14 mmol/L (10-20); BUN (Urea Nitrogen) 82 mg/dL (8.4-25.7); Calc. Creatinine Clearance 45 mL/min (70-130); Calcium 8.1 mg/dL (7.8-10.44); Carbon Dioxide 30 mmol/L (23-31); Chloride 84 mmol/L (98-107); Estimated GFR-MDRD 32; Glucose 126 mg/dL (80-115); Sodium 125 mmol/L (136-145)
[2020-05-26] MEDS: Albumin 25% 25 GM/100 ML BOT IVPB SCH ×2 (15:56→20:31)
[2020-05-26] MEDS ORDERED: Potassium Chloride 20 MEQ TAB PO SCH (16:30)
--- NOTE | 2020-05-26 20:24 | CON ---
DATE OF CONSULTATION: 05/26/2020 REASON: Ascites, cirrhosis. HISTORY OF PRESENT ILLNESS: Mr. Ba is a 64-year-old male, with long history of heart failure with ejection fraction of 15%, along with diabetes and hypertension. Patient presented to the ER with a 6-week history of progressive distention of the abdomen along with edema. He denies any localizing pain other than overall discomfort from the enlarging abdomen. He does have some nausea without any vomiting. His appetite has been poor. He reports having 10-pound weight gain over the last three weeks. CT performed in the ER showed left portal vein thrombosis, massive ascites, and cirrhotic change of the liver. On further questioning, he denies having any significant alcohol consumption. He has completely abstained for the last 15 years. His mother did have liver cirrhosis from unknown etiology. He denies having had any previous liver problem or jaundice. He reports being obese for the most part of his life. Patient had a 4 L paracentesis earlier this morning and also a thoracentesis. Currently, he feels much better and able to breathe easier. PAST MEDICAL HISTORY: 1. Congestive heart failure. 2. Hyperlipidemia. 3. Hypertension. 4. Coronary artery disease. 5. Adult onset diabetes. 6. Moderate mitral valve regurgitation. 7. Chronic systolic heart failure with EF of 15% to 20%. PAST SURGICAL HISTORY: Status post CABG, inguinal hernia repair, tonsillectomy, and cataract surgery. ALLERGIES: NONE. SOCIAL HISTORY: Patient is . Has no alcohol use for the last 15 years, very infrequent before then. Patient is a former smoker, stopped 30 years ago. FAMILY HISTORY: Mother with unknown liver problem and cirrhosis. Otherwise, negative for any known GI problem, other liver disease, or GI malignancy. MEDICATIONS: At home include; 1. Zaroxolyn 5 mg daily. 2. Coreg 6.25 mg b.i.d. 3. Bumex 1 mg b.i.d. 4. Lisinopril 10 mg daily. 5. Metformin 1000 mg b.i.d. 6. Tramadol p.r.n. REVIEW OF SYSTEMS: Ten-point review of systems did not show any other pertinent positives or negatives or any other symptoms not reported as above. PHYSICAL EXAMINATION: VITAL SIGNS: Temperature is 97.8, blood pressure 90/59, and pulse of 87. GENERAL: He is alert, very weak, but able to answer questions appropriately. HEENT: Show bilateral icteric sclerae. Oropharynx is clear and moist. CV: Shows normal S1, S2. Regular rate and rhythm. CHEST: Shows breath sounds, poor excursion. ABDOMEN: Still protuberant with ascites. Organomegaly and mass cannot be assessable secondary to his size. He has active bowel sounds. EXTREMITY: Shows 2+ edema. LABORATORY DATA: Sodium 125, potassium 3.0, chloride 84, creatinine 2.09, bilirubin 9.2, AST of 20, ALT of 7, albumin of 2.4. His creatinine yesterday on admission was 1.44. WBCs 11.1, hemoglobin 12.9, and platelet count of 338. IMAGING: Abdominal CT showed liver cirrhosis, large effusion and large left pleural effusion, cholelithiasis, possible left portal vein thrombosis. ASSESSMENT: 1. New onset ascites that is likely from hepatic decompensation from liver cirrhosis. Patient had 4 L of fluid removed earlier this morning. Clinically, he feels much better with the paracentesis and thoracentesis. 2. Cirrhosis, unknown etiology. Patient likely has fatty liver by history, but other etiology cannot be entirely excluded at the present time. 3. Chronic kidney disease with acute worsening with creatinine increasing from 1.4 to 2 today. 4. Chronic heart failure with ejection fraction of 15% to 20%. 5. Diabetes. 6. Hypertension. RECOMMENDATION: 1. We will analyze peritoneal fluid to include albumin to calculate gradient, protein, cell count, and cytology. 2. We would hold off on any diuretics at the present time in view of acute kidney injury and rising creatinine. 3. We will start on midodrine 5 mg p.o. t.i.d. and IV albumin q.8 to improve renal perfusion. 4. We will send off serology to exclude any chronic viral hepatitis such as B and C and screen for iron overload disease and autoimmune hepatitis. 5. We will follow. Job ID: [id number] [facility]
[2020-05-26] MEDS: Midodrine HCl 5 MG TAB PO SCH (20:31)
[2020-05-26] MEDS: Tamsulosin HCl 0.4 MG CAP PO SCH (20:31)
[2020-05-26 20:49] LABS: Troponin I 0.057 ng/mL (< 0.028)
[2020-05-26] MEDS ORDERED: Hydrocortisone Sod Succ/PF 100 mg/2 ml Vial IVP SCH (21:00)
[2020-05-26] MEDS ORDERED: Albumin 25% 25 GM/100 ML BOT IVPB SCH (21:00)
[2020-05-26] MEDS: Insulin Glargine 40 UNITS in Pre-Filled Syringe 1 EACH SC SCH (21:23)
[2020-05-26] MEDS ORDERED: Electrolyte Replacement Protoc 1 EACH EACH IVPB PRN (22:02)
[2020-05-26] MEDS ORDERED: Norepinephrine 8 MG/0.9% NS 250 ML ONE (22:38)
[2020-05-26] MEDS: Norepinephrine 8 MG/0.9% NS 250 ML IVPB SCH (22:46)
[2020-05-26 23:37] LABS: Creatinine, Urine 79.78 mg/dL (63-166); Protein, Urine Random Quant 31 mg/dL (1-14); Sodium, Urine Less than 20 mmol/L (Not Available); Urea Nitrogen, Random Urine 377 mg/dl
[2020-05-27] MEDS ORDERED: traMADol HCl 50 MG TAB PO SCH (00:30)
[2020-05-27] MEDS: Albumin 25% 25 GM/100 ML BOT IVPB SCH ×3 (00:32→13:04)
[2020-05-27] MEDS ORDERED: cefTRIAXone\\ROCEPHIN 2 GM in Sodium Chloride 0.9% 100 ML IVPB SCH (02:00)
--- NOTE | 2020-05-27 02:20 | PDOC.EVN ---
Event Note - Event Note Event Note: INDICATION: hypotension Resident Doctor: Jenelle Dumont DO ATTENDING PHYSICIAN: Dr. Madonna MD Ultrasound Used: Y CONSENT: Consent was obtained from the patient prior to the procedure. Indications, risks, and benefits were explained at length. PROCEDURE SUMMARY: A time out was performed. My hands were washed immediately prior to the procedure. I wore a surgical cap, mask with protective eyewear, sterile gown and sterile gloves throughout the procedure. The RIGHT subclavian region was prepped using chlorhexidine scrub and draped in sterile fashion using a full drape and sterile probe cover employed. Attempt to place a Right subclavian with the introducer needle was performed, however no flash back of blood was achieved and then continued with a femoral central line placement. The RIGHT inguinal region was prepped using chlorhexidine scrub and draped in sterile fashion using a full drape and sterile probe cover employed. The femoral pulse was identified. Anesthesia was achieved using 1% lidocaine. Palpating the femoral pulse throughout the procedure, the introducer needle was inserted medial to the femoral artery, inferior to the inguinal crease and into the femoral vein. Venous blood was withdrawn. The syringe was removed and a guidewire was advanced into the introducer needle. A small incision was made at the skin surface with a scalpel and the introducer needle was exchanged for a dilator over the guidewire. After appropriate dilati on was obtained, the dilator was exchanged over the wire for a central venous catheter. The wire was removed and the catheter was sutured in place. A sterile dressing was placed over the catheter at the insertion site. The patient tolerated the procedure without any hemodynamic compromise. At time of procedure completion, all ports aspirated and flushed properly. Estimated blood loss is 40mL.
[2020-05-27] MEDS ORDERED: Morphine 2 MG/ML VIAL SLOW IVP SCH (02:45)
[2020-05-27] MEDS: Hydrocortisone Sod Succ/PF 100 mg/2 ml Vial IVP SCH ×4 (02:47→20:56)
[2020-05-27] MEDS ORDERED: Fentanyl 100 MCG/2 ML VIAL SLOW IVP SCH (05:15)
[2020-05-27 05:25] LABS: Ferritin 745.15 ng/mL (22-322)
[2020-05-27 05:33] LABS: ALT (SGPT) Less than 7 U/L (8-55); AST (SGOT) 21 U/L (5-34); Albumin 2.9 g/dL (3.4-4.8); Alkaline Phosphatase 113 U/L (40-110); Anion Gap 18 mmol/L (10-20); BUN (Urea Nitrogen) 82 mg/dL (8.4-25.7); Bilirubin, Total 8.7 mg/dL (0.2-1.2); Calc. Creatinine Clearance 35 mL/min (70-130); Carbon Dioxide 27 mmol/L (23-31); Chloride 84 mmol/L (98-107); Estimated GFR-MDRD 24; Globulin 3.6 g/dL (2.4-3.5); Glucose 179 mg/dL (80-115); Iron 31 ug/dL (65-175); Iron Binding Capacity, Total 119 mcg/dL (261-462); Potassium 3.6 mmol/L (3.5-5.1); Protein, Total 6.5 g/dL (5.8-8.1); Sodium 125 mmol/L (136-145)
[2020-05-27 05:39] LABS: HBCM Index 0.09 S/CO (0-0.79); HBSAg Index 0.17 S/CO (0-0.99); Hep A IgM AB Non-Reactive (NonReactive); Hep A IgM S/CO 0.18 S/CO (0-0.79); Hep B Surf Ag Non-Reactive S/CO (NonReactive); Hep C IgG Ab Non-Reactive (NonReactive); Hep C Index 0.21 S/CO (0-0.79); Hepatitis B Core IgM Abs Non-Reactive (NonReactive)
[2020-05-27 05:55] LABS: #Lymphocytes 0.5 thou/uL (1.20-3.40); #Monocytes 0.6 thou/uL (0.11-0.59); #Neutrophils 11.2 thou/uL (1.40-6.50); %Basophils 0.2 % (0.0-1.0); %Eosinophils 0.1 % (0.0-10.0); %Lymphocytes 4.2 % (21.0-51.0); %Monocytes 4.6 % (0.0-10.0); %Neutrophils 90.9 % (42.0-75.0); Hemoglobin 7.3 g/dL (14.0-18.0); Mean Corpuscular HGB CONC 32.1 g/dL (32.0-36.0); Mean Platelet Volume 6.9 fL (7.4-10.4); Platelet Count 324 thou/uL (130-400); RBC Distribution Width 16.3 % (11.5-14.5); Red Blood Cell (RBC) Count 2.69 mill/uL (4.70-6.10); White Blood Cell (WBC) Count 12.3 thou/uL (4.8-10.8)
--- NOTE | 2020-05-27 06:55 | OP ---
DATE OF PROCEDURE: 05/26/2020 PROCEDURE PERFORMED: Thoracentesis. INDICATION: Pleural effusion. DESCRIPTION OF PROCEDURE: After informed consent, the left posterior thorax was cleaned with chlorhexidine. 1% lidocaine was infiltrated into the left 9th intercostal space in midscapular line. A total of about 5 mL of lidocaine was infiltrated. The pleura was felt to be really thick. Initially, about 20 mL of dark turbid yellow fluid was removed. Thereafter, using an 8-Hebrew catheter, a total of 1400 mL was removed. PH was less than 7. Effusion was sent for appropriate studies including cytology and culture. Fluid appears to be parapneumonic. X-ray post thoracentesis looks stable pleural thickening. The patient tolerated procedure well. Job ID: [id number] [facility]
[2020-05-27] MEDS: Norepinephrine 8 MG/0.9% NS 250 ML IVPB SCH (07:28)
--- NOTE | 2020-05-27 07:28 | PDOC.BPN ---
- Brief Progress Note Encounter Date: 05/27/20 Encounter Time: 04:20 Patient developed hypotension overnight. Hypotension did not respond to multiple albumin infusion. Patient was transfered to CCU and started on Levophed drip. Central venous access placed by the ED team. He was also complaining of pain in the left flank. There was concern for post thoracentesis pneumothorax. Repeat CXR done demonstrated complete white out of the left lung. Follow up CT chest demonstrated findings suspicious for hemothorax. Dr. Tobias was informed who recommended repeat bedside thoracentesis. Patient 's hemoglobin has now dropped from 12, two days ago to [address] Tobias informed- recommended to type and cross-match 2 units PRBC for transfusion. Critical care time spent is 50 minutes.
[2020-05-27] MEDS ORDERED: Albumin 5% 250 ML ONE ×2 (07:46)
--- NOTE | 2020-05-27 07:57 | RAD ---
Portable frontal chest radiograph: 05/27/2020 COMPARISON: 05/26/2020 HISTORY: Chest pain status post thoracentesis/paracentesis FINDINGS: Midline sternotomy wires and stable left transvenous pacing device. There has been interval development of a large lobulated pleural-based density within the left hemith orax with near complete opacification of the left hemithorax. Right lung appears relatively clear. Mediastinal shift to the right is noted IMPRESSION: Interval development of near complete opacification of the left hemithorax with lobulated pleural-based masslike opacity. Given history of recent thoracentesis findings are suspicious for interval development of a large left-sided hemopneumothorax. CT is advised for further assessment.
--- NOTE | 2020-05-27 08:32 | PRG ---
DATE OF SERVICE: 05/27/2020 SUBJECTIVE: This morning, he is in the ICU. He is on Levophed. He became hypotensive last night. OBJECTIVE: VITAL SIGNS: Blood pressure 103/66, saturations are 98%, respiratory rate 18, pulse 80. CHEST: Decreased breath sounds in left lung. CARDIAC: Normal S1, S2. No gallop. ABDOMEN: Distended. NEUROLOGIC: He is awake. LABORATORY DATA: Sodium is 125, BUN and creatinine are 82 and 2.7. LABORATORY DATA: White count 12,000, H and H of 7 and 22, and his platelet count is 324. X-ray shows opacification of left lung. However, CT shows what appears to be loculated effusion. IMPRESSION: 1. Drop in H and H. 2. Loculated pleural effusion, which appeared to be parapneumonic with pH less than 7, total white count of 35,000, LDH 400, total protein 3.8, glucose is 116. He had 64 segs. 3. Hypotension, sepsis versus hemothorax. 4. Loculated pleural effusion , status post paracentesis and thoracentesis. 5. Increased renal failure. Given Plasmanate, steroids, empiric antibiotics, supportive care. Surgery is being consulted. He is going to undergo thoracoscopy and appropriate procedures. TIME SPENT: One-half hour of critical care time. Job ID: [id number]
--- NOTE | 2020-05-27 09:31 | CT ---
PRELIMINARY REPORT/[facility]/EMERGENCY AFTER HOURS PROCEDURE: This report was discussed with Graciela Torres RN by Wendy Traore on May 27, 2020 03:54:00 CDT . Addendum electronically signed by Wendy Traore on May 27, 2020 3:55:06 AM CDT EXAM: CT Chest Without Intravenous Contrast. CLINICAL HISTORY: M62, WHITE OUT LEFT LUNG. TECHNIQUE: Axial computed tomography images of the chest without intravenous contrast. COMPARISON: None provided. FINDINGS: LUNGS: No pulmonary mass. No focal airspace consolidation. PLEURAL SPACES:Large complex collection of fluid and blood in the left hemithorax consistent with a l arge hemothorax. Small foci of air are noted in the left pleural space. There is a small dependent right pleural effusion. HEART AND MEDIASTINUM: There is complex loculated fluid along the medial left superior mediastinum. Heart is mildly enlarged. Pacemaker is present. There are atherosclerotic calcifications in the coron albert arteries. Pacemaker is present with lead tips in the right atrium and right ventricle. LYMPH NODES: No lymphadenopathy. CHEST WALL AND UPPER ABDOMEN: There is contrast enhancement within the kidneys. There is moderate amount of intra-abdominal ascite s. Ascites also shows increased attenuation at 35-42 HU BONES: No acute osseous abnormality. No acute skeletal fracture identified. Left ribs appear intact. MISCELLANEOUS: IMPRESSION: Findings consistent with large left hemothorax Complex ascites with increased density suspicious for presence of blood products complex loculated fluid in the left superior mediastinum ELECTRONICALLY SIGNED BY: Laila Christopher MD May 27, 2020 3:50:33 AM CDT This report is intended for review by the ordering physician only, in accordance of law. If you recei ve this report in error, please call [facility] at [phone]. FINAL REPORT EMERGENCY AFTER HOURS CT CHEST: INDICATION: Abnormal left lung on physical exam and chest x-ray. Status post thoracentesis and paracentesis. Comparison made to CT abdomen with images through the lower chest dated 05/25/2020. FINDINGS: There is now a complex fluid collection in the left chest which appears loculated. The heterogeneous density suggests blood product as noted on the preliminary report. Findings would be suspicious for a hemothorax given history of recent thoracentesis. Ascites in the upper abdomen is similar in appearance to the recent CT. I am in agreement with the preliminary report issued by [facility].
[2020-05-27] MEDS: Sodium Chloride 0.9% 1,000 ML IV SCH ×2 (09:42→20:57)
[2020-05-27] MEDS: Aspirin Chewable 81 MG TAB PO SCH (09:43)
[2020-05-27] MEDS: Midodrine HCl 5 MG TAB PO SCH ×2 (09:43→20:49)
[2020-05-27 10:06] LABS: INR-International Normal Ratio 2.7; PTT 45.8 sec (22.9-36.1); Prothrombin Time 29.7 sec (12.0-14.7)
[2020-05-27] MEDS ORDERED: Fentanyl 100 MCG/2 ML VIAL ONE (11:13)
[2020-05-27] MEDS ORDERED: Ondansetron PF 4 MG/2 ML Vial ONE (11:21)
[2020-05-27] MEDS ORDERED: Rocuronium Bromide 10 MG/ML (10ML VIAL) ONE ×2 (11:21)
[2020-05-27] MEDS ORDERED: Dexamethasone 20 MG/5 ML VIAL ONE (11:21)
[2020-05-27] MEDS ORDERED: Vecuronium 10 MG VIAL ONE (11:21)
[2020-05-27] MEDS ORDERED: PROPOFOL 200 MG/20 ML VIAL ONE (11:21)
[2020-05-27 11:23] LABS: Body Fluid Source Ascites Body Fluid
[2020-05-27] MEDS ORDERED: VANC/ZOSYN IVPB PRN (11:27)
--- NOTE | 2020-05-27 11:35 | PRG ---
DATE OF SERVICE: 05/27/2020 SUBJECTIVE: Mr. Ba underwent thoracentesis yesterday. Unfortunately, he became hypotensive and was started on Levophed. He developed some shortness of breath and whiteout of the left lung. CT scan demonstrates loculated fluid collection in the left hemithorax as well as complex mediastinal fluid collection and complex ascites. In addition, his hemoglobin dropped from 12.9 to 7.3, likely representing hemothorax. Currently, he is mildly short of breath, but in no other distress. Thoracic Surgery was consulted. He was started on ceftriaxone for fluid studies consistent with SBP. OBJECTIVE: VITAL SIGNS: Temperature 96.2, heart rate 98, blood pressure 100/74, 100% oxygen saturation on 6 L nasal cannula. GENERAL: Leaning forward in bed, in mild respiratory distress. HEART: Regular rate and rhythm. LUNGS: Decreased breath sounds on the left side. ABDOMEN: Mild distention. Bowel sounds present. Soft. Nontender to palpation. EXTREMITIES: No peripheral edema. LABORATORY STUDIES: Viral hepatitis serologies are negative. Peritoneal fluid showed 3512 wbc's, 64% neutrophils. Fluid total protein was 3.8. Fluid albumin pending. Pleural fluid showed 15,413 wbc's, 0 rbc's. Sodium 125; potassium 3.6; BUN 82; creatinine up to 2.71, worsening from 1.44 on admission; glucose 151; total bilirubin is 8.7; alkaline phosphatase only 113; AST only 21; ALT less than 7. Ferritin is 745. Troponin 0.05. Albumin 2.9. INR went up to 2.7. WBC is up to 12.3, hemoglobin declined from 12.9 down to 7.3, and platelets 324. ASSESSMENT AND PLAN: 1. Spontaneous bacterial peritonitis. Ascitic fluid studies meet criteria for spontaneous bacterial peritonitis. Fluid culture is pending. He is getting ceftriaxone as well as albumin q.6 hours. 2. Cirrhosis, with ascites and pleural effusion. Etiology is unknown. Possibly secondary to chronic heart failure. Viral hepatitis serology is negative. Still awaiting other studies including autoimmune markers. He has significant decompensation in the context of spontaneous bacterial peritonitis and chronic heart failure. Coagulopathy is worsening. 3. Hepatorenal syndrome. The patient has worsening renal function for the past couple of days. He is already receiving albumin and midodrine. Dr. Smith is planning to also start subcutaneous octreotide. Continue to follow closely. Consider nephrology consultation if no improvement. 4. Hemothorax and possibly hemoperitoneum post thoracentesis and paracentesis. This is in the context of worsening coagulopathy. Thoracic Surgery has been consulted. Respiratory status is currently stable. Critical Care is following. 5. Acute blood loss anemia, appears to be secondary to hemothorax, possibly hemoperitoneum. He is receiving 2 units of RBC transfusion now. There is no evidence of gastrointestinal bleeding. Continue to trend and transfuse as needed. Overall prognosis is poor. GI will continue to follow along. Job ID: [id number]
[2020-05-27] MEDS ORDERED: Piperacillin/Tazobactam 2.25 GM in Sodium Chloride 0.9% 100 ML IVPB SCH (12:00)
[2020-05-27] MEDS ORDERED: Vancomycin HCl 1.25 GM in Sodium Chloride 0.9% 250 ML 250 ML IVPB SCH (12:00)
[2020-05-27] MEDS ORDERED: Norepinephrine 4 MG/4 ML VIAL ONE ×2 (12:18)
[2020-05-27] MEDS: Octreotide Acetate 100 MCG/ML VIAL SC SCH ×3 (13:04→21:47)
[2020-05-27 13:15] LABS: Albumin, Fluid 1.7 g/dL (Not Estab.)
--- NOTE | 2020-05-27 15:27 | PDOC.HOSPP ---
- Subjective Encounter Date: 05/27/20 Encounter Time: 08:00 non-verbal Subjective: The patient was seen this morning. He had some mild SOB, mild cough, no chest pain. He did have hypotension and was started on levofed overnight. He was found to have a hemothorax and possible blood in abdomen as well. He underwent thoracoscopy and decortication today - Objective Vital Signs & Weight: Vital Signs (12 hours) Temp Pulse Ox 05/27/20 10:07 96.2 F L 05/27/20 10:00 96.2 F L 05/27/20 08:00 95.8 F L 100 05/27/20 04:00 97.5 F L Weight Admit Weight 191 lb Weight 191 lb Most Recent Monitor Data Heart Rate from ECG 101 NIBP 114/82 NIBP BP-Mean 92 Respiration from ECG 18 SpO2 100 I&O: 05/26/20 05/27/20 05/28/20 06:59 06:59 06:59 Intake Total 1250 1300 Output Total 240 0 Balance 1010 1300 Result Diagrams: 05/27/20 15:54 05/27/20 15:54 Additional Labs: Accuchecks 05/27/20 05/27/20 05/26/20 11:14 05:48 21:02 POC Glucose 123 H 151 H 167 H 05/25/20 20:31 POC Glucose 202 H Hospitalist ROS - Review of Systems Constitutional: denies: fever, chills - Medication Medications: Active Medications Generic Name Dose Route Start Last Admin Trade Name Freq PRN Reason Stop Dose Admin Acetaminophen 650 mg 05/25/20 19:35 05/26/20 19:15 Acetaminophen 325 Mg Tab PO 650 mg Q4H PRN Administration Headache/Fever/Mild Pain (1-3) Aspirin 81 mg 05/26/20 09:00 05/27/20 09:43 Aspirin Chewable 81 Mg Tab PO Not Given DAILY ESPERANZA Hydrocortisone Sodium Succinate 50 mg 05/27/20 03:00 05/27/20 08:33 Hydrocortisone Sod Succ/Pf 100 Mg/2 Ml Vial IVP 50 mg 0300,0900,1500,2100 ESPERANZA Administration Insulin Glargine 40 units/ 0.4 mls @ 0 mls/hr 05/25/20 21:00 05/26/20 21:23 Miscellaneous Medication SC Not Given HS ESPERANZA Norepinephrine Bitartrate 250 mls @ 0 mls/hr 05/26/20 22:02 05/27/20 07:28 Levophed IVPB 250 mls INF ESPERANZA Administration Protocol Titrate Sodium Chloride 1,000 mls @ 75 mls/hr 05/27/20 08:00 05/27/20 09:42 Normal Saline 0.9% IV 1,000 mls .[id number] ESPERANZA Administration Piperacillin Sod/Tazobactam 100 mls @ 200 mls/hr 05/27/20 12:00 05/27/20 13:04 Sod 2.25 gm/ Sodium Chloride IVPB Not Given Q6HR ESPERANZA Vancomycin HCl 1.25 gm/ Sodium 250 mls @ 166.667 mls/hr 05/27/20 12:00 05/27/20 13:04 Chloride IVPB 05/27/20 16:00 Not Given 1200 ESPERANZA Midodrine 5 mg 05/26/20 21:00 05/27/20 09:43 Midodrine Hcl 5 Mg Tab PO Not Given TID ESPERANZA Octreotide Acetate 100 mcg 05/27/20 11:01 05/27/20 13:04 Octreotide Acetate 100 Mcg/Ml Vial SC Not Given Q8HR ESPERANZA Ondansetron HCl 4 mg 05/25/20 19:35 05/26/20 19:15 Ondansetron Odt 4 Mg Tab PO 4 mg Q6H PRN Administration Nausea/Vomiting Tamsulosin HCl 0.4 mg 05/25/20 21:00 05/26/20 20:31 Tamsulosin Hcl 0.4 Mg Cap PO 0.4 mg HS ESPERANZA Administration - Exam General Appearance: NAD, awake alert Eye: PERRL, scleral icterus ENT: normocephalic atraumatic, no oropharyngeal lesions Neck: no JVD Heart: RRR, no murmur, no gallops, no rubs Respiratory: CTAB, no wheezes, no rales, no ronchi Gastrointestinal: soft, non-tender, non-distended, normal bowel sounds Extremities: no cyanosis, no clubbing, no edema Skin: normal turgor, no lesions, no rashes Neurological: cranial nerve grossly intact, normal sensation to touch, no focal deficits, no new deficit Musculoskeletal: normal tone, normal strength, no muscle wasting Psychiatric: normal affect, normal behavior, A&O x 3, oriented to person Hosp A/P - Plan CT abdomen: Hepatic cirrhosis with large volume ascites and large left pleural effusion. Cholelithiasis without cholecystitis. Left portal vein intraluminal thrombus. Peripheral hypodensity in the right kidney may reflect an old infarct. Nonobstructing right-sided renal calculi Chest Xray: Enlarging left layering pleural effusion Chest X ray 05/25: there has been a decrease in the left sided effusion Chest Xray 05/26: near complete opacification of left hemithorax with lobulated pleural based mass like opacity. Large hemopneumothorax CT chest 05/26: complex fluid collection left chest which appears loculated. Moderate intra-abdominal ascites. Large left hemothoraxi. COmplex ascites with possible blood products Chest X ray 05/27: no significant pneumothorax This is a 64 year old male with past medical history of CHF, hypertension, diabetes, who presented emergency room with increasing abdominal distention #Large left pleural effusion s/p thoracentesis complicated by hemothorax #Empyema - patient had large left pleural effusion. Underwent thoracentesis 05/27. Developed hemothorax. Pleural fluid pH 7.0 and >15,413 WBC - starting on vancomycin and zosyn empirically. WBC has improved - CT surgery consulted, patient underwent thoracostomy and decortication today - repeat chest Xray shows no significant pneumothorax - body fluid culture and AFB are negative #Decompensated cirrhosis with spontaneous bacterial peritonitis #Possible hepatorenal syndrome -Patient had a CT scan of his abdomen which showed hepatic cirrhosis with large volume ascites and large left pleural effusion. This is a new diagnosis for the patient. Hepatitis serology is negative - he is s/p paracentesis with 4L of fluid removed 05/26. He has findings concerning for SBP with 2247 WBC. He was started on IV ceftriaxone 2 grams daily - GI has been consulted - patient developed hypotension with worsening creatinine. Started on octreotide, midodrine and will continue with albumin - nephrology has been consulted #Acute decompensated systolic heart failure #Severe tricuspid regurgitation and moderate mitral regurgitation - ECHO has been repeated and is pending - diuretics were given 05/25 but held further doses due to hypotension - currently he is on levofed Lactic acidosis -down to 2.4. Will repeat in am. - currently on albumin, midodrine, octreotide. IV fluids added Hyponatremia - sodium is around 125. Started on IV fluids and albumin. Will repeat BMP in am ANGEL - worsened to 2.7. Continue levofed, albumin, octreotide - nephrology ocnsulted Portal vein thrombus -Patient received 1 dose of Lovenox in the emergency room. Holding further due to hemothorax Chest pain - resolved - troponin mildly elevated. Chest pain resolved, ECHO pending Type 2 diabetes -Continue Lantus. Hold Metformin -Continue insulin sliding scale Renal stones - patient asymptomatic, will monitor Weakness - PT evaluation
[2020-05-27] MEDS ORDERED: Ventilator Sedation Protocol 1 EACH FS SCH (15:38)
[2020-05-27 15:55] LABS: Actual Bicarbonate (HCO3a) 19.6 mEq/L (22-28); Base Excess (BEa) -5.2 mEq/L (-2.0 to +3.0); CO2 Tension 35.3 mmHg (35.0-45.0); Calcium, Ionized (arterial) 0.93 mmol/L (1.12-1.30); Carboxyhemoglobin (COHb) 0.6 gm% (0.0-3.0); Hemoglobin (Hb) 8.8 g/dL (14.0-18.0); O2 Tension (PaO2), arterial 135.6 mmHg (> 80.0); Potassium - ABG Lab 3.97 mmol/L (3.70-5.30); pH, Arterial 7.36 (7.35-7.45)
[2020-05-27] MEDS ORDERED: Lorazepam 2 MG/ML VIAL SLOW IVP PRN (16:00)
[2020-05-27] MEDS ORDERED: Propofol BOLUS 1,000 MG/100 ML VIAL IV PRN (16:00)
[2020-05-27] MEDS ORDERED: Fentanyl BOLUS 250 ML IVPB PRN (16:00)
[2020-05-27] MEDS ORDERED: Propofol 1,000 MG/100 ML VIAL IV PRN (16:00)
[2020-05-27] MEDS ORDERED: Morphine 2 MG/ML VIAL SLOW IVP PRN (16:00)
[2020-05-27] MEDS ORDERED: DISCONTINUE PREVIOUS NARCOTIC PAIN MEDICATIONS AND BENZODIAZEPINES FS SCH (16:00)
[2020-05-27 16:17] LABS: INR-International Normal Ratio 2.1; PTT 39.9 sec (22.9-36.1); Prothrombin Time 24.1 sec (12.0-14.7)
[2020-05-27] MEDS: fentaNYL Citrate/PF 2,000 MCG in Sodium Chloride 0.9% 60 ML IV SCH (16:19)
[2020-05-27] MEDS: cefTRIAXone\\ROCEPHIN 2 GM in Sodium Chloride 0.9% 100 ML IVPB SCH (16:19)
--- NOTE | 2020-05-27 16:23 | RAD ---
EXAM: CHEST ONE VIEW: 05/27/20 HISTORY: Decortication. COMPARISON: 05/27/20. FINDINGS: Endotracheal tube in place. NG tube in place and left chest tubes in place. Postop midline sternotomy and left ICD. Status post removal of the extensive previously noted pleural hemorrhage. Persistent s table pleural and parenchymal changes in the right base. No significant pneumothorax. IMPRESSION: No significant pneumothorax following left chest cortication. Persistent stable pleural and parenchym al changes in the right chest. POS: RRE
[2020-05-27 16:27] LABS: Anion Gap 20 mmol/L (10-20); BUN (Urea Nitrogen) 81 mg/dL (8.4-25.7); Calc. Creatinine Clearance 34 mL/min (70-130); Calcium 7.7 mg/dL (7.8-10.44); Carbon Dioxide 22 mmol/L (23-31); Chloride 87 mmol/L (98-107); Estimated GFR-MDRD 24; Glucose 166 mg/dL (80-115); Potassium 4.2 mmol/L (3.5-5.1); Sodium 125 mmol/L (136-145)
[2020-05-27 16:30] LABS: ALV-art Gradient 105.475 mmHg (0-20); Puncture Site LINE
[2020-05-27] MEDS: HumaLOG 300 UNITS/3 ML VIAL SC PRN ×2 (16:33→21:04)
[2020-05-27 16:47] LABS: Band 53 % (5-11); Hemoglobin 8.4 g/dL (14.0-18.0); Lymphocytes 5 % (21-51); MDiff Complete? YES; Mean Corpuscular HGB CONC 33.4 g/dL (32.0-36.0); Mean Corpuscular Hemoglobin 28.5 pg (27.0-31.0); Mean Corpuscular Volume 85.3 fL (78.0-98.0); Mean Platelet Volume 6.9 fL (7.4-10.4); Monocytes 2 % (0-10); Neutrophil 38 % (42-75); Platelet Count 238 thou/uL (130-400); Platelet Morphology Comment Appears Adequate; Polychromasia SLIGHT = 2-3 cells (100X) (0-2/hpf); RBC Distribution Width 15.2 % (11.5-14.5); Reactive Lymphocytes 2 % (0-10); Red Blood Cell (RBC) Count 2.95 mill/uL (4.70-6.10); White Blood Cell (WBC) Count 10.5 thou/uL (4.8-10.8)
--- NOTE | 2020-05-27 17:30 | EKG ---
Test Reason : STAT CP Blood Pressure : / mmHG Vent. Rate : 093 BPM Atrial Rate : 093 BPM P-R Int : 158 ms QRS Dur : 116 ms QT Int : 412 ms P-R-T Axes : 035 -40 071 degrees QTc Int : 512 ms Sinus rhythm with occasional Premature ventricular complexes Left axis deviation RSR' or QR pattern in V1 suggests right ventricular conduction delay Possible Anteroseptal infarct , age undetermined Abnormal ECG When compared with ECG of 25-MAY-2020 12:02, (Unconfirmed) Borderline criteria for Anteroseptal infarct are now Present Nonspecific T wave abnormality, worse in Lateral leads Confirmed by DR. Yoko VAZ ([id number]) on 05/27/2020 5:30:15 PM Referred By: REBECCA Confirmed By:DR. Yoko VAZ
--- NOTE | 2020-05-27 20:46 | CON ---
DATE OF CONSULTATION: REQUESTING PHYSICIAN: Dr. Smith. REASON FOR CONSULTATION: Acute on chronic kidney disease. IMPRESSION: 1. Acute on chronic kidney disease. This is likely multifactorial mediated, mainly hemodynamically mediated in the context of possible hepatorenal syndrome/prerenal acute kidney injury compounded by baseline cardiorenal syndrome. 2. Hyponatremia, which I do believe is in the context of intravascular depletion, congestive heart failure, and liver disease. 3. Acute blood loss anemia. 4. Multiorgan failure including advanced systolic heart failure as well as liver failure. PLAN: 1. My major concern is that this patient's renal failure is oliguric and tending towards anuric, which means this renal function will deteriorate rapidly unless hemodynamics status of this patient happens very soon. Therefore, we will renally dose all medications for extremely low GFR and avoid potentially nephrotoxic agents. 2. Hemodynamic support with some albumin, midodrine, octreotide, and IV fluid, to work towards discontinuation of pressors. 3. There is no emergent indication at this point for renal replacement therapy (hemodialysis). However, if this kidney function remains oliguric, acute tubular necrosis may set in over the next couple of days and renal replacement therapy might become an option. 4. Further management will be dependent on the clinical course. HISTORY OF PRESENT ILLNESS: History is that of 64-year-old gentleman, who presented here with worsening abdominal swelling, increasing weight gain of about 10 pounds over the past several weeks. The patient on presentation, was noted with gross ascites, pleural effusion. The patient did undergo a large volume paracentesis with removal of about 4 L of ascitic fluid as well as thoracentesis, eventually complicated with hemothorax plus or minus hemoperitoneum in the context of coagulopathy status post procedure. In any case, the patient does have a baseline creatinine of about 1.5 the patient's creatinine has climbed to 2.71, and at this time of dictation, the patient seems to be very oliguric, tending towards anuria. As a result of these findings, decision has been taken to involve Renal in the management of this case. PAST MEDICAL HISTORY: Advanced systolic congestive heart failure with EF of about 15%, dyslipidemia, hypertension, coronary artery disease, type 2 diabetes, severe tricuspid regurgitation and moderate mitral valve regurgitation. ALLERGIES: NONE. SOCIAL HISTORY: No recent alcohol use. No tobacco. FAMILY HISTORY: Significant for cirrhosis in the mother of unknown etiology. REVIEW OF SYSTEMS: As documented in the body of the history. All the other systems were reviewed and found not to be significantly related to presenting illness. PHYSICAL EXAMINATION: GENERAL: The patient was found to be little bit sleepy, but arousable. VITAL SIGNS: Noted with the following vital signs; afebrile, temperature 97.9, blood pressure 118/72. HEENT: Unremarkable except for conjunctival icterus. CARDIOVASCULAR SYSTEM: First and second heart sounds were heard. RESPIRATORY SYSTEM: Clear to auscultation anteriorly, but with reduce breath sounds on the left. DIGESTIVE SYSTEM: Revealed positive bowel sounds. EXTREMITIES: No significant peripheral edema except minimal edema. NEUROLOGIC: Alert. No lateralizing sign. SUMMARY: A 64-year-old gentleman, who presented here with gross ascites, status post large volume paracentesis and thoracentesis, now experiencing deterioration in renal function. Thank you for this consultation. We will follow with you. Job ID: [id number]
[2020-05-27] MEDS: Famotidine/PF 20 mg/2ml Vial SLOW IVP SCH ×2 (20:56→20:57)
[2020-05-28] MEDS: fentaNYL Citrate/PF 2,000 MCG in Sodium Chloride 0.9% 60 ML IV SCH (02:46)
[2020-05-28] MEDS: Hydrocortisone Sod Succ/PF 100 mg/2 ml Vial IVP SCH ×4 (02:46→21:33)
[2020-05-28] MEDS: Octreotide Acetate 100 MCG/ML VIAL SC SCH (05:03)
[2020-05-28] MEDS: HumaLOG 300 UNITS/3 ML VIAL SC PRN ×4 (05:05→21:55)
[2020-05-28 05:34] LABS: #Lymphocytes 0.6 thou/uL (1.20-3.40); #Monocytes 0.6 thou/uL (0.11-0.59); #Neutrophils 7.7 thou/uL (1.40-6.50); %Lymphocytes 6.3 % (21.0-51.0); %Monocytes 6.3 % (0.0-10.0); %Neutrophils 87.4 % (42.0-75.0); Hemoglobin 7.7 g/dL (14.0-18.0); Mean Corpuscular Hemoglobin 28.5 pg (27.0-31.0); Mean Corpuscular Volume 83.8 fL (78.0-98.0); Mean Platelet Volume 7.1 fL (7.4-10.4); Platelet Count 238 thou/uL (130-400); RBC Distribution Width 15.6 % (11.5-14.5); Red Blood Cell (RBC) Count 2.71 mill/uL (4.70-6.10); White Blood Cell (WBC) Count 8.9 thou/uL (4.8-10.8)
[2020-05-28 05:56] LABS: Anion Gap 18 mmol/L (10-20); BUN (Urea Nitrogen) 96 mg/dL (8.4-25.7); Calc. Creatinine Clearance 31 mL/min (70-130); Calcium 7.5 mg/dL (7.8-10.44); Carbon Dioxide 28 mmol/L (23-31); Chloride 86 mmol/L (98-107); Estimated GFR-MDRD 21; Glucose 182 mg/dL (80-115); Potassium 4.2 mmol/L (3.5-5.1); Sodium 128 mmol/L (136-145)
--- NOTE | 2020-05-28 07:19 | PRG ---
DATE OF SERVICE: Patient has had an uneventful night. He remained intubated and is on low-dose Levophed at about 2 to 3 mcg per kg as well as the sedation. He is resting comfortable on the ventilator. His lungs are clear. His abdomen is full, but soft. He has had low urine output during the night. His chest tube output total is about 650 mL and he has no air leak. His chest x-ray is clear. Unfortunately, his creatinine has risen to about 3. His hemoglobin has drifted about 1 g overnight. At this time, continue with hydration, blood pressure support, and probably weaning per Dr. Tobias. Monitor renal function. Job ID: [id number]
--- NOTE | 2020-05-28 08:00 | RAD ---
Portable frontal chest radiograph: 05/28/2020 COMPARISON: 05/27/2020 HISTORY: Ventilated patient FINDINGS: Stable endotracheal tube, nasogastric tube, and left-sided chest tube. Midline sternotomy w ires and transvenous pacing device noted. Mild blunting of the right costophrenic angle noted. Aeration in the right lung base has improved sin ce the prior exam. Nonspecific hazy density in the left base noted, unchanged. IMPRESSION: Interval improvement in right basilar aeration-otherwise stable.
--- NOTE | 2020-05-28 08:10 | OP ---
DATE OF PROCEDURE: 05/27/2020 PREOPERATIVE DIAGNOSIS: Hemothorax. POSTOPERATIVE DIAGNOSIS: Hemothorax with trapped lung. SITE LEADER: None. PROCEDURE PERFORMED: Thoracoscopy with evacuation of hematoma and then full thoracotomy with total lung decortication. ESTIMATED BLOOD LOSS: 600 intraoperative, 2 L of blood and clots and debris found within the chest cavity with no active bleeding noted. DESCRIPTION OF PROCEDURE: After adequate anesthesia had been obtained by Dr. Peck, the patient was placed in the left lateral decubitus position. Two port sites were created. With the scope in one and suction and sponge stick through the other port, the clot was tediously evacuated including with irrigation. When all of the clot had been evacuated and the area was thoroughly irrigated, two chest tubes were placed. Preparation for closure was being made and the lung was then to be ventilated. However, the upper and lower lobe showed no signs of any aeration despite peak pressures of 45. At this time, it was felt that a full decortication would need to be done and this could not be done thoracoscopically. A thoracotomy incision was then completed connecting the two port sites. The chest was entered then two interspaces above the port sites and a customs examiner placed and the lower rib did fracture with this. Following this, tediously thick membrane surrounding the lower lobe was removed. There should be noted that there was significant oozing while this was being carried out. Following completion of this to the level of the fissure, attention was turned to the upper lobe. The upper lobe was not totally mobilized near the apex because of the patient's previous coronary bypass grafting and RAMESH graft. The lateral and posterior surface of the upper lobe were mobilized as was the lateral aspect of the lingula. Following this, the lung aerated nicely and filled up the chest cavity. Ribs were then reapproximated with double-stranded catgut suture. Muscle layers including latissimus were reapproximated with 0 Vicryl suture. The latissimus was partially divided, but not completely. Subcutaneous tissue and skin were closed in layers. Job ID: [id number]
--- NOTE | 2020-05-28 09:58 | PRG ---
DATE OF SERVICE: 05/28/2020 SUBJECTIVE: This morning, he is intubated in the vent, sedated, status post decortication, significant blood in the pleural space. Additionally, his pleural fluid is growing Streptococcus, probably empyema. His x-ray looks much improved. He is still on Levophed. OBJECTIVE: VITAL SIGNS: Pulse 82, blood pressure 107/50, pulse 80, respiratory rate 18. CHEST: No wheezing, no crackles. CARDIAC: Normal S1 and S2. No gallops. ABDOMEN: Distended. LABORATORY DATA: White count 8,000, H and H 7 and 22, platelet count 238. INR is 2.9. His creatinine is 3. BUN is 96, glucose 176. Streptococcus group G. is probably sensitive to the Rocephin that he is on. ASSESSMENT: 1. Empyema, hemothorax, post thoracentesis, status post decortication. 2. Cardiomyopathy. 3. Cirrhosis and ascites, status post paracentesis, azotemia. PLAN: Rocephin is more than adequate. Please do not add any more antibiotics. A unit of packed cells will be transfused today. Otherwise, supportive care. We will try and wean slowly. One half-hour of critical care time. Job ID: [id number]
[2020-05-28] MEDS: Octreotide Acetate 1,250 MCG in Sodium Chloride 0.9% 250 ML 250 ML IVPB SCH (12:13)
[2020-05-28] MEDS: DOBUTamine 500 mg/250 ml 250 ML IVPB SCH (12:18)
--- NOTE | 2020-05-28 14:19 | CON ---
DATE OF CONSULTATION: 05/26/2020 SUBJECTIVE: This is a 64-year-old male with past medical history significant for CHF secondary to ischemic cardiomyopathy. The patient had a double CABG in 2006 that resulted in an improved EF. Two years ago, the patient began being followed by Dr. Rojo and was found to again have a reduced EF down to approximately 15%. An AICD was placed at that time. This admission, the patient presented to the emergency department with complaints of worsening shortness of breath as well as distention in his abdomen. He also noted significant weight gain over a short period of time. Early workup showed the patient to have new onset cirrhosis with a portal vein thrombosis and significant ascites. Since then, the patient has had a paracentesis, which showed the patient to have had developed SBP. He was also found to have a significant pleural effusion that was drained with a thoracentesis. Following this, he developed a hemothorax leading to subsequent thoracotomy with left lung decortication. The patient became hypotensive during this procedure, requiring intubation and pressors support. The patient currently is in the ICU. He was extubated successfully this morning, however, remained significantly somnolent and unable to provide any history. Pressors were changed from Levophed to dobutamine this morning with adequate blood pressure response with a current MAP of 65 to 70. The patient remains on ceftriaxone for antibiotics for his empyema and SBP. PAST MEDICAL HISTORY: 1. Coronary artery disease. 2. Ischemic cardiomyopathy. 3. Hypertension. 4. Diabetes mellitus. 5. Dyslipidemia. PAST SURGICAL HISTORY: Tonsillectomy, cataract surgery, hernia surgery, CABG, AICD. SOCIAL HISTORY: Nonsmoker. FAMILY HISTORY: Significant for heart disease and liver failure. REVIEW OF SYSTEMS: Unable to be obtained due to the patient's current mental status. PHYSICAL EXAMINATION: GENERAL: The patient resting comfortably in bed, in no obvious distress. VITAL SIGNS: Heart rate 91, blood pressure 105/49, respiratory rate of 11, O2 saturation 99% on 2 L nasal cannula. NECK: Visible JVD, supple. LUNGS: Upper airways and cerda are clear, lower cerda especially on the left with diffuse crackles that are coarse. HEART: Regular rate and rhythm. Normal S1 and S2. No extra heart sounds auscultated. ABDOMEN: Significantly distended with positive fluid wave. EXTREMITIES: Lower extremities are without any significant edema. Mild venous stasis ulcers noted. Pulses intact. SKIN: No obvious jaundice from head to toe. LABS: WBC: 8.9; Hgb: 7.7; Platelet: 238; PT: 24.1; INR: 2.1; PTT: 39.9; Na: 128; K: 4.2; Cr: 3.06 ASSESSMENT: 1. Cardio hepatorenal syndrome. 2. Multi end-organ failure. 3. Acute blood loss anemia. 4. Spontaneous bacterial peritonitis. 5. Empyema. PLAN: We would recommend continuing the patient's dobutamine for pressor support at this time. Continue to avoid any beta-blocking medications. The patient's transfusion threshold would be 8 considering his significant coronary artery disease. The patient's overall prognosis is poor in the setting of multi end- organ failure. We will continue supportive care and follow along during this hospitalization. Job ID: [id number] MTDD
[2020-05-28] MEDS: cefTRIAXone\\ROCEPHIN 2 GM in Sodium Chloride 0.9% 100 ML IVPB SCH (15:26)
--- NOTE | 2020-05-28 16:02 | CON ---
DATE OF CONSULTATION: 05/28/2020 REASON FOR CONSULTATION: Acute on chronic systolic heart failure. Please refer to full consultation by Dr. Leon Downing. HISTORY OF PRESENT ILLNESS: Briefly, Mr. Ba is a very pleasant 64-year-old gentleman, whom I have seen and evaluated in the past. He has a history of CAD, status post bypass surgery in addition to ischemic cardiomyopathy. 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 He recently presented with increased shortness of breath and abdominal girth. He was found to have significant ascites in addition to pleural effusion as well as new diagnosis of portal vein thrombosis. He has been on antibiotic therapy for SBE. He has been extubated and is only on dobutamine. He continues to be somnolent. PHYSICAL EXAMINATION: VITAL SIGNS: Blood pressure 92/56, pulse 103, respirations 20. LUNGS: Rhonchi, rales bilaterally. HEART: Regular rate and rhythm. ABDOMEN: Distended. EXTREMITIES: 2+ pitting edema. SKIN: The patient appears to have jaundice. PERTINENT LABORATORY DATA: Hemoglobin 7.7, hematocrit 22.7, platelet count of 238. Total bilirubin 8.7. Creatinine 3.06. Sodium 128. IMPRESSION: 1. Acute on chronic systolic heart failure. 2. Portal vein thrombosis. 3. Cirrhosis. 4. Acute on chronic renal insufficiency. RECOMMENDATIONS: At this point from a CV standpoint, we will continue current treatment with Dobutrex. May need to titrate up slightly. Hold beta-maegan therapy. We also consider low-dose dobutamine versus Levophed. Continue antibiotic therapy for empyema. We will continue to follow. Job ID: [id number]
--- NOTE | 2020-05-28 17:14 | PDOC.HOSPP ---
- Subjective Encounter Date: 05/28/20 Encounter Time: 09:30 Subjective: The patient was intubated when I had seen him this morning. He had very little urine output. He was following commands on the ventilator He did admit to pain in his chest and belly He is getting blood transfusion today. He was switched to octreotide drip. He was also started on dobutamine - Objective Vital Signs & Weight: Vital Signs (12 hours) Temp Pulse Resp BP Pulse Ox 05/28/20 16:00 97.7 F 05/28/20 12:00 97.4 F L 98 05/28/20 10:00 21 H 05/28/20 08:00 97.9 F 82 16 107/50 L 98 05/28/20 06:00 14 Weight Admit Weight 191 lb Weight 186 lb 11.704 oz Most Recent Monitor Data Heart Rate from ECG 103 NIBP 100/59 NIBP BP-Mean 72 Respiration from ECG 10 SpO2 100 I&O: 05/27/20 05/28/20 05/29/20 06:59 06:59 06:59 Intake Total 1250 1783.2 350 Output Total 240 958 408 Balance 1010 825.2 -58 Result Diagrams: 05/28/20 05:05 05/28/20 05:05 Additional Labs: Accuchecks 05/28/20 05/28/20 05/27/20 11:49 05:09 21:04 POC Glucose 178 H 176 H 192 H Hospitalist ROS - Review of Systems ROS unobtainable: due to endotracheal tube - Medication Medications: Active Medications Generic Name Dose Route Start Last Admin Trade Name Ronaldo PRN Reason Stop Dose Admin Famotidine 20 mg 05/27/20 21:00 05/27/20 20:57 Famotidine/Pf 20 Mg/2ml Vial SLOW IVP 20 mg 2100 ESPERANZA Administration Hydrocortisone Sodium Succinate 50 mg 05/28/20 09:00 05/28/20 09:47 Hydrocortisone Sod Succ/Pf 100 Mg/2 Ml Vial IVP Not Given BID ESPERANZA Norepinephrine Bitartrate 250 mls @ 0 mls/hr 05/26/20 22:02 05/27/20 07:28 Levophed IVPB 250 mls INF ESPERANZA Administration Protocol Titrate Ceftriaxone Sodium 2 gm/ 100 mls @ 200 mls/hr 05/27/20 15:00 05/28/20 15:26 Sodium Chloride IVPB 100 mls 1500 ESPERANZA Administration Sodium Chloride 1,000 mls @ 75 mls/hr 05/27/20 08:00 05/27/20 20:57 Normal Saline 0.9% IV Not Given .[id number] ESPERANZA Fentanyl Citrate 2,000 mcg/ 100 mls @ 0 mls/hr 05/27/20 16:00 05/28/20 02:46 Sodium Chloride IV 06/26/20 16:00 100 mls INF ESPERANZA Administration Protocol Per Protocol Octreotide Acetate 1,250 mcg/ 251.25 mls @ 10.05 mls/hr 05/28/20 10:45 05/28/20 12:13 Sodium Chloride IVPB 251.25 mls INF ESPERANZA Administration 50 MCG/HR Dobutamine HCl/Dextrose 250 mls @ 6.353 mls/hr 05/28/20 11:45 05/28/20 12:18 Dobutamine 500 Mg/250 Ml IVPB 250 mls INF ESPERANZA Administration Protocol 2.5 MCG/KG/MIN Insulin Human Lispro 0 units 05/25/20 19:51 05/28/20 12:08 Humalog 300 Units/3 Ml Vial SC 2 unit .MILD SLIDING SCALE PRN Administration Mild Correctional Scale - Exam General Appearance: NAD, awake alert General - other findings: intubated Eye: PERRL, anicteric sclera ENT: normocephalic atraumatic, no oropharyngeal lesions Neck: no JVD Heart: RRR, no murmur, no gallops, no rubs Respiratory: CTAB, no wheezes, no rales, no ronchi Gastrointestinal: diminished bowl sounds Gastrointestinal - other findings: soft, distended, tender diffusely to mild palpation Extremities: no cyanosis, no clubbing, no edema Hosp A/P - Plan CT abdomen: Hepatic cirrhosis with large volume ascites and large left pleural effusion. Cholelithiasis without cholecystitis. Left portal vein intraluminal thrombus. Peripheral hypodensity in the right kidney may reflect an old infarct. Nonobstructing right-sided renal calculi Chest Xray: Enlarging left layering pleural effusion Chest X ray 05/25: there has been a decrease in the left sided effusion Chest Xray 05/26: near complete opacification of left hemithorax with lobulated pleural based mass like opacity. Large hemopneumothorax CT chest 05/26: complex fluid collection left chest which appears loculated. Moderate intra-abdominal ascites. Large left hemothoraxi. COmplex ascites with possible blood products Chest X ray 05/27: no significant pneumothorax Chest Xray 05/28: improvement in right basilar aeration ECHO: EF 15-20%, moderate MR, severe TR, inferior akinetic This is a 64 year old male with past medical history of CHF, hypertension, diabetes, who presented emergency room with increasing abdominal distention #Large left pleural effusion s/p thoracentesis complicated by hemothorax #Empyema - patient had large left pleural effusion. Underwent thoracentesis 05/27. Developed hemothorax. Pleural fluid pH 7.0 and >15,413 WBC - continue vancomycin and zosyn. He is s/p thoracostomy and decortication 05/27 #Decompensated cirrhosis with spontaneous bacterial peritonitis #Possible hepatorenal syndrome -Patient had a CT scan of his abdomen which showed hepatic cirrhosis with large volume ascites and large left pleural effusion. This is new diagnosis. Hepatitis serology negative, possibly from cardiac cirrhosis - he is s/p paracentesis with 4L of fluid removed 05/26. WBC was 2247. Continue IV ceftriaxone 2 grams daily - started on octreotide drip today - continue midodrine and albumin #Acute decompensated systolic heart failure #Severe tricuspid regurgitation and moderate mitral regurgitation - ECHO EF 15-20% , severe TR, inferior akinetic, moderate MR - he is on levofed and dopamine . Cardiology has been consulted Hemorrhagic shock vs septic shock vs cardiogenic shock - patient had extensive bleeding in chest. He was started on levofed. He is now on IV fluids, dobutamine and - Hb 7.7, given blood transfusion today. Will repeat CBC Hyponatremia - improved -sodium up to 128. Continue IV fluids and albumin Lactic acidosis -down to 2.4. Will repeat in am. - currently on albumin, midodrine, octreotide. IV fluids added ANGEL - possibly secondary to ATN vs hepatorenal syndrome - worsened to 3.0. . Continue levofed, albumin, octreotide - nephrology consulted, no indication for dialysis currently Portal vein thrombus -Patient received 1 dose of Lovenox in the emergency room. Holding further due to hemothorax Chest pain - resolved - troponin mildly elevated. Chest pain resolved, ECHO pending Type 2 diabetes -Continue Lantus. Hold Metformin -Continue insulin sliding scale Renal stones - patient asymptomatic, will monitor Weakness - PT evaluation
--- NOTE | 2020-05-28 17:44 | PRG ---
DATE OF SERVICE: 05/28/2020 SUBJECTIVE: The patient is seen and examined today, on life support. Noted with the following vital signs. OBJECTIVE: VITAL SIGNS: Afebrile, temperature 97.4, O2 sats are 98% on a FiO2 of 40% with a blood pressure of 118/54. HEENT: Remarkable for endotracheal tube in place. CARDIOVASCULAR SYSTEM: First and second heart sounds were heard. RESPIRATORY SYSTEM: Revealed vented sounds. DIGESTIVE SYSTEM: Revealed somewhat distended abdomen with positive bowel sounds. EXTREMITIES: Showed some peripheral edema. NEURO: Revealed the patient is sedated and intubated. LABORATORY INVESTIGATION: Showed a hemoglobin of 7.7. Chemistry; sodium 128, BUN of 96 with creatinine of 3.06, calcium of 7.5, bicarb of 28. IMPRESSION: 1. Multifactorial acute kidney injury, which has progressed towards anuric, acute tubular necrosis. 2. Hyponatremia. 3. Multiorgan failure. 4. Cardiopulmonary failure, on vent. PLAN: 1. Continue renal supportive measures, hemodynamic supports towards weaning this patient off pressors. 2. No emergent indication at this point for renal replacement therapy (hemodialysis); however, if the patient remains anuric with this acute tubular necrosis, this modality of treatment will likely become indicated within the next 48 to 72 hours. 3. Avoid potentially nephrotoxic agents. 4. Further management to be dependent on the clinical course. Job ID: [id number]
[2020-05-29 04:07] LABS: #Lymphocytes 0.5 thou/uL (1.20-3.40); #Monocytes 0.8 thou/uL (0.11-0.59); #Neutrophils 9.7 thou/uL (1.40-6.50); %Eosinophils 0.2 % (0.0-10.0); %Lymphocytes 4.7 % (21.0-51.0); %Monocytes 7.6 % (0.0-10.0); %Neutrophils 87.5 % (42.0-75.0); Hemoglobin 8.4 g/dL (14.0-18.0); Mean Corpuscular HGB CONC 33.7 g/dL (32.0-36.0); Mean Corpuscular Hemoglobin 28.8 pg (27.0-31.0); Mean Corpuscular Volume 85.5 fL (78.0-98.0); Platelet Count 216 thou/uL (130-400); Red Blood Cell (RBC) Count 2.91 mill/uL (4.70-6.10); White Blood Cell (WBC) Count 11.1 thou/uL (4.8-10.8)
[2020-05-29 04:35] LABS: Anion Gap 19 mmol/L (10-20); BUN (Urea Nitrogen) 103 mg/dL (8.4-25.7); Calc. Creatinine Clearance 29 mL/min (70-130); Calcium 7.6 mg/dL (7.8-10.44); Carbon Dioxide 27 mmol/L (23-31); Chloride 86 mmol/L (98-107); Estimated GFR-MDRD 20; Glucose 172 mg/dL (80-115); Potassium 4.2 mmol/L (3.5-5.1); Sodium 128 mmol/L (136-145)
[2020-05-29] MEDS: HumaLOG 300 UNITS/3 ML VIAL SC PRN ×3 (06:35→20:30)
--- NOTE | 2020-05-29 06:55 | PRG ---
DATE OF SERVICE: 05/29/2020 Patient is postoperative day #2 from a left thoracotomy for empyema. His chest x-ray looks good today. His chest tube is at 1250 suggesting about 600 mL over the past 24 hours. It is thin in nature. He does have a small intermittent air leak. Vital signs were stable on low-dose dobutamine, which is running in regard to a combination of heart failure with an EF of 15% and renal failure, although this appears to have stabilized somewhat with the creatinine rising only from 3 to 3.2. Urine output is clear and seems to be picking up in volume slightly. He is awake, somewhat confused. His lungs are clear anteriorly and he has a harsh systolic murmur across the precordium. His abdomen is full and nontender. At this time, the patient is being treated for strep empyema with complicating factors of cirrhosis, congestive heart failure, and acute renal failure. Job ID: [id number]
--- NOTE | 2020-05-29 07:27 | PRG ---
DATE OF SERVICE: 05/28/2020 SUBJECTIVE: Mr. Ba remains in the ICU, remains intubated. He is alert. Nurses note no overt bleeding overnight. He is going to receive another unit of blood per Dr. Tobias. MEDICATIONS: 1. DuoNeb. 2. Rocephin. 3. Pepcid. 4. Fentanyl p.r.n. for pain. 5. Morphine. 6. Levophed. 7. Octreotide subcu. OBJECTIVE: VITAL SIGNS: Blood pressures 99/63, 92/56, and then 88/51. Pulse is 85 to 100. Yesterday, intake was 1783, output 958. Gastric drainage was 150 mL yesterday; chest tube #2, 670; Stock 138. GENERAL: He is intubated. He can open his eyes and follow commands. He appears to be in no distress. HEENT: He is mildly icteric. LUNGS: Clear. HEART: Regular rate and rhythm without murmurs. ABDOMEN: Protuberant, but nontender. There is no rebound. There is no guarding. There is no ecchymosis. He has a chest tube on the right. LABORATORY DATA: His hemoglobin is 7.7 this morning, it was 8.4 yesterday at 1500 hours , platelet count is 235. INR was 2.1 yesterday evening. Sodium 128, potassium 4.2, BUN and creatinine are 96 and 3.06. AST and ALT are 21 and 7, alkaline phosphatase 113, bilirubin 8.7, albumin 2.9. Body fluids, fluid albumin is 1.7. Serum ascitic albumin gradient is greater than 1.1. Paracentesis, white count was . Thoracentesis was mainly blood. ASSESSMENT: 1. Cirrhosis of unclear etiology, probably component of heart failure contributes. Workup is pending. 2. Status post thoracentesis, development of hemothorax and a paracentesis with intraperitoneal bleeding as well, status post surgery for the hemothorax and status post multiple transfusions. 3. Spontaneous bacterial peritonitis, on cephalosporin. 4. Severe cardiomyopathy with ejection fraction of 15%. 5. Acute renal failure. Some of this could be hemorrhagic shock or hypoperfusion induced by his cardiomyopathy. He could have a component of hepatorenal syndrome, but this is probably less likely, although his liver disease does not help the situation. RECOMMENDATIONS: 1. I would advise against dialysis in this patient. If he develops renal failure, that will be multi-system organ failure. At that point in time with his cirrhosis, he is not likely to recover renal function. 2. If he is going to be on octreotide, I would give it to him IV. He has already hemorrhaged into his chest and abdomen being stuck with needles there. I think that even subcu injection is not velásquez in this patient. We will follow along with you. Job ID: [id number]
--- NOTE | 2020-05-29 08:21 | RAD ---
XR Chest 1 View Portable History: Ventilated patient Comparison: Radiograph prior day Findings: Left-sided thoracostomy tube tip is projecting of the left lung apex a second thoracostomy tube with tip over the left lung base. Possible small volume left pneumoperitoneum. Small right pleural effusion. Impression: 1. Possible left-sided pneumoperitoneum. 2. Indwelling left thoracostomy tubes. 3. Moderate right layering pleural effusion. Dr. Tobias was notified via [facility].
--- NOTE | 2020-05-29 08:47 | PRG ---
DATE OF SERVICE: 05/29/2020 SUBJECTIVE: Mr. Ba appears more alert but still somewhat confused. He was extubated yesterday. He continues to be on dopamine with blood pressure and heart rate stable. He has had urine output of 1218 overnight. His creatinine appears to have stabilized. OBJECTIVE: VITAL SIGNS: Blood pressure 106/68, pulse 100, respirations 20. LUNGS: Crackles bilaterally. HEART: Regular rate and rhythm with positive S3. ABDOMEN: Soft, nontender. It is distended. EXTREMITIES: 2 to 3+ pitting edema. PERTINENT LABORATORY DATA: Hemoglobin 8.4, hematocrit 24.9. Creatinine 3.2, slightly elevated from 3.06. IMPRESSION: 1. Empyema. 2. Hemothorax. 3. Ischemic cardiomyopathy with LVEF 15% to 20%. 4. Acute on chronic renal insufficiency. RECOMMENDATIONS: 1. Continue current course with dobutamine. 2. On antibiotic therapy. 3. Metabolic encephalopathy, slightly improving and we will continue current treatment. 4. Octreotide noted given cirrhosis and further recommendations per GI. Job ID: [id number]
[2020-05-29] MEDS: Hydrocortisone Sod Succ/PF 100 mg/2 ml Vial IVP SCH ×2 (08:51→20:19)
--- NOTE | 2020-05-29 09:09 | PRG ---
DATE OF SERVICE: 05/29/2020 SUBJECTIVE: This morning, he is awake, alert, responsive, very weak. OBJECTIVE: VITAL SIGNS: His sats are 95%, post-extubation, blood pressure is 99/64, he is on Dobutrex at 2 mcg. He is afebrile. His I's and O's have been negative. CHEST: Bilateral rhonchi and crackles. CARDIAC: Normal S1, S2. No gallops. ABDOMEN: Distended, soft. LABORATORY DATA: Creatinine is 3, BUN is 103. White count 11,000, platelet count is normal, H and H are 8 and 24. IMPRESSION: 1. Status post decortication of left lung secondary to hemothorax as well as parapneumonic effusion. Fluid growing Streptococcus group G. 2. End-stage liver disease with pleural effusion, ascites, status post paracentesis. 3. Increasing azotemia from marked weakness. PLAN: He is on Dobutrex, empiric antibiotics, supportive care, slow hydration. He needs PT, nutrition. His overall prognosis is guarded. Job ID: [id number]
[2020-05-29] MEDS: Octreotide Acetate 1,250 MCG in Sodium Chloride 0.9% 250 ML 250 ML IVPB SCH (13:21)
[2020-05-29] MEDS: cefTRIAXone\\ROCEPHIN 2 GM in Sodium Chloride 0.9% 100 ML IVPB SCH (14:27)
--- NOTE | 2020-05-29 17:12 | PRG ---
DATE OF SERVICE: 05/29/2020 SUBJECTIVE: Mr. Ba has been extubated, sitting up in bed. He is trying to talk with Dr. Morton from Infectious Disease, but really cannot carry on a conversation. He just received some morphine. OBJECTIVE: VITAL SIGNS: Blood pressure is 104/70, temperature is 98, respiration 33. LUNGS: Clear. HEART: Regular rhythm without clicks or murmurs. ABDOMEN: Nontender. NEUROLOGIC: He is mildly confused. LABORATORY DATA: White count , hemoglobin 8.4, platelet count 216. Sodium is 128, potassium 4.2. Creatinine is 3.2, it is about the same. BUN is 103. AST is 21, ALT is 7, alkaline phosphatase is 113, albumin 2.9, protein 6.5. ASSESSMENT: 1. Multifactorial renal failure, hyponatremia, multiorgan failure. 2. Status post decortication of the lung with group B Strep coming out of the right pleural fluid. He also had hemoperitoneum. Hemoglobin is now stable. RECOMMENDATIONS: 1. Start feeding via Dobhoff or orally. 2. As far as renal function is concerned, if he is not felt to have hepatorenal syndrome by the Nephrology Service, the IV octreotide can be stopped. Job ID: [id number]
--- NOTE | 2020-05-29 17:49 | PDOC.HOSPP ---
- Subjective Encounter Date: 05/29/20 Encounter Time: 13:00 Subjective: The patient is sitting up. He has on shortness of breath. He has mild chest soreness. No significant abdominal pain. His urine output is 50-100 an hour He is on dobutamine at 2.5 mg . - Objective Vital Signs & Weight: Vital Signs (12 hours) Temp Pulse Pulse BP BP Pulse Ox Pulse Ox 05/29/20 16:00 97.8 F 05/29/20 11:57 98.2 F 05/29/20 09:40 101 H 100 129/63 105/69 95 05/29/20 07:37 94 L 05/29/20 07:00 97.7 F Pulse Ox 05/29/20 16:00 05/29/20 11:57 05/29/20 09:40 95 05/29/20 07:37 05/29/20 07:00 Weight Admit Weight 191 lb Weight 183 lb 6.793 oz Most Recent Monitor Data Heart Rate from ECG 95 NIBP 113/76 NIBP BP-Mean 88 Respiration from ECG 13 SpO2 98 I&O: 05/28/20 05/29/20 05/30/20 06:59 06:59 06:59 Intake Total 1783.2 750.4 0 Output Total 958 1218 1040 Balance 825.2 -467.6 -1040 Result Diagrams: 05/29/20 03:25 05/29/20 03:25 Additional Labs: Accuchecks 05/29/20 05/29/20 05/28/20 16:20 06:29 21:53 POC Glucose 182 H 173 H 195 H Hospitalist ROS - Review of Systems Constitutional: denies: fever, chills - Medication Medications: Active Medications Generic Name Dose Route Start Last Admin Trade Name Freq PRN Reason Stop Dose Admin Famotidine 20 mg 05/27/20 21:00 05/27/20 20:57 Famotidine/Pf 20 Mg/2ml Vial SLOW IVP 20 mg 2100 ESPREANZA Administration Hydrocortisone Sodium Succinate 50 mg 05/28/20 09:00 05/29/20 08:51 Hydrocortisone Sod Succ/Pf 100 Mg/2 Ml Vial IVP 50 mg BID ESPERANZA Administration Norepinephrine Bitartrate 250 mls @ 0 mls/hr 05/26/20 22:02 05/27/20 07:28 Levophed IVPB 250 mls INF ESPERANZA Administration Protocol Titrate Ceftriaxone Sodium 2 gm/ 100 mls @ 200 mls/hr 05/27/20 15:00 05/29/20 14:27 Sodium Chloride IVPB 100 mls 1500 ESPERANZA Administration Fentanyl Citrate 2,000 mcg/ 100 mls @ 0 mls/hr 05/27/20 16:00 05/28/20 02:46 Sodium Chloride IV 06/26/20 16:00 100 mls INF ESPERANZA Administration Protocol Per Protocol Octreotide Acetate 1,250 mcg/ 251.25 mls @ 10.05 mls/hr 05/28/20 10:45 05/29/20 13:21 Sodium Chloride IVPB 251.25 mls INF ESPERANZA Administration 50 MCG/HR Dobutamine HCl/Dextrose 250 mls @ 6.353 mls/hr 05/28/20 11:45 05/28/20 12:18 Dobutamine 500 Mg/250 Ml IVPB 250 mls INF ESPERANZA Administration Protocol 2.5 MCG/KG/MIN Insulin Human Lispro 0 units 05/25/20 19:51 05/29/20 16:27 Humalog 300 Units/3 Ml Vial SC 2 unit .MILD SLIDING SCALE PRN Administration Mild Correctional Scale Morphine Sulfate 2 mg 05/27/20 16:00 05/29/20 15:46 Morphine 2 Mg/Ml Vial SLOW IVP 06/26/20 16:00 2 mg Q1H PRN Administration Breakthrough Pain/Agitation Sodium Chloride 10 ml 05/28/20 21:00 05/29/20 08:51 Flush - Normal Saline 10 Ml Syringe IVF 10 ml Q12HR ESPERANZA Administration - Exam General Appearance: NAD, awake alert Eye: scleral icterus ENT: normocephalic atraumatic, no oropharyngeal lesions Neck: no JVD Heart: RRR, no murmur, no gallops, no rubs Respiratory: CTAB, no wheezes, no rales, no ronchi Gastrointestinal: soft Gastrointestinal - other findings: distended abdomen Extremities: no edema Skin: normal turgor, no lesions, no rashes Neurological: cranial nerve grossly intact, normal sensation to touch Musculoskeletal: normal tone, normal strength, no muscle wasting Psychiatric: normal affect, normal behavior, A&O x 3, oriented to person Hosp A/P - Plan CT abdomen: Hepatic cirrhosis with large volume ascites and large left pleural effusion. Cholelithiasis without cholecystitis. Left portal vein intraluminal thrombus. Peripheral hypodensity in the right kidney may reflect an old infarct. Nonobstructing right-sided renal calculi Chest Xray: Enlarging left layering pleural effusion Chest X ray 05/25: there has been a decrease in the left sided effusion Chest Xray 05/26: near complete opacification of left hemithorax with lobulated pleural based mass like opacity. Large hemopneumothorax CT chest 05/26: complex fluid collection left chest which appears loculated. Moderate intra-abdominal ascites. Large left hemothoraxi. COmplex ascites with possible blood products Chest X ray 05/27: no significant pneumothorax Chest Xray 05/28: improvement in right basilar aeration ECHO: EF 15-20%, moderate MR, severe TR, inferior akinetic This is a 64 year old male with past medical history of CHF, hypertension, diabetes, who presented emergency room with increasing abdominal distention #Large left pleural effusion s/p thoracentesis complicated by hemothorax #Empyema - patient had large left pleural effusion. Underwent thoracentesis 05/27. Developed hemothorax. Pleural fluid pH 7.0 and >15,413 WBC - he was started on vanc and zosyn empirically, He is s/p thoracostomy and decortication 05/27. Pleural fluid cytology shows no malignant cells but acute inflammatory cells and red blood cells -05/29: ID consulted for empyema, antibiotics de-escalated to IV ceftriaxone. He had air leak today that was mild, Dr. Garcia following #Spontaneous bacterial peritonitis secondary to strep #Decompensated cirrhosis #Possible hepatorenal syndrome -Patient had a CT scan of his abdomen which showed hepatic cirrhosis with large volume ascites and large left pleural effusion. This is new diagnosis. Hepatitis serology negative, possibly from cardiac cirrhosis. He is s/p paracentesis with 4L of fluid removed 05/26. WBC was 2247. Pleural fluid cultures are growing strep group G - 05/29: Continue IV ceftriaxone 2 grams daily. Continue midodrine albumin and octreotride drip. Per GI, can stop octreotide drip if nephrology okay #Hemorrhagic shock vs septic shock vs cardiogenic shock - patient had extensive bleeding in chest. He was started on levofed and is now off. - he is still on dobutamine for heart failure . He is s/p 1 unit PRBC 05/28 -05/29: Hb 8 today, will monitor. #Acute decompensated systolic heart failure #Severe tricuspid regurgitation and moderate mitral regurgitation - ECHO EF 15-20% , severe TR, inferior akinetic, moderate MR - still on dobutamine, cardiology is following ANGEL - possibly secondary to ATN vs hepatorenal syndrome - worsened to 3.2. On albumin and octreotide - nephrology considering dialysis if it increases above 4. Hyponatremia - improved -sodium stable at 128. Likely from cirrhosis + hypotension Lactic acidosis -last was 2.4, will repeat Portal vein thrombus -Patient received 1 dose of Lovenox in the emergency room. Holding further due to hemothorax Chest pain - resolved - troponin mildly elevated. Chest pain resolved Type 2 diabetes -Continue Lantus. Hold Metformin -Continue insulin sliding scale Renal stones - patient asymptomatic, will monitor Weakness -Pt recommending rehab DIsposition: pending improvement in renal failure, and heart failure. Will need IV antibiotics for possibly 6 weeks
--- NOTE | 2020-05-29 18:09 | PRG ---
DATE OF SERVICE: 05/29/2020 SUBJECTIVE: The patient is seen, already extubated, noted with the following vital signs. OBJECTIVE: VITAL SIGNS: Afebrile, blood pressure 104/70, pulse of 98, and O2 saturations of 98%. HEENT: Unremarkable. CARDIOVASCULAR SYSTEM: First and second heart sounds were heard. RESPIRATORY SYSTEM: Clear to auscultation. DIGESTIVE SYSTEM: Revealed a slightly distended abdomen. EXTREMITIES: Show minimal edema. LABORATORY INVESTIGATION: Showed a hemoglobin of 8.4 with a white count of 11,000. Chemistry showed a sodium of 128, BUN of 103, creatinine of 3.2, calcium 7.6. IMPRESSION: 1. Acute on chronic kidney disease, acute tubular necrosis, which seems to be showing some signs of improvement. 2. Hyponatremia. 3. Profound azotemia. 4. Multiorgan failure. PLAN: 1. From all indication, it seems the patient's renal function is turning around. Therefore, we will continue with renal supportive measures, avoiding potentially nephrotoxic agents. 2. Further management will be dependent on the clinical course. Job ID: [id number]
[2020-05-29 18:45] LABS: Lactic Acid 2.3 mmol/L (0.5-2.2)
[2020-05-29] MEDS ORDERED: Adenosine 6 MG/2 ML VIAL ONE (19:05)
[2020-05-29] MEDS: Famotidine/PF 20 mg/2ml Vial SLOW IVP SCH (20:20)
[2020-05-29 22:09] LABS: Magnesium 1.9 mg/dL (1.6-2.6); Potassium 4.1 mmol/L (3.5-5.1)
--- NOTE | 2020-05-29 23:24 | CON ---
DATE OF CONSULTATION: 05/29/2020 REASON FOR CONSULTATION: Empyema, cirrhosis, and ascites. HISTORY OF PRESENT ILLNESS: 64-year-old with history of atrial fibrillation, CHF, type 2 diabetes, coronary artery disease, who was admitted on May 25 with worsening abdominal pain and distention, which have been progressively increasing for the past month before admission, some weight loss associated with it. He also noticed jaundice 2 to 3 weeks before admission. No nausea or vomiting. No bleeding. Some dyspnea when he lays down, so his PCP told him to go to the emergency room. Apparently had a history of cirrhosis of the liver diagnosed 4 years before and he had noticed ascites accumulating for the year before admission, but no paracentesis ever been done. Also, no specific diagnosis as a cause of his liver disease was ever provided to him reportedly. No headaches. No seizure activity. Some weight loss. No genitourinary symptoms. No joint symptoms. Diffuse weakness. After admission, the patient had a paracentesis done on May 26, the day following admission. 4 L were removed with dark yellow fluid. The fluid analysis demonstrated 3500 wbc's and 2600 rbc's with 64% neutrophils and albumin is 1.7. Abdomen and pelvis CT scan demonstrated hepatic cirrhosis, large volume ascites, large left pleural effusion, cholelithiasis, but no cholecystitis, possible intraluminal thrombus of left portal vein, hypodensity in the right kidney, possibly an old infarct, nonobstructing renal calculi. On May 26, he also had a thoracentesis and about 20 mL of dark yellow fluid was removed. On May 27, there was an attempted placement of a central line in the right subclavian location, which was unsuccessful, so a right femoral line was placed instead. PAST MEDICAL HISTORY: Ischemic cardiomyopathy, CHF, type 2 diabetes, hyperlipidemia, hypertension, Centeno-Harjeet syndrome, cirrhosis of the liver of uncertain etiology, but certainly not viral hepatitis related. PAST SURGICAL HISTORY: Bypass graft surgery, cataracts, inguinal hernia repair, tonsillectomy, defibrillator placement. SOCIAL HISTORY: Lives with family. Former smoker. No alcoholic beverage use. ALLERGIES: BACTRIM. MEDICATIONS: Home medications: 1. Coreg. 2. Metformin. 3. Lasix. 4. Aspirin. 5. Tramadol. Medications in this hospital: 1. Ceftriaxone. 2. IV fluids. 3. Fentanyl. 4. Octreotide. PEx: VS 130/58, hr 122, rr 24, temp 99.4 Appears in mod distress, disoriented, drowsy but responsive, having pain in multiple sites but particularly at the L chest tube location. Areas of bruising, spider angiomato ant chest. R groin C line. L chest tube x 2 Stock cath. Jaundice. EOMI, pupils 2 mm reactive, dry oral cavity, atrophy of tongue papillae. No jvd, supple neck. Diminished BS L side, R side with clear BS except at R base where there are a few insp crackles. S1S2, no S3. No murmurs. Abd mod distended and diffusely tender. No bladder distension. Trace edema lower extremities. Pulses 1+ DP/DP/Popliteals. Able to move extremities with diff weakness. Awake but drowsy, confusional state is moderate, able to focus on questions and commands only after some insistence. Labs: wbc 11.1, 87n, Hb 8.4, Plt 216, INR 2.1, abg ph 7.3, pCO2 35, pO2 135, creat 3.2, Na 128, bili 8.7, ast 21, alt < 7 ferritin 745, ua leuk esterase neg, ascites wbc 3512, 64n, rbc 2600, pleural fluid wbc 17852, 83n. Imaging studies as discussed above. Assessment Ischemic cardiomyopathy CHF Defibrilator DM2 Liver cirrhosis, possibly secondary to steato-hepatitis +- cardiogenic cirrhosis Portal htn Ascites, chronic Likelly SBP Hepatic hydrothorax with empyema Discussion: The differential diagnosis includes hepatic hydrothorax from passage of ascitic fluid into L pleural space through channels present in diaphragm with subsequent seeding of pleural space by Streptoccoccus sp and development of empyema. Pts with HH can be asymptomatic or present with pulmonary symptoms including dyspnea, hypoxemia and resp failure associated with large pleural effusions. Spontaneous bacterial empyema is a complication of hepatic hydrothorax. The alternate possibility of aspiration and then primary empyema is a less tenable one. The mortality rate in those patients is quite high. Continuation of antimicrobial therapy with Rocephin, chest tube drainage and eventual removal. He might have developed hepato-renal syndrome or not, it depends on the course of his GFR in the ensuing days. Conceivably could consider eventual transition of oral beta-lactam to be continued for a protracted period of time after an initial phase of iv Rocephin. Job ID: [id number] MTDD
[2020-05-30 03:43] LABS: #Lymphocytes 0.6 thou/uL (1.20-3.40); #Monocytes 0.9 thou/uL (0.11-0.59); #Neutrophils 9.4 thou/uL (1.40-6.50); %Eosinophils 0.1 % (0.0-10.0); %Lymphocytes 5.6 % (21.0-51.0); %Monocytes 7.9 % (0.0-10.0); %Neutrophils 86.4 % (42.0-75.0); Hemoglobin 8.9 g/dL (14.0-18.0); Mean Corpuscular HGB CONC 33.4 g/dL (32.0-36.0); Mean Corpuscular Hemoglobin 29.1 pg (27.0-31.0); Mean Platelet Volume 7.4 fL (7.4-10.4); Platelet Count 205 thou/uL (130-400); RBC Distribution Width 16.7 % (11.5-14.5); Red Blood Cell (RBC) Count 3.06 mill/uL (4.70-6.10); White Blood Cell (WBC) Count 10.9 thou/uL (4.8-10.8)
[2020-05-30 04:10] LABS: Anion Gap 21 mmol/L (10-20); BUN (Urea Nitrogen) 100 mg/dL (8.4-25.7); Calc. Creatinine Clearance 31 mL/min (70-130); Calcium 7.7 mg/dL (7.8-10.44); Carbon Dioxide 26 mmol/L (23-31); Chloride 90 mmol/L (98-107); Estimated GFR-MDRD 22; Glucose 170 mg/dL (80-115); Potassium 4.1 mmol/L (3.5-5.1); Sodium 133 mmol/L (136-145)
[2020-05-30] MEDS: HumaLOG 300 UNITS/3 ML VIAL SC PRN ×2 (06:12→17:24)
--- NOTE | 2020-05-30 07:06 | PRG ---
DATE OF SERVICE: 05/30/2020 SUBJECTIVE: The patient has had stable vital signs overnight. He did have a brief episode of SVT that converted with a dose of Cardizem. He is currently maintained on very low-dose dobutamine for his ejection fraction of 10% to 15% percent and is on the octreotide for hepatorenal syndrome per Dr. Benítez. His urine output has improved, and he is now putting out about 100 cc an hour. LABORATORY VALUES: White count is stable, hemoglobin is stable at 8.9. His sodium has gradually improved and is currently at 133. His creatinine is stable at 2.9. His BUN is 100. ASSESSMENT AND PLAN: He continues to be confused, particularly at night, and did require restraints earlier this morning due to pulling on his Stock catheter. He is up in bed and asking how everyone is doing this morning. His lungs are clear. His chest tube is at about 1700, and I do not see an air leak this morning. Microbiology is unchanged from yesterday on the pleural fluid from his thoracentesis. He is progressing satisfactorily, and I do not know if his large chest tube output is related to his decortication specifically, which it could be or whether it may be related to his ascites to some degree. His chest x-ray looks good on the left with some evidence of effusion on the right, although this has not significantly changed within the last 24 hours. Job ID: [id number]
--- NOTE | 2020-05-30 08:15 | RAD ---
PORTABLE CHEST: HISTORY: Daily CCU followup. COMPARISON: 05/29/2020. FINDINGS: Left chest tube unchanged. The hazy right lung infiltrates and right effusion with elevated right he midiaphragm and right lung base atelectasis all remain stable. Left lung remains aerated and relativ ty clear and unchanged. IMPRESSION: No acute interval change. POS: AGW
[2020-05-30] MEDS: Hydrocortisone Sod Succ/PF 100 mg/2 ml Vial IVP SCH ×2 (08:51→20:04)
--- NOTE | 2020-05-30 10:04 | PRG ---
DATE OF SERVICE: 05/30/2020 SUBJECTIVE: Mr. Ba has been moved to the intermediate care unit. He is confused and disoriented. Yesterday, he had some supraventricular tachycardia, which responded to diltiazem dose, one dose. OBJECTIVE: VITAL SIGNS: Today's blood pressure is 117/64 and pulse is 100. LUNGS: Clear. CARDIAC: Normal S1, normal S2. ABDOMEN: Distended, looks like he has ascites. EXTREMITIES: Warm and dry. PERTINENT LABORATORY DATA: Hemoglobin is 8.9, potassium is 4.1, and creatinine is 2.9. ASSESSMENT: 1. Cirrhosis. 2. Congestive heart failure, systolic, chronic. 3. Supraventricular tachycardia. PLAN: 1. Dobutamine dose is reduced. 2. Other medicines unchanged presently. Job ID: [id number]
[2020-05-30] MEDS: cefTRIAXone\\ROCEPHIN 2 GM in Sodium Chloride 0.9% 100 ML IVPB SCH (17:23)
[2020-05-30] MEDS: DOBUTamine 500 mg/250 ml 250 ML IVPB SCH (17:24)
--- NOTE | 2020-05-30 19:55 | PDOC.HOSPP ---
- Subjective Encounter Date: 05/30/20 Encounter Time: 19:30 Subjective: f/u for L-sided empyema with hemothorax s/p CT drainage on Rocephin IV/O2 supplementation. Continues on Dobutamine gtt due to decompensated CHF with EF 15-20%. - Objective Vital Signs & Weight: Vital Signs (12 hours) Temp Pulse Ox 05/30/20 19:19 98.4 F 05/30/20 15:45 98.7 F 05/30/20 12:21 97.8 F 05/30/20 08:00 97 Weight Admit Weight 191 lb Weight 183 lb 3.266 oz Most Recent Monitor Data Heart Rate from ECG 107 NIBP 118/75 NIBP BP-Mean 89 Respiration from ECG 24 SpO2 94 I&O: 05/29/20 05/30/20 05/31/20 06:59 06:59 06:59 Intake Total 750.4 1260.4 800 Output Total 1218 2505 1380 Balance -467.6 -1244.6 -580 Result Diagrams: 05/30/20 03:10 05/30/20 03:10 Additional Labs: Accuchecks 05/30/20 05/30/20 05/29/20 17:17 06:04 20:18 POC Glucose 175 H 171 H 182 H Microbiology 05/26/20 09:40 Pleural fluid Body Fluid Culture - Final Streptococcus Group G 05/25/20 15:29 Urine voided Urine Culture - Final NO GROWTH AT 36 HOURS 05/25/20 12:30 Venous blood - Left Arm Blood Culture - Final NO GROWTH IN 5 DAYS 05/25/20 12:17 Venous blood - Right Arm Blood Culture - Final NO GROWTH IN 5 DAYS 05/26/20 09:40 Pleural fluid Acid Fast Bacilli Culture - Preliminary Specimen has been received and culture in progress. No Growth to date. Laboratory Tests 08/17/19 08/18/19 08/18/19 19:52 01:22 04:15 Hgb Sodium 133 L 131 L 132 L Creatinine 1.46 H 1.53 H Lactic Acid 08/19/19 05/25/20 05/25/20 08:19 12:09 12:30 Hgb 12.9 L Sodium 128 L Creatinine 2.13 H Lactic Acid 3.2 H 05/25/20 05/26/20 05/27/20 15:28 08:21 03:30 Hgb Sodium 125 L Creatinine 2.71 H Lactic Acid 2.9 H 2.4 H 05/27/20 05/27/20 05/27/20 05:00 15:54 15:54 Hgb 7.3 L 8.4 L Sodium 125 L Creatinine 2.74 H Lactic Acid 05/28/20 05/28/20 05/29/20 05:05 05:05 03:25 Hgb 7.7 L Sodium 128 L 128 L Creatinine 3.06 H 3.20 H Lactic Acid 05/29/20 05/29/20 03:25 18:17 Hgb 8.4 L Sodium Creatinine Lactic Acid 2.3 H Radiology Reviewed by me: Yes (PCXR - infiltrates R, L field aerated, CT in place) EKG Reviewed by me: Yes (Tele - Sinus tach in low-100's) Hospitalist ROS - Medication Medications: Active Medications Generic Name Dose Route Start Last Admin Trade Name Freq PRN Reason Stop Dose Admin Famotidine 20 mg 05/27/20 21:00 05/29/20 20:20 Famotidine/Pf 20 Mg/2ml Vial SLOW IVP 20 mg 2100 ESPERANZA Administration Hydrocortisone Sodium Succinate 50 mg 05/28/20 09:00 05/30/20 08:51 Hydrocortisone Sod Succ/Pf 100 Mg/2 Ml Vial IVP 50 mg BID ESPERANZA Administration Norepinephrine Bitartrate 250 mls @ 0 mls/hr 05/26/20 22:02 05/27/20 07:28 Levophed IVPB 250 mls INF ESPERANZA Administration Protocol Titrate Ceftriaxone Sodium 2 gm/ 100 mls @ 200 mls/hr 05/27/20 15:00 05/30/20 17:23 Sodium Chloride IVPB 100 mls 1500 ESPERANZA Administration Octreotide Acetate 1,250 mcg/ 251.25 mls @ 10.05 mls/hr 05/28/20 10:45 05/29/20 13:21 Sodium Chloride IVPB 251.25 mls INF ESPERANZA Administration 50 MCG/HR Dobutamine HCl/Dextrose 250 mls @ 6.353 mls/hr 05/28/20 11:45 05/30/20 17:24 Dobutamine 500 Mg/250 Ml IVPB 250 mls INF ESPERANZA Administration Protocol 2.5 MCG/KG/MIN Insulin Human Lispro 0 units 05/25/20 19:51 05/30/20 17:24 Humalog 300 Units/3 Ml Vial SC 2 unit .MILD SLIDING SCALE PRN Administration Mild Correctional Scale Sodium Chloride 10 ml 05/28/20 21:00 05/30/20 08:52 Flush - Normal Saline 10 Ml Syringe IVF 10 ml Q12HR ESPERANZA Administration - Exam General Appearance: NAD, awake alert Eye: PERRL, scleral icterus ENT: normocephalic atraumatic, no oropharyngeal lesions Neck: supple, symmetric, no JVD, no thyromegaly, no lymphadenopathy Heart: no gallops, no rubs, normal peripheral pulses Heart - other findings: S1, S2 tachycardic Respiratory - other findings: diminished in R lung base, few scattered crackles, L chest tube Gastrointestinal: soft, normal bowel sounds, no palpable masses Gastrointestinal - other findings: distended Extremities: no cyanosis, no clubbing, no edema Skin: normal turgor, no lesions Neurological: cranial nerve grossly intact, no new deficit Musculoskeletal: normal tone, generalized weakness Psychiatric: normal affect, A&O x 3 Hosp A/P (1) Empyema lung Code(s): J86.9 - PYOTHORAX WITHOUT FISTULA Status: Acute Plan: s/p L chest tube drainage, continue Rocephin, pulmonary supportive mgmt (2) Decompensated hepatic cirrhosis Code(s): K72.90 - HEPATIC FAILURE, UNSPECIFIED WITHOUT COMA; K74.60 - UNSPECIFIED CIRRHOSIS OF LIVER Status: Acute Plan: Continue supportive mgmt, s/p treatment for SBP (3) Acute on chronic systolic ACC/AHA stage C congestive heart failure Code(s): I50.23 - ACUTE ON CHRONIC SYSTOLIC (CONGESTIVE) HEART FAILURE Status: Acute Plan: Remains on Dobutamine gtt for inotropic support (4) Acute worsening of stage 3 chronic kidney disease Code(s): N18.3 - CHRONIC KIDNEY DISEASE, STAGE 3 (MODERATE) * DO NOT USE * Status: Acute Plan: Mild improvement with perfusion and inotropic support with Dobutamine (5) Hemothorax on left Code(s): J94.2 - HEMOTHORAX Status: Acute Plan: s/p decortication/CT placement (6) Acute blood loss anemia Code(s): D62 - ACUTE POSTHEMORRHAGIC ANEMIA Status: Acute Plan: s/p 5 total units PRBC's and 4u FFP, serial H/H monitoring - Plan continue antibiotics, PT/OT, social service liaison, respiratory therapy, out of bed/ambulate, DVT proph w/SCDs Continue supportive mgmt Continue Rocephin Continue Dobutamine gtt OOB with PT CM for SNF/Rehab options AM lab: BMP, CBC
[2020-05-30] MEDS: Famotidine/PF 20 mg/2ml Vial SLOW IVP SCH (20:04)
--- NOTE | 2020-05-30 20:11 | PRG ---
DATE OF SERVICE: 05/30/2020 SUBJECTIVE: Osvaldo Ba was evaluated. His is at the bedside. He is encephalopathic. He wants to sit up in bed and , he wants to lie down, and then he wants to get out of bed, and then he wants to go home. OBJECTIVE: VITAL SIGNS: Hemodynamically, he is stable. Oximetry is fine. LUNGS: Clear. HEART: Regular rhythm. ABDOMEN: Soft. EXTREMITIES: Without asymmetry. He still has chest tube in. Chest x-ray is unchanged this morning. LABORATORY DATA: White count 10.9, hemoglobin 8.9 platelets 205. Electrolytes: Sodium 133, potassium 4.1, chloride 90, bicarb 26, BUN 100, creatinine 2.9. His ammonia was 26 yesterday. IMPRESSION: 1. Status post decortication from streptococcal empyema. 2. Critical illness/toxic/metabolic encephalopathy. This should gradually improve, but there is no guarantee it will as I have explained to the . He is immobility is the biggest factor facing him moving forward. It is unclear whether or not he will survive this. He is clinically stable for now. I answered all of the 's questions. She appears to have a good understanding of the severity of this acute on top of chronic illness. Job ID: [id number]
[2020-05-31 03:37] LABS: #Lymphocytes 0.6 thou/uL (1.20-3.40); #Neutrophils 9.5 thou/uL (1.40-6.50); %Eosinophils 0.2 % (0.0-10.0); %Monocytes 8.8 % (0.0-10.0); Hemoglobin 9.7 g/dL (14.0-18.0); Mean Corpuscular HGB CONC 32.9 g/dL (32.0-36.0); Mean Corpuscular Hemoglobin 28.7 pg (27.0-31.0); Mean Corpuscular Volume 87.1 fL (78.0-98.0); Mean Platelet Volume 7.9 fL (7.4-10.4); Platelet Count 211 thou/uL (130-400); RBC Distribution Width 17.7 % (11.5-14.5); Red Blood Cell (RBC) Count 3.37 mill/uL (4.70-6.10)
[2020-05-31 03:56] LABS: Anion Gap 24 mmol/L (10-20); BUN (Urea Nitrogen) 94 mg/dL (8.4-25.7); Calc. Creatinine Clearance 39 mL/min (70-130); Calcium 8.2 mg/dL (7.8-10.44); Carbon Dioxide 20 mmol/L (23-31); Chloride 91 mmol/L (98-107); Estimated GFR-MDRD 29; Glucose 162 mg/dL (80-115); Potassium 4.3 mmol/L (3.5-5.1); Sodium 131 mmol/L (136-145)
[2020-05-31] MEDS: HumaLOG 300 UNITS/3 ML VIAL SC PRN ×2 (06:36→17:25)
--- NOTE | 2020-05-31 08:03 | PRG ---
DATE OF SERVICE: 05/30/2020 SUBJECTIVE: This 64-year-old with liver disease, liver cirrhosis, ascites, hydrothorax, and also heart failure. The patient has had large volume paracentesis and also drainage of pleural fluid . He had also unfortunately hemothorax and also hemoperitoneum. He had a chest tube placement done_ decortication. The patient had IV antibiotics. The patient is awake, but he is confused. He was seen along with the patient's family member. The patient denies abdominal pain, nausea, or vomiting. His oral intake is poor. However, he is not having abdominal pain, nausea, and vomiting at the present time. He is awake, but remains confused. OBJECTIVE: GENERAL: He is awake and communicating, but he is confused. VITAL SIGNS: Temperature 97.8 degrees Fahrenheit, pulse is 108, blood pressure is 117/76. CARDIOVASCULAR SYSTEM: Normal heart sounds. LUNGS: Clear to auscultation. ABDOMEN: Soft. Abdomen is distended with ascites. Abdomen is nontender. LABORATORY DATA: WBC 10,900, hemoglobin 8.9, hematocrit 36.7, platelet count 205,000. Chemistry panel; sodium 133, potassium 4.1, chloride 90, bicarb 26, BUN is 100, creatinine 2.90, glucose is 170. CLINICAL IMPRESSION: 1. Liver cirrhosis. 2. Chronic kidney disease. 3. Ascites. 4. Hydrothorax , s/p chest tube placement RECOMMENDATIONS: 1. Encourage p.o. intake. 2. Continue present treatment. I had a long talk with the patient's and explained to her the severity of liver disease and because of heart disease, liver transplant is not an option. Job ID: [id number] MTDD
--- NOTE | 2020-05-31 09:00 | PDOC.HOSPP ---
- Subjective Encounter Date: 05/31/20 Encounter Time: 08:50 Subjective: f/u for L lung empyema with step spp on Rocephin and s/p decortication with persistent L chest tube drainage. Encephalopathy remains with fluctuating intervals of lucidity. - Objective Vital Signs & Weight: Vital Signs (12 hours) Temp 05/31/20 06:59 98.0 F 05/31/20 04:20 97.5 F L 05/30/20 23:52 98.1 F Weight Admit Weight 191 lb Weight 180 lb 8 oz Most Recent Monitor Data Heart Rate from ECG 104 NIBP 119/76 NIBP BP-Mean 90 Respiration from ECG 26 SpO2 91 I&O: 05/30/20 05/31/20 06/01/20 06:59 06:59 06:59 Intake Total 1260.4 1000 Output Total 2505 2480 Balance -1244.6 -1480 Result Diagrams: 05/31/20 03:12 05/31/20 03:12 Additional Labs: Accuchecks 05/31/20 05/31/20 05/30/20 05:37 03:05 17:17 POC Glucose 174 H 165 H 175 H Microbiology 05/26/20 09:40 Pleural fluid Body Fluid Culture - Final Streptococcus Group G 05/25/20 15:29 Urine voided Urine Culture - Final NO GROWTH AT 36 HOURS 05/25/20 12:30 Venous blood - Left Arm Blood Culture - Final NO GROWTH IN 5 DAYS 05/25/20 12:17 Venous blood - Right Arm Blood Culture - Final NO GROWTH IN 5 DAYS 05/26/20 09:40 Pleural fluid Acid Fast Bacilli Culture - Preliminary Specimen has been received and culture in progress. No Growth to date. Laboratory Tests 08/17/19 08/18/19 08/18/19 19:52 01:22 04:15 Hgb Sodium 133 L 131 L 132 L Creatinine 1.46 H 1.53 H Lactic Acid 08/19/19 05/25/20 05/25/20 08:19 12:09 12:30 Hgb 12.9 L Sodium 128 L Creatinine 2.13 H Lactic Acid 3.2 H 05/25/20 05/26/20 05/27/20 15:28 08:21 03:30 Hgb Sodium 125 L Creatinine 2.71 H Lactic Acid 2.9 H 2.4 H 05/27/20 05/27/20 05/27/20 05:00 15:54 15:54 Hgb 7.3 L 8.4 L Sodium 125 L Creatinine 2.74 H Lactic Acid 05/28/20 05/28/20 05/29/20 05:05 05:05 03:25 Hgb 7.7 L Sodium 128 L 128 L Creatinine 3.06 H 3.20 H Lactic Acid 05/29/20 05/29/20 03:25 18:17 Hgb 8.4 L Sodium Creatinine Lactic Acid 2.3 H EKG Reviewed by me: Yes (Tele - sinus tachycardia in low-100's) Hospitalist ROS - Medication Medications: Active Medications Generic Name Dose Route Start Last Admin Trade Name Freq PRN Reason Stop Dose Admin Famotidine 20 mg 05/27/20 21:00 05/30/20 20:04 Famotidine/Pf 20 Mg/2ml Vial SLOW IVP 20 mg 2100 ESPERANZA Administration Hydrocortisone Sodium Succinate 50 mg 05/28/20 09:00 05/30/20 20:04 Hydrocortisone Sod Succ/Pf 100 Mg/2 Ml Vial IVP 50 mg BID ESPERANZA Administration Norepinephrine Bitartrate 250 mls @ 0 mls/hr 05/26/20 22:02 05/27/20 07:28 Levophed IVPB 250 mls INF ESPERANZA Administration Protocol Titrate Ceftriaxone Sodium 2 gm/ 100 mls @ 200 mls/hr 05/27/20 15:00 05/30/20 17:23 Sodium Chloride IVPB 100 mls 1500 ESPERANZA Administration Octreotide Acetate 1,250 mcg/ 251.25 mls @ 10.05 mls/hr 05/28/20 10:45 05/29/20 13:21 Sodium Chloride IVPB 251.25 mls INF ESPERANZA Administration 50 MCG/HR Dobutamine HCl/Dextrose 250 mls @ 6.353 mls/hr 05/28/20 11:45 05/30/20 17:24 Dobutamine 500 Mg/250 Ml IVPB 250 mls INF ESPERANZA Administration Protocol 2.5 MCG/KG/MIN Insulin Human Lispro 0 units 05/25/20 19:51 05/31/20 06:36 Humalog 300 Units/3 Ml Vial SC 2 unit .MILD SLIDING SCALE PRN Administration Mild Correctional Scale Sodium Chloride 10 ml 05/28/20 21:00 05/30/20 20:08 Flush - Normal Saline 10 Ml Syringe IVF 10 ml Q12HR ESPERANZA Administration - Exam General Appearance: ill appearing General - other findings: somnolent, opens eyes briefly, grimacing Eye: PERRL, scleral icterus ENT: normocephalic atraumatic, no oropharyngeal lesions Neck: supple, symmetric, no JVD, no thyromegaly, no lymphadenopathy Heart: no gallops, no rubs, normal peripheral pulses, murmur present Heart - other findings: S1, S2 tachycardia Respiratory - other findings: diminished in bases bilat, L chest tube noted Gastrointestinal: normal bowel sounds, no guarding, tender to palpation Gastrointestinal - other findings: distended Extremities: no cyanosis, 1+ LE edema Skin: normal turgor Neurological: cranial nerve grossly intact, no new deficit Musculoskeletal: normal tone, generalized weakness Psychiatric: oriented to person, somnolent, lethargic Hosp A/P (1) Empyema lung Code(s): J86.9 - PYOTHORAX WITHOUT FISTULA Status: Acute Plan: Continue L chest tube drainage, Rocephin IV (2) Decompensated hepatic cirrhosis Code(s): K72.90 - HEPATIC FAILURE, UNSPECIFIED WITHOUT COMA; K74.60 - UNSPECIFIED CIRRHOSIS OF LIVER Status: Acute Plan: continue Octreotide gtt (3) Acute on chronic systolic ACC/AHA stage C congestive heart failure Code(s): I50.23 - ACUTE ON CHRONIC SYSTOLIC (CONGESTIVE) HEART FAILURE Status: Acute Plan: Continue inotropic support with Dobutamine gtt (4) Acute worsening of stage 3 chronic kidney disease Code(s): N18.3 - CHRONIC KIDNEY DISEASE, STAGE 3 (MODERATE) * DO NOT USE * Status: Acute Plan: Slow improvement with inotropic support, avoid nephrotoxic meds and limit contrast (5) Hemothorax on left Code(s): J94.2 - HEMOTHORAX Status: Acute (6) Acute blood loss anemia Code(s): D62 - ACUTE POSTHEMORRHAGIC ANEMIA Status: Acute Plan: s/p 5 total units PRBC's, serial H/H monitoring - Plan continue antibiotics, PT/OT, aids social worker, speech therapy, respiratory the rapy, out of bed/ambulate Continue supportive mgmt Continue Rocephin Continue Dobutamine gtt WCT for LE wounds OOB with PT CM for SNF/Rehab options Consider Palliative care options AM lab: BMP, CBC
[2020-05-31] MEDS ORDERED: Iron Sucrose Complex 200 MG in Sodium Chloride 0.9% 100 ML IVPB SCH (09:15)
[2020-05-31] MEDS ORDERED: Iron, Sodium Ferric Gluconate 250 MG in Sodium Chloride 0.9% 100 ML IVPB SCH (09:30)
--- NOTE | 2020-05-31 10:01 | PRG ---
DATE OF SERVICE: 05/31/2020 SUBJECTIVE: Mr. Ba is resting comfortably. No chest pain. OBJECTIVE: GENERAL: On examination, looks very weak and chronically ill. VITAL SIGNS: Blood pressure 114/70, pulse is in the 80s and sinus. LUNGS: Clear. CARDIAC: Normal S1 and S2. ABDOMEN: Ascites. EXTREMITIES: Mild edema. ASSESSMENT AND PLAN: 1. Congestive heart failure systolic, chronic. 2. Cirrhosis. 3. Had supraventricular tachycardia, rate of 168 on the 16th. He responded to one dose of Cardizem 10 mg IV and weaned off dobutamine at that point due to the tachycardia episode. Job ID: [id number]
[2020-05-31] MEDS: Hydrocortisone Sod Succ/PF 100 mg/2 ml Vial IVP SCH ×2 (12:22→20:43)
--- NOTE | 2020-05-31 14:54 | PRG ---
DATE OF SERVICE: 05/31/2020 SUBJECTIVE: Mr. Ba remains encephalopathic. OBJECTIVE: VITAL SIGNS: He is afebrile, he is on room air, heart rate is 100, respiratory rate is in the 20s, and blood pressure 118/79. LUNGS: Clear. HEART: Regular rhythm. ABDOMEN: Soft. LABORATORY DATA: White count is 11, hemoglobin 9.7, and platelets 211. Sodium 131, potassium 4.3, chloride 91, bicarb 20, BUN 94, and creatinine 2.32, creatinine was 2.9 yesterday and 3.2 the day before. IMPRESSION: 1. Chronic heart failure. 2. Cirrhosis. 3. Supraventricular tachycardia. 4. Metabolic encephalopathy. 5. Status post decortication for an empyema. PLAN: Overall, he is stable, but will need placement at some point once his chest tubes are out. Job ID: [id number]
--- NOTE | 2020-05-31 15:32 | PRG ---
DATE OF SERVICE: 05/31/2020 SUBJECTIVE: This is a 64-year-old with liver cirrhosis, hydrothorax, ascites, also empyema with decortication. He has a chest tube with drainage. The patient has been confused off and on. Water intake is poor. He is sleepy today most of the time. I saw the patient in the room along with the patient's . He is on IV antibiotics, IV octreotide, etc. Clinical status has really not that much changed. OBJECTIVE: VITAL SIGNS: Afebrile. Pulse is 92, blood pressure 114/73. CARDIOVASCULAR SYSTEM: Normal heart sounds. LUNGS: Clear to auscultation. ABDOMEN: Distended. Abdomen is nontender. LABORATORY DATA: WBC 11,000, hemoglobin 9.7, hematocrit 29.4, platelet count 211,000. Chem-7: The BUN is dropping to 94 today, creatinine 2.32. Lytes are normal. RECOMMENDATIONS: 1. Continue antibiotics. 2. May discontinue octreotide. 3. Supportive care. Job ID: [id number]
[2020-05-31 15:34] LABS: ANA Symphony (Qualitative) Negative (Negative); ANA Symphony (Quantitative) 0.6 Ratio (< 0.7 Negative); dsDNA IgG Antibody 2.3 IU/mL (<10 Negative)
[2020-05-31] MEDS: Octreotide Acetate 1,250 MCG in Sodium Chloride 0.9% 250 ML 250 ML IVPB SCH (16:46)
[2020-05-31] MEDS: cefTRIAXone\\ROCEPHIN 2 GM in Sodium Chloride 0.9% 100 ML IVPB SCH (16:46)
[2020-05-31] MEDS: Famotidine/PF 20 mg/2ml Vial SLOW IVP SCH (20:43)
[2020-06-01 04:00] LABS: Band 2 % (5-11); Hemoglobin 9.8 g/dL (14.0-18.0); Hypochromia SLIGHT = 6-15 cells (100X) (0-5/hpf); Lymphocytes 4 % (21-51); MDiff Complete? YES; Mean Corpuscular HGB CONC 32.3 g/dL (32.0-36.0); Mean Corpuscular Hemoglobin 28.7 pg (27.0-31.0); Mean Corpuscular Volume 88.7 fL (78.0-98.0); Mean Platelet Volume 7.7 fL (7.4-10.4); Monocytes 5 % (0-10); Neutrophil 89 % (42-75); Platelet Count 249 thou/uL (130-400); Platelet Morphology Comment Appears Adequate; RBC Distribution Width 17.8 % (11.5-14.5); Red Blood Cell (RBC) Count 3.41 mill/uL (4.70-6.10); White Blood Cell (WBC) Count 18.8 thou/uL (4.8-10.8)
--- NOTE | 2020-06-01 06:25 | PRG ---
DATE OF SERVICE: 06/01/2020 Chest tube today at 7:25 and possibly has a small air leak. We will discontinue his suction today. No chest x-ray was done today or yesterday. We will go ahead and check that off suction. Otherwise, the patient's abdomen is somewhat distended, probably from ascites. He is somewhat lethargic this morning, but it is early. His lungs, he has crackles on the left and right, but has good breath sounds bilaterally. He continues to have a harsh holosystolic murmur across his precordium consistent with his mitral regurgitation. PLAN: At this time is to try and move forward with chest tube removal as tolerated by air leak and output. Job ID: [id number]
--- NOTE | 2020-06-01 07:34 | RAD ---
Chest one view HISTORY: Dyspnea. Respiratory failure. Follow-up. COMPARISON: 05/30/2020. FINDINGS: Cardiac silhouette is magnified and enlarged. Pulmonary vasculature upper limits of normal. Mediastinum is shifted rightward with the patient with postoperative changes and a single lead left s ubclavian cardiac electronic device. Right hemidiaphragm slightly elevated with patchy mild infiltrates similar in appearance to the prior exam. Left thoracostomy tubes remain in place. Minimal pneumothorax now evident at the medial aspect of the left lung apex. IMPRESSION : Stable radiographic appearance of the chest.
[2020-06-01 07:36] LABS: Chloride 96 mmol/L (98-107); Potassium 4.4 mmol/L (3.5-5.1); Sodium 137 mmol/L (136-145)
[2020-06-01 07:37] LABS: Calcium 8.5 mg/dL (7.8-10.44); Glucose 251 mg/dL (80-115)
[2020-06-01 07:38] LABS: Anion Gap 29 mmol/L (10-20); Carbon Dioxide 16 mmol/L (23-31)
[2020-06-01 07:41] LABS: BUN (Urea Nitrogen) 100 mg/dL (8.4-25.7); Calc. Creatinine Clearance 41 mL/min (70-130); Estimated GFR-MDRD 32
[2020-06-01] MEDS: Hydrocortisone Sod Succ/PF 100 mg/2 ml Vial IVP SCH ×2 (09:36→21:51)
--- NOTE | 2020-06-01 13:04 | PRG ---
DATE OF SERVICE: 06/01/2020 SUBJECTIVE: Mr. Ba remains stable. He is still little encephalopathic. OBJECTIVE: VITAL SIGNS: Heart rate is 103, blood pressure 120/73, respiratory rate is 23. Chest tube still shows small air leak. LUNGS: Clear. HEART: Regular rhythm. ABDOMEN: Distended. DIAGNOSTIC STUDIES: Chest x-ray is unchanged. IMPRESSION: 1. Status post decortication for group G Strep empyema, clinically stable. 2. Extreme deconditioning. As I have explained to the today, this is the biggest issue he is facing. 3. Chronic liver dysfunction. PLAN: Continue supportive care. Job ID: [id number]
--- NOTE | 2020-06-01 14:06 | PQF ---
CLINICAL DOCUMENTATION CLARIFICATION FORM: Dear Dr. Dr. Rojas Date: 06/01/2020 Please exercise your independent, professional judgment in responding to the clarification form. Clinical indicators are provided on the bottom of this form for your review. Please check appropriate box(s): [ x ] Hemorrhagic shock [ ] Cardiogenic Shock [ ] Septic shock [ ] Shock, other (please specify): [ ] Other diagnosis [ ] Unable to determine In addition, please specify: Present on Admission (POA): [ ] Yes [ x ] No [ ] Unable to determine For continuity of documentation, please document condition throughout progress notes and discharge summary. Thank You. CLINICAL INDICATORS - SIGNS / SYMPTOMS / LABS / RESULTS AND LOCATION IN EMR ED 05/14*2: Vital Signs: Pulse 98-103 Temp (max) 98.0 (oral) RR 14-18 BP 96/69 -110/73 *H&P 05/25 (Sarah): * Acute decompensated systolic heart failure * Lactic acidosis . This is likely from hypoperfusion from CHF/cirrhosis. * ANGEL * Continue with IV ceftriaxone for empiric SBP prophylaxis. *LAB (EMR): WBC Neutrophils % Bands Lactic Acid 05/25 11.1 70 26 2.9 - 3.2 05/26 2.4 05/27 10.5 - 12.3 38 53 05/28 8.9 05/29 11.1 2.3 05/30 10.9 05/31 11.0 06/01 18.8 89 2 *Brief PN 05/27 (Baidoo): * Patient developed hypotension overnight. Hypotension did not response to multiple albumin infusion. Patient was transferred to CCU and started on Levophed drip. * Patients hemoglobin had now dropped from 12, two days ago to 7 today. *PN 05/27 (Sarah): He was found to have a hemothorax and possible blood in abdomen as well. *PN 05/27 (Case): Spontaneous bacterial peritonitis. *PN 05/27 (Tobias): Hypotension, sepsis versus hemothorax. *PN 05/28 (Tobias): * Pleural fluid is growing Streptococcus, probably empyema. * Empyema, hemothorax, post thoracentesis, status post decortication. *PN 05/28 (Sarah): Hemorrhagic shock vs septic shock vs cardiogenic shock. *PN 05/30 (Bob): Acute blood loss anemia . s/p 5 total units PRBCs and 4u FFP RISK FACTORS / RESULTS AND LOCATION IN EMR *H&P 05/25 (Sarah): Acute decompensated systolic heart failure *PN 05/27 (Sarah): He was found to have a hemothorax and possible blood in abdomen as well. *Operative Note 05/27 (Jatinder): Date of procedure 05/26 Procedure performed: Thoracentesis *PN 05/27 (Case): Spontaneous bacterial peritonitis. *PN 05/28 (Tobias): Pleural fluid is growing Streptococcus, probably empyema. TREATMENTS / RESULTS AND LOCATION IN EMR *ED 05/25: Azithromycin IV, Ceftriaxone IV, Furosemide IV *H&P 05/25 (Sarah): Continue with IV ceftriaxone for empiric SBP prophylaxis. *LAB (EMR): CBC 05/25, 05/27-06/01 *Microbiology (EMR): BC x2 05/25, Body Fluid culture 05/26 *Brief PN 05/27 (Baidoo): Transferred to CCU and started on Levophed drip. Dr. Tobias informed- recommended to type and cross-match 2 units PRBC for transfusion. *PN 05/27 (Sarah): Starting on vancomycin and zosyn empirically. Started on octreotide, midodrine, and will continue with albumin. IV fluids added *PN 05/28 (Sarah): He is now on IV fluids, dobutamine given transfusion today. &Infectious Disease Consultation 05/29 (Praveen) *PN 05/30 (Bob): S/p 5 total units PRBCs and 4u FFP, serial H/H monitoring Thank you, Gabriela CDS/[employer] Signature: Gabriela Jacobsen RN, CDS Phone #: [phone] [email or web address] This is a permanent part of the Medical Record [facility]
--- NOTE | 2020-06-01 15:29 | PRG ---
DATE OF SERVICE: 06/01/2020 SUBJECTIVE: Mr. Ba is transferred from the ICU to MICU over the weekend. He appears to have a chest tube leak. He has no current complaints. No chest pain or pressure noted. He is currently on 1 mcg of dobutamine. OBJECTIVE: VITAL SIGNS: Current vital signs; blood pressure 120/70, pulse 101, and respirations 20. LUNGS: Decreased breath sounds on the left versus right. HEART: Regular rate and rhythm. ABDOMEN: Soft, nontender, and nondistended. EXTREMITIES: No edema. PERTINENT LABORATORY DATA: Hemoglobin 9.8. Creatinine 2.09. IMPRESSION: 1. Ischemic cardiomyopathy. 2. Empyema. 3. Subacute bacterial endocarditis. 4. Cirrhosis. 5. Severe deconditioning. RECOMMENDATIONS: 1. We will try and titrate off the IV dobutamine. 2. The patient appears to have multiorgan failure including renal, liver, and cardiac. He also has severe deconditioning present. Very difficult for Mr. Ba to have 100% recovery in the near term. 3. Avoid SHAHBAZ inhibitor therapy and ARB due to renal insufficiency. 4. Once dobutamine is titrated off, we will try and slowly reintroduce beta-maegan therapy. 5. Continue antibiotic treatment. Job ID: [id number]
--- NOTE | 2020-06-01 15:50 | PRG ---
DATE OF SERVICE: 06/01/2020 SUBJECTIVE: Mr. Ba is slow to answer questions. He is able to tell me his name after a delayed response. OBJECTIVE: GENERAL: He is oriented to his name. VITAL SIGNS: Temperature is 97.2, pulse 101, blood pressure 120/73. GENERAL: Jaundiced. His eyes have scleral icterus. LUNGS: Clear to auscultation bilaterally. HEART: Regular rate and rhythm. ABDOMEN: Soft, nontender, and nondistended. Bowel sounds are present. EXTREMITIES: No lower extremity edema. IMPRESSION: 1. Empyema, status post decortication. 2. Hepatic encephalopathy. 3. Decompensated cirrhosis. 4. Severe cardiomyopathy. 5. Acute renal failure with his creatinine trending down. RECOMMENDATIONS: Lactulose enema x1 and then hopefully wake up enough to take lactulose by mouth. He has had no bowel movement yet today. Job ID: [id number]
[2020-06-01] MEDS ORDERED: Lactulose 10 GM/15 ML Oral Solution PR SCH ×2 (16:00→20:00)
[2020-06-01] MEDS: cefTRIAXone\\ROCEPHIN 2 GM in Sodium Chloride 0.9% 100 ML IVPB SCH (17:43)
--- NOTE | 2020-06-01 18:52 | PDOC.HOSPP ---
- Subjective Encounter Date: 06/01/20 Encounter Time: 18:30 Subjective: f/u L empyema with Strep spp s/p decortication and persistent L chest tube. Receiving Rocephin IV. - Objective Vital Signs & Weight: Vital Signs (12 hours) Temp Pulse Pulse BP BP Pulse Ox Pulse Ox 06/01/20 15:00 97.2 F L 06/01/20 14:38 102 H 102 H 114/70 111/66 98 06/01/20 13:00 97.0 F L 06/01/20 07:36 97.3 F L 06/01/20 07:28 96 Pulse Ox 06/01/20 15:00 06/01/20 14:38 98 06/01/20 13:00 06/01/20 07:36 06/01/20 07:28 Weight Admit Weight 191 lb Weight 175 lb 4.8 oz Most Recent Monitor Data Heart Rate from ECG 99 NIBP 93/58 NIBP BP-Mean 69 Respiration from ECG 28 SpO2 96 I&O: 05/31/20 06/01/20 06/02/20 06:59 06:59 06:59 Intake Total 1000 Output Total 2480 1205 1700 Balance -1480 -1205 -1700 Result Diagrams: 06/01/20 03:24 06/01/20 07:14 Additional Labs: Accuchecks 06/01/20 06/01/20 05/31/20 10:49 05:55 20:25 POC Glucose 250 H 244 H 204 H 05/30/20 05/29/20 13:04 10:39 POC Glucose 157 H 164 H Microbiology 05/26/20 09:40 Pleural fluid Body Fluid Culture - Final Streptococcus Group G 05/25/20 15:29 Urine voided Urine Culture - Final NO GROWTH AT 36 HOURS 05/25/20 12:30 Venous blood - Left Arm Blood Culture - Final NO GROWTH IN 5 DAYS 05/25/20 12:17 Venous blood - Right Arm Blood Culture - Final NO GROWTH IN 5 DAYS 05/26/20 09:40 Pleural fluid Acid Fast Bacilli Culture - Preliminary Specimen has been received and culture in progress. No Growth to date. Laboratory Tests 08/17/19 08/18/19 08/18/19 19:52 01:22 04:15 Hgb Sodium 133 L 131 L 132 L Creatinine 1.46 H 1.53 H Lactic Acid 08/19/19 05/25/20 05/25/20 08:19 12:09 12:30 Hgb 12.9 L Sodium 128 L Creatinine 2.13 H Lactic Acid 3.2 H 05/25/20 05/26/20 05/27/20 15:28 08:21 03:30 Hgb Sodium 125 L Creatinine 2.71 H Lactic Acid 2.9 H 2.4 H 05/27/20 05/27/20 05/27/20 05:00 15:54 15:54 Hgb 7.3 L 8.4 L Sodium 125 L Creatinine 2.74 H Lactic Acid 05/28/20 05/28/20 05/29/20 05:05 05:05 03:25 Hgb 7.7 L Sodium 128 L 128 L Creatinine 3.06 H 3.20 H Lactic Acid 05/29/20 05/29/20 03:25 18:17 Hgb 8.4 L Sodium Creatinine Lactic Acid 2.3 H EKG Reviewed by me: Yes (Tele - sinus tach in low-100's) Hospitalist ROS - Medication Medications: Active Medications Generic Name Dose Route Start Last Admin Trade Name Freq PRN Reason Stop Dose Admin Famotidine 20 mg 05/27/20 21:00 05/31/20 20:43 Famotidine/Pf 20 Mg/2ml Vial SLOW IVP 20 mg 2100 ESPERANZA Administration Hydrocortisone Sodium Succinate 50 mg 05/28/20 09:00 06/01/20 09:36 Hydrocortisone Sod Succ/Pf 100 Mg/2 Ml Vial IVP 50 mg BID ESPERANZA Administration Ceftriaxone Sodium 2 gm/ 100 mls @ 200 mls/hr 05/27/20 15:00 06/01/20 17:43 Sodium Chloride IVPB 100 mls 1500 ESPERANZA Administration Dobutamine HCl/Dextrose 250 mls @ 6.353 mls/hr 05/28/20 11:45 05/30/20 17:24 Dobutamine 500 Mg/250 Ml IVPB 250 mls INF ESPERANZA Administration Protocol 2.5 MCG/KG/MIN Insulin Human Lispro 0 units 05/25/20 19:51 05/31/20 17:25 Humalog 300 Units/3 Ml Vial SC 3 unit .MILD SLIDING SCALE PRN Administration Mild Correctional Scale Sodium Chloride 10 ml 05/28/20 21:00 06/01/20 09:36 Flush - Normal Saline 10 Ml Syringe IVF 10 ml Q12HR ESPERANZA Administration - Exam General Appearance: ill appearing General - other findings: somnolent Eye: PERRL, scleral icterus ENT: normocephalic atraumatic, no oropharyngeal lesions Neck: supple, symmetric, no JVD, no thyromegaly Heart: no gallops, no rubs, normal peripheral pulses Heart - other findings: S1, S2 tachycardic Respiratory - other findings: diminished in R base, occ rhonchi, L chest tube in place Gastrointestinal: normal bowel sounds, no guarding, no rigidity, distended Extremities: no cyanosis, 1+ LE edema Skin: normal turgor Neurological: no new deficit Musculoskeletal: generalized weakness Psychiatric: oriented to person, somnolent, lethargic Hosp A/P (1) Empyema lung Code(s): J86.9 - PYOTHORAX WITHOUT FISTULA Status: Acute Plan: s/p decortication and L chest tube, continue Rocephin (2) Decompensated hepatic cirrhosis Code(s): K72.90 - HEPATIC FAILURE, UNSPECIFIED WITHOUT COMA; K74.60 - UNSPECIFIED CIRRHOSIS OF LIVER Status: Acute Plan: Continue Lactulose (3) Acute on chronic systolic ACC/AHA stage C congestive heart failure Code(s): I50.23 - ACUTE ON CHRONIC SYSTOLIC (CONGESTIVE) HEART FAILURE Status: Acute Plan: Severe cardiomyopathy, continue Dobutamine gtt (4) Acute worsening of stage 3 chronic kidney disease Code(s): N18.3 - CHRONIC KIDNEY DISEASE, STAGE 3 (MODERATE) * DO NOT USE * Status: Acute (5) Hemothorax on left Code(s): J94.2 - HEMOTHORAX Status: Acute (6) Acute blood loss anemia Code(s): D62 - ACUTE POSTHEMORRHAGIC ANEMIA Status: Acute Plan: s/p 5u PRBC's - Plan continue antibiotics, PT/OT, social services aide, respiratory therapy, DVT proph w/SCDs Consults: Palliative Care Continue supportive mgmt Continue Rocephin Continue Dobutamine gtt WCT for LE wounds OOB with PT CM for SNF/Rehab options Consider Palliative care options AM lab: BMP, CBC
--- NOTE | 2020-06-01 20:07 | PRG ---
DATE OF SERVICE: SUBJECTIVE: The patient is seen and examined clinically with the following vital signs. OBJECTIVE: VITAL SIGNS: Blood pressure 116/71, heart rate of 96, respiratory rate of 20, and O2 saturation of 96%. HEENT: Unremarkable. CARDIOVASCULAR SYSTEM: First and second heart sounds were heard. RESPIRATORY SYSTEM: Clear to auscultation anteriorly. DIGESTIVE SYSTEM: Revealed distended abdomen. EXTREMITIES: Showed no peripheral edema. SKIN: No new gross rash. LYMPHATICS: No peripheral lymphadenopathy. LABORATORY INVESTIGATION: Showed a hemoglobin of 9.8, white count of 18,800. Chemistry showed a creatinine of 2.09, BUN of 100. IMPRESSION: 1. Acute on chronic kidney disease, which seems to be improving. 2. Metabolic acidosis. 3. Ascites. PLAN: 1. Continue current renal supportive measures. 2. Avoid potentially nephrotoxic agents. 3. Start this patient on sodium bicarbonate supplementation. 4. Further management to be dependent on the clinical course. Job ID: [id number]
[2020-06-01] MEDS: HumaLOG 300 UNITS/3 ML VIAL SC PRN (21:50)
[2020-06-01] MEDS: Famotidine/PF 20 mg/2ml Vial SLOW IVP SCH (21:51)
[2020-06-01] MEDS: Sodium Bicarbonate Tab 325 MG TAB PO SCH (23:04)
[2020-06-02 04:04] LABS: Band 25 % (5-11); Hemoglobin 9.7 g/dL (14.0-18.0); MDiff Complete? YES; Mean Corpuscular HGB CONC 33.7 g/dL (32.0-36.0); Mean Corpuscular Volume 89.1 fL (78.0-98.0); Mean Platelet Volume 7.2 fL (7.4-10.4); Monocytes 1 % (0-10); Neutrophil 74 % (42-75); Platelet Count 284 thou/uL (130-400); Platelet Morphology Comment Appears Adequate; RBC Distribution Width 18.4 % (11.5-14.5); Red Blood Cell (RBC) Count 3.23 mill/uL (4.70-6.10); White Blood Cell (WBC) Count 21.7 thou/uL (4.8-10.8)
[2020-06-02 04:12] LABS: Anion Gap 25 mmol/L (10-20); BUN (Urea Nitrogen) 101 mg/dL (8.4-25.7); Calc. Creatinine Clearance 40 mL/min (70-130); Calcium 8.2 mg/dL (7.8-10.44); Carbon Dioxide 23 mmol/L (23-31); Chloride 98 mmol/L (98-107); Estimated GFR-MDRD 31; Glucose 291 mg/dL (80-115); Potassium 3.5 mmol/L (3.5-5.1); Sodium 142 mmol/L (136-145)
--- NOTE | 2020-06-02 07:51 | PRG ---
DATE OF SERVICE: The patient had about 200 mL out of his chest tube yesterday totaling about 950 for the Pleur-evac. Could not demonstrate an air leak this morning, although the patient could not cooperate with coughing. I did hook him up to suction briefly and there was no air leak. The family wanted to have a family conference with me today and being that I would be in surgery all day, I called the initially and her first question was does he have stage IV liver failure? I informed her that I was probably the wrong person to talk to regarding this, we discussed his chest issues and then [id number] called on another line to talk to me and his first question was how bad is the liver failure. Once again, I said that when they come to the hospital, the nurses can direct him to the proper physician to discuss these issues. Perhaps remove the chest tube tomorrow, if no air leak is present. Chest x-ray looks good today. Job ID: [id number]
--- NOTE | 2020-06-02 08:00 | RAD ---
Portable frontal chest radiograph: 06/02/2020 COMPARISON: 06/01/2020 HISTORY: Evaluate chest following left-sided thoracotomy/decortication FINDINGS: Midline sternotomy wires are present. There is a single lead transvenous pacing device inse rted via a left subclavian approach. There is mild hazy increased density in the right lung base with blunting of the right costophrenic angle which may signify a small right pleural effusion. There is a probable tiny pneumothorax in the left lung apex with a medial and lateral apical component. 2 left-sided chest tubes are in place. Small volume subcutaneous gas overlies the inferolateral aspec t of the left chest wall. Findings represent no significantly changed when compared to the prior study performed 06/01/2020. IMPRESSION: No significant interval change.
--- NOTE | 2020-06-02 09:47 | PRG ---
DATE OF SERVICE: 06/02/2020 SUBJECTIVE: Mr. Ba appears weak. No current specific complaints. The patient is off dobutamine. Blood pressure appears stable. OBJECTIVE: VITAL SIGNS: Blood pressure 109/69, pulse 96, respirations 20. LUNGS: Clear to auscultation. HEART: Regular rate and rhythm. ABDOMEN: Soft, nontender, nondistended. EXTREMITIES: 2+ pitting edema. PERTINENT LABORATORY DATA: Hemoglobin 9.7. Creatinine 2.18, slightly elevated from 2.09. IMPRESSION: 1. Acute on chronic systolic heart failure. 2. Ischemic cardiomyopathy. 3. Cirrhosis. 4. Empyema. 5. Subacute bacterial endocarditis. 6. Renal insufficiency. RECOMMENDATIONS: 1. Would recommend adding low-dose Coreg at 3.125 one p.o. b.i.d. 2. Continue antibiotic therapy. 3. The patient with severe deconditioning and will need intensive rehab. Given multiorgan failure, given liver, kidney, and heart, prognosis continues to be guarded. Job ID: [id number]
[2020-06-02] MEDS: Sodium Bicarbonate Tab 325 MG TAB PO SCH ×3 (11:48→22:12)
[2020-06-02] MEDS: Hydrocortisone Sod Succ/PF 100 mg/2 ml Vial IVP SCH ×2 (12:47→22:12)
[2020-06-02] MEDS: HumaLOG 300 UNITS/3 ML VIAL SC PRN ×2 (12:49→23:16)
--- NOTE | 2020-06-02 14:10 | PRG ---
DATE OF SERVICE: 06/02/2020 SUBJECTIVE: Mr. Ba received 2 lactulose enemas last night. He seems a bit more alert today, but he is really still unable to meaningfully communicate, and per nursing staff, he was unable to accept any oral lactulose or other medications. OBJECTIVE: VITAL SIGNS: Temperature 98.9, blood pressure 119/73, heart rate 103, 98% oxygen saturation on room air. GENERAL: He is in no acute distress, chronically ill. He response to voice, but does not meaningfully communicate. He is responding to internal stimuli. HEART: Regular tachycardia. LUNGS: Decreased breath sounds on the left side. ABDOMEN: Moderate distention. Bowel sounds present. Soft. Some minimal tenderness to deep palpation, but no guarding or rebound tenderness. EXTREMITIES: No peripheral edema. LABORATORY STUDIES: Sodium 142, potassium 3.5, BUN 101, creatinine up to 2.18, glucose 308. WBC is up to 21.7, hemoglobin 9.7, platelets 284. INR 2.1 on last check 1 week ago. ASSESSMENT AND PLAN: 1. Empyema, status post decortication. 2. Hepatic encephalopathy. The patient is still not really awake enough to take oral lactulose. We are going to give 2 more lactulose enemas today and hopefully be able to accept oral tomorrow. We will recheck ammonia level tomorrow. 3. Cirrhosis, unclear etiology, could be secondary to chronic passive congestion from his heart failure. This is quite decompensated with ascites and encephalopathy as well as hepatorenal syndrome. Prognosis is poor. We will recheck LFTs and INR tomorrow. 4. Severe cardiomyopathy. 5. GI will continue to follow along. Job ID: [id number]
[2020-06-02] MEDS: cefTRIAXone\\ROCEPHIN 2 GM in Sodium Chloride 0.9% 100 ML IVPB SCH (15:24)
--- NOTE | 2020-06-02 18:05 | PDOC.HOSPP ---
- Subjective Encounter Date: 06/02/20 Encounter Time: 18:00 Subjective: f/u for L empyema s/p decortication on Roecephin IV. Remains lethargic, confused and encephalopathic. - Objective Vital Signs & Weight: Vital Signs (12 hours) Temp Pulse Pulse BP BP 06/02/20 15:42 99.5 F 06/02/20 13:00 98.9 F 06/02/20 09:00 79 91 103/68 109/67 06/02/20 07:54 98.2 F Weight Admit Weight 191 lb Weight 177 lb 6.4 oz Most Recent Monitor Data Heart Rate from ECG 105 NIBP 113/71 NIBP BP-Mean 85 Respiration from ECG 38 SpO2 97 I&O: 06/01/20 06/02/20 06/03/20 06:59 06:59 06:59 Output Total 5548 3948 Balance -2648 -6439 Result Diagrams: 06/02/20 03:24 06/02/20 03:23 Additional Labs: Accuchecks 06/02/20 06/02/20 06/02/20 17:03 10:39 05:34 POC Glucose 379 H 308 H 281 H 06/01/20 21:48 POC Glucose 305 H Microbiology 05/26/20 09:40 Pleural fluid Body Fluid Culture - Final Streptococcus Group G 05/25/20 15:29 Urine voided Urine Culture - Final NO GROWTH AT 36 HOURS 05/25/20 12:30 Venous blood - Left Arm Blood Culture - Final NO GROWTH IN 5 DAYS 05/25/20 12:17 Venous blood - Right Arm Blood Culture - Final NO GROWTH IN 5 DAYS 05/26/20 09:40 Pleural fluid Acid Fast Bacilli Culture - Preliminary Specimen has been received and culture in progress. No Growth to date. Laboratory Tests 08/17/19 08/18/19 08/18/19 19:52 01:22 04:15 WBC Hgb Band Neuts % (Manual) Sodium 133 L 131 L 132 L Creatinine 1.46 H 1.53 H Lactic Acid 08/19/19 05/25/20 05/25/20 08:19 12:09 12:30 WBC Hgb 12.9 L Band Neuts % (Manual) Sodium 128 L Creatinine 2.13 H Lactic Acid 3.2 H 05/25/20 05/26/20 05/27/20 15:28 08:21 03:30 WBC Hgb Band Neuts % (Manual) Sodium 125 L Creatinine 2.71 H Lactic Acid 2.9 H 2.4 H 05/27/20 05/27/20 05/27/20 05:00 15:54 15:54 WBC Hgb 7.3 L 8.4 L Band Neuts % (Manual) Sodium 125 L Creatinine 2.74 H Lactic Acid 05/28/20 05/28/20 05/29/20 05:05 05:05 03:25 WBC Hgb 7.7 L Band Neuts % (Manual) Sodium 128 L 128 L Creatinine 3.06 H 3.20 H Lactic Acid 05/29/20 05/29/20 06/01/20 03:25 18:17 03:24 WBC 18.8 H Hgb 8.4 L 9.8 L Band Neuts % (Manual) 2 L Sodium Creatinine Lactic Acid 2.3 H 06/02/20 03:24 WBC Hgb Band Neuts % (Manual) 25 H Sodium Creatinine Lactic Acid Radiology Reviewed by me: Yes (PCXR - 2 left-sided chest tubes, + effusion) EKG Reviewed by me: Yes (Tele - sinus tach in low-100's) Hospitalist ROS - Medication Medications: Active Medications Generic Name Dose Route Start Last Admin Trade Name Freq PRN Reason Stop Dose Admin Famotidine 20 mg 05/27/20 21:00 06/01/20 21:51 Famotidine/Pf 20 Mg/2ml Vial SLOW IVP 20 mg 2100 ESPERANZA Administration Hydrocortisone Sodium Succinate 50 mg 05/28/20 09:00 06/02/20 12:47 Hydrocortisone Sod Succ/Pf 100 Mg/2 Ml Vial IVP 50 mg BID ESPERANZA Administration Ceftriaxone Sodium 2 gm/ 100 mls @ 200 mls/hr 05/27/20 15:00 06/02/20 15:24 Sodium Chloride IVPB 100 mls 1500 ESPERANZA Administration Dobutamine HCl/Dextrose 250 mls @ 6.353 mls/hr 05/28/20 11:45 05/30/20 17:24 Dobutamine 500 Mg/250 Ml IVPB 250 mls INF ESPERANZA Administration Protocol 2.5 MCG/KG/MIN Insulin Human Lispro 0 units 05/25/20 19:51 06/02/20 12:49 Humalog 300 Units/3 Ml Vial SC 5 unit .MILD SLIDING SCALE PRN Administration Mild Correctional Scale Lactulose 20 gm 06/01/20 21:00 06/02/20 15:25 Lactulose 20 Gm/30 Ml Udcup PO Not Given TID ESPERANZA Sodium Bicarbonate 650 mg 06/01/20 21:00 06/02/20 11:48 Sodium Bicarbonate Tab 325 Mg Tab PO Not Given BID ESPERANZA Sodium Chloride 10 ml 05/28/20 21:00 06/02/20 12:48 Flush - Normal Saline 10 Ml Syringe IVF 10 ml Q12HR ESPERANZA Administration - Exam General Appearance: ill appearing General - other findings: somnolent Eye: PERRL, scleral icterus ENT: normocephalic atraumatic, no oropharyngeal lesions Neck: supple, symmetric, no JVD, no thyromegaly, no lymphadenopathy Heart: no gallops, no rubs, normal peripheral pulses Heart - other findings: S1, S2 tachycardic Respiratory: rhonchi Respiratory - other findings: diminished bilat, occ rhonchi Gastrointestinal: normal bowel sounds, no palpable masses, no guarding, no rigidity Gastrointestinal - other findings: distended Extremities: no cyanosis, no edema Skin: normal turgor Neurological: cranial nerve grossly intact, no new deficit Musculoskeletal: generalized weakness Psychiatric: oriented to person, flat affect, somnolent, lethargic Hosp A/P (1) Empyema lung Code(s): J86.9 - PYOTHORAX WITHOUT FISTULA Status: Acute Plan: s/p decortication with chest tubes, Rocephin IV (2) Decompensated hepatic cirrhosis Code(s): K72.90 - HEPATIC FAILURE, UNSPECIFIED WITHOUT COMA; K74.60 - UNSPECIFIED CIRRHOSIS OF LIVER Status: Acute Plan: Likely due to CHF and fatty liver component, Lactulose (3) Acute on chronic systolic ACC/AHA stage C congestive heart failure Code(s): I50.23 - ACUTE ON CHRONIC SYSTOLIC (CONGESTIVE) HEART FAILURE Status: Acute Plan: Dobutamine gtt/Coreg (4) Acute worsening of stage 3 chronic kidney disease Code(s): N18.3 - CHRONIC KIDNEY DISEASE, STAGE 3 (MODERATE) * DO NOT USE * Status: Acute (5) Hemothorax on left Code(s): J94.2 - HEMOTHORAX Status: Acute (6) Acute blood loss anemia Code(s): D62 - ACUTE POSTHEMORRHAGIC ANEMIA Status: Acute Plan: s/p 5u PRBC's, stable currently - Plan continue antibiotics, PT/OT, social worker clinical, respiratory therapy, DVT proph w/SCDs Continue supportive mgmt Continue Rocephin Continue Dobutamine gtt WCT for LE wounds OOB with PT CM for SNF/Rehab options Consider Palliative care options AM lab: BMP, CBC, Ammonia PCXR in am
--- NOTE | 2020-06-02 20:54 | PRG ---
DATE OF SERVICE: 06/02/2020 SUBJECTIVE: Mr. Ba is clinically unchanged. His feels he is a less encephalopathic. OBJECTIVE: VITAL SIGNS: Heart rates 105, blood pressure 114/70, and respiratory rates of 20s. LUNGS: Unchanged. HEART: Unchanged. ABDOMEN: Unchanged. Does not have an air leak today. LABORATORY DATA: White count 21.7, hemoglobin 9.7, platelets 284. Sodium 142, potassium 3.5, chloride 98, bicarb 23, BUN 101, and creatinine 2.18. IMPRESSION: 1. Empyema, status post decortication. 2. Acute on chronic kidney disease. 3. Cirrhosis. 4. Prerenal azotemia. 5. Encephalopathy, which is not surprising given his multiple medical problems. PLAN: Continue supportive care. Other problems include ischemic cardiomyopathy, endocarditis, extreme deconditioning. every day, but I do not think he will survive this. I do not see him passing away any time soon, but I just do not think he can recover from this illness. Job ID: [id number]
[2020-06-02] MEDS: Carvedilol 3.125 MG TAB PO SCH ×2 (22:12→22:24)
[2020-06-02] MEDS: Famotidine/PF 20 mg/2ml Vial SLOW IVP SCH (22:13)
[2020-06-02] MEDS: Acetaminophen 650 MG Suppository PR PRN (23:16)
[2020-06-02 23:37] LABS: Bacteria/HPF None Seen HPF (None Seen); Bilirubin 1+ (Negative); Blood, Urine Trace (Negative); Clarity Clear (Clear); Glucose, Urine (Dipstick) Greater than 1000 mg/dL (Negative); Ketone, Urine 10 mg/dL (Negative); Leukocyte Negative Leu/uL (Negative); Nitrite Negative (Negative); Protein, Urine (Dipstick) 20 mg/dL (Neg-Trace); RBC/HPF 0-3 HPF (0-3); Specific Gravity, Urine 1.018 (1.002-1.036); Squamous Epithelial 0-3 HPF (0-3); WBC/HPF 0-3 HPF (0-3); pH, Urine 5.5 (5.0-9.0)
[2020-06-02 23:45] LABS: Urine Culture Reflex No No
--- NOTE | 2020-06-03 00:55 | PRG ---
DATE OF SERVICE: 06/03/2020 SUBJECTIVE: The patient is seen and examined with no new complaints. Seems much more alert today. OBJECTIVE: Noted with the following: VITAL SIGNS: Blood pressure 118/70, temperature of 99.5, respiratory rate of 97%. HEENT: Unremarkable. CARDIOVASCULAR SYSTEM: First and second heart sounds were heard. RESPIRATORY SYSTEM: Clear to auscultation anteriorly. DIGESTIVE SYSTEM: Revealed distended abdomen. EXTREMITIES: Showed minimal edema. LABORATORY INVESTIGATION: Showed a hemoglobin of 9.7 with a white count of 21,700. Chemistry showed a creatinine of 2.18 and BUN of 101. IMPRESSION: 1. Acute on chronic kidney disease, seems to be stabilizing with a creatinine . 2. Ascites, status post paracentesis. 3. Hemothorax, status post chest tube. PLAN: We will continue with current renal supportive measures. Job ID: [id number]
[2020-06-03 03:55] LABS: INR-International Normal Ratio 2.2; Prothrombin Time 24.5 sec (12.0-14.7)
[2020-06-03 04:03] LABS: ALT (SGPT) 14 U/L (8-55); AST (SGOT) 36 U/L (5-34); Albumin 2.6 g/dL (3.4-4.8); Alkaline Phosphatase 140 U/L (40-110); Anion Gap 27 mmol/L (10-20); BUN (Urea Nitrogen) 116 mg/dL (8.4-25.7); Bilirubin, Total 7.6 mg/dL (0.2-1.2); Calc. Creatinine Clearance 36 mL/min (70-130); Calcium 8.3 mg/dL (7.8-10.44); Carbon Dioxide 22 mmol/L (23-31); Chloride 99 mmol/L (98-107); Estimated GFR-MDRD 27; Globulin 4.5 g/dL (2.4-3.5); Glucose 421 mg/dL (80-115); Potassium 3.7 mmol/L (3.5-5.1); Protein, Total 7.1 g/dL (5.8-8.1); Sodium 144 mmol/L (136-145)
[2020-06-03 04:35] LABS: Band 7 % (5-11); Hemoglobin 9.7 g/dL (14.0-18.0); Hypochromia SLIGHT = 6-15 cells (100X) (0-5/hpf); MDiff Complete? YES; Mean Corpuscular HGB CONC 32.4 g/dL (32.0-36.0); Mean Corpuscular Hemoglobin 29.3 pg (27.0-31.0); Mean Corpuscular Volume 90.6 fL (78.0-98.0); Mean Platelet Volume 7.3 fL (7.4-10.4); Monocytes 3 % (0-10); Neutrophil 90 % (42-75); Nucleated RBC 2 % (0); Platelet Count 272 thou/uL (130-400); Platelet Morphology Comment Appears Adequate; RBC Distribution Width 19.1 % (11.5-14.5); Red Blood Cell (RBC) Count 3.31 mill/uL (4.70-6.10); White Blood Cell (WBC) Count 22.8 thou/uL (4.8-10.8)
[2020-06-03] MEDS: HumaLOG 300 UNITS/3 ML VIAL SC PRN ×2 (06:03→17:20)
[2020-06-03] MEDS: Acetaminophen 650 MG Suppository PR PRN ×2 (06:05→10:55)
--- NOTE | 2020-06-03 08:18 | RAD ---
PORTABLE CHEST: HISTORY: Followup decortication. ICU followup. COMPARISON: 06/02/2020. FINDINGS: Left chest tubes are unchanged. Small left pneumothorax again noted. Not significantly changed. Bibasilar atelectasis and/or infiltrates. Small bilateral effusions. IMPRESSION: No significant interval change. POS: AGW
[2020-06-03] MEDS: Carvedilol 3.125 MG TAB PO SCH (10:24)
[2020-06-03] MEDS: Sodium Bicarbonate Tab 325 MG TAB PO SCH (10:25)
[2020-06-03] MEDS: Hydrocortisone Sod Succ/PF 100 mg/2 ml Vial IVP SCH (10:34)
[2020-06-03 12:01] VITALS: BMI 26.2
--- NOTE | 2020-06-03 12:42 | CON ---
DATE OF CONSULTATION: 06/03/2020 SUBJECTIVE: Mr. Ba is not doing well today. He is more somnolent. He is not respond to voice. He did respond to voice yesterday. Blood pressure also appears a low in the 90s. He is not on pressors. OBJECTIVE: VITAL SIGNS: Blood pressure 97/64, pulse 98, and temperature afebrile. IMPRESSION: 1. Acute on chronic systolic heart failure. 2. Ischemic cardiomyopathy. 3. Cirrhosis. 4. Empyema with sepsis. RECOMMENDATIONS: Mr. Ba's status has changed. He appears to be doing worse. Discussed the case with Dr. Greg Bridges. He appears to have shallow breathing. Dr. Bridges has addressed this with the family. They have made him DNR and comfort care only. Would certainly agree based on his comorbidities and multiorgan failure. Otherwise, I have no further recommendations. Job ID: [id number]
[2020-06-03] MEDS: cefTRIAXone\\ROCEPHIN 2 GM in Sodium Chloride 0.9% 100 ML IVPB SCH (15:38)
--- NOTE | 2020-06-03 15:58 | PRG ---
DATE OF SERVICE: 06/03/2020 Osvaldo Ba looks worse this morning. He is less responsive. He was using more accessory muscles and more labored. Heart rate was 100, blood pressure is in the 90s, oximetry is in the 90s, respiratory rates in the 30s to low 40s. Lungs, heart, and abdomen are otherwise unchanged. White count 22.8, hemoglobin 9.7, platelets 272. Electrolytes are unremarkable. Creatinine is 2.45, BUN is 116. The was contacted. She wants to proceed forward with comfort care. I have explained that it is unlikely that he will survive this. She just wants him kept comfortable. She says he has been absolutely miserable for the last year. Job ID: [id number]
[2020-06-03] MEDS ORDERED: Artificial Tear Sol 15 ML BOT EA EYE PRN (20:00)
[2020-06-03] MEDS ORDERED: BIOTENE MOUTH SPRAY 44.3 ML MM PRN (20:01)
[2020-06-03] MEDS ORDERED: Lorazepam 2 MG/ML VIAL SLOW IVP PRN (20:02)
[2020-06-03] MEDS ORDERED: Haloperidol Lactate 5 MG/ML VIAL SLOW IVP PRN ×2 (20:02→20:05)
[2020-06-03] MEDS ORDERED: Dexamethasone 4 mg/ml Vial SLOW IVP PRN (20:02)
[2020-06-03] MEDS ORDERED: Ondansetron PF 4 MG/2 ML Vial IVP PRN (20:04)
[2020-06-03] MEDS ORDERED: Haloperidol 1 MG TAB PO PRN (20:05)
[2020-06-03] MEDS ORDERED: diphenhydrAMINE 25 MG CAP PO PRN (20:09)
[2020-06-03] MEDS ORDERED: Morphine 2 MG/ML VIAL SLOW IVP PRN ×2 (20:09→20:10)
[2020-06-03] MEDS ORDERED: diphenhydrAMINE 50 MG/ML VIAL IVP PRN (20:09)
[2020-06-03] MEDS ORDERED: Acetaminophen 325 MG TAB PO PRN (20:11)
[2020-06-03] MEDS ORDERED: Acetaminophen 650 MG Suppository PR PRN (20:12)
[2020-06-03] MEDS ORDERED: Scopolamine 1.5 mg/72 hour Patch TOP SCH (21:00)
[2020-06-03 21:09] VITALS: BP 101/73
[2020-06-03] MEDS: Lorazepam 2 MG/ML VIAL SLOW IVP PRN (21:11)
--- NOTE | 2020-06-03 21:16 | PRG ---
DATE OF SERVICE: 06/03/2020 SUBJECTIVE: The patient is seen and examined, not doing very well. Noted with the following vital signs. OBJECTIVE: VITAL SIGNS: Afebrile with temperature 98, respiratory rate of 35, blood pressure 106/60. HEENT EXAMINATION: Unremarkable. CARDIOVASCULAR SYSTEM: First and second heart sounds were heard. RESPIRATORY SYSTEM: Clear to auscultation. DIGESTIVE SYSTEM: Reveal a distended abdomen. IMPRESSION: 1. Acute on chronic kidney disease. 2. Coagulopathy. 3. Multiorgan failure. PLAN: Continue current renal supportive measures. PROGNOSIS: Very poor. Job ID: [id number]
--- NOTE | 2020-06-03 22:53 | DIS ---
DATE OF ADMISSION: 05/25/2020 DATE OF DISCHARGE: 06/03/2020 DISCHARGE DIAGNOSES: 1. Empyema of the left lung, status post decortication with chest tube placement with group G streptococcal species. 2. Decompensated hepatic cirrhosis due to congestive heart failure and fatty liver component. 3. Acute on chronic systolic congestive heart failure with ejection fraction of 15% to 20%. 4. Acute on chronic kidney disease stage 3. 5. Hemothorax on the left. 6. Acute blood loss anemia, status post 5 units of packed red blood cells and 4 units of fresh frozen plasma. 7. Diabetes mellitus type 2. 8. Spontaneous bacterial peritonitis, suspected. 9. Portal vein thrombosis. CONSULTATIONS: Dr. Tobias and Dr. Bridges with Pulmonology Critical Care Service. Dr. Rivas and Dr. Benítez with GI Service. Dr. Garcia with Vascular Surgery Service. Dr. Breezy Morton with Infectious Disease Service. Dr. Will with Nephrology Service. PERTINENT LABORATORY AND X-RAY FINDINGS: Sodium ranged between 124 to 144, potassium ranged between 3.0 to 4.4, creatinine ranged between 1.44 to 3.20, lactic acid level ranged between 2.3 to 3.2. Serum iron level 31, ferritin 745, ammonia level ranged between 26 to 72. Troponin I ranged between 0.032 to 0.057. BNP 3195. CBC showed a white blood cell count ranging between 8.9 to 22.8, hemoglobin ranged between 7.7 to 12.9. INR ranged between 1.6 to 2.7. PEGGY screen negative on 05/26/2020. Hepatitis A, B, and C panel negative on 05/27/2020. Blood cultures x2 dated 05/25/2020, showed no growth at 5 days. Urine culture dated 05/25/2020, showed no growth at 36 hours. Pleural fluid culture dated 05/26/2020 positive for Streptococcus group G. Acid-fast bacilli smear from pleural fluid culture dated 05/26/2020 negative. Blood cultures x1 dated 06/02/2020, showed no growth to date. CT of the abdomen and pelvis dated 05/25/2020, showed hepatic cirrhosis with large volume ascites and large left pleural effusion. Intraluminal thrombus of the left portal vein. Portable chest x-ray dated 05/25/2020, showed left layering pleural effusion. Left pleural fluid cytology dated 05/26/[address] cells. CT of the chest dated 05/27/2020 showed large left hemothorax. Complex ascites. Complex loculated fluid in the left superior mediastinum. 2D transthoracic echocardiogram dated 05/26/2020 showed ejection fraction of 15% to 20%. Severe left atrial enlargement. Moderate mitral regurgitation. Severe tricuspid regurgitation. Moderate elevated PA systolic pressure. HOSPITAL COURSE: The patient was initially admitted after initially presenting with increasing abdominal distention in the context of known congestive heart failure with ejection fraction of 15%. The patient underwent extensive evaluation including CT of the abdomen and pelvis showing large volume ascites with associated hepatic architecture consistent with cirrhosis. The patient was also noted with elevated lactic acidosis and elevated BNP of greater than 3000. The patient initially received IV Lasix, Rocephin, azithromycin, and Lovenox in the emergency room. The patient was evaluated by the Pulmonology Critical Care Service in addition to the GI Service, undergoing paracentesis and initially placed on midodrine and IV albumin. The patient was ruled out for viral hepatitis with negative studies as stated previously. The patient also underwent thoracentesis on 05/26/2020, with the fluid appearing to be parapneumonic in nature. Due to the volume of fluid in the chest, the patient was evaluated by the Vascular Surgery Service, undergoing chest tube placement x2 on 05/27/2020 with hemothorax noted on imaging studies. The patient continued with chest tube drainage and monitoring of chest imaging and respiratory status. The patient was also treated for streptococcal species in the pleural fluid and culture analysis and received antibiotic therapy throughout the remainder of the hospital course. The patient also received broad-spectrum IV antibiotic therapy after concern for potential spontaneous bacterial peritonitis. Due to the patient's multiple comorbid conditions and deconditioned status, discussions were had with the family regarding goals of care and potential consideration for palliative measures. The patient did not clinically improve with aggressive interventions and continued to clinically decline. Due to multitude of comorbid status, worsening metabolic parameters and advanced heart failure, the patient decided to pursue palliative care and inpatient hospice. I have examined the patient at the time of discharge on 06/03/2020, as the patient will transition to inpatient hospice care. DISCHARGE MEDICATIONS: Reviewed and negative. FOLLOWUP: The patient to follow up with [facility] for inpatient management. CODE STATUS: Do not attempt resuscitation. DIET: Diabetic as tolerated. DISPOSITION: Transition to inpatient hospice care on 06/03/2020. TIME SPENT: Total time preparing and coordinating transfer of care and discharge, 35 minutes. Job ID: [id number]
[2020-06-04] MEDS: Morphine 2 MG/ML VIAL SLOW IVP PRN ×2 (00:05→03:23)
[2020-06-04] MEDS: Lorazepam 2 MG/ML VIAL SLOW IVP PRN (02:29)
[2020-06-04 04:22] VITALS: TEMP 99.4
--- NOTE | 2020-06-04 07:47 | PRG ---
DATE OF SERVICE: 06/03/2020 SUBJECTIVE: The patient is not arousable this morning. Reportedly, he was a little bit more awake yesterday where oral lactulose was given. PHYSICAL EXAMINATION: VITAL SIGNS: Temperature is 99.2, blood pressure 97/60, pulse GENERAL: He is very somnolent, not arousable. HEENT: Shows bilateral icteric sclerae. NECK: Supple. CV: Exam shows normal S1 and S2 RRR. CHEST: Exam shows bilateral coarse sounds. ABDOMEN: Soft. No distention. No tympany. No tenderness. LABORATORY DATA: Electrolytes within normal range. Creatinine 2.45, BUN of 116, bilirubin 7.6. AST 36, ALT 14, serum ammonia 72. PT 24.5, INR 2.2. ASSESSMENT: 1. Decompensated cirrhosis with hepatorenal syndrome, hepatic encephalopathy and ascites. 2. Renal failure with increasing creatinine, likely from hepatorenal syndrome. 3. Severe cardiomyopathy. 4. Status post decortication for empyema. 5. Overall, the patient is not doing well with very poor prognosis. RECOMMENDATIONS: 1. Overall supportive measure as best we can do. 2. We will start rectal lactulose as the patient is not awake for oral lactulose, we will start it 20 g per rectally t.i.d. 3. We will follow. Job ID: [id number] [facility]
[2020-06-04] MEDS ORDERED: Docusate 100 MG CAP PO SCH (09:00)
--- NOTE | 2020-06-05 13:21 | EKG ---
Test Reason : Blood Pressure : / mmHG Vent. Rate : 168 BPM Atrial Rate : 084 BPM P-R Int : 000 ms QRS Dur : 106 ms QT Int : 314 ms P-R-T Axes : 000 036 188 degrees QTc Int : 524 ms Supraventricular tachycardia T wave abnormality, consider inferior ischemia Abnormal ECG No previous ECGs available Confirmed by DR. Yoko VAZ ([id number]) on 06/05/2020 1:20:56 PM Referred By: IDA TATE Confirmed By:DR. Yoko VZA
--- NOTE | 2020-06-05 15:45 | DIS ---
DATE OF ADMISSION: 05/25/2020 DATE OF DISCHARGE: 06/03/2020 DISCHARGE DIAGNOSES: 1. Empyema of the left lung with group G Streptococcus, status post decortication and chest tube placement. 2. Decompensated hepatic cirrhosis, likely due to congestive heart failure and fatty liver component. 3. Acute on chronic systolic stage C congestive heart failure. 4. Acute on chronic kidney disease, stage 3. 5. Hemothorax of the left. 6. Acute blood loss anemia, status post 5 units of packed red blood cells and 4 units of fresh frozen plasma. 7. Left portal vein thrombosis. 8. Suspected spontaneous bacterial peritonitis. 9. Hyponatremia. 10. Diabetes mellitus, type 2. CONSULTATIONS: 1. Dr. Tobias and Dr. Bridges with Pulmonology/Critical Care Service. 2. Dr. Apple and Dr. Rivas with GI Service. 3. Dr. Daphney Will with Nephrology Service. 4. Dr. Garcia with Thoracic Surgery Service. 5. Dr. Rojo with Cardiology Service. 6. Dr. Breezy Morton with Infectious Disease Service. PERTINENT LABORATORY AND X-RAY FINDINGS: Sodium ranged between 124 to 144. Creatinine ranged between 1.44 to 3.20. Lactic acid level ranged between 2.3 to 3.2. Serum iron level 31. Ferritin 745. AST ranged between 20 to 36. ALT ranged between less than 7 to 14. Total bilirubin ranged between 7.6 to 9.5. Serum ammonia level ranged between 26 to 72. BNP 3195. Albumin ranged between 2.4 to 2.9. Lipase 19. CBC showed a white blood cell count ranging between 8.9 to 22.8, hemoglobin ranged between 7.3 to 12.9. INR ranging between 1.6 to 2.7. PEGGY screen negative on 05/26/2020. Hepatitis A, B, and C panel negative on 05/27/2020. Blood cultures x2 dated 05/25/2020, showed no growth at 5 days. Urine culture dated 05/25/2020, showed no growth at 36 hours. Pleural fluid culture dated 05/26/2020, showed Streptococcus group G pansensitive. Pleural fluid, direct acid-fast bacilli smear and AFB culture negative on 05/27/2020. Blood culture x1 dated 06/02/2020, showed no growth to date. CT of the abdomen and pelvis dated 05/25/2020, showed hepatic cirrhosis with large volume ascites and large left pleural effusion. Potential left portal vein thrombus. No evidence for bowel obstruction. Portable chest x-ray dated 05/25/2020, showed enlarging left pleural effusion. Cytology of pleural fluid dated 05/26/2020, showed no malignant cells identified. Acute inflammatory cells and red blood cells noted. Job ID: [id number]
--- NOTE | 2020-06-06 05:21 | PQF ---
Dear : Sai Rojas Date 06/06/20 Please exercise your independent, professional judgment in responding to the clarification form. Clinical indicators are provided on the bottom of this form for your review Can you please further clarify if Sepsis is POA or not? Diagnosis: Sepsis Present on Admission (POA): [ x ] Yes [ ] No [ ] Unable to determine Physician Signature: Date/Time: For continuity of documentation, please document condition throughout progress notes and discharge summary. Thank You. To be completed by CDI/Coding staff for physician review: Present Clinical Indicators - Signs / Symptoms / Labs Results and Location in Medical Record [ x ] VS: BP 96/69, Pulse 102, RR 18, Temp: 98 ED Provider pg.1 05/25/20 [ x ] Reported shortness of breath 2/2 abdominal distension H and P pg.1 [ x ] Lactic acidosis H and P pg.4 [ x ] WBC: 11.1H, 12.3H, 10.5, 8.9,11.1H, 10.9H, 10.0H, 18.8H, 21.7H, 22.8H Laboratory [ x ] Lactic acid: 3.2H, 2.9H, 2.4H, 2.3H Laboratory [ x ] Pleural fluid: Streptococcus group G Microbiology 05/26 [ x ] Hypotension, Sepsis, versus hemothorax PN 05/[address] Tobias [ x ] Empyema with Sepsis Consult Dr. Rojo 06/03 pg.1 [ x ] Empyema of the left lung with group G streptococcus s/p decortication DS pg.1 Present Risk Factors Results and Location in Medical Record [ x ] 64 years old H and P pg.1 [ x ] Spontaneous bacterial peritonitis peritoneal DS pg.1 [ x ] Decompensated liver cirrhosis H and P pg.4 [ x ] Acute decompensated systolic CHF H and P pg.4 [ x ] Empyema Hospitalist PN 05/27 pg.5 Present Treatments Results and Location in Medical Record [ x ] Abdomen/Pelvis CT05/25 [ x ] Chest X ray 05/25 [ x ] Paracentesis Ultrasound 05/26 [ x ] Pulmonary Consult Dr. Tobias 05/26 [ x ] Thoracentesis 05/26 [ x ] IV Fluids MAR [ x ] Lactic acid Monitoring Laboratory [ x ] WBC Monitoring Laboratory [ x ] Pleural Fluid culture Microbiology [ x ] IV Antibiotics MAR CDS/Sheet Writer Signature: Luis Ramires Phone #: ext [phone] Date 06/06/20 This is a permanent part of the Medical Record [facility]
== END 2020-06-03 17:48 | disposition hospice, inpatient (51) | DRG 853 ==
LOC: ERS 11:39 → IMCU/EMU 15:12 → CCU 05-26 22:42 → IMCU/EMU 05-30 07:53
PROVIDERS: ADMIT Internal Medicine; ATTEND Internal Medicine
PROC: 0W9G30Z Drainage of Peritoneal Cavity with Drainage Device, Percutaneous Approach (ICD-10-PCS; 2020-05-26)
PROC: 0W9B3ZZ Drainage of Left Pleural Cavity, Percutaneous Approach (ICD-10-PCS; 2020-05-26)
PROC: 0BCL4ZZ Extirpation of Matter from Left Lung, Percutaneous Endoscopic Approach (ICD-10-PCS; principal; 2020-05-27)
PROC: 0B9L4ZZ Drainage of Left Lung, Percutaneous Endoscopic Approach (ICD-10-PCS; 2020-05-27)
PROC: 02HV33Z Insertion of Infusion Device into Superior Vena Cava, Percutaneous Approach (ICD-10-PCS; 2020-05-27)
PROC: 3E033XZ Introduction of Vasopressor into Peripheral Vein, Percutaneous Approach (ICD-10-PCS; 2020-05-27)
PROC: 0BH17EZ Insertion of Endotracheal Airway into Trachea, Via Natural or Artificial Opening (ICD-10-PCS; 2020-05-27)
PROC: 5A1935Z Respiratory Ventilation, Less than 24 Consecutive Hours (ICD-10-PCS; 2020-05-27)
PROC: 30233L1 Transfusion of Nonautologous Fresh Plasma into Peripheral Vein, Percutaneous Approach (ICD-10-PCS; 2020-05-27)
PROC: 30233N1 Transfusion of Nonautologous Red Blood Cells into Peripheral Vein, Percutaneous Approach (ICD-10-PCS; 2020-05-27)
PROC: 30233K1 Transfusion of Nonautologous Frozen Plasma into Peripheral Vein, Percutaneous Approach (ICD-10-PCS; 2020-05-27)
DX: A40.8 Other streptococcal sepsis (principal); J86.9 Pyothorax without fistula; I81 Portal vein thrombosis; K65.2 Spontaneous bacterial peritonitis; K76.7 Hepatorenal syndrome; N17.0 Acute kidney failure with tubular necrosis; I50.23 Acute on chronic systolic (congestive) heart failure; I33.0 Acute and subacute infective endocarditis; K66.1 Hemoperitoneum; R57.8 Other shock; G92 Toxic encephalopathy; E87.2 Acidosis; J90 Pleural effusion, not elsewhere classified; E87.1 Hypo-osmolality and hyponatremia; R18.8 Other ascites; I13.0 Hypertensive heart and chronic kidney disease with heart failure and stage 1 through stage 4 chronic kidney disease, or unspecified chronic kidney disease; D62 Acute posthemorrhagic anemia; J94.2 Hemothorax; I47.1 Supraventricular tachycardia; Z66 Do not resuscitate; Z51.5 Encounter for palliative care; K74.60 Unspecified cirrhosis of liver; L89.152 Pressure ulcer of sacral region, stage 2; E78.5 Hyperlipidemia, unspecified; N20.0 Calculus of kidney; I25.10 Atherosclerotic heart disease of native coronary artery without angina pectoris; I08.1 Rheumatic disorders of both mitral and tricuspid valves; E11.22 Type 2 diabetes mellitus with diabetic chronic kidney disease; I25.5 Ischemic cardiomyopathy; K76.0 Fatty (change of) liver, not elsewhere classified; N18.30 Chronic kidney disease, stage 3 unspecified; K72.90 Hepatic failure, unspecified without coma; E78.00 Pure hypercholesterolemia, unspecified; Z88.1 Allergy status to other antibiotic agents; Z88.8 Allergy status to other drugs, medicaments and biological substances; Z79.84 Long term (current) use of oral hypoglycemic drugs; Z79.899 Other long term (current) drug therapy; Z95.1 Presence of aortocoronary bypass graft; Z95.810 Presence of automatic (implantable) cardiac defibrillator; Z88.2 Allergy status to sulfonamides
CPT/HCPCS: 36415; 36416; 36430; 49083; 71045; 71250; 74177; 80048; 80053; 80074; 81001; 81003; 82042; 82140; 82150; 82553; 82570; 82728; 82805; 82945; 83540; 83550; 83605; 83615; 83690; 83735; 83880; 83986; 84156; 84157; 84300; 84478; 84484; 84540; 85025; 85060; 85384; 85610; 85730; 86038; 86225; 86850; 86900; 86901; 87040; 87070; 87077; 87086; 87116; 87186; 87205; 87206; 88112; 88305; 89051; 93005; 93010; 93306; 94002; 94003; 94760; 96365; 96367; 96372; 96375; J0153; J0456; J0696; J1100; J1250; J1642; J1650; J1720; J1815; J1940; J2060; J2270; J2354; J2405; J2704; J2916; J3010; J3490; J7050; P9016; P9045; P9047; P9059; Q0162; Q9967; S0028

== ENCOUNTER 2020-06-04 04:27 | Inpatient (IN) | payer OTHER ==
[2020-06-04 04:35] VITALS: BMI 28.2
[2020-06-04] MEDS ORDERED: Morphine 2 MG/ML VIAL SLOW IVP PRN ×3 (09:35→09:38)
[2020-06-04] MEDS ORDERED: Lorazepam 2 MG/ML VIAL SLOW IVP PRN (09:45)
[2020-06-04] MEDS ORDERED: diphenhydrAMINE 50 MG/ML VIAL IVP PRN (09:45)
[2020-06-04] MEDS ORDERED: Acetaminophen 325 MG TAB PO PRN (09:45)
[2020-06-04] MEDS ORDERED: diphenhydrAMINE 25 MG CAP PO PRN (09:45)
[2020-06-04] MEDS ORDERED: Haloperidol Lactate 5 MG/ML VIAL SLOW IVP PRN (09:45)
[2020-06-04] MEDS ORDERED: Acetaminophen 650 MG Suppository PR PRN (09:45)
[2020-06-04 10:16] VITALS: TEMP 99
--- NOTE | 2020-06-05 10:45 | DIS ---
DATE OF ADMISSION: 06/04/2020 DATE OF DISCHARGE: 06/04/2020 DATE AND TIME OF : June 04, 2020 at 11:49 a.m. DISPOSITION: Morgue or to home. HOSPITAL COURSE: This is a 64-year-old gentleman, who was admitted to the hospital for worsening emphysema of the lung and respiratory failure. The patient also had a history of hepatic cirrhosis and severe congestive heart failure with CKD stage 3 with acute renal failure and severe blood loss. The patient failed all medical therapy and was admitted to inpatient hospice and at the time noted above. No complications were reported. The patient comfortably and pain was controlled. Job ID: [id number]
== END 2020-06-04 11:49 | disposition expired | DRG 951 ==
LOC: IMCU/EMU 04:27 → ONC 11:04
PROVIDERS: ADMIT Internal Medicine Nephrology; ATTEND Internal Medicine Nephrology
DX: Z51.5 Encounter for palliative care (principal); J96.90 Respiratory failure, unspecified, unspecified whether with hypoxia or hypercapnia; I50.23 Acute on chronic systolic (congestive) heart failure; I81 Portal vein thrombosis; N17.9 Acute kidney failure, unspecified; I13.0 Hypertensive heart and chronic kidney disease with heart failure and stage 1 through stage 4 chronic kidney disease, or unspecified chronic kidney disease; E87.2 Acidosis; J90 Pleural effusion, not elsewhere classified; E87.1 Hypo-osmolality and hyponatremia; J43.9 Emphysema, unspecified; I34.0 Nonrheumatic mitral (valve) insufficiency; I07.1 Rheumatic tricuspid insufficiency; E11.22 Type 2 diabetes mellitus with diabetic chronic kidney disease; N18.30 Chronic kidney disease, stage 3 unspecified; Z95.1 Presence of aortocoronary bypass graft; Z90.49 Acquired absence of other specified parts of digestive tract; Z98.890 Other specified postprocedural states; K74.60 Unspecified cirrhosis of liver; R07.9 Chest pain, unspecified